=== PATIENT | female | born 1975 | race Caucasian/White ===

== ENCOUNTER → 2017-12-23 13:44 | Outpatient (CLI) | payer BC, SELFPAY ==
--- NOTE | 2017-12-23 13:52 | HPBI_ITS ---
MAMMOGRAPHY - BILATERAL SCREENING REASON FOR EXAM: Female, 42 years old. Routine annual screening examination. PERTINENT HISTORY: Non-contributory. TECHNIQUE: Digital bilateral breast amrita (3D mammographic acquisition) in the CC and MLO projections. 2-D mediolateral oblique (MLO) and craniocaudad (CC) views of both breasts were obtained. CAD: Full Field Digital Mammography with Computer Added Detection was performed. COMPARISON: Comparison is made with prior study dated November 28, 2016. FINDINGS: Breast Composition: There are scattered areas of fibroglandular density. There are no dominant masses or suspicious calcifications. No other significant abnormalities are identified. There has been no significant change since the prior study. HPBI/SCREENING MAMM (CAD), BILAT IMPRESSION: Stable bilateral screening mammogram. Yearly follow-up mammogram recommended. (A) ASSESSMENT CATEGORY: BIRADS Category 1: Negative. A letter regarding these results will be sent to the patient by the facility within 30 days. Approximately 10% of breast cancers are not detected by mammography. A normal mammogram should not delay biopsy of a clinically suspicious abnormality. [id number] Electronically Signed: Arie Silverman MD at 8:50 EST Tel [phone], Service support ,
== END ==
PROVIDERS: Family Provider Family Medicine; PCP Family Medicine; Visit Provider Obstetrics & Gynecology
DX: Z12.31 Encounter for screening mammogram for malignant neoplasm of breast (principal)
CPT/HCPCS: 77063; 77067

== ENCOUNTER → 2018-03-26 17:08 | Outpatient (CLI) | payer BC, SELFPAY | PROVIDERS: Visit Provider Obstetrics & Gynecology | DX: N89.8 Other specified noninflammatory disorders of vagina (principal) | CPT/HCPCS: 87070; 87077; 87106; 87205 ==

== ENCOUNTER → 2018-10-29 14:46 | Outpatient (CLI) | payer BC, SELFPAY ==
[2018-10-29 11:16] VITALS: BMI 34.1
== END ==
PROVIDERS: Family Provider Family Medicine; PCP Family Medicine; Referring Provider Physician Assistant; Visit Provider Physician Assistant
DX: J02.9 Acute pharyngitis, unspecified (principal)
CPT/HCPCS: 87081

== ENCOUNTER 2018-10-31 12:42 | Emergency (ER) | payer BC, SELFPAY ==
[2018-10-29 11:16] VITALS: BMI 34.1
[2018-10-31] VITALS (7 sets, daily range): BP systolic 108–155; BP diastolic 79–102; PULSE 100–123; RESP 15–21; TEMP 37.7–38.4; O2SAT 94–100; BMI 34.3
--- NOTE | 2018-10-31 12:49 | EKG12_ITS ---
Test Reason : SOB Blood Pressure : / mmHG Vent. Rate : 097 BPM Atrial Rate : 097 BPM P-R Int : 146 ms QRS Dur : 068 ms QT Int : 342 ms P-R-T Axes : 030 -16 071 degrees QTc Int : 434 ms Normal sinus rhythm Nonspecific T wave abnormality Poor R wave progression Abnormal ECG Confirmed by ANT AGUILAR, CASTRO ([id number]), writer editor COREY VERMA ([id number]) on 11/02/2018 12:44:21 PM Referred By: Edd Pagan Confirmed By:CASTRO CAIN MD
--- NOTE | 2018-10-31 12:49 | RAD_ITS ---
STUDY: X-RAY CHEST REASON FOR EXAM: Female, 42 years old. Cough. Chest pain. Fever with shortness of breath for 4 days. TECHNIQUE: Frontal and lateral views of the chest. COMPARISON: October 01, 2017 FINDINGS: There is low volume inspiration with bibasilar atelectasis. There are no focal consolidations. There is no demonstrated pleural abnormality. Normal size heart. Normal mediastinum and cici. Normal visualized pulmonary arteries. Normal visualized aortic arch and descending thoracic aorta. Normal visualized thoracic spine. Normal visualized ribs, clavicles, and shoulders. There is no demonstrated abnormality of the visualized soft tissue structures of the upper abdomen. RAD/Chest PA and Lateral IMPRESSION: Low volume inspiration with bibasilar atelectasis. No acute pathology. Electronically Signed: Porfirio Marino MD at 14:38 EST , Service support ,
--- NOTE | 2018-10-31 12:55 | ED.DCSUM_ITS ---
- ER Visit Summary Date of Service: 10/31/18 Chief Complaint: Cough, shortness of breath History of Present Illness: The patient is a 42 F presents to the emergency department with cough and shortness of breath. The patient had symptoms for the past 5 days. She was seen in urgent care. At that time, she had a negative influenza test. She also had a negative rapid strep. She states that her symptoms worsened. She has had continued cough with productive sputum. She had fevers and chills. She had pain across her chest with coughing. She is otherwise healthy. She has no history of immunosuppression. She does not smoke. is sick at home with similar symptoms. Physical Examination: Vital signs reviewed General: Well-nourished, well-developed Head: Normocephalic, atraumatic Eyes: Pupils equal and reactive, extraocular muscles intact Neck, supple, no lymphadenopathy Heart: Regular rate and rhythm Respiratory: No distress, diminished with wheezing throughout Abdomen: Soft, nontender, nondistended, no peritoneal signs Back: Nontender Extremities: Nontender, no edema, no cords Skin: Normal color no rash Neuro: Alert and oriented, no focal or lateralizing deficits Test Results: [] Emergency Department Course and Treatment: The patient presents with wheezing in all lung mixon, fever, productive cough. I am concerned that she may have pneumonia. IV was established. She was given fluids, Toradol, and steroids. She was also given nebulized breathing treatments and had improvement of her aeration. She was more comfortable. X-ray was read as no focal pneumonia, however I do suspect she has a left retrocardiac infiltrate. Screening labs are unremarkable. On reevaluation the patient is more comfortable. She wants to attempt outpatient therapy. I feel this is reasonable. She is not hypoxic. Her tachycardia has resolved when her fever was treated. I am to start on azithromycin. We will keep her on prednisone and antitussives. She was counseled concerning symptoms and reasons to return. Treatment Plan: [] Disposition: The Impression: 1. Community acquired pneumonia 2. Dyspnea This note was generated with Cloud[employer] software. It may contain incorrect words, spelling, and punctuation that were not noted in review of the chart prior to signing ED Disposition - Plan for ED Patient: Chief Complaint: Shortness of Breath Instructions: ED Pneumonia Adult Prescriptions: Albuterol Inhaler [Ventolin Hfa] 2 puff INHALATION Q4H PRN PRN #1 inhaler PRN Reason: Wheezing Azithromycin 200MG/5ML [Zithromax 200MG/5ML] 250 mg PO DAILY #30 ml Hydrocodone/APAP 7.5-325/15Ml [Lortab [Replacement] 7.5-325/15] 15 ml PO TID PRN PRN 3 Days #150 ml PRN Reason: Pain Prednisone 10 mg PO UD #33 tab Referrals: Aleksandra Douglas [Primary Care Provider] -
[2018-10-31] MEDS: Ipratropium/Albuterol Sulfate 3 ML AMPUL.NEB INHALATION (13:05)
[2018-10-31] MEDS: Albuterol 2.5 MG/3 ML VIAL.NEB. INHALATION ×3 (13:05→14:16)
[2018-10-31] MEDS: Ketorolac 30 MG/ML Syringe IV (14:12)
[2018-10-31] MEDS: MethylPREDNISolone 125 MG/2 ML Vial IV (14:13)
[2018-10-31 14:17] LABS: Absolute Lymphocyte Count 1.22 X10^3/ul (0.83-4.51); Absolute Neutrophil Count 5.1 X10^3/uL (2.0-7.7); Basophil# 0.02 X10^3/uL; Basophil% 0.3 % (0-1); Eosinophil# 0.01 X10^3/uL; Eosinophils% 0.1 % (0-5); Hematocrit 40.7 % (37-47); Lymphocyte # 1.22 X10^3/ul (4.0); Mean Corp Hgb Conc 34.4 g/gl (32-36); Mean Corpuscular Hgb 30.1 pg (27.0-32.0); Mean Corpuscular Volume 87.5 fL (81-99); Mean Platelet Vol. 10.4 fl (6.2-12.0); Monocyte# 0.43 X10^3/uL; Monocyte% 6.4 % (0-10); Neutrophil # 5.07 X10^3/uL (2.7-7.7); Neutrophil % 75.1 % (47-70); Platelet Count 206 K/mm3 (150-450); RBC Distribution Width CV 13.4 % (11.6-14.6); RBC Distribution Width SD 42.4 fl (35.1-43.9); Red Blood Count 4.65 M/mm3 (4.2-5.4); White Blood Count 6.8 K/mm3 (4.4-11.0)
[2018-10-31 14:18] LABS: POSITIVE COUNT NO; POSITIVE DIFFERENTIAL NO; POSITIVE MORPHOLOGY NO
[2018-10-31 14:35] LABS: Anion Gap 10 (5-15); BUN 7 mg/dL (7-18); BUN/Creat Ratio 8.3 RATIO (10-20); Calcium,Total 8.2 mg/dL (8.5-10.1); Chloride 110 mmol/L (98-107); Creatinine, Serum 0.85 mg/dL (0.55-1.02); EST Glomerular Filtration Rate 79 mL/min (>60); Est Glom Filt Rate - Afr Amer 95 mL/min (>60); Estimated Creatinine Clearance 75.97 ml/min; Glucose 101 mg/dL (74-106); Potassium 3.2 mmol/L (3.5-5.1); Sodium Level 142 mmol/L (136-145)
[2018-10-31] MEDS: HYDROcodone Bitartrate/Apap 5/325 Tablet PO (15:06)
--- NOTE | 2018-10-31 15:54 | ED.RN ---
states pt may have work excuse effective thru Friday. may return to work nov 03, 2018
== END 2018-10-31 17:07 | disposition home or self-care (01) ==
LOC: ED 13:49
PROVIDERS: Emergency Provider Emergency Medicine; Family Provider Family Medicine; PCP Family Medicine
DX: J18.9 Pneumonia, unspecified organism (principal)
CPT/HCPCS: 71046; 80048; 84484; 85025; 93005; 94640; 96361; 96365; 96375; 99285; J7040; J7050; A4216

== ENCOUNTER → 2018-11-16 16:12 | Outpatient (CLI) | payer BC, SELFPAY ==
[2018-10-31 12:43] VITALS: BMI 34.3
[2018-11-16 17:39] LABS: Anion Gap 12 (5-15); BUN 10 mg/dL (7-18); BUN/Creat Ratio 12.3 RATIO (10-20); Calcium,Total 8.2 mg/dL (8.5-10.1); Chloride 108 mmol/L (98-107); Creatinine, Serum 0.81 mg/dL (0.55-1.02); EST Glomerular Filtration Rate 83 mL/min (>60); Est Glom Filt Rate - Afr Amer 100 mL/min (>60); Glucose 103 mg/dL (74-106); Potassium 3.4 mmol/L (3.5-5.1); Sodium Level 142 mmol/L (136-145)
== END ==
PROVIDERS: Family Provider Family Medicine; PCP Family Medicine; Referring Provider Family Medicine; Visit Provider Family Medicine
DX: E87.6 Hypokalemia (principal); E83.51 Hypocalcemia
CPT/HCPCS: 36415; 80048

== ENCOUNTER → 2018-11-27 15:59 | Outpatient (CLI) | payer BC, SELFPAY ==
[2018-10-31 12:43] VITALS: BMI 34.3
[2018-11-27 16:53] LABS: Anion Gap 10 (5-15); BUN 14 mg/dL (7-18); BUN/Creat Ratio 14.5 RATIO (10-20); Calcium,Total 8.4 mg/dL (8.5-10.1); Chloride 112 mmol/L (98-107); Creatinine, Serum 0.97 mg/dL (0.55-1.02); EST Glomerular Filtration Rate 68 mL/min (>60); Est Glom Filt Rate - Afr Amer 82 mL/min (>60); Glucose 116 mg/dL (74-106); Potassium 3.7 mmol/L (3.5-5.1); Sodium Level 144 mmol/L (136-145)
== END ==
PROVIDERS: Family Provider Family Medicine; PCP Family Medicine; Referring Provider Family Medicine; Visit Provider Family Medicine
DX: E83.51 Hypocalcemia (principal); E87.6 Hypokalemia
CPT/HCPCS: 36415; 80048

== ENCOUNTER → 2019-02-08 07:55 | Outpatient (CLI) | payer BC, SELFPAY ==
[2019-01-13 10:31] VITALS: BMI 34.3
--- NOTE | 2019-02-08 07:57 | BI_ITS ---
MAMMOGRAPHY - BILATERAL SCREENING REASON FOR EXAM: Female, 43 years old. Routine annual screening examination. PERTINENT HISTORY: Non-contributory. TECHNIQUE: Digital bilateral breast rose (3D mammographic acquisition) in the CC and MLO projections. 2-D mediolateral oblique (MLO) and craniocaudad (CC) views of both breasts were obtained. CAD: Full Field Digital Mammography with Computer Added Detection was performed. COMPARISON: Comparison is made with prior study dated December 23, 2017 and November 28, 2016. FINDINGS: Breast Composition: There are scattered areas of fibroglandular density. There are no dominant masses or suspicious calcifications. Stable small bilateral axillary lymph nodes. No other significant abnormalities are identified. There has been no significant change since the prior study. BI/SCREEN MAMM (CAD) W/ROSE BILAT IMPRESSION: Stable bilateral screening mammogram. Yearly follow-up mammogram recommended. (A) ASSESSMENT CATEGORY: BIRADS Category 2: Benign. A letter regarding these results will be sent to the patient by the facility within 30 days. Approximately 10% of breast cancers are not detected by mammography. A normal mammogram should not delay biopsy of a clinically suspicious abnormality. [id number] Electronically Signed: Arie Silverman, at 10:58 EDT , Service support ,
== END ==
PROVIDERS: Family Provider Family Medicine; PCP Family Medicine; Referring Provider Obstetrics & Gynecology; Visit Provider Obstetrics & Gynecology
DX: Z12.31 Encounter for screening mammogram for malignant neoplasm of breast (principal)
CPT/HCPCS: 77063; 77067

== ENCOUNTER → 2019-04-12 08:39 | Outpatient (CLI) | payer BC, SELFPAY ==
[2019-01-13 10:31] VITALS: BMI 34.3
[2019-04-12 10:01] LABS: Absolute Lymphocyte Count 1.04 X10^3/ul (0.83-4.51); Absolute Neutrophil Count 3.2 X10^3/uL (2.0-7.7); Hematocrit 36.6 % (37-47); Hemoglobin 12.5 g/dl (12.0-15.0); Lymphocyte # 1.04 X10^3/ul (4.0); Lymphocyte % 23.9 % (19-41); Mean Corp Hgb Conc 34.2 g/gl (32-36); Mean Corpuscular Hgb 29.6 pg (27.0-32.0); Mean Corpuscular Volume 86.7 fL (81-99); Mean Platelet Vol. 10.4 fl (6.2-12.0); Monocyte# 0.15 X10^3/uL; Monocyte% 3.4 % (0-10); Neutrophil # 3.16 X10^3/uL (2.7-7.7); Neutrophil % 72.5 % (47-70); Platelet Count 237 K/mm3 (150-450); RBC Distribution Width CV 13.5 % (11.6-14.6); RBC Distribution Width SD 42.7 fl (35.1-43.9); Red Blood Count 4.22 M/mm3 (4.2-5.4); White Blood Count 4.4 K/mm3 (4.4-11.0)
[2019-04-12 10:02] LABS: POSITIVE COUNT NO; POSITIVE DIFFERENTIAL NO; POSITIVE MORPHOLOGY NO
[2019-04-12 10:31] LABS: Thyroid Stim Hormone (TSH) 1.67 uIU/mL (0.358-3.74)
== END ==
PROVIDERS: Family Provider Family Medicine; PCP Family Medicine; Referring Provider Nurse Practitioner Women's Health; Visit Provider Nurse Practitioner Women's Health
DX: R53.83 Other fatigue (principal)
CPT/HCPCS: 36415; 84443; 85025

== ENCOUNTER → 2019-04-20 08:38 | Outpatient (CLI) | payer BC, SELFPAY ==
[2019-01-13 10:31] VITALS: BMI 34.3
[2019-04-20 10:36] LABS: T4 Free Direct 1.01 ng/dL (0.76-1.46)
[2019-04-22 15:12] LABS: Vitamin D 1,25-Dihydroxy 88.5 pg/mL (19.9-79.3)
== END ==
PROVIDERS: Family Provider Family Medicine; PCP Family Medicine; Referring Provider Obstetrics & Gynecology; Visit Provider Obstetrics & Gynecology
DX: R53.83 Other fatigue (principal)
CPT/HCPCS: 36415; 82652; 84439

== ENCOUNTER → 2019-05-04 08:33 | Outpatient (CLI) | payer BC, SELFPAY ==
[2019-01-13 10:31] VITALS: BMI 34.3
[2019-05-04 10:11] LABS: Anion Gap 11 (5-15); BUN 16 mg/dL (7-18); Calcium,Total 8.6 mg/dL (8.5-10.1); Chloride 105 mmol/L (98-107); Creatinine, Serum 0.84 mg/dL (0.55-1.02); EST Glomerular Filtration Rate 79 mL/min (>60); Est Glom Filt Rate - Afr Amer 96 mL/min (>60); Glucose 90 mg/dL (74-106); Potassium 4.1 mmol/L (3.5-5.1); Sodium Level 140 mmol/L (136-145)
[2019-05-04 10:13] LABS: Vitamin D,25 Hydroxy 34.6 ng/mL (29.95-100.01)
== END ==
PROVIDERS: Family Provider Family Medicine; PCP Family Medicine; Referring Provider Family Medicine; Visit Provider Family Medicine
DX: E87.6 Hypokalemia (principal); E67.3 Hypervitaminosis D
CPT/HCPCS: 36415; 80048; 82306

== ENCOUNTER → 2019-07-08 20:38 | Outpatient (CLI) | payer BC, SELFPAY ==
[2019-01-13 10:31] VITALS: BMI 34.3
== END ==
PROVIDERS: Family Provider Family Medicine; PCP Family Medicine; Referring Provider Family Medicine; Visit Provider Family Medicine
DX: G47.19 Other hypersomnia (principal); R53.83 Other fatigue
CPT/HCPCS: 95810

== ENCOUNTER → 2019-08-17 22:17 | Outpatient (CLI) | payer BC, SELFPAY ==
[2019-06-28 17:09] VITALS: BMI 34.3
== END ==
PROVIDERS: Family Provider Family Medicine; PCP Family Medicine; Referring Provider Family Medicine; Visit Provider Family Medicine
DX: G47.33 Obstructive sleep apnea (adult) (pediatric) (principal)
CPT/HCPCS: 95811

== ENCOUNTER → 2019-09-13 07:00 | Outpatient (CLI) | payer BC, SELFPAY ==
[2019-06-28 17:09] VITALS: BMI 34.3
== END ==
PROVIDERS: Family Provider Family Medicine; PCP Family Medicine; Referring Provider Family Medicine; Visit Provider Family Medicine
DX: Z46.89 Encounter for fitting and adjustment of other specified devices (principal)

== ENCOUNTER 2019-09-28 05:36 | Day surgery (SDC) | payer BC, SELFPAY ==
[2019-06-28 17:09] VITALS: BMI 34.3
[2019-09-10 08:58] VITALS: BMI 34.3
[2019-09-27 16:15] LABS: Hematocrit 36.8 % (37-47); Hemoglobin 12.5 g/dL (12.0-15.0); Mean Corpuscular Hgb 29.6 pg (27.0-32.0); Mean Platelet Vol. 10.6 fl (6.2-12.0); Platelet Count 307 K/mm3 (150-450); RBC Distribution Width CV 13.2 % (11.6-14.6); RBC Distribution Width SD 41.4 fl (35.1-43.9); Red Blood Count 4.23 M/mm3 (4.2-5.4); White Blood Count 6.1 K/mm3 (4.4-11.0)
[2019-09-28] VITALS (10 sets, daily range): BP systolic 106–129; BP diastolic 70–84; PULSE 72–91; RESP 16–20; TEMP 36.4–37.1; O2SAT 93–100; BMI 35.8
[2019-09-28 06:07] LABS: Internal QC Validated? YES +Cl - CLEAR BKGD; Pregnancy, Urine Negative Negative
[2019-09-28] MEDS: Lactated Ringers 1,000 ML 125 ML IV ×2 (06:21→08:40)
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
--- NOTE | 2019-09-28 07:30 | FALS_PTH ---
PATIENT: NICOLLE MA [place] [facility] [id number] AGE/SX: 43/F ROOM: RE09/28/[address]: Dr. Alta Hernandez MD : 1975 BED: DIS: 09/28/2019 SPEC #: [id number] RECD: 09/28/19 09:00 STATUS: SAÚL SABRINA #: [id number] MIGUELINA: 09/28/19 07:[address]: Alta Hernandez DEPT: SURGICAL PATHOLOGY RECD BY: Rosalina Hoffman ENTERED: 09/28/19 11:08 SP TYPE: FALL TUBES OTHR DR: Dr. Aleksandra Douglas MD Tissues: Fallopian tube Procedures: Surgery Specimen Level II Surgery Specimen Level IV HEADER OPERATION: Laparoscopic, salpingectomy PRE-OP DIAGNOSIS: Family history of ovarian cancer, sterilization TISSUE SUBMITTED: Bilateral fallopian tubes MICROSCOPIC DIAGNOSIS Right and left fallopian tubes, bilateral salpingectomies: Two complete segments of fallopian tubes with benign paratubal cyst. AM:francesco 09/29/19 MICROSCOPIC DESCRIPTION Slides are reviewed. GROSS DESCRIPTION Received is one container labeled with the patient's name and designated bilateral fallopian tubes. The specimen consists of bilateral fallopian tubes including fimbrial ends measuring 6 cm in length and 0.6 cm in diameter and 5 cm in length and 0.6 cm in diameter. Sections do not reveal any mass lesion. The fallopian tubes are not identified as right or left. Sections reveal unremarkable cut surfaces. Bed And Breakfast Operator sections are submitted in two cassettes with each cassette containing one fallopian tube. / SJ:francesco 09/28/19 TC:5 CPT: 98961, 21970
[2019-09-28] MEDS: Bupivacaine 0.25% 30 ML Vial (08:00)
--- NOTE | 2019-09-28 08:21 | OP.PCM_ITS ---
Problem List (1) Family history of ovarian cancer Status: Acute Comment: Mother (2) Sterilization consult Status: Acute Comment: plan laparoscopic bilateral salpingectomy or vasectomy Report of Operation Date of Procedure: 09/28/19 Pre-Operative Diagnosis: history ovarian cancer and sterilization Post-Operative Diagnosis: same Surgery/Procedure Performed:: laparoscopic bilateral salpingectomy Description of Surgical Findings:: nl tubes ovaries pneumatic jack operator: Bernadette Lynch Type of Anesthesia:: General Special Medications: none Specimen's removed: tubes Drains: none Estimated Blood Loss (mL): minimal Fluids Replaced: crystalloid Description of Procedure: Patient was taken in the operating room and was placed under general anesthesia was prepped and draped in normal sterile fashion in the dorsal lithotomy position. Bladder was drained of clear urine and SCDs were on preoperatively. Uterus was sounded and a uterine manipulator was placed after dilating. Attention was then paid to the abdominal portion of the procedure and the umbilicus was elevated with towel clamps and injected with Marcaine and after a 5 mm incision was made and the Veress needle was entered into the abdomen confirmed to be intra-abdominal with a low opening pressure of less than 5 mmHg. Abdomen was insufflated with CO2 gas and a 5 mm optical trocar was placed under direct visualization. A left lower quadrant 5 mm port and a 5 mm port suprapubically were placed under direct visualization. Uterus was well visualized and bilateral fallopian tubes identified and bilateral tubes were elevated and transecting across the mesosalpinx and the attachment to the uterine corpus bilaterally the tubes were removed without complication. Excellent hemostasis was noted. Fallopian tubes were removed through the lower port sites without complication. Liver and upper abdomen were visualized notably within normal limits and no other gross abnormalities were seen in the abdomen. All instruments removed from the abdomen after gas was desufflated. Port sites were closed with 3-0 Monocryl Steri's and op sites were applied. All instruments removed from the vagina and patient was awoken and taken recovery in stable condition. Grafts/Implants Used: none - Complications none - Admit VTE Documentation VTE Present on Admission: No Multi Select Codes - Urinary/Genital Urinary/Genital CPT Codes: 54436 Laproscopic BS/O
--- NOTE | 2019-09-28 08:24 | PCM.DC.TUB ---
Discharge Diet: No Restrictions - Increase fluid intake for the next 48 hours. Discharge Activity: Return to Normal Activity, May Drive - when you are no longer taking narcotic pain medications., May Shower, May Take a Tub Bath - in 7 days Additional Activity Instructions:: Ambulate often the next week after surgery. Nothing in the vagina for 5 days. Call your doctor if your incision/area has: Continuous Slow Oozing, Sudden Increased Bleeding, Increased Pain/ Swelling, Increased Redness, Foul Smelling Discharge Call your doctor if you observe: Fever of 101 or Higher Allergies/Adverse Reactions: Allergies divalproex sodium [From Depakote] Allergy (Verified 09/23/19 13:38) Unknown oxcarbazepine [From Trileptal] Allergy (Verified 09/23/19 13:38) Unknown Medications to take at Discharge desogestrel 0.15 mg-ethinyl estradiol 0.03 mg tablet 1 tab PO QDAY #28 tab 11/17/18 Naproxen [Naprosyn] 250 - 500 mg PO Q8H PRN PRN #30 tab 09/28/19 Oxycodone HCl/Acetaminophen [Percocet 5-325] 1 - 2 tablet PO Q6H PRN PRN 7 Days #15 tablet 09/28/19 The following prescriptions were given: Naproxen [Naprosyn] 250 - 500 mg PO Q8H PRN PRN #30 tab PRN Reason: MILD PAIN Transmission Status: Pending to [facility] Oxycodone HCl/Acetaminophen [Percocet 5-325] 1 - 2 tablet PO Q6H PRN PRN 7 Days #15 tablet PRN Reason: Pain Transmission Status: Sent to [facility] Orders to be completed after discharge: Type & Screen Time Frame: 09/23/19, Facility: [facility], Location: Laboratory CBC-Complete Blood Cnt No Diff Time Frame: 09/23/19, Facility: [facility], Location: Laboratory Primary Care Physician: Aleksandra Douglas [Primary Care Provider] - Test Results: Test results from this visit will be discussed in further detail at your follow-up appointment, if applicable. Please Follow Up With: Alta Hernandez MD - [phone]
[2019-09-28] MEDS: Ipratropium/Albuterol Sulfate 3 ML AMPUL.NEB INHALATION (09:07)
== END 2019-09-28 11:14 | disposition home or self-care (01) ==
LOC: SDC 05:36 → AC 05:37
PROVIDERS: Family Provider Family Medicine; PCP Family Medicine; Referring Provider Obstetrics & Gynecology; Visit Provider Obstetrics & Gynecology
PROC: (CPT 58661; principal; 2019-09-28 07:15)
DX: Z30.2 Encounter for sterilization (principal); Z80.41 Family history of malignant neoplasm of ovary; N83.8 Other noninflammatory disorders of ovary, fallopian tube and broad ligament; F34.1 Dysthymic disorder
CPT/HCPCS: 00840; 58661; 36415; 81025; 85027; 86850; 86900; 86901; 88302; 88305; 94640; J7120; J2405

== ENCOUNTER → 2020-04-14 12:27 | Outpatient (CLI) | payer BC, SELFPAY ==
[2019-10-07 15:31] VITALS: BMI 35.8
--- NOTE | 2020-04-14 12:43 | BI_ITS ---
MAMMOGRAPHY - BILATERAL SCREENING REASON FOR EXAM: Female, 44 years old. Routine annual screening examination. PERTINENT HISTORY: Non-contributory. TECHNIQUE: Digital bilateral breast rose (3D mammographic acquisition) in the CC and MLO projections. 2-D mediolateral oblique (MLO) and craniocaudad (CC) views of both breasts were obtained. CAD: Full Field Digital Mammography with Computer Added Detection was performed. COMPARISON: Comparison is made with prior study dated February 08, 2019 and December 23, 2017. FINDINGS: Breast Composition: There are scattered areas of fibroglandular density. There are no dominant masses or suspicious calcifications. No other significant abnormalities are identified. There has been no significant change since the prior study. BI/SCREEN MAMM (CAD) W/ROSE BILAT IMPRESSION: Stable bilateral screening mammogram. Yearly follow-up mammogram recommended. (A) ASSESSMENT CATEGORY: BIRADS Category 1: Negative. A letter regarding these results will be sent to the patient by the facility within 30 days. Approximately 10% of breast cancers are not detected by mammography. A normal mammogram should not delay biopsy of a clinically suspicious abnormality. [id number] Electronically Signed: Arie Silverman, at 14:06 EDT , Service support ,
== END ==
PROVIDERS: PCP Family Medicine; Referring Provider Nurse Practitioner Women's Health; Visit Provider Nurse Practitioner Women's Health
DX: Z12.31 Encounter for screening mammogram for malignant neoplasm of breast (principal)
CPT/HCPCS: 77063; 77067

== ENCOUNTER → 2020-07-24 | Outpatient (CLI) | payer BC, SELFPAY ==
[2020-07-24 11:01] VITALS: BMI 35.8
[2020-07-28 17:06] LABS: HPV APTIMA, High Risk Negative (Negative)
== END | disposition home or self-care (01) ==
LOC: LABSPEC 17:01
PROVIDERS: PCP Family Medicine; Referring Provider Nurse Practitioner Women's Health; Visit Provider Nurse Practitioner Women's Health
DX: Z12.4 Encounter for screening for malignant neoplasm of cervix (principal)
CPT/HCPCS: 87624; 88175; G0145

== ENCOUNTER → 2021-01-17 15:42 | Outpatient (CLI) | payer BC, SELFPAY ==
[2021-01-12 09:58] VITALS: BMI 35.8
--- NOTE | 2021-01-17 15:45 | US_ITS ---
STUDY: ULTRASOUND OF THE FEMALE PELVIS - COMPLETE REASON FOR EXAM: Female, 45 years old. pelvic pain -- family history of ovarian cancer LMP: 12/31/2020 TECHNIQUE: Transabdominal and Transvaginal TECHNICAL QUALITY: Adequate. COMPARISON: 11/19/2011 FINDINGS: The uterus is anteverted and is in a midline position. The uterus measures 10.8 x 5.6 x 4.2 cm. There is a Nabothian cyst of the cervix. The endometrium measures 10 mm in thickness, and is hyperechoic. There is no demonstrated endometrial mass. 7 mm round hypoechoic mass within the in the myometrium of the fundus the uterus consistent with a small intramural fibroid. I.U.D. - The patient does not have an I.U.D. The right ovary is visualized. The right ovary measures 2.9 x 2.1 x 1.7 cm. There is no right ovarian cyst or ovarian mass. There is no visualized right adnexal mass or complex lesion. There is normal arterial and normal venous vascularity. The left ovary is visualized. The left ovary measures 3.1 x 2.3 x 2.4 cm. There is no left ovarian cyst or ovarian mass. There is no visualized left adnexal mass or complex lesion. There is normal arterial and normal venous vascularity. There is no fluid in the cul-de-sac. The pre void volume of the bladder was 578 ml. The post void volume of the bladder was ml. Polycystic ovary disease: No. US/Transvaginal Non- IMPRESSION: 7 mm intramural fibroid in the fundus the uterus. Electronically Signed: Keith Gil MD at 14:20 EDT Tel , Service support ,
--- NOTE | 2021-01-17 15:45 | US_ITS ---
STUDY: ULTRASOUND OF THE FEMALE PELVIS - COMPLETE REASON FOR EXAM: Female, 45 years old. pelvic pain -- family history of ovarian cancer LMP: 12/31/2020 TECHNIQUE: Transabdominal and Transvaginal TECHNICAL QUALITY: Adequate. COMPARISON: 11/19/2011 FINDINGS: The uterus is anteverted and is in a midline position. The uterus measures 10.8 x 5.6 x 4.2 cm. There is a Nabothian cyst of the cervix. The endometrium measures 10 mm in thickness, and is hyperechoic. There is no demonstrated endometrial mass. 7 mm round hypoechoic mass within the in the myometrium of the fundus the uterus consistent with a small intramural fibroid. I.U.D. - The patient does not have an I.U.D. The right ovary is visualized. The right ovary measures 2.9 x 2.1 x 1.7 cm. There is no right ovarian cyst or ovarian mass. There is no visualized right adnexal mass or complex lesion. There is normal arterial and normal venous vascularity. The left ovary is visualized. The left ovary measures 3.1 x 2.3 x 2.4 cm. There is no left ovarian cyst or ovarian mass. There is no visualized left adnexal mass or complex lesion. There is normal arterial and normal venous vascularity. There is no fluid in the cul-de-sac. The pre void volume of the bladder was 578 ml. The post void volume of the bladder was ml. Polycystic ovary disease: No. US/Pelvic (Non ) IMPRESSION: 7 mm intramural fibroid in the fundus the uterus. Electronically Signed: Keith Gil MD at 14:20 EDT Tel , Service support ,
== END ==
PROVIDERS: PCP Family Medicine; Referring Provider Obstetrics & Gynecology; Visit Provider Obstetrics & Gynecology
DX: R10.2 Pelvic and perineal pain (principal); Z80.41 Family history of malignant neoplasm of ovary
CPT/HCPCS: 76830; 76856; 93976

== ENCOUNTER → 2021-01-24 11:14 | Outpatient (CLI) | payer BC, SELFPAY ==
[2021-01-24 09:08] VITALS: BMI 37.0
[2021-01-24 12:18] LABS: NATERA MAILED SPECIMEN
== END ==
PROVIDERS: PCP Family Medicine; Referring Provider Obstetrics & Gynecology; Visit Provider Obstetrics & Gynecology
DX: Z13.9 Encounter for screening, unspecified (principal); Z80.0 Family history of malignant neoplasm of digestive organs; Z80.41 Family history of malignant neoplasm of ovary
CPT/HCPCS: 36415

== ENCOUNTER → 2021-03-05 18:17 | Outpatient (CLI) | payer BC, SELFPAY ==
[2021-02-20 15:13] VITALS: BMI 36.3
[2021-03-05 20:12] LABS: M R Staph aureus DNA By PCR Negative (Negative); Probe Check PASS; Specimen Processing Control PASS; Staph aureus DNA By PCR NEGATIVE (Negative)
== END ==
PROVIDERS: PCP Family Medicine; Referring Provider Podiatrist; Visit Provider Podiatrist
DX: S91.359A Open bite, unspecified foot, initial encounter (principal); W54.0XXA Bitten by dog, initial encounter; Y93.9 Activity, unspecified; Y92.9 Unspecified place or not applicable; Y99.9 Unspecified external cause status
CPT/HCPCS: 87070; 87075; 87077; 87186; 87205; 87640

== ENCOUNTER 2021-03-20 09:06 | Day surgery (SDC) | payer BC, SELFPAY ==
[2021-02-20 15:13] VITALS: BMI 36.3
--- NOTE | 2021-03-15 10:07 | EKG12_ITS ---
Test Reason : PREOP Blood Pressure : / mmHG Vent. Rate : 068 BPM Atrial Rate : 068 BPM P-R Int : 166 ms QRS Dur : 080 ms QT Int : 392 ms P-R-T Axes : 028 005 011 degrees QTc Int : 416 ms Normal sinus rhythm Low voltage QRS Borderline ECG Confirmed by ANT AGUILAR, CASTRO ([id number]), material expeditor MEDHAT BAEZ ([id number]) on 03/16/2021 10:39:33 AM Referred By: Alta Hernandez Confirmed By:CASTRO CAIN MD
[2021-03-15 11:13] LABS: Absolute Lymphocyte Count 1.73 X10^3/uL (0.83-4.51); Absolute Neutrophil Count 3.9 X10^3/uL (2.0-7.7); Basophil# 0.06 X10^3/uL; Eosinophil# 0.07 X10^3/uL; Eosinophils% 1.1 % (0-5); Hematocrit 37.2 % (37-47); Hemoglobin 12.4 g/dL (12.0-15.0); Lymphocyte # 1.73 X10^3/ul (0.83-4.51); Lymphocyte % 27.8 % (19-41); Mean Corp Hgb Conc 33.3 g/dL (32-36); Mean Corpuscular Hgb 28.8 pg (27.0-32.0); Mean Corpuscular Volume 86.3 fL (81-99); Mean Platelet Vol. 10.5 fl (6.2-12.0); Monocyte% 6.4 % (0-10); NRBC Flagged by Analyzer 0 % (0-5); Neutrophil # 3.94 X10^3/uL (2.7-7.7); Neutrophil % 63.2 % (47-70); Platelet Count 291 K/mm3 (150-450); RBC Distribution Width CV 13.3 % (11.6-14.6); RBC Distribution Width SD 41.4 fl (35.1-43.9); Red Blood Count 4.31 M/mm3 (4.2-5.4); White Blood Count 6.2 K/mm3 (4.4-11.0)
[2021-03-15 11:28] LABS: Magnesium 2.2 mg/dL (1.6-2.6)
[2021-03-20] VITALS (23 sets, daily range): BP systolic 79–141; BP diastolic 46–87; PULSE 44–449; RESP 16–22; TEMP 36.1–37.5; O2SAT 92–99; BMI 37.5
--- NOTE | 2021-03-20 01:30 | HP.PCM_ITS ---
History and Physical Date of Admission: 03/20/21 Intake Vital Signs 02/20/21 Height 5 ft 4 in 02/20/21 Weight: 212 lb 02/20/21 BMI 36.3 02/20/21 BP 120/84 H Intake Visit Reasons: hyst consult per Chief Complaint: hyst consult Digital Measurement Advisor Required: No Is patient in pain?: No Allergies divalproex sodium [From Depakote] Allergy (Verified 02/20/21 15:14) Unknown oxcarbazepine [From Trileptal] Allergy (Verified 02/20/21 15:14) Unknown Medications desogestrel 0.15 mg-ethinyl estradiol 0.03 mg tablet 1 tablet PO QDAY #28 tablet 01/24/21 [Rx Confirmed 02/20/21] fluoxetine 20 mg capsule 20 mg PO DAILY #30 cap 02/05/21 [Rx Confirmed 02/20/21] Post menopausal: No Patient : No : No PFS Medical History Abnormal Pap smear of cervix (Acute) Psychiatric disorder (Acute) Hirsutism (Resolved) PMS (premenstrual syndrome) (Resolved) Surgical History delivery delivered (Acute) H/O LEEP (Acute) History of hernia repair (Acute) Previous back surgery (Acute) Status post bilateral salpingectomy (Acute ~09/28/19) Family History Father Diabetes Heart disease Mother Cancer ovarian cancer Grandfather Colon cancer Social History (Updated 02/20/21 @ 16:[address] 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 she is also wanting to discuss her history of irregular menses. She has used an IUD and OCP in the past to manage these in the past and has had some side effects so wanting to proceed with surgical management. She has struggled with climacteric over the years with mood changes and hot flashes so will plan ERT after oophorectomy. Female Reproductive History Cycle Length: 21-35 Bleeding Duration: 5 Menopausal Symptoms: No hot flashes, No night sweats, No mood changes Pregancy History 2 Elective abortions Hx Para 2 Spontaneous abortions Hx # Term Pregnancies Ectopic pregnancies Hx # Pregnancies Multiple births # of living children Past Pregnancies Del. Date Name GA/Weeks Outcome Route Bth Weight Gen Labor Lgth Anesthesia Del Locatn Provider FOB Unknown 1997 Les Unknown 2000 [place] TEJADA Const Constitutional: Denies fatigue, night sweats, weight gain or weight loss ENT ENT: Reports system reviewed and no additional complaints, except as docu Cardio Card: Denies chest pain Resp Resp: Denies cough or dyspnea GI GI: Reports as per HPI; denies constipation, nausea or vomiting : Reports as per HPI; denies hot flashes, nipple discharge, vaginal discharge, vaginal dryness, vaginal odor or vaginal itching Musc Musc: Denies joint pain, back pain or muscle weakness Skin Skin/Breast: Denies hair loss, change in hair, dry skin, breast lump, breast pain, breast skin changes or nipple discharge Neuro Neuro: Reports system reviewed and no additional complaints, except as docu Psych Psych: Reports system reviewed and no additional complaints, except as docu Endo Endo: Denies cold intolerance, excessive sweating, heat intolerance or increased thirst [place]/Lymph Hematologic/Lymphatic: Denies easy bleeding, Denies easy bruising, Denies enlarged lymph nodes Exam Const General: cooperative, healthy appearing, comfortable, no acute distress, well developed Orientation: alert [facility] Head: normal to inspection, normocephalic Ears: hearing grossly normal bilaterally, external ears normal Nose: external nose normal, nares normal Face and sinus: normal facial exam Neck Neck: normal visual inspection, no lymphadenopathy Thyroid: thyroid normal Chest Chest palpation & inspection: normal inspection of the chest Resp Effort & Inspection: normal respiratory effort Auscultation: clear to auscultation bilaterally Cardio Rate: regular rate Rhythm: regular rhythm Heart Sounds: S1 normal, S2 normal GI Inspection: normal to inspection, non-distended Palpation: soft, no hepatosplenomegaly Musc Other: gross motor intact no deficits, full bilateral strength Skin General: no rashes or lesions noted Neuro General: alert, awake, moves all extremities, no focal motor deficits Motor: muscle tone normal throughout Extrem General: normal to inspection, no pedal edema Psych Appearance: grossly normal Mental Status: mental status grossly normal Affect: normal affect Speech and Movement: speech and movement normal Assessment & Plan Problems 1. Family history of ovarian cancer Z80.41 Mother, empower test positive for BRIP1 gene, plan risk reducing bso 2. Irregular menses N92.6 IUD, OCP in past, side effects with OCP plan LAVHBSO Plan After discussing the patient's diagnosis and treatment plan options, patient wishes to proceed with surgical management. I have discussed with the patient the risks, benefits, and alternatives of the procedure which include but are not limited to risks of anesthesia, bleeding, infection, possible damage to bowel, bladder, or surrounding vasculature which could lead to additional surgery to evaluate any complications. Patient agrees to procedure and wishes to proceed. ACOG/uptodate references given for additional information regarding procedure. UPDATE- I have seen the patient and performed any clinically relevant updates to the history and physical exam. Alta Hernandez MD
[2021-03-20 09:34] LABS: Internal QC Validated? YES +Cl - CLEAR BKGD; Pregnancy, Urine Negative Negative
[2021-03-20] MEDS: Celecoxib 200 MG Capsule 400 MG PO (09:48)
[2021-03-20] MEDS: Phenazopyridine 95 MG Tablet 190 MG PO (09:49)
[2021-03-20] MEDS: Acetaminophen 500 MG Tablet 1000 MG PO ×2 (09:49→18:48)
[2021-03-20] MEDS: Gabapentin 600 MG Tablet PO (09:49)
[2021-03-20 09:51] LABS: Bedside Glucose 79 mg/dL (70-110)
[2021-03-20] MEDS: Scopolamine 1mg/72hr Patch 1 PATCH TD (09:51)
[2021-03-20] MEDS: dexAMETHasone 10 MG/ML Vial 8 MG IV (09:51)
[2021-03-20] MEDS: Lactated Ringers 1,000 ML 40 ML IV ×2 (09:52→13:13)
[2021-03-20] MEDS: Enoxaparin 40 MG/0.4 ML Syringe SC (09:52)
[2021-03-20] MEDS: Cefazolin 2 GM in 0.9% Normal Saline 100 ML IV (11:05)
--- NOTE | 2021-03-20 11:06 | OP.PCM_ITS ---
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: (3) S/P vaginal hysterectomy: (4) Family history of ovarian cancer: (5) Irregular menses: Report of Operation Pre-Operative Diagnosis: AUB, ovarian cancer gene positive Post-Operative Diagnosis: same Surgery/Procedure Performed:: ROCCO Description of Surgical Findings:: nl ovaries, nl uterus pelvic congestion present elementary instructional coach: Jackie Allan Type of Anesthesia: General Specimen's removed: uterus, ovaries Drains: beard Estimated Blood Loss (mL): 100 Fluids Replaced: crystalloid Description of Procedure: Patient received preoperative antibiotics and SCDs were on preoperatively. Patient was taken back to the operating room and placed in the dorsal lithotomy position. General anesthesia was induced and patient was prepped and draped in normal sterile fashion. Uterine manipulator was placed inside the uterus and Beard catheter placed in the bladder. The umbilicus was grasped with towel clamps and an intraumbilical incision was made after injecting with quarter percent Marcaine and a Veress needle entered into the abdomen confirmed to be intra-abdominal with a low opening pressure. Abdomen was insufflated with CO2 gas and the Veress needle removed and the 5 mm trocar was placed under direct visualization without complication. Right and left lower quadrants were transilluminated and injected with quarter percent Marcaine and 5 mm ports placed under direct visualization. Pelvis was well visualized see operative findings for additional information. Bilateral ovaries were identified and transected with the LigaSure device across the infundibulopelvic ligament to the level of the utero-ovarian ligament and the broad ligament was dissected and clamped and cut across with the LigaSure device . The broad ligament was opened up by transecting the round ligament bilaterally and skeletonizing the uterine vessels bilaterally and creating a bladder flap using the LigaSure device. The uterine arteries were transected bilaterally with good visualization of the bladder and the ureters were seen to be inferior lateral to the operative area. Attention was then paid to the vaginal portion of the procedure and the cervix was grasped with Paris clamps and circumferentially injected with dilute vasopressin. A circumferential incision was made and the vaginal mucosa was mobilized off posteriorly and the cul-de-sac entered into sharply and a longneck speculum placed. The anterior cul-de-sac was then identified and entered into sharply. The uterosacral ligaments were clamped cut and suture ligated with 0 Monocryl bilaterally followed by the cardinal ligaments which were clamped cut and suture ligated bilaterally with 0 Monocryl. The uterus serially descended and was removed without difficulty. Pelvic sidewall pedicles were checked and noted to have excellent hemostasis. The vaginal mucosa was reapproximated incorporating the posterior peritoneum. This was reapproximated using 0 Vicryl [id number] sutures. Excellent hemostasis was noted. The pelvis and cul-de-sac were well visualized and no significant active bleeding noted but some raw areas were seen on the peritoneum and therefore Robert was applied. Pressure was taken down and the areas visualized and noted of excellent hemostasis. All ports were removed under direct visualization without complication and the abdomen was desufflated of air. The instruments were removed from the abdomen and the vaginal sweep was negative. Port sites on the abdomen were closed with 4-0 Monocryl interrupted sutures and Steri's and windows were applied. She was awoken and taken recovery in stable condition. Grafts/Implants Used: none Complications none Admit VTE Documentation VTE Present on Admission: No VTE Mechan Device Prophylaxis: SCD's VTE Pharm Prophylaxis ordered?: Yes Procedures Urinary/Genital 52xxx-59xxx: 56578 LAVH+BS/O <250gr Uterus
[2021-03-20] MEDS: Ondansetron 4 MG/2 ML Vial IV (11:08)
--- NOTE | 2021-03-20 11:09 | PCM.DC ---
Discharge Instructions Diet Discharge Diet: No restrictions Activity Discharge Activity: Return to Normal Activity, May Not Drive (while taking narcotic pain medications.) and May Shower May resume sexual activity in: 6-8 weeks Dressing / Incision Call your doctor if your incision/area has: Continuous Slow Oozing, Sudden Increased Bleeding, Increased Pain/ Swelling, Increased Redness and Foul Smelling Discharge Call your doctor if you observe: Fever of 101 or Higher, Inability to urinate, Inability to have a bowel movement and Using more than one pad per hour Follow Up Care Please Follow Up With: Alta Hernandez MD Test Results: Test results from this visit will be discussed in further detail at your follow-up appointment, if applicable. Discharge Plan Admission Primary Reason for Your Visit: hysterectomy Attending Provider: Alta Hernandez Primary Care Provider: Aleksandra Douglas Discharge Orders/Prescriptions Prescriptions: New oxycodone-acetaminophen [Endocet] 5-325 mg tablet 1 tab PO Q4H PRN (Reason: pain) 7 Days Qty: 20 RF: 0 naproxen 250 MG tablet 250 - 500 mg PO Q8H PRN PRN (Reason: MILD PAIN) Qty: 30 RF: 1 Continued multivitamin Tablet 1 tab PO DAILY RF: 0 fluoxetine [Prozac] 20 mg capsule 20 mg PO DAILY Qty: 30 RF: 12 Other Ambulatory Orders: 12 Lead EKG (Routine) Timeframe: [id number] Location: None Selected Ordered By: Dr. Reece Olivier Referrals / Follow Up: Alta Hernandez MD [STAFF PHYSICIAN] - Aleksandra Douglas MD [Primary Care Provider] -
--- NOTE | 2021-03-20 11:10 | CYSPIN_PTH ---
PATIENT: NICOLLE MA [place] [facility] [place][id number] AGE/SX: 45/F ROOM: RE03/20/[address]: Dr. Alta Hernandez MD : 1975 BED: DIS: 03/21/2021 SPEC #: [id number] RECD: 03/20/21 12:54 STATUS: SAÚL REDonnie #: [id number] MIGUELINA: 03/20/21 11:[address]: Alta Hernandez DEPT: CYTOLOGY RECD BY: Trina Cruz ENTERED: 03/21/21 09:36 SP TYPE: CYSPIN FL OTHR DR: Dr. Aleksandra Douglas MD Tissues: Pelvis, NOS Procedures: Pap Stain (control) Special Stain Group II Cytospin Fluid HEADER OPERATION: ERAS, laparoscopic, vaginal hysterectomy, bilateral oophorectomy PRE-OP DIAGNOSIS: Abnormal uterine bleeding, ovarian cancer gene positive TISSUE SUBMITTED: Pelvic cell washings for cytology DIAGNOSIS CYTOLOGY Pelvic washings for cytology (cytospin): Negative for malignant cells. See comment. STEPHEN:francesco 03/22/2021 COMMENT Please also correlate with corresponding surgical specimen [id number]. CYTOLOGY STUDY Slides are reviewed. CYTOLOGY GROSS Received is 10 ml of cloudy colorless fluid labeled with the patient's name and and designated per the requisition as pelvic cell washings. Submitted for cytology preparation. / francesco 03/21/21 TC:5 CPT: 05563
--- NOTE | 2021-03-20 11:10 | HYST_PTH ---
PATIENT: NICOLLE MA [place] [facility] [place][id number] AGE/SX: 45/F ROOM: RE03/20/[address]: Dr. Alta Hernandez MD : 1975 BED: DIS: 03/21/2021 SPEC #: [id number] RECD: 03/20/21 12:54 STATUS: SAÚL BENNETT #: [id number] MIGUELINA: 03/20/21 11:[address]: Alta Hernandez DEPT: SURGICAL PATHOLOGY RECD BY: Trina Cruz ENTERED: 03/21/21 09:36 SP TYPE: HYSTERECT OTHR DR: Dr. Aleksandra Douglas MD Tissues: Uterus, NOS Procedures: Surgery Specimen Level V HEADER OPERATION: ERAS, laparoscopic, vaginal hysterectomy, bilateral oophorectomy PRE-OP DIAGNOSIS: Abnormal uterine bleeding, ovarian cancer gene positive TISSUE SUBMITTED: Uterus, bilateral ovaries MICROSCOPIC DIAGNOSIS Uterus, hysterectomy: Cervix ? nabothian cysts and mild chronic inflammation. Endometrium ? proliferative endometrium. Myometrium ? adenomyosis. Right ovary ? follicular and corpus luteal cysts. Left ovary - follicular and corpus luteal cysts. AM:francesco 03/22/2021 MICROSCOPIC DESCRIPTION Slides are reviewed. GROSS DESCRIPTION Received in fixative is one container labeled with the patient's name and designated uterus and bilateral ovaries. The specimen consists of a hysterectomy specimen consisting of uterus with cervix and attached bilateral ovaries. The uterus with cervix weighs 122 gm and measures 9.5 x 7 x 4.5 cm. The serosal surface is rizzo, glistening. The ectocervical mucosa is unremarkable. The external os is circular in contour. The endocervical canal measures 3 cm in length and the endocervical mucosa is rizzo, glistening and unremarkable. Sections of the cervix reveal multiple cysts filled with mucoid material. The triangular endometrial cavity measures 4.5 cm in length and 2.5 cm in width. The endometrium is rizzo, glistening without any mass lesion and measures 0.1 cm in thickness. Sections of the uterine wall do not reveal any mass lesions and measures up to 2.5 cm in thickness. The right ovary measures 3.5 x 2.5 x 1.5 cm. Sections reveal multiple cysts filled with clear to serosanguineous fluid. The largest cyst measures 1 cm in greatest dimension. The left ovary measures 3 x 2.5 x 2 cm. Sections reveal multiple cysts filled with clear to serosanguineous fluid. The largest cyst measures 1.2 cm in greatest dimension. Meat Stringer sections are submitted in ten cassettes as follows: 1 - anterior cervix, 2 - posterior cervix, 3 & 4 - anterior uterine wall, 5 & 6 - posterior uterine wall, 7 & 8 - right ovary, 9 & 10 - left ovary. / STEPHEN:francesco 03/21/21 TC:5 CPT: 81250
[2021-03-20] MEDS: Lubricating Jelly 60 GM Tube 30 GM TOPICAL (11:48)
[2021-03-20] MEDS: Vasopressin 20 UNITS/ML Vial (12:14)
[2021-03-20] MEDS: Bupivacaine 0.25% 30 ML Vial (12:40)
--- NOTE | 2021-03-20 13:18 | SUR.PHASEI ---
THIS NURSE ASKED PEARL OCONNELL IF PATIENT WAS WOKE UP PRIOR TO COMING TO PACU AND HE SAID NO, SHE HAD DILAUDID SO IT WILL TAKE A WHILE FOR HER TO WAKE UP. HE WAS ALSO AWARE OF PATIENT'S BP OF 81/48.
--- NOTE | 2021-03-20 13:26 | SUR.PHASEI ---
THIS NURSE PUT THE CURRENT BAG OF LR ON A PRESSURE BAG PER DR. BALL'S PHONE ORDERS.
[2021-03-20] MEDS: Lactated Ringers 1,000 ML 70 ML IV ×2 (13:44→15:28)
[2021-03-20] MEDS: Ketorolac 30 MG/ML Syringe IV (18:48)
[2021-03-20] MEDS: oxyCODONE 5 MG Tablet PO (21:01)
[2021-03-20] MEDS: Docusate Sodium 100 MG Capsule PO (21:01)
[2021-03-21] MEDS: Ketorolac 30 MG/ML Syringe IV ×3 (00:05→11:32)
[2021-03-21] MEDS: Acetaminophen 500 MG Tablet 1000 MG PO ×3 (00:05→11:32)
[2021-03-21] MEDS: Lactated Ringers 1,000 ML 70 ML IV (01:52)
[2021-03-21 04:25] VITALS: BP 134/78; PULSE 90; RESP 16; TEMP 37.1; O2SAT 96
[2021-03-21 05:45] VITALS: RESP 20; O2SAT 98
[2021-03-21 05:55] LABS: Hematocrit 31.8 % (37-47); Hemoglobin 10.9 g/dL (12.0-15.0); Mean Corp Hgb Conc 34.3 g/dL (32-36); Mean Corpuscular Hgb 29.9 pg (27.0-32.0); Mean Corpuscular Volume 87.1 fL (81-99); Mean Platelet Vol. 10.6 fl (6.2-12.0); Platelet Count 258 K/mm3 (150-450); RBC Distribution Width CV 13.2 % (11.6-14.6); RBC Distribution Width SD 41.5 fl (35.1-43.9); Red Blood Count 3.65 M/mm3 (4.2-5.4); White Blood Count 10.6 K/mm3 (4.4-11.0)
[2021-03-21 08:02] VITALS: BP 126/83; PULSE 65; RESP 14; TEMP 36.8; O2SAT 95
--- NOTE | 2021-03-21 08:02 | PCM.PN.OB ---
Subjective Subjective patient recovering well, denies CP, SOB, N, or V. tolerating adequate po, and pain is controlled. Beard still in place. Has been up to chair/ambulate Objective Data Objective Data Vital Signs: Vital Signs Temp Pulse Resp BP Pulse Ox 98.8 F 90 20 H 134/78 H 98 03/21/21 04:25 03/21/21 04:25 03/21/21 05:45 03/21/21 04:25 03/21/21 05:45 Oxygen Flow Rate (L/min) 2 Oxygen Delivery Method Nasal Cannula Weight: 218 lb 11.177 oz Body Mass Index (BMI) 37.5 Intake & Output: Intake and Output for Last 24 Hours 03/19/21 03/20/21 03/21/21 23:59 23:59 23:59 Intake Total 3216 / 3216 1728 / 1728 Output Total 820 / 820 1350 / 1350 Balance 2396 / 2396 378 / 378 Lab / Micro Data Result Diagrams: 03/21/21 05:28 Labs: Laboratory Results - last 24 hr 03/20/21 03/20/21 03/21/21 09:23 09:25 05:28 WBC 10.6 RBC 3.65 L Hgb 10.9 L Hct 31.8 L MCV 87.1 MCH 29.9 MCHC 34.3 RDW Std Deviation 41.5 RDW Coeff of Tian 13.2 Plt Count 258 MPV 10.6 Urine Test Negative POC Glucose 79 Physical Exam Const alert, oriented x3 and no apparent distress Resp normal respiratory effort GI soft to palpation and non-distended Inspection: incision other (dressing dry and intact) Narrative: Minimal drainage on peripad Bladder / Kidney Exam: catheter in place Assessment & Plan (1) S/P vaginal hysterectomy: PLAN: patient is s/p LAVH DOMINIK POD 1 1. DC beard, increase ambulation, encourage oral intake and oral control of pain. 2. discharge home when stable
[2021-03-21] MEDS: Docusate Sodium 100 MG Capsule PO (08:11)
[2021-03-21] MEDS: FLUoxetine 20 MG Capsule PO (08:22)
[2021-03-21] MEDS: Enoxaparin 40 MG/0.4 ML Syringe SC (08:22)
--- NOTE | 2021-03-21 10:06 | PHA.DC.MC ---
Pharmacy Service has performed discharge medication reconciliation and counseling for this patient. 1. NAPROXEN 250-500MG PO Q8H PRN MILD PAIN 2. OXYCODONE/ACETAMINOPHEN 5/325MG 1T PO Q4H PRN PAIN The patient's discharge medication list was reviewed for discrepancies and discrepancies were resolved. Home Medications fluoxetine 20 mg capsule 20 mg PO DAILY #30 cap 02/05/21 multivitamin 1 tab PO DAILY 03/13/21 naproxen 250 - 500 mg PO Q8H PRN PRN #30 tab 03/20/21 oxycodone-acetaminophen [Endocet] 1 tab PO Q4H PRN 7 Days #20 tab 03/20/21 The patient was counseled on the following discharge medications and changes in medications for homegoing were reviewed. The Reason for Use, instructions for use, and potential side effects were reviewed for all new medications. The patient's questions regarding all of their medications were answered. The patient was able to verbally demonstrate an understanding of their discharge medications. Patient counseled by retail pharmacy technician
[2021-03-21] MEDS: 0.9% Saline Lock 10 ML Syringe IV (11:32)
[2021-03-21] MEDS: Multivitamins,Therapeutic Tablet 1 TABLET PO (11:34)
[2021-03-21] MEDS: oxyCODONE 5 MG Tablet PO (11:44)
== END 2021-03-21 12:58 | disposition home or self-care (01) ==
LOC: SDC 09:06 → AC 09:07 → MS3 03-21 08:14
PROVIDERS: Anesthesiology; PCP Family Medicine; Referring Provider Obstetrics & Gynecology; Visit Provider Obstetrics & Gynecology
PROC: 0UT9FZZ Resection of Uterus, Via Natural or Artificial Opening With Percutaneous Endoscopic Assistance (ICD-10-PCS; principal; 2021-03-20 10:45)
DX: N94.89 Other specified conditions associated with female genital organs and menstrual cycle (principal); N92.6 Irregular menstruation, unspecified; N95.1 Menopausal and female climacteric states; N83.12 Corpus luteum cyst of left ovary; F34.1 Dysthymic disorder; Z15.02 Genetic susceptibility to malignant neoplasm of ovary; Z90.79 Acquired absence of other genital organ(s); Z80.41 Family history of malignant neoplasm of ovary
CPT/HCPCS: 58552; 36415; 81025; 82962; 83735; 85025; 85027; 86850; 86900; 86901; 88108; 88307; 88313; 93005; 99251; J7120; A4216; G0463; J2405

== ENCOUNTER → 2021-04-16 12:41 | Outpatient (CLI) | payer BC, SELFPAY ==
[2021-04-04 13:13] VITALS: BMI 37.5
--- NOTE | 2021-04-16 12:43 | BI_ITS ---
MAMMOGRAPHY - BILATERAL SCREENING REASON FOR EXAM: Female, 45 years old. Routine annual screening examination. PERTINENT HISTORY: Non-contributory. TECHNIQUE: Digital bilateral breast rose (3D mammographic acquisition) in the CC and MLO projections. 2-D mediolateral oblique (MLO) and craniocaudad (CC) views of both breasts were obtained. CAD: Full Field Digital Mammography with Computer Added Detection was performed. COMPARISON: Comparison is made with prior study dated 04/14/2020 and 02/08/2019. FINDINGS: Breast Composition: There are scattered areas of fibroglandular density. There are no dominant masses or suspicious calcifications. Stable benign-appearing bilateral axillary lymph nodes. No other significant abnormalities are identified. There has been no significant change since the prior study. BI/SCRN MAMM (CAD)W/ROSE BILAT IMPRESSION: Stable bilateral screening mammogram. Yearly follow-up mammogram recommended. (A) ASSESSMENT CATEGORY: BIRADS Category 2: Benign. A letter regarding these results will be sent to the patient by the facility within 30 days. Approximately 10% of breast cancers are not detected by mammography. A normal mammogram should not delay biopsy of a clinically suspicious abnormality. [id number] Electronically Signed: Arie Silverman MD at 14:20 EDT , Service support ,
== END ==
PROVIDERS: PCP Family Medicine; Referring Provider Nurse Practitioner Women's Health; Visit Provider Nurse Practitioner Women's Health
DX: Z12.31 Encounter for screening mammogram for malignant neoplasm of breast (principal)
CPT/HCPCS: 77063; 77067

== ENCOUNTER 2021-06-25 22:17 | Emergency (ER) | payer BC, SELFPAY ==
[2021-06-25 22:18] VITALS: BP 138/98; PULSE 81; RESP 16; TEMP 36.2; O2SAT 98; BMI 33.5
--- NOTE | 2021-06-26 00:19 | RAD_ITS ---
STUDY: X-RAY - LEFT HAND REASON FOR EXAM: Female, 45 years old. BITE TECHNIQUE: 3 view(s) of the hand. COMPARISON: None. FINDINGS: Normal radiocarpal articulation. Normal distal radioulnar joint. Normal visualized carpal bones. Normal carpal articulations Normal carpometacarpal articulation of the thumb. Normal second through fifth carpometacarpal joints. Normal metacarpi. Normal metacarpophalangeal joint of the thumb. Normal interphalangeal joint of the thumb. Normal proximal and distal phalanges of the thumb. Normal metacarpophalangeal joints of the second through fifth fingers. Normal proximal and distal interphalangeal joints of the second through fifth fingers. Normal phalanges of the second through fifth fingers. The soft tissue structures are unremarkable. RAD/Hand Min 3 Views IMPRESSION: Unremarkable x-ray examination of the hand. Electronically Signed: Altagracia Bangura MD at 1:30 EDT , Service support ,
--- NOTE | 2021-06-26 00:23 | EDS_ITS ---
HPI History of Present Illness Chief Complaint: Bite Informant: patient Occured/Mechanism Mechanism/Context: Yes other see comment below Comment: Dog bite left hand Onset/Context/Timing Onset: Hours Context: Sudden Onset Timing: Continuous Quality of Pain: Aching Current Severity: Mild Maximum Severity: Moderate Worsened by: Movement of fingers and palpation Associated Symptoms Associated Symptoms: Negative for Parasthesia, Weakness and Loss of Funtion Narrative Narrative: Patient is a 45-year-old [id number] woman who was bit by a dog. The dogs were fighting. Dog's shots are up-to-date. Patient's immunizations up-to-date. She is on no immunosuppressive meds. She has no other complaints. She denies paresthesia, anesthesia or motor weakness. She denies allergies to antibiotics. Tetanus Immunization: <5 years Prior similar symptoms: No Recent Illness/Hospitalization: No PFSH PFSH Medical History Abnormal Pap smear of cervix Bite by animal Depression Heartburn Hirsutism Hx of cardiovascular stress test Hx of echocardiogram Non-smoker PMS (premenstrual syndrome) Psychiatric disorder Wears contact lenses Home Medications NK 06/25/21 [History Last Taken Unknown] amoxicillin-pot clavulanate 875 mg PO Q12H #8 tablet 06/26/21 [Rx Last Taken Unknown] Allergy/AdvReac Type Severity Reaction Status Date / Time oxcarbazepine Allergy Mild Rash Verified 06/25/21 22:20 [From Trileptal] divalproex sodium AdvReac Intermediate Elevated Verified 06/25/21 22:20 [From Depakote] Liver Enzymes, and hair loss Family History Father Diabetes Heart disease Mother Cancer ovarian cancer Grandfather Colon cancer Surgical History delivery delivered H/O bilateral salpingo-oophorectomy H/O LEEP History of hernia repair Previous back surgery S/P laparoscopic assisted vaginal hysterectomy (LAVH) Status post bilateral salpingectomy (~09/28/19) Social History Smoking Status: Never smoker alcohol intake: never substance use type: does not use caffeine: Yes frequency: 1-2 times per week seatbelt use: always do you feel safe at home: Yes additional 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 [employer] ROS ROS ED Gastrointestinal Gastrointestinal: Denies nausea or vomiting Integumentary Reports other Details: Dog bite with puncture wound dorsum left hand over the shaft of the fourth metacarpal Neurologic Neurologic: Denies paresthesias or weakness Hematologic/Lymphatic Hematologic/Lymphatic: Denies easy bleeding or easy bruising EXAM Physical Exam Const Vital Signs: 06/25/21 22:18 Temperature 97.1 F L Temperature Source Temporal Pulse Rate 81 Respiratory Rate 16 Blood Pressure 138/98 H Blood Pressure Mean 111 Pulse Ox 98 Oxygen Delivery Method Room Air Positive well nourished, well developed and obese General Appearance ED: well developed and NAD Nutritional Appearance: obese HEENT normocephalic and atraumatic Eyes PERRL and EOMs intact bilaterally Resp normal respiratory effort Cardio regular rate and regular rhythm Extremity full ROM; Negative for normal to inspection Extremity Narrative: There is a bite thiago over the shaft of the fourth metacarpal. The opening is approximately 3 to 4 mm. Median, radial, ulnar nerve function intact. Radial pulses palpable. There is pain no patient over the fourth metacarpal. General Extremety ED: Negative for edema General Extremity: Negative for edema Neuro oriented x3, CN's II-XII intact bilaterally and no sensory deficits noted Sensorium / Orientation: alert Motor Exam: strength 5/5 throughout Psych mental status grossly normal Skin Trauma: other Dog bite as previously described MDM MDM MDM Narrative Medical decision making narrative: X-ray was obtained to evaluate for retained foreign body, fractured tooth of canine and rule out fracture. Patient received a dose of Augmentin. Radiography Diagnostic Testing: Three-view x-ray of the hand reveals soft tissue swelling over bite thiago. There is no foreign body or fracture noted. There is no subcu air. Discharge Plan Triage Chief Complaint: Bite ED Provider: Ashvin Naik Dx/Rx/DC Orders Clinical Impression: Dog bite of left hand Instructions: ED Dog Bite Prescriptions: New amoxicillin-pot clavulanate [amoxicillin-pot clavulanate] 875 MG tablet 875 mg PO Q12H Qty: 8 RF: 0 No Action NK RF: 0 Primary Care Provider: Aleksandra Douglas Referrals: Aleksandra Douglas MD [Primary Care Provider] - 2 Days for wound check Disposition Disposition: Home, Self Care
[2021-06-26] MEDS: Amox/Clavulanate 875 MG Tablet PO (01:14)
== END 2021-06-26 01:15 | disposition home or self-care (01) ==
LOC: ED 06-26 01:08
PROVIDERS: Emergency Provider Emergency Medicine; PCP Family Medicine
DX: S61.452A Open bite of left hand, initial encounter (principal); S61.432A Puncture wound without foreign body of left hand, initial encounter; W54.0XXA Bitten by dog, initial encounter; Y93.9 Activity, unspecified; Y92.9 Unspecified place or not applicable; Y99.9 Unspecified external cause status; E66.9 Obesity, unspecified
CPT/HCPCS: 73130; 99283; A4216

== ENCOUNTER → 2021-07-23 07:22 | Outpatient (CLI) | payer BC, SELFPAY ==
[2021-05-11 15:04] VITALS: BMI 34.8
--- NOTE | 2021-07-23 09:12 | NEURO_ITS ---
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 Wrist splints at night and steroid injections to the wrist have provided partial relief. No neck or radicular pain. Evaluate for median neuropathy at the wrist. Findings: Nerve conduction studies were performed in the right and left upper extremities. The right median motor study recording the abductor pollicis brevis showed a normal amplitude, normal distal latency and normal conduction velocity. The right ulnar motor study recording the abductor digiti minimi showed a normal amplitude, normal distal latency and normal conduction velocity. No conduction block or focal slowing was present across the elbow. Right median-ulnar lumbrical / interosseous motor latencies showed a prolonged median latency compared to the ulnar. The right median sensory response recording digit two showed a normal amplitude, borderline latency and mildly slowed conduction velocity. The right ulnar sensory response recording digit five showed a normal amplitude, latency and conduction velocity. The right radial sensory response recording over the extensor snuff box showed a normal amplitude, latency and conduction velocity. The left median motor study recording the abductor pollicis brevis showed a normal amplitude, normal distal latency and mildly slowed conduction velocity. The left ulnar motor study recording the abductor digiti minimi showed a normal amplitude, normal distal latency and normal conduction velocity. No conduction block or focal slowing was present across the elbow. Left median-ulnar lumbrical / interosseous motor latencies showed a prolonged median latency compared to the ulnar. The left median sensory response recording digit two showed a normal amplitude, mildly prolonged latency and mildly slowed conduction velocity. The left ulnar sensory response recording digit five showed a normal amplitude, latency and conduction velocity. The left radial sensory response recording over the extensor snuff box showed a normal amplitude, latency and conduction velocity. Needle EMG of the right upper extremity and cervical paraspinal muscles was performed. No denervation was seen in any muscle. Motor units in the right abductor pollicis brevis muscle were slightly long duration, but otherwise unremarkable. All other motor unit morphology, activation and recruitment patterns were normal. Needle EMG of the left abductor pollicis brevis was performed. No denervation was seen. Motor unit morphology, activation and recruitment patterns were normal. Impression: This is a borderline study. 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 In addition, there is electrophysiologic evidence suggestive, but not diagnostic of, a very mild median neuropathy across the right wrist. There is no evidence of superimposed cervical radiculopathy, brachial plexopathy or other entrapment neuropathy in the right upper extremity. Loco Alcaraz D.O. Multi Select Codes Neurology Neurology Interp Codes: 24605-57 Musc tst done w/nerv tst medrano (interp) (-59), 74105-97 Musc test done w/n test comp (interp) and 14665-29 Nrv cndj test 13/> studies (interp)
== END ==
PROVIDERS: PCP Family Medicine; Referring Provider Physician Assistant; Visit Provider Physician Assistant
DX: R20.2 Paresthesia of skin (principal); M79.601 Pain in right arm; M79.602 Pain in left arm
CPT/HCPCS: 95885; 95886; 95913

== ENCOUNTER → 2021-10-22 10:17 | Outpatient (CLI) | payer BC, SELFPAY ==
--- NOTE | 2021-10-22 10:38 | RAD_ITS ---
STUDY: X-RAY - LEFT HAND REASON FOR EXAM: Female, 45 years old. PAIN AND SWELLING TECHNIQUE: 3 view(s) of the hand. COMPARISON: Comparison is made with prior study 06/26/2021. FINDINGS: Normal radiocarpal articulation. Normal distal radioulnar joint. Normal visualized carpal bones. Normal carpal articulations Normal carpometacarpal articulation of the thumb. Normal second through fifth carpometacarpal joints. Normal metacarpi. Normal metacarpophalangeal joint of the thumb. Normal interphalangeal joint of the thumb. Normal proximal and distal phalanges of the thumb. Normal metacarpophalangeal joints of the second through fifth fingers. Normal proximal and distal interphalangeal joints of the second through fifth fingers. Normal phalanges of the second through fifth fingers. The soft tissue structures are unremarkable. RAD/Hand Min 3 Views IMPRESSION: Normal x-ray examination of the hand. Electronically Signed: Arie Silverman MD at 15:26 EST , Service support ,
[2021-10-22 11:08] LABS: Erythrocyte Sedimentation Rate 10 mm/hr (0-30)
[2021-10-22 11:10] LABS: Hematocrit 34.8 % (37-47); Hemoglobin 12.1 g/dL (12.0-15.0); Mean Corp Hgb Conc 34.8 g/dL (32-36); Mean Corpuscular Volume 83.5 fL (81-99); Mean Platelet Vol. 10.4 fl (6.2-12.0); Platelet Count 257 K/mm3 (150-450); RBC Distribution Width CV 13.4 % (11.6-14.6); RBC Distribution Width SD 40.9 fl (35.1-43.9); Red Blood Count 4.17 M/mm3 (4.2-5.4); White Blood Count 5.9 K/mm3 (4.4-11.0)
[2021-10-22 11:24] LABS: CRP 3.55 mg/L (0.0-3.0); Rheumatoid Factor < 10.0 IU/mL (<15)
[2021-10-23 13:33] LABS: ANTINUCLEAR ANTIBODIES DIRECT Negative (Negative)
[2021-10-24 07:47] LABS: CCP IgG Antibodies 11 units (0-19)
== END ==
PROVIDERS: PCP Family Medicine; Referring Provider Family Medicine; Visit Provider Family Medicine
DX: M79.643 Pain in unspecified hand (principal); M25.50 Pain in unspecified joint
CPT/HCPCS: 36415; 73130; 85027; 85652; 86038; 86140; 86200; 86225; 86235; 86431

== ENCOUNTER 2021-11-28 12:03 | Outpatient (CLI) | payer BC, SELFPAY ==
[2021-11-28 12:28] LABS: Erythrocyte Sedimentation Rate 7 mm/hr (0-30)
[2021-11-28 12:49] LABS: CRP < 2.90 mg/L (0.0-3.0)
[2021-11-29 14:10] LABS: Anti-Centromere B Ab <0.2 AI (0.0-0.9); Anti-Chromatin <0.2 AI (0.0-0.9); Anti-Jo <0.2 AI (0.0-0.9); Anti-Scleroderma-70 AB <0.2 AI (0.0-0.9); RNP Ab <0.2 AI (0.0-0.9); SJOGREN'S Anti-SS-A test < 0.2 AI (0.0-0.9); SJOGREN'S Anti-SS-B test < 0.2 AI (0.0-0.9); Smith Ab <0.2 AI (0.0-0.9)
[2021-11-29 17:07] LABS: Albumin 3.8 g/dL (2.9-4.4); Alpha-1-Globulins 0.3 g/dL (0.0-0.4); Alpha-2-Globulins 0.8 g/dL (0.4-1.0); Cytoplasmic Ab (C-ANCA) <1:20 titer (Neg:<1:20); Gamma Globulin 0.9 g/dL (0.4-1.8); Immunoglobulin A 292 mg/dL (87-352); Immunoglobulin G 731 mg/dL (586-1602); Immunoglobulin M 90 mg/dL (26-217)
[2021-11-29 21:44] LABS: Anti-dsDNA Ab <1 IU/mL (0-9)
[2021-11-29 21:46] LABS: Perinuclear Ab (P-ANCA) <1:20 titer (Neg:<1:20)
== END 2021-11-28 23:59 | disposition short-term general hospital (02) ==
LOC: LAB 12:04
PROVIDERS: PCP Family Medicine; Referring Provider Internal Medicine Gastroenterology; Visit Provider Internal Medicine Gastroenterology
DX: R29.898 Other symptoms and signs involving the musculoskeletal system (principal); M54.12 Radiculopathy, cervical region
CPT/HCPCS: 36415; 82784; 84165; 85652; 86140; 86225; 86235; 86256; 86334

== ENCOUNTER 2021-11-30 07:34 | Outpatient (CLI) | payer BC, SELFPAY ==
--- NOTE | 2021-11-30 07:36 | US_ITS ---
STUDY: ABDOMINAL ULTRASOUND - RIGHT UPPER QUADRANT REASON FOR VISIT: Female, 46 years old . Abdominal pain and bloating. TECHNIQUE: Ultrasound evaluation of the right upper quadrant was performed with real-time and static mack-scale imaging. TECHNICAL QUALITY: Adequate. COMPARISON: None. FINDINGS: Liver: The liver measures 15.4 cm. There is normal echogenicity of the liver. The bile ducts are within normal limits. There is hepatic color flow. The direction of portal flow is hepatopetal. There is no demonstrated mass lesion. Gallbladder: Normal distended gallbladder. The gallbladder wall measures 2 mm. There is a negative sonographic Blood''s sign. There is no pericholecystic fluid. There are no gallstones. Common Bile Duct (C.B.D.): The common bile duct measures 4 mm. Pancreas: Normal size of the head, body and tail of the pancreas. There is normal echogenicity of the pancreas. There is no demonstrated pancreatic mass or cyst. Right Kidney: Normal size of the right kidney. The right kidney measures 12.1 cm x 5 cm x 4 cm. Normal renal cortex. The right cortex measures 1.4 cm. There is no demonstrated renal mass or cyst. There is no right hydronephrosis. US/Liver IMPRESSION: Normal right upper quadrant ultrasound examination. Electronically Signed: Arie Silverman MD at 9:59 EST ,
--- NOTE | 2021-11-30 08:00 | RAD_ITS ---
STUDY: X-RAY - ABDOMEN/PELVIS REASON FOR EXAM: Female, 46 years old. SITZ Marker -- Complete three days after ingesting SITZ marker TECHNIQUE: Single AP view of the abdomen / pelvis. COMPARISON: None. FINDINGS: There is a moderate amount of colonic fecal material. 6 markers are seen within the descending colon and rectosigmoid colon. Several markers are seen in the cecum. The visualized liver, spleen and kidneys are grossly normal in size and morphology. Normal soft tissue structures. Normal visualized osseous structures. RAD/Abdomen Single View IMPRESSION: Sitzmarks markers are seen in the descending colon and rectosigmoid colon. Electronically Signed: Arie Silverman MD at 15:36 EST ,
== END 2021-11-30 23:59 | disposition short-term general hospital (02) ==
PROVIDERS: PCP Family Medicine; Referring Provider Internal Medicine Gastroenterology; Visit Provider Internal Medicine Gastroenterology
DX: K59.00 Constipation, unspecified (principal); R29.898 Other symptoms and signs involving the musculoskeletal system; M54.12 Radiculopathy, cervical region; R10.9 Unspecified abdominal pain
CPT/HCPCS: 74018; 76705

== ENCOUNTER 2021-12-03 14:27 | Outpatient (CLI) | payer BC, SELFPAY ==
--- NOTE | 2021-12-03 14:33 | RAD_ITS ---
STUDY: X-RAY - ABDOMEN/PELVIS REASON FOR EXAM: Female, 46 years old. SITZ marker -- Perform 5 days following ingestion TECHNIQUE: Single AP view of the abdomen / pelvis. COMPARISON: 11/22/2021 FINDINGS: Interval passage of all of the Sitzmarks markers consistent with known normal colonic transit. There is an unremarkable bowel gas pattern. The visualized liver, spleen and kidneys are grossly normal in size and morphology. Normal soft tissue structures. Normal visualized osseous structures. RAD/Abdomen Single View IMPRESSION: Normal colonic transit. Electronically Signed: Keith Gil MD at 16:41 EST ,
== END 2021-12-03 23:59 | disposition short-term general hospital (02) ==
PROVIDERS: PCP Family Medicine; Referring Provider Internal Medicine Gastroenterology; Visit Provider Internal Medicine Gastroenterology
DX: K59.00 Constipation, unspecified (principal); R29.898 Other symptoms and signs involving the musculoskeletal system; M54.12 Radiculopathy, cervical region
CPT/HCPCS: 74018

== ENCOUNTER 2021-12-13 10:56 | Outpatient (CLI) | payer BC, SELFPAY ==
--- NOTE | 2021-12-13 10:58 | NM_ITS ---
CLINICAL: 46-year-old female with reported history of abdominal pain and bloating. SEMI-SOLID PHASE 99m Tc SULFUR COLLOID GASTRIC EMPTYING STUDY COMPARISON: None available FINDINGS: The patient was administered 1.1 mCi of 99m Tc sulfur colloid mixed with oatmeal and consumed per os. Image acquisitions in the anterior-posterior projections for a total of 60 minutes. There is prompt visualization of the stomach. There is no gastroesophageal reflux identified. The T ? linear fit was calculated to be 24.31 minutes, (Normal: 12-56 minutes). NM/Gastric Emptying Study IMPRESSION: 1. NORMAL 99m Tc sulfur colloid semi-solid phase (oatmeal) gastric emptying imaging examination. A. There is normal and preserved semi-solid phase gastric emptying compared to normal controls. (Leonor et al, J Nucl Med Tech 38: 186, 2010). Electronically Signed: Keith Carey DO at 23:42 EST ,
== END 2021-12-13 23:59 | disposition home or self-care (01) ==
LOC: NM 10:57
PROVIDERS: PCP Family Medicine; Referring Provider Internal Medicine Gastroenterology; Visit Provider Internal Medicine Gastroenterology
DX: R10.9 Unspecified abdominal pain (principal); K59.00 Constipation, unspecified
CPT/HCPCS: 78264; A9541

== ENCOUNTER 2021-12-19 12:57 | Outpatient (CLI) | payer BC, SELFPAY ==
--- NOTE | 2021-12-19 12:58 | MRI_ITS ---
EXAM: MR CERVICAL SPINE WITHOUT INTRAVENOUS CONTRAST CLINICAL INDICATION: pain bilat arm numbness, swelling TECHNIQUE: Multiplanar and multisequence MR images of the cervical spine without intravenous contrast were performed. This report was created using [employer] report generation technology. COMPARISON: 11.19.21 xr FINDINGS: VERTEBRAE: There is altered curvature of the normal cervical lordosis. This can suggest neck strain. SPINAL CORD: Unremarkable in signal and morphology. SOFT TISSUES: Unremarkable. No prevertebral soft tissue swelling. LYMPH NODES: Unremarkable. There is no cervical adenopathy. DISCS/SPINAL CANAL/NEURAL FORAMINA: C2-C3: Unremarkable. Normal disc height and morphology. Normal spinal canal and neuroforamina. C3-C4: Unremarkable. Normal disc height and morphology. Normal spinal canal and neuroforamina. C4-C5: There are degenerative findings of the cervical spine which are mild at C4-5 to C6-7. C4-5: There is endplate spondylosis of the vertebral body. Normal disc height and morphology. Normal central canal and intervertebral neuroforamina. C5-C6: C5-6: There is endplate spondylosis of the vertebral body. Normal disc height and morphology. Normal central canal and intervertebral neuroforamina. C6-C7: C6-7: There is endplate spondylosis of the vertebral body. Normal disc height and morphology. Normal central canal and intervertebral neuroforamina. C7-T1: Unremarkable. Normal disc height and morphology. Normal spinal canal and neuroforamina. MRI/Spine Cervical (Routine) IMPRESSION: 1. There is altered curvature of the normal cervical lordosis. This can suggest neck strain. 2. There are degenerative findings of the cervical spine which are mild at C4-5 to C6-7. Electronically Signed: Chandan Baxter MD at 15:05 EST ,
--- NOTE | 2021-12-19 14:04 | RAD_ITS ---
STUDY: XR Hand Min 3 Views REASON FOR EXAM: Female, 46 years old. PAIN TECHNIQUE: XR Hand Min 3 Views COMPARISON: None. FINDINGS: Normal radiocarpal articulation. Normal distal radioulnar joint. Normal visualized carpal bones. Normal carpal articulations Normal carpometacarpal articulation of the thumb. Normal second through fifth carpometacarpal joints. Normal metacarpi. Normal metacarpophalangeal joint of the thumb. Normal interphalangeal joint of the thumb. Normal proximal and distal phalanges of the thumb. Normal metacarpophalangeal joints of the second through fifth fingers. Normal proximal and distal interphalangeal joints of the second through fifth fingers. Normal phalanges of the second through fifth fingers. The soft tissue structures are unremarkable. RAD/Hand Min 3 Views IMPRESSION: There are no acute findings. Electronically Signed: Chandan Baxter MD at 15:12 EST ,
--- NOTE | 2021-12-19 14:06 | RAD_ITS ---
EXAM: XR SACRUM AND COCCYX, 2 OR MORE VIEWS CLINICAL INDICATION: PAIN TECHNIQUE: Frontal and lateral views of the sacrum and coccyx. This report was created using [employer] report generation technology. COMPARISON: None. FINDINGS: SACRUM/COCCYX: Unremarkable. No displaced fracture. No destructive or sclerotic lesions. Note that overlapping bowel shadows may however obscure fine detail in the frontal view. Sacroiliac joints are unremarkable. DISC SPACES: Degenerative findings in the lumbar spine. SOFT TISSUES: Unremarkable. No soft tissue swelling or gas. RAD/S-I Jts 3 or More Views IMPRESSION: No acute findings in the sacrum or coccyx. Electronically Signed: Chandan Baxter MD at 15:12 EST ,
--- NOTE | 2021-12-19 14:06 | RAD_ITS ---
STUDY: XR Hips Bilateral with Pelvis when performed; 2 Views 12/19/2021 2:17 PM REASON FOR EXAM: Female, 46 years old. PAIN TECHNIQUE: XR Hips Bilateral with Pelvis when performed; 2 Views COMPARISON: None. FINDINGS: There is a non-specific bowel gas pattern. Normal visualized soft tissue structures. Normal bilateral iliac wings, sacroiliac joints and visualized sacrum. Normal visualized bilateral superior and inferior pubic rami. Normal pubic symphysis. Normal ischial tuberosities. Normal visualized right femoral head. Normal right acetabulum. Normal right hip joint. Normal visualized left femoral head. Normal left acetabulum. Normal left hip joint. RAD/Hips B/L min 2 views w/ Pelvis IMPRESSION: No acute findings. Electronically Signed: Chandan Baxter MD at 15:11 RUST ,
--- NOTE | 2021-12-19 14:15 | RAD_ITS ---
STUDY: XR Hand Min 3 Views REASON FOR EXAM: Female, 46 years old. PAIN TECHNIQUE: XR Hand Min 3 Views COMPARISON: None. FINDINGS: Normal radiocarpal articulation. Normal distal radioulnar joint. Normal visualized carpal bones. Normal carpal articulations Normal carpometacarpal articulation of the thumb. Normal second through fifth carpometacarpal joints. Normal metacarpi. Normal metacarpophalangeal joint of the thumb. Normal interphalangeal joint of the thumb. Normal proximal and distal phalanges of the thumb. Normal metacarpophalangeal joints of the second through fifth fingers. Normal proximal and distal interphalangeal joints of the second through fifth fingers. Normal phalanges of the second through fifth fingers. The soft tissue structures are unremarkable. RAD/Hand Min 3 Views IMPRESSION: There are no acute findings. Electronically Signed: Chandan Baxter MD at 15:10 EST ,
[2021-12-19 14:42] LABS: Uric Acid 4.9 mg/dL (2.6-6.0)
[2021-12-19 14:54] LABS: Vitamin D,25 Hydroxy 35.6 ng/mL
[2021-12-31 13:18] LABS: HLA B27 Negative (.)
== END 2021-12-19 23:59 | disposition home or self-care (01) ==
PROVIDERS: PCP Family Medicine; Visit Provider Physician Assistant
DX: M12.9 Arthropathy, unspecified (principal)
CPT/HCPCS: 36415; 72141; 72202; 73130; 73521; 81374; 82306; 84550

== ENCOUNTER 2021-12-20 16:00 | Outpatient (RCR) | payer BC, SELFPAY ==
--- NOTE | 2021-11-23 09:47 | HP.PTEVAL ---
Patient's Visit Information NICOLLE MA is a 46 year old F referred to Physical Therapy by [facility]low with a diagnosis of Cervical Spine. Date of Evaluation: 11/22/21 Physical Therapist: Liset Cisneros DPT - Visit Plan Frequency: 2x /Week Duration: 4 Weeks Plan: Focus on postural strength/stabilization- decrease radicular s/s - Subjective Patient reports that she noticed since the fall both of her arms go numb- they planned to do carpal tunnel- sight before the surgery she started having pain in the left clavicle. The pain in the shoulder has since gone away. She has not had it in about 3 weeks. Now main symptoms are swelling in the hands in the AM, itchy palm on the left side and numbness in her fingers- sometimes all- sometimes changes. MD has done x-rays but has been denied from the insurance. She has had and EMG. X-ray shows straight cervical spine. Dr. Neumann wants her to see a rheumatoid arthritis MD. She was better when they put her on steroids. Her preliminary blood work is normal. Injections bilateral wrist: August worked great no pain for 3 months. Sleep: wearing wrist splints so its not waking her up at night. Worst: 7/10 Agg: cold temps. Ease: warm, dragon balm. Best: 0/10 just has numb/itch. No other pain except in her wrists at his point. No ROSEN, blurred vision, dizziness or light headed. Does have decreased research and insights executive strength and finger dexterity Left>Right. Left hand dominate. 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 PMHx/Meds: no changes since she saw ortho. 2001 laminectomy - Objective Posture: FH, RS- can correct with verbal cues but does not maintain. Gait: no deviation noted good arm swing and trunk rotation. Palpation: not tender to touch in cervical spine or bilateral UE- scapular region or thoracic parapsinals. Reflex: WFL in triceps and biceps bilateral. ROM: WFL in all planes. Strength: Scap: fair, Right: Shoulder: 4+/5, Elbow: 4+/5, Wrist: 4+/5, Senior Qa Engineer: 70 lbs Left: Shoulder: 4-/5, Elbow: 4/5, Wrist: 4-/5, Senior Qa Engineer: 50 lbs. Sensation: WNL - Special Tests C/S Radiculapathy - Left Upper limb tension test: Positive C/S Radiculapathy - Right Upper limb tension test: Positive C/S Radiculapathy - Left Spurlings: Positive C/S Radiculapathy - Right Spurlings: Positive C/S Radiculapathy - Left Cervical distraction: Positive C/S Radiculapathy - Right Cervical distraction: Positive - Balance/Special Test Scores Oswestry Neck Score: 5 - Goals Goal 1:: Patient will be I with HEP and progression Goal Time Frame: 4-6 Weeks Goal 2:: Patient will maintain proper posture t/o tx session to demo increased core s/s. Goal Time Frame: 4-6 Weeks Goal 3:: Patient will report no N/T in her UE for 1 week Goal Time Frame: 4-6 Weeks - Rehabilitation Potential Physical Therapy Diagnosis: Patient presents with hypomobility- she has decrease strength and muscular endurance leading to neural symptoms and pain with ADL's. Rehabilitation Potential: Fair - Anticipated Interventions Patient/Client Instruction: Educate patient on: Benefits of Fitness Program Therapeutic Exercise to Include: Strength training, Endurance training, Coordination, Body mechanics, Postural training, Flexibilty training, Passive ROM, Active ROM, Scapular Strength/Stabilization For the Purpose of:: To improve muscle performance and motor function TENS: Yes Cryotherapy (ice pack, ice massage): Yes Thermo therapy (hot pack): Yes Ultrasound (thermal/non thermal): Yes Thank you for the opportunity to evaluate your patient. For Medicare and Medicare HMO plans, please review the plan of care and approve it. It will need to be FAXED BACK to us at [phone] for Medicare purposes. For Medicare only, by signing this I certify the plan of care. Please let me know if there are questions or concerns regarding this plan of care. Physician Signature: Date:
--- NOTE | 2021-12-20 16:14 | HP.PTDCSUM ---
It has been my pleasure to treat NICOLLE MA referred by [facility], with the diagnosis of Cervical Spine for a total of 7 visit(s). Discharge Date: Please see the following information for a summary of their discharge status. Subjective: Patient reports that she is the same- MRI which showed end plate spondylosis- so she needs carpal tunnel surgery. Main symptom is that her left palm is very itchy. % Improvement: 0 Objective/Function: Posture: FH, RS- can correct with verbal cues but does not maintain. Gait: no deviation noted good arm swing and trunk rotation. Palpation: not tender to touch in cervical spine or bilateral UE- scapular region or thoracic parapsinals. Reflex: WFL in triceps and biceps bilateral. ROM: WFL in all planes. 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 Goal Progress: Goal Met Goal 3:: Patient will report no N/T in her UE for 1 week Goal Progress: Not Progressing Plan: Discharge to home exercise program and return to MD for further evaluation If there are questions or concerns regarding this patient's physical therapy, please feel free to call me at [phone]. Thank you for the referral of this patient. Sincerely, Liset Cisneros, DPT Balance/Gait/Functional tests - Balance/Special Test Scores Oswestry Neck Score: 4
== END 2021-12-20 19:00 | disposition home or self-care (01) ==
LOC: PT 16:00
PROVIDERS: PCP Family Medicine; Referring Provider Physician Assistant; Visit Provider Physician Assistant
DX: M54.2 Cervicalgia (principal)
CPT/HCPCS: 97110; 97162; 97164

== ENCOUNTER → 2022-02-27 | Outpatient (CLI) | payer BC, SELFPAY ==
[2022-02-27 08:57] LABS: Anion Gap 9 (5-15); BUN 13 mg/dL (7-18); BUN/Creat Ratio 13.4 RATIO (10-20); Chloride 105 mmol/L (98-107); Creatinine, Serum 0.97 mg/dL (0.55-1.02); EST Glomerular Filtration Rate 66 mL/min (>60); Est Glom Filt Rate - Afr Amer 80 mL/min (>60); Glucose 93 mg/dL (74-106); Potassium 3.8 mmol/L (3.5-5.1); Sodium Level 140 mmol/L (136-145); Thyroid Stim Hormone (TSH) 2.26 uIU/mL (0.358-3.74)
== END | disposition home or self-care (01) ==
LOC: LAB 07:14
PROVIDERS: PCP Family Medicine
DX: Z79.899 Other long term (current) drug therapy (principal)
CPT/HCPCS: 36415; 80048; 80178; 84443

== ENCOUNTER → 2022-04-18 | Outpatient (CLI) | payer BC, SELFPAY ==
--- NOTE | 2022-04-18 14:26 | BI_ITS ---
MAMMOGRAPHY - BILATERAL SCREENING REASON FOR EXAM: Female, 46 years old. Routine annual screening examination. PERTINENT HISTORY: Non-contributory. TECHNIQUE: Digital bilateral breast rose (3D mammographic acquisition) in the CC and MLO projections. 2-D mediolateral oblique (MLO) and craniocaudad (CC) views of both breasts were obtained. CAD: Full Field Digital Mammography with Computer Added Detection was performed. COMPARISON: Comparison is made with prior study dated 04/16/2021 and 04/14/2000. FINDINGS: Breast Composition: There are scattered areas of fibroglandular density. There are no dominant masses or suspicious calcifications. Stable small benign-appearing bilateral axillary No other significant abnormalities are identified. There has been no significant change since the prior study. BI/SCRN MAMM (CAD)W/ROSE BILAT IMPRESSION: Stable bilateral screening mammogram. Yearly follow-up mammogram recommended. (A) ASSESSMENT CATEGORY: BIRADS Category 1: Negative. A letter regarding these results will be sent to the patient by the facility within 30 days. Approximately 10% of breast cancers are not detected by mammography. A normal mammogram should not delay biopsy of a clinically suspicious abnormality. [id number] Electronically Signed: Arie Silverman MD at 8:49 EDT ,
== END | disposition home or self-care (01) ==
LOC: OPBI 14:24
PROVIDERS: PCP Family Medicine; Visit Provider Nurse Practitioner Women's Health
DX: Z12.31 Encounter for screening mammogram for malignant neoplasm of breast (principal)
CPT/HCPCS: 77063; 77067

== ENCOUNTER → 2022-04-29 | Outpatient (CLI) | payer BC, SELFPAY ==
[2022-04-29 08:26] LABS: Hematocrit 38.6 % (37-47); Mean Corp Hgb Conc 33.7 g/dL (32-36); Mean Corpuscular Hgb 29.6 pg (27.0-32.0); Mean Corpuscular Volume 87.9 fL (81-99); Mean Platelet Vol. 10.2 fl (6.2-12.0); Platelet Count 285 K/mm3 (150-450); RBC Distribution Width CV 13.1 % (11.6-14.6); RBC Distribution Width SD 41.6 fl (35.1-43.9); Red Blood Count 4.39 M/mm3 (4.2-5.4); White Blood Count 7.3 K/mm3 (4.4-11.0)
[2022-04-29 09:20] LABS: Anion Gap 9 (5-15); BUN 13 mg/dL (7-18); BUN/Creat Ratio 15.5 RATIO (10-20); Calcium,Total 9.9 mg/dL (8.5-10.1); Chloride 106 mmol/L (98-107); Creatinine, Serum 0.84 mg/dL (0.55-1.02); EST Glomerular Filtration Rate 78 mL/min (>60); Est Glom Filt Rate - Afr Amer 95 mL/min (>60); Glucose 95 mg/dL (74-106); Sodium Level 141 mmol/L (136-145); Thyroid Stim Hormone (TSH) 2.76 uIU/mL (0.358-3.74)
== END | disposition home or self-care (01) ==
PROVIDERS: PCP Family Medicine
DX: Z79.899 Other long term (current) drug therapy (principal)
CPT/HCPCS: 36415; 80048; 80178; 84443; 85027

== ENCOUNTER → 2022-08-05 | Outpatient (CLI) | payer BC, SELFPAY ==
[2022-08-05 08:50] LABS: ALB/GLOB Ratio 1.1 RATIO (0.9-2.4); AST(SGOT) 14 U/L (15-37); Alanine Aminotransfer ALT/SGPT 20 U/L (13-56); Albumin, Serum 3.6 g/dL (3.2-5.0); Alkaline Phosphatase 62 U/L (45-117); Anion Gap 6 (5-15); BUN 14 mg/dL (7-18); BUN/Creat Ratio 15.3 RATIO (10-20); Calcium,Total 8.8 mg/dL (8.5-10.1); Chloride 108 mmol/L (98-107); Creatinine, Serum 0.92 mg/dL (0.55-1.02); EST Glomerular Filtration Rate 71 mL/min (>60); Est Glom Filt Rate - Afr Amer 85 mL/min (>60); Globulin 3.3 g/dL (2.2-4.2); Glucose 93 mg/dL (74-106); Potassium 3.7 mmol/L (3.5-5.1); Protein, Total 6.9 g/dL (6.4-8.2); Sodium Level 140 mmol/L (136-145); Thyroid Stim Hormone (TSH) 2.95 uIU/mL (0.358-3.74)
== END | disposition home or self-care (01) ==
LOC: LAB 07:36
PROVIDERS: PCP Family Medicine; Referring Provider Physician Assistant; Visit Provider Physician Assistant
DX: Z79.899 Other long term (current) drug therapy (principal)
CPT/HCPCS: 36415; 80053; 80178; 84443

== ENCOUNTER → 2022-09-24 | Outpatient (CLI) | payer BC, SELFPAY | END | disposition home or self-care (01) | PROVIDERS: PCP Family Medicine; Referring Provider Physician Assistant; Visit Provider Physician Assistant | DX: Z79.899 Other long term (current) drug therapy (principal) | CPT/HCPCS: 36415; 80178 ==

== ENCOUNTER → 2022-12-14 | Outpatient (CLI) | payer OTHER, SELFPAY ==
--- NOTE | 2022-12-14 08:30 | MRI_ITS ---
STUDY: MRI CERVICAL SPINE WITHOUT CONTRAST REASON FOR EXAM: Female, 47 years old. Neck pain with right arm numbness and right hand swelling. TECHNIQUE: Standardized fat and water weighted pulse sequences were obtained in the sagittal and axial planes. COMPARISON: MRI cervical spine without contrast 12/19/2021. FINDINGS: Normal foramen magnum and brainstem-cervical cord junction. Normal craniovertebral junction. Normal anterior atlantoaxial articulation. Normal odontoid process. Straightening of the C-spine curvature, previously minimal kyphosis. Normal vertebral bodies and posterior osseous elements. C2-3: Normal endplates. Normal disc height, signal and morphology. Normal central canal and intervertebral neural foramina. C3-4: Normal endplates. Normal disc height, signal and morphology. Normal central canal and intervertebral neural foramina. C4-5: Normal endplates. Normal disc height, signal and morphology. Normal central canal and intervertebral neural foramina. C5-6: Normal endplates. Normal disc height, signal and morphology. Normal central canal and intervertebral neural foramina. C6-7: Normal endplates. Normal disc height, signal and morphology. Normal central canal and intervertebral neural foramina. C7-T1: Normal endplates. Normal disc height, signal and morphology. Normal central canal and intervertebral neural foramina. T1-T2, T2-3, T3-T4, T4-T5: Normal endplates. Normal disc height, signal and morphology. Normal central canal and intervertebral neural foramina. Normal cervical cord. Normal included upper thoracic spinal cord, brainstem and cerebellum. Normal visualized soft tissue structures. MRI/Spine Cervical (Routine) IMPRESSION: 1. No MRI evidence of cervical extruded disc fragment, disc protrusion, nerve root displacement or spinal stenosis. 2. Normal cervical spinal cord. 3. No significant interval change when compared to 12/19/2021. Electronically Signed: Jose Armando Cowart MD at 10:06 [facility] ,
== END | disposition home or self-care (01) ==
PROVIDERS: PCP Family Medicine; Visit Provider Orthopaedic Surgery
DX: M50.20 Other cervical disc displacement, unspecified cervical region (principal)
CPT/HCPCS: 72141

== ENCOUNTER 2023-02-10 05:24 | Day surgery (SDC) | payer OTHER, SELFPAY ==
[2023-02-10 05:52] VITALS: BP 113/75; PULSE 71; RESP 18; TEMP 36.7; O2SAT 98; BMI 38.2
[2023-02-10] MEDS: Lactated Ringers 1,000 ML 15 ML IV (06:02)
--- NOTE | 2023-02-10 06:38 | HP.PCM_ITS ---
HPI - General General Date of Admission: 02/10/23 Date of Service: 02/10/23 Chief Complaint: Screening colonoscopy HPI Narrative NICOLLE MA, is a 47 F who presents today for screening colonoscopy. She does not have any abdominal pain. Does not have any cramping. Does not have any chest pain or shortness of breath. She not have any weakness. Overall she is in very good health. [facility] Medical History (Updated 02/04/23 @ 15:23 by Senia Wahl) Abdominal pain Abnormal Pap smear of cervix Alcohol use Bipolar disorder Cardiology follow-up encounter CPAP (continuous positive airway pressure) dependence Depression Dog bite of left hand Family history of colon cancer Gastric reflux GERD (gastroesophageal reflux disease) Hirsutism Hx of cardiovascular stress test Hx of echocardiogram Irregular menses Low iron Non-smoker PMS (premenstrual syndrome) Wears contact lenses Home Medications ascorbic acid (vitamin C) 1,000 mg tablet 2 g PO DAILY 09/19/21 [History Last Taken Unknown] biotin 10,000 mcg capsule 10,000 mcg PO DAILY 09/19/21 [History Last Taken Unknown] esomeprazole magnesium 20 mg capsule,delayed release (Nexium) 20 mg PO DAILY 09/19/21 [History Last Taken 02/09/23] mecobalamin (vitamin B12) 1,000 mcg chewable tablet 1,000 mcg PO DAILY 09/19/21 [History Last Taken Unknown] multivitamin 1 tab PO DAILY 09/19/21 [History Last Taken Unknown] zinc 50 mg tablet 50 mg PO DAILY 09/19/21 [History Last Taken Unknown] calcium carbonate 600 mg calcium (1,500 mg) tablet (Calcium) 600 mg PO DAILY 06/04/22 [History Last Taken Unknown] digestive enzymes 1 cap PO DAILY 06/04/22 [History Last Taken Unknown] ferrous sulfate 325 mg (65 mg iron) tablet 325 mg PO DAILY 06/04/22 [History Last Taken Unknown] lithium carbonate 300 mg capsule 300 mg PO BID 06/04/22 [History Last Taken 02/09/23] magnesium 250 mg tablet 250 mg PO DAILY 06/04/22 [History Last Taken Unknown] Allergy/AdvReac Type Severity Reaction Status Date / Time oxcarbazepine Allergy Mild Rash Verified 02/10/23 05:51 [From Trileptal] divalproex sodium AdvReac Intermediate Elevated Verified 02/10/23 05:51 [From Depakote] Liver Enzymes, and hair loss Family History Father Diabetes Heart disease Mother Cancer ovarian cancer Grandfather Colon cancer Other Family history of colon cancer History of psychiatric care Hormone disorder Hypertension Ovarian cancer Surgical History delivery delivered H/O bilateral salpingo-oophorectomy H/O LEEP History of hernia repair History of laminectomy Previous back surgery S/P laparoscopic assisted vaginal hysterectomy (LAVH) Status post bilateral salpingectomy (~09/28/19) Social History Smoking Status: Never smoker alcohol intake: current substance use type: does not use caffeine: Yes frequency: 1-2 times per week seatbelt use: always do you feel safe at home: Yes additional social history: [employer] Does Not Take Aspirin Does Take Ibuprofen as needed ROS Review of Systems ROS Unobtainable: other Constitutional Constitutional: Denies fatigue, fever(s), poor appetite, weight gain or weight loss ENT HEENT: Denies mouth lesions Cardiovascular Cardiovascular: Denies abdominal bloating, abdominal edema or abdominal pain Respiratory/Chest Respiratory/Chest: Denies change in mental status, change in phlegm color, chest congestion or chest tightness Gastrointestinal Gastrointestinal: Denies belching, bloating, change in bowel habits, change in stool character, chewing difficulty, coffee ground emesis, constipation, cramping, diarrhea, dyspepsia, dysphagia, early satiety, excessive flatus, fecal incontinence, heartburn, hematemesis, hematochezia, hemorrhoids, loose stools, melena, nausea, odynophagia, rectal bleeding, tenesmus, vomiting or weight changes Genitourinary Genitourinary: Denies abdominal discomfort, burning urination or itching Musculoskeletal Musculoskeletal: Reports as per HPI; Denies muscle weakness or myalgias Integumentary Integumentary: Denies jaundice Neurologic Neurologic: Denies lack of coordination or weakness Psychiatric Psychiatric: Denies confusion, depression, memory loss, mood swings, paranoia or suicidal ideation Endocrine Endocrinology: Denies systems reviewed and no addt'l complaints, except as documented Hematologic/Lymphatic Hematologic/Lymphatic: Denies anemia, easy bleeding, easy bruising or lymphadenopathy Allergic/Immunologic Allergic/Immunologic: Denies systems reviewed and no addt'l complaints, except as documented Vital Signs Vital Signs Vital Signs: 02/10/23 05:52 02/10/23 05:52 Temperature 98.0 F Temperature Source Temporal Pulse Rate 71 Respiratory Rate 18 Respiratory Pattern Normal Blood Pressure 113/75 Blood Pressure Mean 87 Blood Pressure Source Monitor Blood Pressure Position Semi-Fowlers Blood Pressure Location Right Arm Pulse Ox 98 Oxygen Delivery Method Room Air Weight Weight: 222 lb 10.67 oz Body Mass Index (BMI) 38.2 Physical Exam Const alert, oriented x3 and no apparent distress General Appearance: cooperative Orientation / Consciousness: oriented to person HEENT hearing grossly normal bilaterally Head and Scalp: normal to inspection Face and Sinus: face symmetric Nose: external nose normal Mouth: oral and palatal mucosa normal Eyes conjunctivae normal General Eye: normal appearance of both eyes Neck full ROM General: normal visual inspection Lymph Lymphatic: no lymphadenopathy noted Chest inspection of chest normal and palpation of chest normal Chest: symmetrical chest wall rise Resp normal respiratory effort Effort and Inspection: able to speak in complete sentences Cardio regular rate GI soft to palpation and non-distended Inspection: incision other (dressing dry and intact) Percussion: normal to percussion Rectal Exam: deferred Narrative: Minimal drainage on peripad Bladder / Kidney Exam: catheter in place Neuro Speech: speech normal Gait (Neuro): normal gait Assessment & Plan Assessment/Plan (1) Encounter for screening for malignant neoplasm of colon: PLAN: She will undergo screening colonoscopy. She was explained alternatives, risk, benefits include not withstanding bleeding, infection, sepsis, perforation, need for emergent surgery . She have an ASA of 1.
[2023-02-10 07:05] VITALS: BP 111/72; BP 113/75; PULSE 67; RESP 16; TEMP 36.5; O2SAT 98
--- NOTE | 2023-02-10 07:05 | OP.CCLET_ITS ---
02/10/2023 Aleksandra Douglas Re : Colonoscopy procedure for Tejal Dao Dear Stella This procedure was performed on Friday, February 10, 2023. My impressions and recommendations are as follows: Impressions : - Diverticulosis in the sigmoid colon. - The examination was otherwise normal on direct and retroflexion views. - No specimens collected. Recommendations : - Discharge patient to home. - Resume previous diet. - Continue present medications. - Repeat colonoscopy in 10 years for screening purposes. My findings are described in the full procedure note, which is enclosed. If I can be of further assistance, please feel free to contact me at . Sincerely, Jesus Leone, 02/10/2023 7:04:19 AM This report has been signed electronically.
--- NOTE | 2023-02-10 07:05 | OP.COLON_ITS ---
Patient Name: Tejal Dao Procedure Date: 02/10/2023 6:15 AM Date of : 1975 Age: 47 Procedure: Colonoscopy Indications: Screening for colorectal malignant neoplasm Providers: Jesus Leone DO Referring MD: Aleksandra Douglas Medicines: Monitored Anesthesia Care Patient Profile: This is a 47 year old female. Refer to note in patient chart for documentation of history and physical. Last Colonoscopy: none. The patient's first colonoscopy is today. Complications: No immediate complications. Procedure: Pre-Anesthesia Assessment: - Prior to the procedure, a History and Physical was performed, and patient medications and allergies were reviewed. The patient is competent. The risks and benefits of the procedure and the sedation options and risks were discussed with the patient. All questions were answered and informed consent was obtained. Patient identification and proposed procedure were verified by the physician. Mental Status Examination: normal. CV Examination: normal. Prophylactic Antibiotics: The patient does not require prophylactic antibiotics. Prior Anticoagulants: The patient has taken no previous anticoagulant or antiplatelet agents. After reviewing the risks and benefits, the patient was deemed in satisfactory condition to undergo the procedure. The anesthesia plan was to use monitored anesthesia care (MAC). Immediately prior to administration of medications, the patient was re-assessed for adequacy to receive sedatives. The heart rate, respiratory rate, oxygen saturations, blood pressure, adequacy of pulmonary ventilation, and response to care were monitored throughout the procedure. The physical status of the patient was re-assessed after the procedure. After I obtained informed consent, the scope was passed under direct vision. Throughout the procedure, the patient's blood pressure, pulse, and oxygen saturations were monitored continuously. The colonoscope was introduced through the anus and advanced to the cecum, identified by appendiceal orifice and ileocecal valve. The colonoscopy was performed without difficulty. The patient tolerated the procedure well. The quality of the bowel preparation was good. Scope In: 6:44:08 AM Scope Withdrawal Time 0 hours 10 minutes 44 seconds Scope Out: 6:59:19 AM Total Procedure Duration Time 0 hours 15 minutes 11 seconds Findings: The perianal and digital rectal examinations were normal. Three small-mouthed diverticula were found in the sigmoid colon. The exam was otherwise without abnormality on direct and retroflexion views. Impression: - Diverticulosis in the sigmoid colon. - The examination was otherwise normal on direct and retroflexion views. - No specimens collected. Recommendation: - Discharge patient to home. - Resume previous diet. - Continue present medications. - Repeat colonoscopy in 10 years for screening purposes. Procedure Code(s): --- Professional --- G0121, Colorectal cancer screening; colonoscopy on individual not meeting criteria for high risk CPT copyright 2017 [employer]. All rights reserved. The codes documented in this report are preliminary and upon courtroom deputy review may be revised to meet current compliance requirements. Jesus Leone DO 02/10/2023 7:04:19 AM This report has been signed electronically. Number of Addenda: 0 Note Initiated On: 02/10/2023 6:15 AM
[2023-02-10 07:10] VITALS: BP 107/87; BP 113/75; PULSE 63; RESP 16; O2SAT 97
[2023-02-10 07:15] VITALS: BP 113/75; BP 116/80; PULSE 60; RESP 16; O2SAT 97
[2023-02-10 07:20] VITALS: BP 106/75; BP 113/75; PULSE 59; RESP 16; TEMP 36.1; O2SAT 99
[2023-02-10 07:35] VITALS: BP 113/75
== END 2023-02-10 07:38 | disposition home or self-care (01) ==
LOC: EN 05:25 → AC 05:26
PROVIDERS: PCP Family Medicine; Referring Provider Family Medicine; Visit Provider Internal Medicine Gastroenterology
PROC: 0DJD8ZZ Inspection of Lower Intestinal Tract, Via Natural or Artificial Opening Endoscopic (ICD-10-PCS; CPT 45378; principal; 2023-02-10 06:25)
DX: Z12.11 Encounter for screening for malignant neoplasm of colon (principal); F31.9 Bipolar disorder, unspecified; K57.30 Diverticulosis of large intestine without perforation or abscess without bleeding; K21.9 Gastro-esophageal reflux disease without esophagitis; Z79.899 Other long term (current) drug therapy
CPT/HCPCS: 45378; J7120; J2405

== ENCOUNTER → 2023-02-11 | Outpatient (CLI) | payer OTHER, SELFPAY ==
[2023-02-11 09:16] LABS: Uric Acid 6.8 mg/dL (2.6-6.0)
[2023-02-13 19:07] LABS: Beef <0.10 kU/L (Class 0); Clam <0.10 kU/L (Class 0); Codfish <0.10 kU/L (Class 0); Corn <0.10 kU/L (Class 0); Egg, White <0.10 kU/L (Class 0); Egg, Whole <0.10 kU/L (Class 0); Milk (Cow) <0.10 kU/L (Class 0); Peanut <0.10 kU/L (Class 0); Pork <0.10 kU/L (Class 0); SCALLOP <0.10 kU/L (Class 0); SESAME SEED <0.10 kU/L (Class 0); Shrimp <0.10 kU/L (Class 0); Soybean <0.10 kU/L (Class 0); Walnut, (Food) <0.10 kU/L (Class 0); Wheat <0.10 kU/L (Class 0)
[2023-02-13 21:17] LABS: Chocolate <0.10 kU/L (Class 0)
== END | disposition home or self-care (01) ==
LOC: LAB 07:35
PROVIDERS: PCP Family Medicine; Referring Provider Internal Medicine Gastroenterology; Visit Provider Internal Medicine Gastroenterology
DX: R10.9 Unspecified abdominal pain (principal)
CPT/HCPCS: 36415; 84550; 86003; 86005

== ENCOUNTER → 2023-02-18 | Outpatient (CLI) | payer OTHER, SELFPAY ==
[2023-02-18 08:28] LABS: Hematocrit 37.9 % (37-47); Hemoglobin 12.5 g/dL (12.0-15.0); Mean Corpuscular Hgb 28.7 pg (27.0-32.0); Mean Corpuscular Volume 87.1 fL (81-99); Mean Platelet Vol. 10.5 fl (6.2-12.0); Platelet Count 260 K/mm3 (150-450); RBC Distribution Width CV 13.7 % (11.6-14.6); RBC Distribution Width SD 43.1 fl (35.1-43.9); Red Blood Count 4.35 M/mm3 (4.2-5.4); White Blood Count 6.2 K/mm3 (4.4-11.0)
[2023-02-18 08:31] LABS: Color, Urine Yellow (Yellow); Glucose, Dipstick Normal (Normal); Ketone-Dipstick Negative (Negative); Leukocyte Esterase-Dipstick Negative /ul (Negative); Nitrite-Dipstick Negative (Negative); Occult Blood-Urine Negative /ul (Negative); Protein-Dipstick Negative (Negative); Urine Bilirubin Dipstick Negative (Negative); Urine Clarity Clear (Clear); Urine Urobilinogen Normal (Normal)
[2023-02-18 08:58] LABS: Insulin 17.8 mU/L (2.6-37.6); T3 Total - Triiodothyronine 1.24 ng/mL (0.6-1.81)
[2023-02-18 09:00] LABS: Hemoglobin A1c 4.7 % (3.8-5.6)
[2023-02-18 09:03] LABS: Anion Gap 5 (5-15); BUN 11 mg/dL (7-18); BUN/Creat Ratio 12.7 RATIO (10-20); Calcium,Total 8.9 mg/dL (8.5-10.1); Chloride 109 mmol/L (98-107); Cholesterol 178 mg/dL (200); Creatinine, Serum 0.86 mg/dL (0.55-1.02); EST Glomerular Filtration Rate 75 mL/min (>60); Est Glom Filt Rate - Afr Amer 91 mL/min (>60); Glucose 99 mg/dL (74-106); High Density Lipoprotein 41 mg/dL; Potassium 4.1 mmol/L (3.5-5.1); Sodium Level 139 mmol/L (136-145); T4 Total, Thyroxin 7.9 ug/dL (4.8-13.9); Thyroid Stim Hormone (TSH) 2.28 uIU/mL (0.358-3.74); Triglycerides 120 mg/dL; Very Low Density Lipoprotein 24 mg/dL (5-40)
== END | disposition home or self-care (01) ==
PROVIDERS: PCP Family Medicine; Visit Provider Physician Assistant
DX: Z79.899 Other long term (current) drug therapy (principal); Z51.81 Encounter for therapeutic drug level monitoring
CPT/HCPCS: 36415; 80048; 80061; 80178; 81002; 83036; 83525; 84436; 84443; 84480; 85027

== ENCOUNTER → 2023-02-19 | Outpatient (CLI) | payer OTHER, SELFPAY ==
--- NOTE | 2023-02-19 14:00 | NEURO ---
NCS and/or EMG Patient Report Ordering Doctor: Frankie Zuniga DATE OF SERVICE: 02/19/23 Patient presents for electrodiagnostic testing of the upper limbs. She reports numbness, tingling and weakness in both hands, worse on the left side. Electrodiagnostic findings: Left median motor nerve demonstrates normal distal latency and amplitude, with reduced conduction velocity. Right median motor nerve demonstrates prolonged distal latency with normal amplitude and conduction velocity. Ulnar motor response is normal bilaterally, including conduction across the elbow. Normal median and ulnar F waves. Prolonged median sensory latency at the wrist is noted bilaterally. Normal ulnar and radial sensory responses. On needle EMG, all muscles tested in the upper limbs showed no evidence of denervation with normal motor unit action potentials. Electrodiagnostic impression: This is an abnormal study of the upper limbs. 1. Electrodiagnostic findings suggestive of bilateral median mononeuropathy. This is consistent with a mild bilateral carpal tunnel syndrome. Comparison has been made to previous study performed in July 2021. Today's study demonstrates further prolongation of median sensory latencies and median motor latencies bilaterally. 2. No electrodiagnostic evidence is noted for cervical radiculopathy.
== END | disposition home or self-care (01) ==
LOC: PSN 12:24
PROVIDERS: PCP Family Medicine; Visit Provider Student in an Organized Health Care Education/Training Program
DX: G56.03 Carpal tunnel syndrome, bilateral upper limbs (principal)
CPT/HCPCS: 95886; 95913

== ENCOUNTER 2023-06-12 08:44 | Day surgery (SDC) | payer OTHER, SELFPAY ==
[2023-06-12] VITALS (12 sets, daily range): BP systolic 92–117; BP diastolic 61–78; PULSE 67–74; RESP 14–18; TEMP 36.2–36.4; O2SAT 88–98; BMI 37.4
[2023-06-12] MEDS: Lactated Ringers 1,000 ML 15 ML IV (09:11)
[2023-06-12] MEDS: Cefazolin 2 GM in 0.9% Normal Saline 100 ML IV (09:57)
[2023-06-12] MEDS: Ropivacaine 0.5% 30 ML Vial (10:31)
--- NOTE | 2023-06-12 10:54 | OP.PCM_ITS ---
Report of Operation Date of Procedure: 06/12/23 Description of Surgical Findings:: Preoperative diagnosis: Bilateral Carpal Tunnel Syndrome Postoperative diagnosis: Bilateral Carpal Tunnel Syndrome Procedure: Bilateral Endoscopic Carpal Tunnel Release Surgeon: Frankie Zuniga DO Liquor Gallery Operator: Carolyn Boudreaux PA-C Anesthesia: General with LMA Anesthesiologist: Scotty Delgado MD Complications: None apparent Drains: None Estimated blood loss: 2 cc Urinary output: None measured IV fluids: 500 cc crystalloid Specimens: None Surgical implants: None Surgical indications: This is a 47-year-old female seen in the outpatient setting diagnosed with bilateral carpal tunnel syndrome. The patient failed nonoperative management in the form of bracing, anti-inflammatory medications, activity modification and corticosteroid injections. Operative intervention in form of endoscopic possible open carpal tunnel release was offered to bilateral hands. The risks, benefits, alternatives to procedure were reviewed with patient at length in the outpatient setting and he agreed to proceed. Risks included but were not limited to bleeding, infection, loss of life or limb, risk of anesthesia, incomplete release, neurovascular injury, persistent pain, worsening paresthesias, need for additional surgery, stiffness, loss of hand function. Patient expressed understanding wish to proceed with surgery. Informed consent obtained in the office. Description of procedure: Patient was seen in preoperative holding area. Patient was identified by name, medical record number, date of . The operative extremities were marked with a surgical marker. We confirmed informed consent with the patient and all questions were answered to the patient's satisfaction. At time of her procedure, patient was brought to the operative suite and positioned supine a standard operating table. All bony prominences were well- padded. General anesthesia was induced and endotracheal tube placed. Bilateral upper extremities were then prepped for surgery by first applying a well-padded pneumatic tourniquet to the upper arms. We spun the bed approximately 45 degrees. 2 g Ancef was administered prior to incision by anesthesia staff. We performed a timeout at this point confirming sides, site, and operations to be performed. No concerns voiced and elected to proceed. I began surgery on the left side, as this was the more symptomatic side. I first marked a transverse incision on the ulnar aspect of the palmaris longus tendon in the proximal wrist crease approximately 1-1/2 cm in length. Skin was sharply incised with 15 blade scalpel. Superficial veins were cauterized with bipolar cautery. The fatty layer was dissected through bluntly until the antebrachial fascia was encountered. The antebrachial fascia were split in line with the fibers as well as the incision with the Littler scissors. I then p laced a skin hook around the antebrachial fascia distally. I open the proximal 1 cm longitudinally of the antebrachial fascia. I then sequentially dilated within the carpal tunnel utilizing Arthrex supplied dilators. I then utilized there synovial elevator to debride the undersurface of the transverse carpal ligament free from synovium. I then removed the elevator and inserted the centerline endoscopic carpal tunnel release system. The transverse carpal ligament was well visualized and free from underlying synovium. I identified its distal aspect by balloting the skin and perivascular fat was visualized. I then carefully deployed the scalpel from the sheath and, in retrograde fashion, sequentially released the transverse carpal ligament longitudinally. No aberrancies of the median nerve were apparent. Complete release was confirmed with Littler scissors acting as a probe. The tourniquet was then deflated. Hemostasis was excellent. A field block was administered with 10 cc 0.5% plain ropivacaine. Skin was closed with a horizontal mattress suture of 4-0 nylon suture. Sterile compression dressing was then applied. I then turned my attention to the right side. I marked a transverse incision on the ulnar aspect of the palmaris longus tendon in the proximal wrist crease approximately 1-1/2 cm in length. Skin was sharply incised with 15 blade scalpel. Superficial veins were cauterized with bipolar cautery. The fatty layer was dissected through bluntly until the antebrachial fascia was encountered. The antebrachial fascia were split in line with the fibers as well as the incision with the Littler scissors. I then placed a skin hook around the antebrachial fascia distally. I open the proximal 1 cm longitudinally of the antebrachial fascia. I then sequentially dilated within the carpal tunnel utilizing Arthrex supplied dilators. I then utilized there synovial elevator to debride the undersurface of the transverse carpal ligament free from synovium. I then removed the elevator and inserted the centerline endoscopic carpal tunnel release system. The transverse carpal ligament was well visualized and free from underlying synovium. I identified its distal aspect by balloting the skin and perivascular fat was visualized. I then carefully deployed the scalpel from the sheath and, in retrograde fashion, sequentially released the transverse carpal ligament longitudinally. No aberrancies of the median nerve were apparent. Complete release was confirmed with Littler scissors acting as a probe. The tourniquet was then deflated. Hemostasis was excellent. A field block was administered with 10 cc 0.5% plain ropivacaine. Skin was closed with a horizontal mattress suture of 4-0 nylon suture. Sterile compression dressing was then applied. Patient tolerated procedure well without apparent complication.she was safely extubated in the operative suite. She was transferred to PACU in stable condition. Post Operative Plan: Weightbearing: Weightbearing as tolerated bilateral upper extremities Antibiotics: Ancef 2 g x 1 dose preoperatively DVT Prophylaxis: None indicated Forrester: None Dressing: Okay to remove on postoperative day #2, shower. Apply Band-Aid X-Rays: None Pain Medication: Narcotic pain prescription provided, Tylenol / ibuprofen encouraged. Follow-up: 2 weeks post-operatively with me in the office
--- NOTE | 2023-06-12 11:42 | DCINST_ITS ---
Discharge Instructions Follow Up Care Test Results: Test results from this visit will be discussed in further detail at your follow- up appointment, if applicable. Discharge Plan Admission Primary Reason for Your Visit: Bilateral carpal tunnel release Attending Provider: Frankie Zuniga Primary Care Provider: Aleksandra Douglas Instructions Additional Instructions / Restrictions: Follow preprinted instructions from surgeons office. Discharge Orders/Prescriptions Prescriptions: New hydrocodone-acetaminophen 5-325 mg tablet 1 tab PO Q6H PRN (Reason: pain) 3 Days Qty: 12 0RF No Action multivitamin Tablet 1 tab PO DAILY esomeprazole magnesium [Nexium] 20 mg capsule,delayed release(DR/EC) 20 mg PO DAILY mecobalamin (vitamin B12) 1,000 mcg tablet,chewable 1,000 mcg PO DAILY zinc 50 mg tablet 50 mg PO DAILY ascorbic acid (vitamin C) 1,000 mg tablet 2 g PO DAILY biotin 10,000 mcg capsule 10,000 mcg PO DAILY digestive enzymes Capsule 1 cap PO DAILY Rx Instructions: administer with food; swallow whole; do not crush/chew/dissolve/break/cut calcium carbonate [Calcium 600] 600 mg calcium (1,500 mg) tablet 600 mg PO DAILY lithium carbonate 300 mg capsule 300 mg PO BID ferrous sulfate 325 mg (65 mg iron) tablet 325 mg PO DAILY magnesium 250 mg tablet 250 mg PO DAILY Referrals / Follow Up: Frankie Zuniga DO [Med Staff - Active Staff] - Aleksandra Douglas MD [Primary Care Provider] - Disposition Disposition (needs filled in before D/C Order can be placed): Home, Self Care
== END 2023-06-12 13:02 | disposition home or self-care (01) ==
LOC: SDC 08:46 → AC 08:47
PROVIDERS: PCP Family Medicine; Referring Provider Student in an Organized Health Care Education/Training Program; Visit Provider Student in an Organized Health Care Education/Training Program
PROC: (CPT 29848; principal; 2023-06-12 10:15)
DX: G56.03 Carpal tunnel syndrome, bilateral upper limbs (principal); Z79.899 Other long term (current) drug therapy
CPT/HCPCS: 29848; 01810; J7120; J2405

== ENCOUNTER → 2023-07-24 | Outpatient (CLI) | payer OTHER, SELFPAY ==
--- NOTE | 2023-07-24 15:24 | BI_ITS ---
MAMMOGRAPHY - BILATERAL SCREENING REASON FOR EXAM: Female, 47 years old. Routine annual screening examination. PERTINENT HISTORY: Non-contributory. TECHNIQUE: Digital bilateral breast rose (3D mammographic acquisition) in the CC and MLO projections. 2-D mediolateral oblique (MLO) and craniocaudad (CC) views of both breasts were obtained. CAD: Full Field Digital Mammography with Computer Added Detection was performed. COMPARISON: Comparison is made with prior study dated April 18, 2022 and April 16, 2021. FINDINGS: Breast Composition: There are scattered areas of fibroglandular density. There are no dominant masses or suspicious calcifications. Stable small benign-appearing bilateral axillary lymph nodes. No other significant abnormalities are identified. There has been no significant change since the prior study. BI/SCRN MAMM (CAD)W/ROSE BILAT IMPRESSION: Stable bilateral screening mammogram. Yearly follow-up mammogram recommended. (A) ASSESSMENT CATEGORY: BIRADS Category 2: Benign. A letter regarding these results will be sent to the patient by the facility within 30 days. Approximately 10% of breast cancers are not detected by mammography. A normal mammogram should not delay biopsy of a clinically suspicious abnormality. [id number] Electronically Signed: Arie Silverman MD at 9:07 EDT ,
== END | disposition home or self-care (01) ==
LOC: OPBI 15:23
PROVIDERS: PCP Family Medicine; Referring Provider Nurse Practitioner Women's Health; Visit Provider Nurse Practitioner Women's Health
DX: Z12.31 Encounter for screening mammogram for malignant neoplasm of breast (principal)
CPT/HCPCS: 77063; 77067

== ENCOUNTER → 2023-12-17 | Outpatient (CLI) | payer OTHER, SELFPAY ==
--- OUTSIDE RECORDS SUMMARY | 2023-12-17 07:13 | XMS RPT_ITS | CCD ---
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 Work Phone: Medications Completed/Discontinued Medications Medication Drug Class(es) Dates Sig (Normalized) Sig (Original) Biotin (4 sources) Biotin TABS Quantity: 0 Refills: 0 Ordered: 22-Oct-2021 DO Active Collagen (4 sources) Collagen CAPS Quantity: 0 Refills: 0 Ordered: 22-Oct-2021 DO Active ferrous sulfate 325 mg oral tablet (4 sources) Ferrous Sulfate 325 (65 Fe) MG Oral Tablet Quantity: 0 Refills: 0 Ordered: 22-Oct-2021 DO Active FLUoxetine 20 mg oral tablet (4 sources) Serotonin Reuptake Inhibitor take 1 tablet by mouth once daily FLUoxetine HCl - 20 MG Oral Tablet TAKE 1 TABLET DAILY. Quantity: 90 Refills: 1 Ordered: 26-Mar-2021 DO Active Magnesium (4 sources) Magnesium CAPS Quantity: 0 Refills: 0 Ordered: 22-Oct-2021 DO Active meloxicam 15 mg oral tablet (4 sources) Nonsteroidal Anti-inflammatory Drug Start: 10-22-2021 take 1 tablet by mouth once daily at mealtime Meloxicam 15 MG Oral Tablet TAKE 1 TABLET DAILY. Quantity: 30 Refills: 0 Ordered: 22-Oct-2021 Aleksandra Douglas MD Start : 22-Oct-2021 Active take with food Multivitamins TABS (4 sources) Multivitamins TA BS Quantity: 0 Refills: 0 Ordered: 26-Mar-2021 DO Active Probiotic CAPS (4 sources) Probiotic CAPS Quantity: 0 Refills: 0 Ordered: 22-Oct-2021 DO Active V-R Vitamin B-12 TABS (4 sources) V-R Vitamin B-12 TABS Quantity: 0 Refills: 0 Ordered: 22-Oct-2021 DO Active Vitamin D CAPS (4 sources) Vitamin D CAPS Quantity: 0 Refills: 0 Ordered: 22-Oct-2021 DO Active Zinc (4 sources) Zinc CAPS Quanti ty: 0 Refills: 0 Ordered: 22-Oct-2021 DO Active Problems Active Problems Problem Classification Problem Date Documented Da te Episodic/Chronic Cardiac dysrhythmias (4 sources) Palpitations; Translations: [Palpitations] Episodic Past or Other Problems Problem Classification Problem Date Documented Da te Episodic/Chronic Other aftercare (4 sources) Post-discharge follow-up; Translations: [Other follow-up examination] Resolved: 05-03-2019 Episodic Other lower respiratory disease (4 sources) H/O: pneumonia; Translations: [Personal history of pneumonia (recurrent)] Resolved: 04-29-2019 Episodic Results Test Name Value Interpretation Reference Range Facil ity Vital Signs Date Time Vital Sign Value Performing Clinician Facility 12-19-2021 08:53-0500 Body height 162.56 cm Aleksandra Momin Stella Work Phone: [facility] Work Phone: 12-19-2021 08:53-0500 Body mass index (BMI) [Ratio] 33.99 kg/m2 Aleksandra Momin Stella Work Phone: [facility] Work Phone: 12-19-2021 08:53-0500 Body surface area Derived from formula 1.95 m2 Aleksandra Momin Stella Work Phone: [facility] Work Phone: 12-19-2021 08:53-0500 Body weight 89.81 kg Aleksandra L Stella Work Phone: [facility] [employer] Work Phone: 12-19-2021 08:53-0500 Diastolic blood pressure 78 mm[Hg] Aleksandra L Stella Work Phone: [facility] [employer] Work Phone: 12-19-2021 08:53-0500 Systolic blood pressure 116 mm[Hg] Aleksandra L Stella Work Phone: [facility] [employer] Work Phone: 10-22-2021 06:39-0500 Body mass index (BMI) [Ratio] 34.27 kg/m2 Aleksandra L Stella Work Phone: [facility] Work Phone: 10-22-2021 06:39-0500 Body surface area Derived from formula 1.97 m2 Aleksandra L Stella Work Phone: [facility] Work Phone: 10-22-2021 06:39-0500 Body temperature 96.9 [degF] Aleksandra L Stella Work Phone: [facility] Work Phone: 10-22-2021 06:39-0500 Body weight 91.26 kg Aleksandra L Stella Work Phone: [facility] Work Phone: 10-22-2021 06:39-0500 Diastolic blood pressure 76 mm[Hg] Aleksandra L Stella Work Phone: [facility] Work Phone: 10-22-2021 06:39-0500 Heart rate 73 /min Aleksandra L Stella Work Phone: [facility] Work Phone: 10-22-2021 06:39-0500 Respiratory rate 16 /min Aleksandra L Stella Work Phone: [facility] Work Phone: 10-22-2021 06:39-0500 SaO2% (BldA) [Mass fraction] 97 % Aleksandrailiana Douglas Work Phone: [facility] Work Phone: 10-22-2021 06:39-0500 Systolic blood pressure 115 mm[Hg] Aleksandrailiana Douglas Work Phone: [facility] Work Phone: Encounters Encounter Date Encounter Type Care Provider Facility Start: 01-25-2022 AUDIT Aleksandrailiana Douglas Work Phone: [facility] Work Phone: Start: 12-19-2021 Office consultation new/estab patient 60 min Aleksandrailiana Douglas Work Phone: [facility] Work Phone: Start: 10-22-2021 Office outpatient vi sit 15 minutes Aleksandrailiana Douglas Work Phone: [facility] Work Phone: Cardiovascular stres s test abnormal Aleksandra [employer] Stella Work Phone: [facility] Work Phone: Procedures Date Procedure Procedure Detail Performing Clinician Bilateral tubal ligation Tyr iliana Douglas Work Phone: Plan of Treatment Date Care Activity Detail Author Start: 12-19-2021 NPV, Provider: Julia Dennis, Status: Pen, Time: 8:30 AM NPV, Provider: Julia Dennis, Status: Pen, Time: 8:30 AM [facility] Work Phone: Immunizations Immunization Date Immunization Notes Care Provider Terell camarillo 09-14-2021 Moderna COVID-19 Vaccine 100 MCG/0.5ML Intramuscular Suspension Aleksandra Douglas Work Phone: [facility] Work Phone: 08-22-2021 influenza, injectabl e, quadrivalent, preservative free; Translations: [Fluarix Quadrivalent 0.5 ML Intramuscular Suspension Prefilled Syringe] Aleksandra Douglas Work Phone: [facility] Work Phone: Payers Date Payer Category Payer Policy ID Unknown ANTHEM Social History Date Type Detail Facility Does not use illicit drugs Does not use i llicit drugs [facility] Work Phone: History of Present illness Narrative Note Date & Type Note Facility History of Present illness Narrative HPI Elements:[id number] ION OF PAIN/SXS- joint pain, saw ortho, needs referrelam- bilateral hands - stiff, [facility]- 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- scheduled CT surgery - but postponed due to new sxs developingnow having bilateral feet sxs and right hip sxspt wants referral to RheumatologistMGM had arthritis - most likely RASEVERITY- moderateDURATION-since aprilTIMING/FREQUENCY OF SXS-progressivly worsening , left hand the worst areaCONTEXT-(circumstances, cause, precursor, outside factors)- recent travel - no, nonsmokerMODIFYING FACTORS-What makes sxs better-What makes sxs worse-WHat have you tried that did not make symptoms better or worse?-Ex OTC meds none [facility] Work Phone: History of Present illness Narrative Note Date & Type Note Facility History of Present illness Narrative HPI Elements:[id number] ION OF PAIN/SXS- joint pain, saw ortho, needs referrelam- bilateral hands - stiff, [facility]- 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- scheduled CT surgery - but postponed due to new sxs developingnow having bilateral feet sxs and right hip sxspt wants referral to RheumatologistMGM had arthritis - most likely RASEVERITY- moderateDURATION-since aprilTIMING/FREQUENCY OF SXS-progressivly worsening , left hand the worst areaCONTEXT-(circumstances, cause, precursor, outside factors)- recent travel - no, nonsmokerMODIFYING FACTORS-What makes sxs better-What makes sxs worse-WHat have you tried that did not make symptoms better or worse?-Ex OTC meds [facility] Work Phone: Summary Purpose Family History Unknown Family Member Name Dates Details Family history of diabetes thomas rosado: Father(V18.0, Z83.3) Status:Active Family history of hypertensi on: Mother, Father(V17.49, Z82.49) Status:Active Family history of cardiac di sorder: Mother, Father(V17.49, Z82.49) Status:Active : Mother, Father Status:Active Family history of malignant neoplasm of ovary: Mother(V16.41, Z80.41) Status:Active Unknown Family Member Name Dates Details Family history of diabetes m ellitus: Father(V18.0, Z83.3) Status:Active Family history of hypertensi on: Mother, Father(V17.49, Z82.49) Status:Active Family history of cardiac di sorder: Mother, Father(V17.49, Z82.49) Status:Active : Mother, Father Status:Active Family history of malignant neoplasm of ovary: Mother(V16.41, Z80.41) Status:Active Unknown Family Member Name Dates Details Family history of diabetes m ellitus: Father(V18.0, Z83.3) Status:Active Family history of hypertensi on: Mother, Father(V17.49, Z82.49) Status:Active Family history of cardiac di sorder: Mother, Father(V17.49, Z82.49) Status:Active : Mother, Father Status:Active Family history of malignant neoplasm of ovary: Mother(V16.41, Z80.41) Status:Active Unknown Family Member Name Dates Details Family history of diabetes m ellitus: Father(V18.0, Z83.3) Status:Active Family history of hypertensi on: Mother, Father(V17.49, Z82.49) Status:Active Family history of cardiac di sorder: Mother, Father(V17.49, Z82.49) Status:Active : Mother, Father Status:Active Family history of malignant neoplasm of ovary: Mother(V16.41, Z80.41) Status:Active Advance Directives No Advanced Directives Records FoundNo Advanced Directives Records Found Chief Complaint * joint pain * is fasting * joint pain * is fasting Additional Source Comments INFORMATION SOURCE (unrecogn ized section and content) DATE CREATED AUTHOR AUTHOR'S RICHARD ALVARADO 12/20/2021 [employer] FOR RECORDS PERTAINING TO PATIENTS WHO ARE OR HAVE BEEN ENROLLED IN A CHEMICAL DEPENDENCY/SUBSTANCEABUSE PROGRAM, SOME INFORMATION MAY BE OMITTED. This clinical summary was aggregated from multiple sources. Caution should be exercised in using it in the provision of clinical care. This summary normalizes information from multiple sources, and as a consequence, information in this document may materially change the coding, format and clinical context of patient data. In addition, data may be omitted in some cases. CLINICAL DECISIONS SHOULD BE BASED ON THE PRIMARY CLINICAL RECORDS. [facility]. provides no warranty or guarantee of the accuracy or completeness of information in this document.
[2023-12-17 08:42] LABS: Hematocrit 38.6 % (37-47); Mean Corp Hgb Conc 33.7 g/dL (32-36); Mean Corpuscular Hgb 28.1 pg (27.0-32.0); Mean Corpuscular Volume 83.5 fL (81-99); Mean Platelet Vol. 10.8 fl (6.2-12.0); Platelet Count 306 K/mm3 (150-450); RBC Distribution Width CV 13.7 % (11.6-14.6); RBC Distribution Width SD 42.1 fl (35.1-43.9); Red Blood Count 4.62 M/mm3 (4.2-5.4); White Blood Count 5.6 K/mm3 (4.4-11.0)
[2023-12-17 09:41] LABS: Insulin 14.3 mU/L (2.6-37.6); Vitamin B12 757 pg/mL (211-911); Vitamin D,25 Hydroxy 28.7 ng/mL
[2023-12-17 10:14] LABS: ALB/GLOB Ratio 1.3 RATIO (0.9-2.4); AST(SGOT) 20 U/L (15-37); Alanine Aminotransfer ALT/SGPT 22 U/L (13-56); Albumin, Serum 4.2 g/dL (3.2-5.0); Alkaline Phosphatase 67 U/L (45-117); Anion Gap 9 (5-15); BUN 15 mg/dL (7-18); BUN/Creat Ratio 15.1 RATIO (10-20); Chloride 109 mmol/L (98-107); Cholesterol 216 mg/dL (200); Creatinine, Serum 0.99 mg/dL (0.55-1.02); EST Glomerular Filtration Rate 64 mL/min (>60); Est Glom Filt Rate - Afr Amer 77 mL/min (>60); Globulin 3.2 g/dL (2.2-4.2); Glucose 91 mg/dL (74-106); High Density Lipoprotein 39 mg/dL; Protein, Total 7.4 g/dL (6.4-8.2); Sodium Level 141 mmol/L (136-145); Triglycerides 163 mg/dL; Very Low Density Lipoprotein 33 mg/dL (5-40)
== END | disposition home or self-care (01) ==
LOC: LAB 07:10
PROVIDERS: PCP Family Medicine; Referring Provider Physician Assistant; Visit Provider Physician Assistant
DX: R53.83 Other fatigue (principal); E66.9 Obesity, unspecified; Z79.899 Other long term (current) drug therapy
CPT/HCPCS: 36415; 80053; 80061; 80178; 82306; 82607; 82746; 83036; 83525; 85027

== ENCOUNTER → 2024-02-20 | Outpatient (CLI) | payer OTHER, SELFPAY ==
[2024-02-20 07:50] LABS: Hemoglobin 12.4 g/dL (12.0-15.0); Mean Corp Hgb Conc 33.5 g/dL (32-36); Mean Corpuscular Hgb 27.9 pg (27.0-32.0); Mean Corpuscular Volume 83.1 fL (81-99); Mean Platelet Vol. 11.1 fl (6.2-12.0); Platelet Count 280 K/mm3 (150-450); RBC Distribution Width CV 13.8 % (11.6-14.6); RBC Distribution Width SD 41.6 fl (35.1-43.9); Red Blood Count 4.45 M/mm3 (4.2-5.4); White Blood Count 5.4 K/mm3 (4.4-11.0)
[2024-02-20 08:36] LABS: Vitamin B12 902 pg/mL (211-911); Vitamin D,25 Hydroxy 42.4 ng/mL
[2024-02-20 08:57] LABS: ALB/GLOB Ratio 1.3 RATIO (0.9-2.4); AST(SGOT) 15 U/L (15-37); Alanine Aminotransfer ALT/SGPT 18 U/L (13-56); Alkaline Phosphatase 55 U/L (45-117); Anion Gap 7 (5-15); BUN 17 mg/dL (7-18); BUN/Creat Ratio 18.4 RATIO (10-20); Calcium,Total 8.6 mg/dL (8.5-10.1); Chloride 109 mmol/L (98-107); Creatinine, Serum 0.92 mg/dL (0.55-1.02); EST Glomerular Filtration Rate 69 mL/min (>60); Est Glom Filt Rate - Afr Amer 84 mL/min (>60); Ferritin 184 ng/mL (8-252); Globulin 3.1 g/dL (2.2-4.2); Glucose 98 mg/dL (74-106); Iron 55 ug/dL (50-170); Iron Binding Capacity,Total 258 ug/dL (250-450); Potassium 4.2 mmol/L (3.5-5.1); Protein, Total 7.1 g/dL (6.4-8.2); Sodium Level 141 mmol/L (136-145); Thyroid Stim Hormone (TSH) 2.24 uIU/mL (0.358-3.74)
[2024-02-20 09:16] LABS: Hemoglobin A1c 4.6 % (3.8-5.6)
== END | disposition home or self-care (01) ==
LOC: LAB 07:15
PROVIDERS: PCP Family Medicine; Referring Provider Physician Assistant; Visit Provider Physician Assistant
DX: Z51.81 Encounter for therapeutic drug level monitoring (principal); Z79.899 Other long term (current) drug therapy
CPT/HCPCS: 36415; 80053; 80178; 82306; 82607; 82728; 82746; 83036; 83540; 83550; 84443; 85027

== ENCOUNTER → 2024-02-25 | Outpatient (CLI) | payer OTHER, SELFPAY ==
--- NOTE | 2024-02-25 07:15 | EKG12_ITS ---
Test Reason : DRUG MONITORING Blood Pressure : / mmHG Vent. Rate : 067 BPM Atrial Rate : 067 BPM P-R Int : 174 ms QRS Dur : 084 ms QT Int : 402 ms P-R-T Axes : 006 -12 002 degrees QTc Int : 424 ms Normal sinus rhythm Nonspecific T wave abnormality Abnormal ECG Confirmed by PATRICIA AGUILAR, MARY ([id number]), food expeditor MEDHAT BAEZ ([id number]) on 03/01/2024 1:41:59 PM Referred By: Felicitas Camacho Confirmed By:PABLO GOMEZ MD
== END | disposition home or self-care (01) ==
PROVIDERS: PCP Family Medicine; Referring Provider Physician Assistant; Visit Provider Physician Assistant
DX: Z51.81 Encounter for therapeutic drug level monitoring (principal); Z79.899 Other long term (current) drug therapy
CPT/HCPCS: 93005

== ENCOUNTER → 2024-06-22 | Outpatient (CLI) | payer OTHER, SELFPAY | END | disposition home or self-care (01) | LOC: LAB 07:19 | PROVIDERS: PCP Family Medicine; Referring Provider Family Medicine; Visit Provider Family Medicine | DX: R22.1 Localized swelling, mass and lump, neck (principal); E04.9 Nontoxic goiter, unspecified | CPT/HCPCS: 36415; 84443 ==

== ENCOUNTER → 2024-06-28 | Outpatient (CLI) | payer OTHER, SELFPAY ==
--- NOTE | 2024-06-28 12:16 | US_ITS ---
EXAM: US SOFT TISSUES HEAD AND NECK, THYROID CLINICAL INDICATION: ENLARGED THYROID -- fullness on the right side TECHNIQUE: Meneses scale and color doppler imaging was performed of the thyroid gland. COMPARISON: No relevant prior studies available. FINDINGS: LEFT THYROID LOBE: Left thyroid lobe measures 4.3 x 1.8 x 1.1 cm. Normal echogenicity. No evidence of a mass. RIGHT THYROID LOBE: Right thyroid lobe measures 5.6 x 2.2 x 2.0 cm. There is a dominant 3.3 x 2.8 cm well-defined rounded solid isoechoic mass within the right thyroid lobe appearing wider than tall and without microcalcification. TI-RADS points: 3. TI-RADS category: TR3. This nodule is mildly suspicious. Recommend FNA evaluation. ISTHMUS: Isthmus measures 3.5 mm in AP dimension. No thyroid nodules are present. US/Thyroid IMPRESSION: Right thyroid nodule as described. FNA evaluation recommended. Electronically Signed: Domingo Bello MD at 9:36 EDT ,
== END | disposition home or self-care (01) ==
LOC: US 12:15
PROVIDERS: PCP Family Medicine; Referring Provider Family Medicine; Visit Provider Family Medicine
DX: R22.1 Localized swelling, mass and lump, neck (principal); E04.9 Nontoxic goiter, unspecified
CPT/HCPCS: 76536

== ENCOUNTER → 2024-08-04 | Outpatient (CLI) | payer OTHER, SELFPAY ==
--- NOTE | 2024-08-04 07:20 | BI_ITS ---
MAMMOGRAPHY - BILATERAL SCREENING REASON FOR EXAM: Female, 48 years old. Routine annual screening examination. PERTINENT HISTORY: Non-contributory. TECHNIQUE: Digital bilateral breast rose (3D mammographic acquisition) in the CC and MLO projections. 2-D mediolateral oblique (MLO) and craniocaudad (CC) views of both breasts were obtained. CAD: Full Field Digital Mammography with Computer Added Detection was performed. COMPARISON: Comparison is made with prior study dated July 24, 2023 and April 18, 2022. FINDINGS: Breast Composition: There are scattered areas of fibroglandular density. There are no dominant masses or suspicious calcifications. Stable benign appearing bilateral axillary lymph nodes. No other significant abnormalities are identified. There has been no significant change since the prior study. BI/SCRN MAMM (CAD)W/ROSE BILAT IMPRESSION: Stable bilateral screening mammogram. Yearly follow-up mammogram recommended. (A) ASSESSMENT CATEGORY: BIRADS Category 2: Benign. A letter regarding these results will be sent to the patient by the facility within 30 days. Approximately 10% of breast cancers are not detected by mammography. A normal mammogram should not delay biopsy of a clinically suspicious abnormality. [id number] Electronically Signed: Arie Silverman MD at 8:28 EDT ,
== END | disposition home or self-care (01) ==
PROVIDERS: PCP Family Medicine; Referring Provider Nurse Practitioner Women's Health; Visit Provider Nurse Practitioner Women's Health
DX: Z12.31 Encounter for screening mammogram for malignant neoplasm of breast (principal)
CPT/HCPCS: 77063; 77067

== ENCOUNTER → 2024-11-01 | Outpatient (CLI) | payer OTHER, SELFPAY ==
[2024-11-01 11:45] LABS: Hematocrit 35.3 % (37-47); Mean Corpuscular Hgb 28.4 pg (27.0-32.0); Mean Corpuscular Volume 83.5 fL (81-99); Mean Platelet Vol. 10.4 fl (6.2-12.0); Platelet Count 258 K/mm3 (150-450); RBC Distribution Width CV 13.4 % (11.6-14.6); RBC Distribution Width SD 40.7 fl (35.1-43.9); Red Blood Count 4.23 M/mm3 (4.2-5.4); White Blood Count 5.7 K/mm3 (4.4-11.0)
[2024-11-01 11:52] LABS: International Normalized Ratio 1.1; Partial Thromboplast Time 26.5 Seconds (24.1-36.2); Prothrombin Time (Protime)PT. 14.1 SECONDS (11.7-14.9)
[2024-11-01 12:27] LABS: ALB/GLOB Ratio 1.4 RATIO (0.9-2.4); AST(SGOT) 12 U/L (15-37); Alanine Aminotransfer ALT/SGPT 15 U/L (13-56); Alkaline Phosphatase 57 U/L (45-117); Anion Gap 4 (5-15); BUN 14 mg/dL (7-18); BUN/Creat Ratio 16.5 RATIO (10-20); Calcium,Total 9.1 mg/dL (8.5-10.1); Chloride 108 mmol/L (98-107); Creatinine, Serum 0.85 mg/dL (0.55-1.02); EST Glomerular Filtration Rate 76 mL/min (>60); Est Glom Filt Rate - Afr Amer 93 mL/min (>60); Globulin 2.9 g/dL (2.2-4.2); Glucose 95 mg/dL (74-106); Protein, Total 6.9 g/dL (6.4-8.2); Sodium Level 138 mmol/L (136-145)
== END | disposition home or self-care (01) ==
LOC: LAB 11:10
PROVIDERS: PCP Family Medicine
DX: Z01.818 Encounter for other preprocedural examination (principal); E04.1 Nontoxic single thyroid nodule
CPT/HCPCS: 36415; 80053; 85027; 85610; 85730

== ENCOUNTER → 2024-12-21 | Outpatient (CLI) | payer OTHER, SELFPAY ==
[2024-12-21 08:40] LABS: T4 Free Direct 0.94 ng/dL (0.76-1.46)
== END | disposition home or self-care (01) ==
PROVIDERS: PCP Family Medicine; Referring Provider Physician Assistant; Visit Provider Physician Assistant
DX: E89.0 Postprocedural hypothyroidism (principal); Z79.899 Other long term (current) drug therapy
CPT/HCPCS: 36415; 80178; 84439; 84443

== ENCOUNTER → 2025-03-23 | Outpatient (CLI) | payer OTHER, SELFPAY | END | disposition home or self-care (01) | LOC: LAB 07:11 | PROVIDERS: PCP Family Medicine; Referring Provider Physician Assistant; Visit Provider Physician Assistant | DX: Z51.81 Encounter for therapeutic drug level monitoring (principal); Z79.899 Other long term (current) drug therapy | CPT/HCPCS: 36415; 80178 ==

== ENCOUNTER → 2025-07-05 | Outpatient (CLI) | payer OTHER, SELFPAY ==
--- OUTSIDE RECORDS SUMMARY | 2025-07-05 08:01 | XMS RPT_ITS | CCD ---
Author Organization [facility] Care Team Providers Care Tank Insulator Rubber Name Role Phone Aleksandra Douglas Unavailable Unavailable Unavailable Dr. Aleksandra Douglas Primary Care Provider [phone] Aleksandra Douglas Referring Provider [phone] Dr. Jesus Leone Attending Provider [phone] Dr. Alta Hernandez Attending Provider [phone] PEG Frankel Attending Provider [phone] Dr. Aleksandra Douglas Primary Care Provider [phone] Dr. Aleksandra Douglas Referring Provider Catrina ESPINAL, TEDDY-Ford Gonzalez Attending Provider [phone] PEG Robledo Attending Provider [phone] Dr. Aleksandra Douglas Primary Care Provider Dr. Aleksandra Douglas Referring Provider Catrina ESPINAL, TEDDY-Ford Gonzalez Attending Provider [phone] PEG Robledo Attending Provider [phone] Dr. Aleksandra Douglas Primary Care Provider [phone] Taylor Gill Attending Provider Unavailable Dr. Aleksandra Douglas Referring Provider [phone] Dr. Shahbaz Ortiz Attending Provider [phone] Dr. Aleksandra Douglas Primary Care Provider [phone] Taylor Gill Attending Provider Unavailable Dr. Aleksandra Douglas Referring Provider Dr. Shahbaz Ortiz Attending Provider [phone] Dr. Jesus Leone Attending Provider [phone] Dr. Jesus Leone Other Provider [phone] Aleksandra Douglas Primary Care Provider Dr. Frankie Zuniga Other Provider [phone] Dr. Mitesh Dudley Attending Provider Rosmery, Dr. Lake Primary Care Provider Dr. Mitesh Dudley Attending Provider [phone] Rosmery, Dr. Lake Primary Care Provider Dr. Aleksandra Douglas Referring Provider PEG Alfaro Attending Provider [phone] Rosmery, Dr. Lake Primary Care Provider Dr. Aleksandra Douglas Referring Provider Dr. Alta Hernandez Attending Provider Aleksandra Douglas MD Primary Care Provider Jesus Leone DO Unavailable ROSMERY, ALEKSANDRA L Attending Unavailable ROSMERY, ALEKSANDRA L Primary Care Unavailable RONNELL VARELA Attending Unavailable ROSMERY, ALEKSANDRA L Referring Unavailable ROSMERY, ALEKSANDRA L Primary Care Unavailable RONNELL VARELA Admitting Unavailable RONNELL VARELA Attending Unavailable ROSMERY, ALEKSANDRA L Primary Care Unavailable RONNELL VARELA Attending Unavailable ROSMERY, ALEKSANDRA L Primary Care Unavailable Dr. Aleksandra Douglas MD Primary Care Provider [phone] Felicitas King Attending Provider [phone] Felicitas King Referring Provider Dr. Ronnell Fisher MD Other Provider [phone] Felicitas King Attending Unavailable Felicitas King Referring Unavailable Rosmery, Aleksandra Primary Care Unavailable Ronnell Fisher Consulting Unavailable Felicitas King Attending Unavailable Felicitas King Referring Unavailable Rosmery, Aleksandra Primary Care Unavailable Juice Attending Unavailable Rosmery, Aleksandra Primary Care Unavailable Rosmery, Aleksandra Primary Care Unavailable Lisa Fritz NP Attending Unavailable Lisa Fritz NP Referring Unavailable Rosmery, Aleksandra Referring Unavailable Rosmery, Aleksandra Primary Care Unavailable Catrina CEMENT KILN OPERATOR, Lisa Attending Unavailable Rosmery, Aleksandra Primary Care Unavailable Rosmery, Aleksandra Attending Unavailable Rosmery, Aleksandra Referring Unavailable Rosmery, Aleksandra Primary Care Unavailable Rosmery, Aleksandra Attending Unavailable Rosmery, Aleksandra Referring Unavailable Allergies Allergy Classification Reported Allergen(s) Allergy Type Date of Onset Reaction(s) Facility (20 sources) OXcarbazepine; Translations: [Trileptal] Drug Allergy 2 Unknown [facility] (4 sources) Valproate; Translations: [Depakote] Drug Allergy [facility] Work Phone: (18 sources) Valproate Drug Allergy 2 Unknown [facility] (3 sources) OXcarbazepine; Translations: [OXCARBAZEPINE] Drug Allergy 3 [facility] 3 Repository (2 sources) DIVALPROEX; Translations: [DIVALPROEX] Propensity to adverse reactions to drug (disorder) 3 [facility] 3 Repository (1 source) Valproate Drug Allergy 4 [facility] Repository Medications Current Medications Medication Drug Class(es) Dates Sig (Normalized) Sig (Original) albuterol 0.83 mg/ml inhalation solution (15 sources) beta2-Adrenergic Agonist Start: 11-19-2024 2.5 mg, nebulization, Once as needed, wheezing, Starting on Fri11/19/24 at 1319, For 1 dose, Recovery (only) Start: 10-31-2018 End: 01-13-2019 take 1 puff(s) by inhalation every four hours as needed Albuterol Sulfate Discontinued 2 PUFF INHALATION EVERY 4 HOURS NEEDED October 31, 2018 4:03pm January 13, 2019 10:30am Start: 10-31-2018 End: 01-13-2019 Albuterol Sulfate 1 INHALER inhaler Discontinued 2 NMA INHALATION EVERY 4 HOURS NEEDED as needed for Wheezing October 31, 2018 1:00am January 13, 2019 10:30am Start: 10-31-2018 End: 01-13-2019 take 1 puff(s) by inhalation every four hours as needed Albuterol Sulfate Discontinued 2 PUFF INHALATION EVERY 4 HOURS NEEDED October 31, 2018 1:00am January 13, 2019 10:30am Aloe Vera (3 sources) Start: 06-04-2022 Aloe Vera Acti ve MG PO June 03, 2022 11:00pm Start: 06-04-2022 Aloe Vera Acti ve MG PO June 04, 2022 12:00am Ascorbic Acid (20 sources) Vitamin C Start: 09-19-2021 take 2 g by mouth once daily Ascorbic Acid (Vitamin C) Active 2 GM PO DAILY September 19, 2021 4:44pm Start: 09-19-2021 take 2 g by mouth once daily A scorbic Acid (Vitamin C) 1,000 mg tablet Active 2 g PO DAILY September 19, 2021 1:00am Start: 09-19-2021 take 2 g by mouth once daily A scorbic Acid (Vitamin C) Active 2 GM PO DAILY September 19, 2021 12:00am Start: 09-19-2021 take 2 g by mouth once daily A scorbic Acid (Vitamin C) Active 2 GM PO DAILY September 19, 2021 1:00am Start: 10-02-2017 End: 10-29-2018 take 1 tablet by mouth once daily Ascorbic Acid (Vitamin C) 1,000 MG tablet Discontinued 1000 mg PO DAILY October 02, 2017 1:00am October 29, 2018 11:45am Bacillus coagulans / Inulin (2 sources) End: 08-09-2024 BACILLUS COAGULANS-INULIN OR AL Take by mouth. 08/09/2024 Discontinued (Med List Cleanup) BACILLUS COAGULA NS-INULIN ORAL Take by mouth. Active benzonatate 200 mg oral capsule (4 sources) Non-narcotic Antitussive Start: 09-29-2023 take 1 capsule by mouth three times daily as needed for cough Benzonatate 200 mg capsule Active 200 mg PO THREE TIMES A DAY as needed for cough September 29, 2023 1:00am biotin 10 mg oral capsule (20 sources) Start: 09-19-2021 take 1 capsule by mouth once daily Biotin 10,000 mcg capsule Active 43600 ug PO DAILY September 19, 2021 1:00am Start: 10-02-2017 End: 10-29-2018 Biotin 1 MG capsule Disconti nued 1 {tbl} PO DAILY October 02, 2017 1:00am October 29, 2018 11:45am biotin 10 mg tab let Take 1 tablet (10 mg) by mouth. Active Biotin TABS Adin tity: 0 Refills: 0 Ordered: 22-Oct-2021 DO Active calcium carbonate 1500 mg oral tablet (11 sources) Start: 06-04-2022 take 1 tablet by mouth once daily Calcium Carbonate (Calcium 600) 600 mg calcium (1,500 mg) tablet Active 600 mg PO DAILY June 04, 2022 12:00am dexamethasone 6 mg oral tablet (4 sources) Corticosteroid Start: 09-29-2023 take 1 tablet by mouth once daily Dexamethasone 6 mg tablet Active 6 mg PO DAILY September 29, 2023 1:00am diclofenac potassium 50 mg oral tablet (3 sources) Nonsteroidal Anti-inflammatory Drug Start: 07-22-2022 take 50 mg by mouth three times daily Diclofenac Potassium Active 50 MG PO THREE TIMES A DAY July 21, 2022 11:00pm Digestive Enzymes (20 sources) Start: 06-04-2022 take 1 capsule by mouth once daily at mealtime Digestive Enzymes Active 1 CAP PO DAILY June 03, 2022 11:00pm administer with food; swallow whole; do not crush/chew/dissolv e/break/cut Start: 06-04-2022 take 1 capsule by mo uth once daily at mealtime Digestive Enzymes Active 1 CAP PO DAILY June 04, 2022 12:00am administer with food; swallow whole; do not crush/chew/dissolve/break/cut Start: 09-19-2021 take 1 capsule by mo uth once daily at mealtime Digestive Enzymes Active 1 CAP PO DAILY September 19, 2021 4:45pm administer with food; swallow whole; do not crush/chew/dissolve/break/cut Start: 09-19-2021 End: 06-04-2022 take 1 capsule by mouth once daily at mealtime Digestive Enzymes Discontinued 1 CAP PO DAILY September 19, 2021 12:00am June 04, 2022 1:57pm administer with food; swallow whole; do not crush/chew/dissolve/break/cut Start: 09-19-2021 End: 06-04-2022 take 1 capsule by mouth once daily at mealtime Digestive Enzymes Discontinued 1 CAP PO DAILY September 19, 2021 1:00am June 04, 2022 2:57pm administer with food; swallow whole; do not crush/chew/dissolve/break/cut Start: 09-19-2021 take 1 capsule by mo ut once daily at mealtime Digestive Enzymes Active 1 CAP PO DAILY September 19, 2021 1:00am administer with food; swallow whole; do not crush/chew/dissolve/break/cut Digestive Enzymes capsule (2 sources) Start: 06-04-2022 take 1 capsule by mouth once daily at mealtime Digestive Enzymes capsule Active 1 NMA PO DAILY June 04, 2022 12:00am administer with food; swallow whole; do not crush/chew/dissolve/break/cut Start: 09-19-2021 End: 06-04-2022 take 1 capsule by mouth once daily at mealtime Digestive Enzymes capsule Discontinued 1 NMA PO DAILY September 19, 2021 1:00am June 04, 2022 2:57pm administer with food; swallow whole; do not crush/chew/dissolve/break/cut esomeprazole 20 mg delayed release oral capsule (16 sources) Proton Pump Inhibitor Start: 09-19-2021 take 1 capsule by mouth once daily Esomeprazole Magnesium (Nexium) 20 mg capsule,delayed release(DR/EC) Active 20 mg PO DAILY September 19, 2021 1:00am 1 ml fentaNYL 0.05 mg/ml injection (1 source) Opioid Agonist Start: 11-19-2024 25 mcg, intravenous, Every 5 min PRN, pain moderate (4-6), first line, Starting on Fri11/19/24 at 1319, Recovery (only), Max total of 200 micrograms regardless of dose., If ordered PRN for pain, nurse is permitted to administer this medication for higher pain scores based on patient preference? Yes FLUoxetine 20 mg oral capsule (20 sources) Serotonin Reuptake Inhibitor Start: 09-19-2021 take 20 mg by mouth once daily Fluoxetine Active 20 MG PO DAILY September 19, 2021 12:00am Start: 01-31-2020 End: 05-11-2021 take 1 capsule by mouth once daily Fluoxetine (Prozac) 20 mg capsule Discontinued 20 mg PO DAILY February 05, 2021 10:47am May 11, 2021 3:13pm Start: 04-15-2019 End: 06-29-2019 take 1 capsule by mouth once daily Fluoxetine (Prozac) 20 mg capsule Discontinued 20 mg PO DAILY April 15, 2019 12:00am June 29, 2019 4:16am End: 08-09-2024 take 1 tablet by mouth once daily FLUoxetine (PROzac) 20 mg tablet Take 1 tablet (20 mg) by mouth once daily. 08/09/2024 Discontinued (Med List Cleanup) 0.5 ml HYDROmorphone hydrochloride 1 mg/ml prefilled syringe (1 source) Opioid Agonist Start: 11-19-2024 0.5 mg, intrav enous, Every 15 min PRN, pain severe (7-10), first line, Starting on Fri11/19/24 at 1319, Recovery (only), Max total of 4 mg regardless of dose. labetalol hydrochloride 5 mg/ml injectable solution (1 source) beta-Adrenergic Isamar Start: 11-19-2024 5 mg, intravenous, Administer over 1 Minutes, Once as needed, systolic blood pressure greater than 180 mmHg, dystolic blood pressure greater than 100 mmHg and heart rate greater than 60 BPM, Starting on Fri11/19/24 at 1319, For 1 dose, Recovery (only) lithium carbonate 300 mg extended release oral tablet (15 sources) Start: 01-29-2023 lithium ER (Li thobid) 300 mg 12 hr tablet 2 tablets (600 mg) 2 times a day. 01/29/2023 Active Start: 01-29-2023 lithium ER (Li thobid) 300 mg 12 hr tablet 01/29/2023 Active Start: 06-04-2022 take 1 capsule by [facility] twice daily [place] Carbonate 300 mg capsule Active 300 mg PO TWICE A DAY June 04, 2022 12:00am magnesium oxide-Mg AA chelate (Magnesium, oxide/AA chelate,) 300 mg capsule (4 sources) magnesium oxide- Mg AA chelate (Magnesium, oxide/AA chelate,) 300 mg capsule Take by mouth. Active mecobalamin 1 mg chewable tablet (14 sources) Start: 09-19-20 take 1 tablet by mouth once daily Mecobalamin (Vitamin B12) 1,000 mcg tablet,chewable Active 1000 ug PO DAILY September 19, 2021 1:00am meloxicam 15 mg oral tablet (6 sources) Nonsteroidal Anti-inflammatory Drug Start: 10-22-20 End: 08-09-20 24 take 1 tablet by mouth once daily meloxicam (Mobic) 15 mg tablet Take 1 tablet (15 mg) by mouth once daily. 10/22/2021 08/09/2024 Discontinued (Med List Cleanup) Meperidine (1 source) Opioid Agonist Start: 11-19-19 25 12.5 mg, intravenous, Every 10 min PRN, shivering, Starting on Fri11/19/24 at 1319, Recovery (only) 5 ml midazolam 1 mg/ml injection (1 source) Benzodiazepine Start: 11-19-19 1 mg, intravenous, Once as needed, anxiety, Starting on Fri11/19/24 at 1319, For 1 dose, Recovery (only) Multivitamin preparation (20 sources) Start: 09-19-20 take 1 tablet by mouth once daily Multivitamin Active 1 TABLET PO DAILY September 19, 2021 4:42pm Start: 09-19-2021 take 1 tablet by najma th once daily Multivitamin Active 1 TABLET PO DAILY September 19, 2021 12:00am Start: 09-19-2021 take 1 tablet by najma th once daily Multivitamin Active 1 TABLET PO DAILY September 19, 2021 1:00am Start: 03-13-2021 End: 05-11-2021 take 1 tablet by mouth once daily Multivitamin Discontinued 1 TABLET PO DAILY March 13, 2021 10:33am May 11, 2021 3:13pm Start: 03-13-2021 End: 05-11-2021 take 1 tablet by mouth once daily Multivitamin Discontinued 1 TABLET PO DAILY March 12, 2021 11:00pm May 11, 2021 2:13pm Start: 03-13-2021 End: 05-11-2021 take 1 tablet by mouth once daily Multivitamin Discontinued 1 TABLET PO DAILY March 13, 2021 12:00am May 11, 2021 3:13pm multivitamin tablet (4 sources) multivitamin tab let Take by mouth. Active Multivitamin tablet (1 source) Start: 09-19-2021 Multivitamin tablet Active 1 {tbl} PO DAILY September 19, 2021 1:00am NON FORMULARY (3 sources) NON FORMULARY Semaglutide injection once weekly Active oxyCODONE hydrochloride 5 mg oral tablet (1 source) Opioid Agonist Start: 11-19-2024 take 1 tablet by mouth every four hours as needed 5 mg, oral, Every 4 hours PRN, pain mild (1-3), first line, Starting on Fri11/19/24 at 1319, Recovery (only), When able to take oral medications., If ordered PRN for pain, nurse is permitted to administer this medication for higher pain scores based on patient preference? Yes oxygen (O2) therapy (1 source) Start: 11-19-2024 inhalation, Continuous PRN - O2/gases, other, Starting on Fri11/19/24 at 1319, Recovery (only), Device: Nasal Cannula, Rate in liters per minute: Other, Custom Value: 1-6 LPM, Keep O2 Sat Above: 92% Semaglutide (4 sources) Start: 07-09-2023 Semaglutide (Ozempic) 0.25 mg or 0.5 mg (2 mg/3 mL) pen injector Active 0.25 mg SC EVERY WEEK July 09, 2023 12:00am for 4 weeks Start: 07-09-2023 Semaglutide (O zempic) 0.25 mg or 0.5 mg (2 mg/3 mL) pen injector Active 0.25 MG SC EVERY WEEK July 09, 2023 12:00am for 4 weeks Start: 07-09-2023 Semaglutide (O zempic) 0.25 mg or 0.5 mg (2 mg/3 mL) pen injector Active 0.25 MG SC EVERY WEEK July 08, 2023 11:00pm for 4 weeks traMADol hydrochloride 50 mg oral tablet (2 sources) Opioid Agonist Start: 11-19-2024 take 1 tablet by mouth every six hours for pain traMADol (Ultram) 50 mg tablet Indications: Thyroid nodule Take 1 tablet (50 mg) by mouth every 6 hours if needed for severe pain (7 - 10) (for pain not controlled with tylenol or ibuprofen). 5 tablet 11/19/2024 Active vitamin b12 0.5 mg oral tablet (4 sources) Vitamin B12 cyanocobalamin (Vitamin B-12) 500 mcg tablet Take by mouth. Active Zinc (18 sources) Start: 09-19-2021 take 50 mg by mouth once daily Zinc Active 50 MG PO DAILY September 19, 2021 4:43pm Start: 09-19-2021 take 1 tablet by mouth once da kate Zinc 50 mg tablet Active 50 mg PO DAILY September 19, 2021 1:00am Start: 09-19-2021 take 50 mg by mouth once daily Zinc Active 50 MG PO DAILY September 19, 2021 12:00am Start: 09-19-2021 take 50 mg by mouth once daily Zinc Active 50 MG PO DAILY September 19, 2021 1:00am Zinc CAPS Quanti ty: 0 Refills: 0 Ordered: 22-Oct-2021 DO Active zinc sulfate 220 mg oral cap kylie (4 sources) zinc sulfate (Zi ncate) 220 (50 Zn) MG capsule Take by mouth. Active Completed/Discontinued Medications Medication Drug Class(es) Dates Sig (Normalized) Sig (Original) acetaminophen 325 mg / HYDROcodone bitartrate 5 mg oral tablet (19 sources) Opioid Agonist Start: 06-12-2023 End: 07-15-2024 Hydrocodone-Acetami nophen 5-325 mg tablet Discontinued 1 {tbl} PO EVERY 6 HOURS as needed for pain 12 June 12, 2023 July 15, 2024 3:48pm Start: 06-12-2023 take 1 tablet by najma th every six hours Hydrocodone-Acetaminophen Active 1 TABLE T PO EVERY 6 HOURS 12 3 June 12, 2023 Start: 10-31-2018 End: 11-03-2018 take 1 mL by mouth three times daily as needed for pain Hydrocodone-Acetaminophen 15 ML solution Discontinued 15 mL PO 3 TIMES DAILY NEEDED as needed for Pain 150 3 October 31, 2018 4:01pm November 02, 2018 1:00am November 03, 2018 1:10am Start: 10-31-2018 End: 11-03-2018 take 1 mL by mouth three times daily as needed Hydrocodone-Acetaminophen Discontinued 1 5 ML PO 3 TIMES DAILY NEEDED 150 3 October 31, 2018 4:01pm November 03, 2018 1:10am acetaminophen 325 mg / oxyCODONE hydrochloride 5 mg oral tablet (20 sources) Opioid Agonist Start: 03-20-2021 End: 04-04-2021 Oxycodone-Acetaminophen (Endocet) 5-325 mg tablet Discontinued 1 {tbl} PO Q4H as needed for pain 20 March 20, 2021 April 04, 2021 1:14pm Start: 09-28-2019 End: 10-07-2019 Oxycodone-Acetaminophen 1 TA BLET tablet Discontinued 1 - 2 {tbl} PO EVERY 6 HOURS NEEDED as needed for Pain 15 September 28, 2019 October 04, 2019 1:00am October 07, 2019 4:22pm Start: 09-28-2019 End: 10-07-2019 take 1 tablet by mouth every six hours as needed Oxycodone-Acetaminophen Discontinued 1 - 2 TABLET PO EVERY 6 HOURS NEEDED 15 September 28, 2019 October 07, 2019 4:22pm Adrenal Capsule (14 sources) Start: 10-02-2017 End: 07-21-2018 take 1 capsule by mouth three times daily Adrenal Capsule Discontinued 1 TABLET PO THREE TIMES A DAY October 02, 2017 3:56pm July 21, 2018 3:24pm Start: 10-02-2017 End: 07-21-2018 take 1 capsule by mouth three times daily Adrenal Capsule Discontinued 1 {tbl} PO THREE TIMES A DAY October 02, 2017 1:00am July 21, 2018 3:24pm Start: 10-02-2017 End: 07-21-2018 take 1 capsule by mouth three times daily Adrenal Capsule Discontinued 1 TABLET PO THREE TIMES A DAY October 02, 2017 12:00am July 21, 2018 2:24pm Start: 10-02-2017 End: 07-21-2018 take 1 capsule by mouth three times daily Adrenal Capsule Discontinued 1 TABLET PO THREE TIMES A DAY October 02, 2017 1:00am July 21, 2018 3:24pm amoxicillin 875 mg / clavulanate 125 mg oral tablet (20 sources) Penicillin-class Antibacterial Start: 06-28-2021 End: 09-19-2021 Amoxicillin-Pot Clavulanate (Augmentin) 875-125 mg tablet Discontinued 1 {tbl} PO TWICE A DAY June 28, 2021 12:00am September 19, 2021 4:41pm Start: 06-26-2021 End: 07-05-2021 take 1 tablet by mouth every twelve hours Amoxicillin-Pot Clavulanate 875 MG tablet Discontinued 875 mg PO Q12H June 26, 2021 12:00am July 05, 2021 11:18am ascorbic acid 125 mg / collagen, hydrolyzed 740 mg oral capsule (14 sources) Vitamin C Start: 09-19-2021 End: 06-04-2022 Ascorbic Acid-Collagen (Collagen Plus Vitamin C) 125-740 mg capsule Discontinued 1 NMA PO DAILY September 19, 2021 1:00am June 04, 2022 2:52pm aspirin 81 mg delayed release oral tablet (20 sources) Platelet Aggregation Inhibitor, Nonsteroidal Anti-inflammatory Drug Start: 06-04-2022 End: 10-17-2022 take 1 tablet by mouth once daily Aspirin (Adult Aspirin Regimen) 81 mg tablet,delayed release (DR/EC) Discontinued 81 mg PO DAILY June 04, 2022 12:00am October 17, 2022 9:57am Start: 10-02-2017 End: 11-17-2017 take 1 tablet by mouth once daily Aspirin 81 MG tablet,chewable Discontinued 81 mg PO DAILY@0800 October 02, 2017 1:00am November 17, 2017 4:09pm azithromycin 40 mg/ml oral suspension (14 sources) Macrolide Antimicrobial Start: 10-31-2018 End: 01-13-2019 take 250 mg by mouth once daily Azithromycin 200 MG/5 ML suspension for reconstitution Discontinued 250 mg PO DAILY October 31, 2018 1:00am January 13, 2019 10:30am for 4 days 24 hr buPROPion hydrochloride 300 mg extended release oral tablet (20 sources) Aminoketone Start: 10-02-2017 End: 08-26-2018 take 1 tablet by mouth once daily Bupropion Hcl 300 MG tablet extended release 24 hr Discontinued 300 mg PO DAILY December 01, 2017 12:28pm August 26, 2018 6:25am Calcium Citrate-Vit D3 Tablet (14 sources) Start: 10-02-2017 End: 10-29-2018 take 1 tablet by mouth once daily Calcium Citrate-Vit D3 Tablet Discontinued 1 TABLET PO DAILY October 02, 2017 3:56pm October 29, 2018 11:45am Start: 10-02-2017 End: 10-29-2018 Calcium Citrate-Vit D3 Table t Discontinued 1 {tbl} PO DAILY October 02, 2017 1:00am October 29, 2018 11:45am Start: 10-02-2017 End: 10-29-2018 take 1 tablet by mouth once daily Calcium Citrate-Vit D3 Tablet Discontinued 1 TABLET PO DAILY October 02, 2017 12:00am October 29, 2018 10:45am Start: 10-02-2017 End: 10-29-2018 take 1 tablet by mouth once daily Calcium Citrate-Vit D3 Tablet Discontinued 1 TABLET PO DAILY October 02, 2017 1:00am October 29, 2018 11:45am cholecalciferol 0.05 mg oral capsule (16 sources) Vitamin D Start: 09-19-2021 End: 08-09-2024 take 1 capsule by mouth once daily Cholecalciferol (Vitamin D3) 50 mcg (2,000 unit) capsule Discontinued 50 ug PO DAILY September 19, 2021 1:00am October 17, 2022 9:57am clopidogrel 75 mg oral tablet (14 sources) [id number] Platelet Inhibitor Start: 10-02-2017 End: 11-17-2017 take 1 tablet by mouth once daily Clopidogrel 75 MG tablet Discontinued 75 mg PO DAILY October 02, 2017 1:00am November 17, 2017 4:10pm Coconut Oil (14 sources) Start: 10-02-2017 End: 07-21-2018 take 1 tablet by mouth once daily Coconut Oil Discontinued 1 TABLET PO DAILY October 02, 2017 3:56pm July 21, 2018 3:24pm Start: 10-02-2017 End: 07-21-2018 Coconut Oil Discontinued 1 { tbl} PO DAILY October 02, 2017 1:00am July 21, 2018 3:24pm Start: 10-02-2017 End: 07-21-2018 take 1 tablet by mouth once daily Coconut Oil Discontinued 1 TABLET PO DAILY October 02, 2017 12:00am July 21, 2018 2:24pm Start: 10-02-2017 End: 07-21-2018 take 1 tablet by mouth once daily Coconut Oil Discontinued 1 TABLET PO DAILY October 02, 2017 1:00am July 21, 2018 3:24pm Collagen (4 sources) Collagen CAPS Qu antity: 0 Refills: 0 Ordered: 22-Oct-2021 DO Active Desogestrel-Ethinyl Estradiol (20 sources) Progestin, Estrogen Start: 11-17-2018 End: 10-07-2019 Desogestrel-Ethinyl Estradiol (Apri) 0.15-0.03 mg tablet Discontinued 1 TABLET PO daily November 17, 2018 3:32am October 07, 2019 4:22pm Start: 11-17-2018 End: 10-07-2019 take 0.15 tablet by mouth once daily Desogestrel-Ethinyl Estradiol (Apri) 0.15-0.03 mg tablet Discontinued 1 {tbl} PO daily November 17, 2018 1:00am October 07, 2019 4:22pm Start: 11-17-2018 End: 10-07-2019 Desogestrel-Ethinyl Estradio l (Apri) 0.15-0.03 mg tablet Discontinued 1 TABLET PO daily November 17, 2018 12:00am October 07, 2019 3:22pm Start: 11-17-2018 End: 10-07-2019 Desogestrel-Ethinyl Estradio l (Apri) 0.15-0.03 mg tablet Discontinued 1 TABLET PO daily November 17, 2018 1:00am October 07, 2019 4:22pm Start: 11-17-2017 End: 05-13-2018 Desogestrel-Ethinyl Estradio l (Apri) 0.15-0.03 mg tablet Discontinued 1 TABLET PO daily November 17, 2017 5:07pm May 13, 2018 3:53pm take only active pills, discard inactive Start: 11-17-2017 End: 05-13-2018 Desogestrel-Ethinyl Estradio l (Apri) 0.15-0.03 mg tablet Discontinued 1 {tbl} PO daily November 17, 2017 1:00am May 13, 2018 3:53pm take only active pills, discard inactive Start: 11-17-2017 End: 05-13-2018 Desogestrel-Ethinyl Estradio l (Apri) 0.15-0.03 mg tablet Discontinued 1 TABLET PO daily November 17, 2017 12:00am May 13, 2018 2:53pm take only active pills, discard inactive Start: 11-17-2017 End: 05-13-2018 Desogestrel-Ethinyl Estradio l (Apri) 0.15-0.03 mg tablet Discontinued 1 TABLET PO daily November 17, 2017 1:00am May 13, 2018 3:53pm take only active pills, discard inactive diazePAM 5 mg oral tablet (20 sources) Benzodiazepine Start: 12-12-2022 End: 12-13-2022 take 1 tablet by mouth at bedtime as needed for anxiety Diazepam (Valium) 5 mg tablet Discontinued 5 mg PO AT BEDTIME as needed for anxiety 2 1 December 12, 2022 1:00am December 12, 2022 1:00am December 13, 2022 1:05am Start: 12-04-2021 End: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 inferior ( slices 6, 7, and 8 bisected) 13-15 inferior lobe perpendicularly sectioned 16-17 isthmus, from lobe to margin 18 isthmus resection margin, en face EXO Normal [facility] Comment on above: Order Comment: Pre-o p diagnosis: Thyroid nodule [E04.1] VERAB/VERIFY ABORHon 025 ABO group Nom (Bld) A Normal [facility] Comment on above: Performed By: #### V ERAB #### HANNA Momin ([id number]) [facility] ([facility]) [address] [place] [address] Order Comment: As ne eded preprocedure ONCE for scheduled for aortic, liver, cardiac, or thoracic surgery OR hgb<7.5mg/dl and no active type and screen. RN to release order. Performed By: #### 3 4532-2 #### HANNA Momin ([id number]) [facility] ([facility]) [address] [place] [address] D Ag Ql (Bld) Positive [facility] Comment on above: Performed By: #### V ERAB #### HANNA Momin ([id number]) [facility] ([facility]) [id number] [place] [address] Order Comment: As ne eded preprocedure ONCE for scheduled for aortic, liver, cardiac, or thoracic surgery OR hgb<7.5mg/dl and no active type and screen. RN to release order. Performed By: #### 3 4532-2 #### HANNA Momin ([id number]) [facility] ([facility]) [address] [place] [address] CBC-Complete Blood Cnt No Di ffon 11-01-2024 Erythrocyte distribution width (RBC) [Ratio] 13.4 % Normal 11.6-14.6 [facility] Comment on above: Performed By: #### L 300.4310, L300.3900, L500.4050, L100.0500 #### [facility] [address] [place], [address] Hematocrit (Bld) [Volume fraction] 35.3 % Low 37-47 [facility] Comment on above: Performed By: #### L 300.4310, L300.3900, L500.4050, L100.0500 #### [facility] [address] [place], [address] Hemoglobin (Bld) [Mass/Vol] 12.0 g/dL Normal 12.0-15.0 [facility] Comment on above: Performed By: #### L 300.4310, L300.3900, L500.4050, L100.0500 #### [facility] [address] [place], [address] MCH (RBC) [Entitic mass] 28.4 pg Normal 27.0-32.0 [facility] Comment on above: Performed By: #### L 300.4310, L300.3900, L500.4050, L100.0500 #### [facility] [address] [place], [address] MCHC (RBC) [Mass/Vol] 34.0 g/dL Normal 32-36 [facility] Comment on above: Performed By: #### L 300.4310, L300.3900, L500.4050, L100.0500 #### [facility] [address] [place], [address] MCV (RBC) [Entitic vol] 83.5 fL Normal 81-99 [facility] Comment on above: Performed By: #### L 300.4310, L300.3900, L500.4050, L100.0500 #### [facility] [address] [place], [address] Platelet mean volume (Bld) [Entitic vol] 10.4 fL Normal 6.2-12.0 [facility] Comment on above: Performed By: #### L 300.4310, L300.3900, L500.4050, L100.0500 #### [facility] [address] [place], [address] Platelets (Bld) [#/Vol] 258 10*3/uL Normal 150-450 [facility] Comment on above: Performed By: #### L 300.4310, L300.3900, L500.4050, L100.0500 #### [facility] [address] [place], [address] RBC (Bld) [#/Vol] 4.23 10*6/uL Normal 4.2-5.4 [facility] Comment on above: Performed By: #### L 300.4310, L300.3900, L500.4050, L100.0500 #### [facility] [address] [place], [address] RDW SD 40.7 fl Normal 35.1-43.9 [facility] Comment on above: Performed By: #### L 300.4310, L300.3900, L500.4050, L100.0500 #### [facility] [address] [place], [address] WBC (Bld) [#/Vol] 5.7 10*3/uL Normal 4.4-11.0 [facility] Comment on above: Performed By: #### L 300.4310, L300.3900, L500.4050, L100.0500 #### [facility] [address] [place], [address] Comprehensive Metabolic Prof [facility] 11-01-2024 Albumin [Mass/Vol] 4.0 g/dL Normal 3.2-5.0 [facility] Comment on above: Performed By: #### L 300.4310, L300.3900, L500.4050, L100.0500 #### [facility] [address] [place], [address] Albumin/Globulin [Mass ratio] 1.4 {ratio} Normal 0.9-2.4 [facility] Comment on above: Performed By: #### L 300.4310, L300.3900, L500.4050, L100.0500 #### [facility] [address] [place], [address] ALK P 57 U/L Normal 45-117 [facility] Comment on above: Performed By: #### L 300.4310, L300.3900, L500.4050, L100.0500 #### [facility] [address] [place], [address] ALT [Catalytic activity/Vol] 15 U/L Normal 13-56 [facility] Comment on above: Performed By: #### L 300.4310, L300.3900, L500.4050, L100.0500 #### [facility] [address] [place], [address] AST [Catalytic activity/Vol] 12 U/L Low 15-37 [facility] Comment on above: Performed By: #### L 300.4310, L300.3900, L500.4050, L100.0500 #### [facility] [address] [place], [address] Bilirubin [Mass/Vol] 0.50 mg/dL Normal 0.20-1.00 [facility] Comment on above: Result Comment: For patients on eltrombopag therapy, use of Dimension [place] TBIL is not recommended. Performed By: #### L 300.4310, L300.3900, L500.4050, L100.0500 #### [facility] [address] [place], [address] BUN/CRE 16.5 RATIO Normal 10-20 [facility] Comment on above: Performed By: #### L 300.4310, L300.3900, L500.4050, L100.0500 #### [facility] [address] [place], [address] CA,Total 9.1 mg/dL Normal 8.5-10.1 [facility] Comment on above: Performed By: #### L 300.4310, L300.3900, L500.4050, L100.0500 #### [facility] [address] [place], [address] Chloride [Moles/Vol] 108 mmol/L High 98-107 [facility] Comment on above: Performed By: #### L 300.4310, L300.3900, L500.4050, L100.0500 #### [facility] [address] [place], [address] CO2 [Moles/Vol] 26.0 mmol/L Normal 21.0-32.0 [facility] Comment on above: Performed By: #### L 300.4310, L300.3900, L500.4050, L100.0500 #### [facility] [address] [place], [address] Creatinine [Mass/Vol] 0.85 mg/dL Normal 0.55-1.02 [facility] Comment on above: Result Comment: The validity of the calculated GFR GFRAA in patients over 70 years has not been determined. Clinical correlation is essential. Performed By: #### L 300.4310, L300.3900, L500.4050, L100.0500 #### [facility] [address] [place], [address] EST GFR - AA 93 mL/min Normal >60 [facility] Comment on above: Result Comment: Afri can Citizen Of [place] GFR Calc Performed By: #### L 300.4310, L300.3900, L500.4050, L100.0500 #### [facility] [address] [place], [address] GAP 4 Low 5-15 [facility] Comment on above: Performed By: #### L 300.4310, L300.3900, L500.4050, L100.0500 #### [facility] [address] [place], [address] GFR/1.73 sq M.predicted among non-blacks MDRD (S/P/Bld) [Vol rate/Area] 76 mL/min/{1.73_m2} Normal >60 [facility] Comment on above: Result Comment: Non- GFR Calc Performed By: #### L 300.4310, L300.3900, L500.4050, L100.0500 #### [facility] [address] [place], [address] Globulin (S) [Mass/Vol] 2.9 g/dL Normal 2.2-4.2 [facility] Comment on above: Performed By: #### L 300.4310, L300.3900, L500.4050, L100.0500 #### [facility] [address] [place], [address] Glucose [Mass/Vol] 95 mg/dL Normal 74-106 [facility] Comment on above: Performed By: #### L 300.4310, L300.3900, L500.4050, L100.0500 #### [facility] [address] [place], [address] Potassium [Moles/Vol] 4.0 mmol/L Normal 3.5-5.1 [facility] Comment on above: Performed By: #### L 300.4310, L300.3900, L500.4050, L100.0500 #### [facility] [address] [place], [address] Sodium [Moles/Vol] 138 mmol/L Normal 136-145 [facility] Comment on above: Performed By: #### L 300.4310, L300.3900, L500.4050, L100.0500 #### [facility] [address] [place], [address] T PROT 6.9 g/dL Normal 6.4-8.2 [facility] Comment on above: Performed By: #### L 300.4310, L300.3900, L500.4050, L100.0500 #### [facility] [address] [place], [address] Urea nitrogen [Mass/Vol] 14 mg/dL Normal 7-18 [facility] Comment on above: Performed By: #### L 300.4310, L300.3900, L500.4050, L100.0500 #### [facility] [address] [place], [address] Partial Thromboplast Timeon 11-01-2024 aPTT Coag (Bld) [Time] 26.5 s Normal 24.1-36.2 [facility] Comment on above: Performed By: #### L 300.4310, L300.3900, L500.4050, L100.0500 #### [facility] [address] [place], [address] Prothrombin Time w/INRon INR Coag (PPP) [Relative time] 1.1 {INR} Normal [facility] Comment on above: Performed By: #### L 300.4310, L300.3900, L500.4050, L100.0500 #### [facility] [address] [place], [address] PT Coag (PPP) [Time] 14.1 s Normal 11.7-14.9 [facility] Comment on above: Performed By: #### L 300.4310, L300.3900, L500.4050, L100.0500 #### [facility] [address] [place], [address] Biopsyon 08-09-2024 Ronnell Varela MD 08/09/2024 10:49 AM Biopsy Date/Time: 08/09/2024 10:34 AM Performed by: Ronnell Varela MD Authorized by: Ronnell Varela MD Consent: Consent obtained: Verbal Consent given by: Patient Risks, benefits, and alternatives were discussed: yes Risks discussed: Bleeding and pain Alternatives discussed: No treatment and observation [place] protocol: Procedure explained and questions answered to patient or proxy's satisfaction: yes Relevant documents present and verified: yes Test results available: yes Imaging studies available: yes Required blood products, implants, devices, and special equipment available: yes Site/side marked: no Immediately prior to procedure, a time out was called: yes Patient identity confirmed: Verbally with patient Pre-procedure details: Skin preparation: Povidone-iodine Sedation: Sedation type: None Anesthesia: Anesthesia method: Local infiltration Local anesthetic: Lidocaine 1% w/o epi Procedure specific details: Ultrasound-guided thyroid biopsy In the office I did an ultrasound-guided biopsy of the patient's 3.3 cm right sided TI-RADS 3 lesion. This was done under sterile conditions with 1% lidocaine for pain control. Needle placement into the nodule was done utilizing real-time ultrasound guidance with a 6-15 MHz linear ultrasound probe. 2 samples were taken. Images were captured. 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 THYROID FINE NEEDLE ASPIRATION RIGHT MID LOBE NODULE: - FOLLICULAR LESION OF UNDETERMINED SIGNIFICANCE (FLUS). - MOLECULAR TESTING AVAILABLE, PER CLINICIAN REQUEST (SEE NOTE). Note: The aspirate consists of thyroid follicular epithelial cells (mostly benign appearing) with focal cytologic and architectural atypia and colloid. A repeat aspirate after an appropriate interval of observation might be helpful, if clinically indicated. Alternatively, thyroid molecular testing of this sample could be performed for follow-up triage purposes. If such testing is needed, please notify the [facility] Cytology laboratory ([phone]). Laboratory comment SEE COMMENT Slide(s) initially screened by DAO Valdez at [address] [address] By the signature on this report, the individual or group listed as making the Final Interpretation/Diagnosis certifies that they have reviewed this case. Path report.comments SEE COMMENT Sterrett System Implied Risk of Malignancy and Recommended Clinical Management Diagnostic category Risk of Malignancy Usual management Nondiagnostic/Unsatisfactor y 5-10% Repeat FNA with ultrasound guidance Benign 0-3% Clinical and US follow-up Atypia of undetermined significance 10-35% Repeat FNA, molecular testing, or or Follicular lesion of US lobectomy Follicular neoplasm/suspicious for 25-40% Molecular testing, surgical lobectomy follicular neoplasm Suspicious for malignancy 50-75% Lobectomy or near total thyroidectomy Malignant 97-99% Lobectomy or near total thyroidectomy Path report.relevant Hx 48-year-old white female 3.3 x 2.8 cm TI-RADS 3 right lobe nodule (well-defined solid isoechoic nodule without microcalcifications) Path report.gross observation SEE COMMENT A. THYROID FINE NEEDLE ASPIRATION RIGHT MID LOBE. Received 4 direct smears (2 air-dried unstained and 2 spray-fixed) and 30 ml pink clear needle rinse in Cytolyt with particles. The specimen has been sent for cytological analysis to the cytology department at [facility]. Laboratory comment SEE COMMENT A1 Slides Only (No Block) A1-1 Pap Stain Smear NGYN A1-2 Pap Stain Smear NGYN A1-5 Pap Stain NGYN ThinPrep A1-6 Diff Quik Stain Smear NGYN A1-7 Diff Quik Stain Smear NGYN Normal [facility] THYGENEXT/THYRAMIRon 024 THYGENEXT/THYRAMIR SCAN RESULT See Scanned Result AP SUMMARY REPORT SEE COMMENT A complete ThyGeNEXT result issued by [employer], [address] [place] [address], TEL: [phone], FAX: [phone], is on file in the Department of Anatomic Pathology at [facility] and can be viewed in patient's chart. RESULTS SUMMARY Nodule: Right Mid Thyroid Slide Cytopathology: AUS/FLUS(B-III) ThyGeNext: HRAS Q61R ThyraMIRv2: Moderate (75 to 85% Risk of Malignancy) *Risk assessment is based on disease prevalence of associated cytology diagnosis, mutational changes, microRNA expression, clinical experience, and clinical validation (1,2) 1. howie Francis MA al. Diagn Cytopathol. 2020; 48 (12): 9104-0036. 2. Orestes HASSAN et al. Diagn Cytopathol. 2019; 47 (4): 268-274. TEST RESULT INTERPRETATION Right Mid Thyroid Slide High risk of malignancy *See full report in Chart Review [facility] SCRN MAMM (CAD)W/ROSE BILATo n 08-04-2024 SCRN MAMM (CAD)W/ROSE BILAT [facility] Imaging Services [address] [place], [place] [address] SCRN MAMM (CAD)W/ROSE BILAT MR#: [id number] Acct: [id number] Name: TEJAL MA Rep #: [id number] : 1975 F 48 From: Arie box MD PCP: Dr. Aleksandra Douglas MD [facility] Study: SCRN MAMM (CAD)W/ROSE BILAT Date of Exam: 12/27 Exam# [id number] Ordering Dr: Lisa Fritz CEMENT KILN OPERATOR CEMENT KILN OPERATOR -C [id number] MAMMOGRAPHY - BILATERAL SCREENING REASON FOR EXAM: Female, 48 years old. Routine annual screening examination. PERTINENT HISTORY: Non-contributory. TECHNIQUE: Digital bilateral breast rose (3D mammographic acquisition) in the CC and MLO projections. 2-D mediolateral oblique (MLO) and craniocaudad (CC) views of both breasts were obtained. CAD: Full Field Digital Mammography with Computer Added Detection was performed. COMPARISON: Comparison is made with prior study dated July 24, 2023 and April 18, 2022. FINDINGS: Breast Composition: There are scattered areas of fibroglandular density. There are no dominant masses or suspicious calcifications. Stable benign appearing bilateral axillary lymph nodes. No other significant abnormalities are identified. There has been no significant change since the prior study. BI/SCRN MAMM (CAD)W/ROSE BILAT IMPRESSION: Stable bilateral screening mammogram. Yearly follow-up mammogram recommended. (A) ASSESSMENT CATEGORY: BIRADS Category 2: Benign. A letter regarding these results will be sent to the patient by the facility within 30 days. Approximately 10% of breast cancers are not detected by mammography. A normal mammogram should not delay biopsy of a clinically suspicious abnormality. [id number] Electronically Signed: Arie Silverman MD at 8:28 EDT Reading Location ID and State: [facility] / [place] , Service support , CC: AUGIE Fritz; Dr. Aleksandra Douglas MD Handle Turner: Signed Normal [facility] Clarifier Operator Helper Office Visit Reporton 07-15-2024 Clarifier Operator Helper Office Visit Report [facility] [address], [address] [place] [address] OFFICE VISIT Date of Service: 07/15/24 MR#: [id number] Acct: [id number] Name: TEJAL AM Rep #: [id number] : 1975 Provider: AUGIE ortez Age/Sex: 48/F [place] [facility] [place]: Signed Intake Vital Signs 07/09/23 15:38 12/30/23 15:40 07/15/24 15:38 07/15/24 15:49 Height 5 ft 4 in 5 ft 4 in 5 ft 4 in 5 ft 4 in Weight: 184 lb 6 oz BMI 31.6 BP 118/72 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) Chief Complaint: Annual Hosiery Mater Required: No Is patient in pain?: No Allergies oxcarbazepine (From Trileptal) Allergy (Mild, Verified 07/15/24 15:50) Rash divalproex sodium (From Depakote) Adverse Reaction (Intermediate, Verified 07/15/24 15:50) Elevated Liver Enzymes, and hair loss Medications ???Medication ???Instructions ???Recorded ???Confirmed ???Type ascorbic acid (vitamin C) 1,000 mg 2 g PO DAILY 09/19/21 07/15/24 History tablet biotin 10,000 mcg capsule 10,000 mcg PO DAILY 09/19/21 07/15/24 History esomeprazole magnesium 20 mg 20 mg PO DAILY 09/19/21 07/15/24 History capsule,delayed release (Nexium) mecobalamin (vitamin B12) 1,000 1,000 mcg PO DAILY 09/19/21 07/15/24 History mcg chewable tablet multivitamin 1 tab PO DAILY 09/19/21 07/15/24 History zinc 50 mg tablet 50 mg PO DAILY 09/19/21 07/15/24 History calcium carbonate (Calcium 600) 600 mg PO DAILY 06/04/22 07/15/24 History digestive enzymes 1 cap PO DAILY 06/04/22 07/15/24 History lithium carbonate 300 mg capsule 300 mg PO BID 06/04/22 07/15/24 History semaglutide 0.25 mg or 0.5 mg (2 0.25 mg subcut QWEEK 07/09/23 07/15/24 History mg/3 mL) subcutaneous pen injector (Ozempic) benzonatate 200 mg capsule 200 mg PO TID PRN cough #20 caps 09/29/23 07/15/24 Rx dexamethasone 6 mg tablet 6 mg PO DAILY #5 tabs 09/29/23 07/15/24 Rx Is last menstrual period known: No Post menopausal: No Patient : No : No Control Method: Hysterectomy PFSH Medical History Gastric reflux Cardiology follow-up encounter Bipolar disorder Alcohol use Low iron CPAP (continuous positive airway pressure) dependence Family history of colon cancer GERD (gastroesophageal reflux disease) Abdominal pain Dog bite of left hand Wears contact lenses Depression Non-smoker Hx of echocardiogram Hx of cardiovascular stress test Irregular menses PMS (premenstrual syndrome) Hirsutism Abnormal Pap smear of cervix Surgical History History of laminectomy S/P laparoscopic assisted vaginal hysterectomy (LAVH) Status post bilateral salpingectomy ( 09/28/19) H/O LEEP History of hernia repair Previous back surgery delivery delivered Family History Father Diabetes Heart disease Mother Cancer ovarian cancer Grandfather Colon cancer Other Family history of colon cancer History of psychiatric care Hormone disorder Hypertension Ovarian cancer Social History Smoking Status: Never smoker alcohol intake: current substance use type: does not use caffeine: Yes frequency: 1-2 times per week seatbelt use: always do you feel safe at home: Yes additional social history: [employer]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 Date Name GA/Weeks Outcome Route Bth Weight Gen Labor Lgth Anesthesia Del Locatn Provider FOB Unknown 1997 Les Unknown 2000 [facility] Encounter for routine gynecological examination Details: TEJAL MA is a 48 year old who presents for annual exam. Denies concerns Last PAP: NA History of abnormal PAP: no Last mammogram: 07/2023 History of abnormal mammogram: no Colon cancer screenin Other preventative health care screenings: Rosmery Female Reproductive History Questions: metorrhagia: No, sexually active: Yes, dyspareunia: No and PCB: No ROS Const Constitutional: Denies fatigue, weight gain or weight loss Cardio Card: Denies chest pain Resp Resp: Denies cough or dyspnea on exertion GI GI: Denies abdominal pain, bloating, change in stool character, constipation or vomiting : Reports as per HPI; Denies difficulty voiding, pelvic pain, urinary frequency, urinary incontinence, urinary urgency, vaginal discharge or vaginal pruritus Exam Const General: cooperati (more content not included)... Normal [facility] Thyroidon 06-28-2024 Thyroid [facility] Imaging Services [address] [place] [address] Thyroid MR#: [id number] Acct: [id number] Name: TEJAL MA Rep #: [id number] : 1975 F 48 From: Domingo Bello MD PCP: Dr. Aleksandra Douglas MD Status: REG CLI Study: Thyroid Date of Exam: 06/28/24 Exam# [id number] Ordering Dr: Aleksandra Douglas MD [id number] EXAM: US SOFT TISSUES HEAD AND NECK, THYROID CLINICAL INDICATION: ENLARGED THYROID -- fullness on the right side TECHNIQUE: Meneses scale and color doppler imaging was performed of the thyroid gland. COMPARISON: No relevant prior studies available. FINDINGS: LEFT THYROID LOBE: Left thyroid lobe measures 4.3 x 1.8 x 1.1 cm. Normal echogenicity. No evidence of a mass. RIGHT THYROID LOBE: Right thyroid lobe measures 5.6 x 2.2 x 2.0 cm. There is a dominant 3.3 x 2.8 cm well-defined rounded solid isoechoic mass within the right thyroid lobe appearing wider than tall and without microcalcification. TI-RADS points: 3. TI-RADS category: TR3. This nodule is mildly suspicious. Recommend FNA evaluation. ISTHMUS: Isthmus measures 3.5 mm in AP dimension. No thyroid nodules are present. US/Thyroid IMPRESSION: Right thyroid nodule as described. FNA evaluation recommended. Electronically Signed: Domingo Bello MD at 9:36 EDT , CC: Dr. Aleksandra Douglas MD Handle Turner: Signed Normal [facility] Thyroid Stim Hormone (TSH)on 06-22-2024 TSH 2.380 uIU/mL Normal 0.358-3.74 0 [facility] Comment on above: Order Comment: REFLE X TO FREE T4 IF ABNORMAL PER 'S ORDER Performed By: #### L 501.9520 #### [facility] [address] [place], [place], [id number] Basophil percentageOrdered B y: Felicitas Camacho on 02-20-2024 Bilirubin [Mass/Vol] 0.50 mg/dL 0.20-1.00 [facility] Comment on above: For patients on eltr ombopag therapy, use of Dimension [place] TBIL is not recommended. Chloride [Moles/Vol] 109 mmol/L 98-107 [facility] Glucose [Mass/Vol] 98 mg/dL 74-106 [facility] Hemoglobin (Bld) [Mass/Vol] 12.4 g/dL 12.0-15.0 [facility] Potassium [Moles/Vol] 4.2 mmol/L 3.5-5.1 [facility] Protein [Mass/Vol] 7.1 g/dL 6.4-8.2 [facility] Sodium [Moles/Vol] 141 mmol/L 136-145 [facility] WBC (Bld) [#/Vol] 5.4 10*3/uL 4.4-11.0 [facility] Determination of erythrocyte mean corpuscular volume (MCV)Ordered By: Felicitas Camacho on 02-20-2024 MCV (RBC) [Entitic vol] 83.1 fL 81-99 [facility] Erythrocyte distribution wid th ratioOrdered By: Felicitas Camacho on 02-20-2024 Erythrocyte distribution width (RBC) [Ratio] 13.8 % 11.6-14.6 [facility] Erythrocyte distribution wid th standard deviationOrdered By: Felicitas Camacho on 02-20-2024 Erythrocyte distribution width (RBC) [Entitic vol] 41.6 fL 35.1-43.9 [facility] Hematocrit Auto (Bld) [Volum e fraction]Ordered By: Felicitas Camacho on 02-20-2024 Hematocrit (Bld) [Volume fraction] 37.0 % 37-47 [facility] Iron measurement (mass/mass) Ordered By: Felicitas Camacho on 02-20-2024 Iron (Unsp spec) [Mass/Mass] 55 ug/dL 50-170 [facility] Laboratory - Chemistry and C hemistry - challengeOrdered By: Felicitas Camacho on 02-20-2024 Albumin/Globulin [Mass ratio] 1.3 {ratio} 0.9-2.4 [facility] ALP [Catalytic activity/Vol] 55 U/L 45-117 [facility] ALT [Catalytic activity/Vol] 18 U/L 13-56 [facility] CO2 [Moles/Vol] 25.0 mmol/L 21.0-32.0 [facility] Cobalamin (Vitamin B12) [Mass/Vol] 902 pg/mL 211-911 [facility] Ferritin [Mass/Vol] 184 ng/mL 8-252 [facility] Globulin (S) [Mass/Vol] 3.1 g/dL 2.2-4.2 [facility] Urea nitrogen/Creatinine [Mass ratio] 18.4 mg/mg 10-20 [facility] Laboratory - Hematology and Cell countsOrdered By: Felicitas Camacho on 02-20-2024 MCH (RBC) [Entitic mass] 27.9 pg 27.0-32.0 [facility] MCHC (RBC) [Mass/Vol] 33.5 g/dL 32-36 [facility] Platelet mean volume (Bld) [Entitic vol] 11.1 fL 6.2-12.0 [facility] Platelets (Bld) [#/Vol] 280 10*3/uL 150-450 [facility] No Panel InformationOrdered By: Felicitas Camacho on 02-20-2024 Estimated GFR (MDRD) Amer 84 mL/min >60 [facility] Comment on above: GFR Calc Estimated GFR (MDRD) Non-Af Amer 69 mL/min >60 [facility] Comment on above: Non- GFR Calc Folate 21.90 ng/mL 3.1-55.4 [facility] [place] Level 0.60 mmol/L 0.60-1.20 [facility] Total Iron Binding Capacity 258 ug/dL 250-450 [facility] Vitamin D 25-Hydroxy 42.4 ng/mL [facility] Comment on above: Vitamin D 25(OH) Sta tus Range Deficiency <20 ng/mL (50nmol/L) Insufficiency 20 - 30 ng/mL (50 - 75 nmol/L) Sufficiency 30 - 100 ng/mL (75 - 250 nmol/L) Toxicity >100 ng/mL (>250 nmol/L) RBC Auto (Bld) [#/Vol]Ordere d By: Felicitas Camacho on 02-20-2024 RBC (Bld) [#/Vol] 4.45 10*6/uL 4.2-5.4 [facility] Serum or plasma calcium [place] urement (mass/volume)Ordered By: Felicitas Camacho on 02-20-2024 Calcium [Mass/Vol] 8.6 mg/dL 8.5-10.1 [facility] Serum or plasma creatinine m easurement (mass/volume)Ordered By: Felicitas Camacho on 02-20-2024 Creatinine [Mass/Vol] 0.92 mg/dL 0.55-1.02 [facility] Comment on above: The validity of the calculated GFR & GFRAA in patients over 70 years has not been determined. Clinical correlation is essential. Serum or plasma thyroid stim ulating hormone (TSH) measurement (units/volume)Ordered By: Felicitas Camacho on 02-20-2024 TSH Qn 2.24 uIU/mL 0.358-3.74 [facility] Serum or plasma urea nitroge n measurement (mass/volume)Ordered By: Felicitas Camacho on 02-20-2024 Urea nitrogen [Mass/Vol] 17 mg/dL 7-18 [facility] Thin prep Papanicolaou smear with manual screeningOrdered By: Felicitas Camacho on 02-20-2024 Thin prep Papanicolaou smear with manual screening 4.0 g/dL 3.2-5.0 [facility] Thin prep Papanicolaou smear with manual screening 15 U/L 15-37 [facility] Thin prep Papanicolaou smear with manual screening 7 5-15 [facility] Whole blood hemoglobin A1c/t otal hemoglobin ratio (mass fraction)Ordered By: Felicitas Camacho on 02-20-2024 HbA1c (Bld) [Mass fraction] 4.6 % 3.8-5.6 [facility] Comment on above: Normal < 5.7 % Predi abetic 5.7 - 6.4 % Diabetic >or= 6.5 % Please note range changes. Basophil percentageOrdered B y: Felicitas Camacho on 12-17-2023 Bilirubin [Mass/Vol] 0.70 mg/dL 0.20-1.00 [facility] Comment on above: For patients on eltr ombopag therapy, use of Dimension [place] TBIL is not recommended. Chloride [Moles/Vol] 109 mmol/L 98-107 [facility] Cholesterol [Mass/Vol] 216 mg/dL <200 [facility] Comment on above: <200 mg/dL Desirable 200-240 mg/dL Borderline >240 mg/dL High Risk Glucose [Mass/Vol] 91 mg/dL 74-106 [facility] Hemoglobin (Bld) [Mass/Vol] 13.0 g/dL 12.0-15.0 [facility] Potassium [Moles/Vol] 4.0 mmol/L 3.5-5.1 [facility] Protein [Mass/Vol] 7.4 g/dL 6.4-8.2 [facility] Sodium [Moles/Vol] 141 mmol/L 136-145 [facility] Triglyceride [Mass/Vol] 163 mg/dL <199 [facility] Comment on above: The drugs N-Acetylcy steine and Metamizole may falsely depress this assay.Serum Triglycerides Reference Interval Normal <150 mg/dL Borderline high 150 - 199 mg/dL High 200 - 499 mg/dL Very High > or = 500 mg/dL WBC (Bld) [#/Vol] 5.6 10*3/uL 4.4-11.0 [facility] Determination of erythrocyte mean corpuscular volume (MCV)Ordered By: Felicitas Camacho on 12-17-2023 MCV (RBC) [Entitic vol] 83.5 fL 81-99 [facility] Erythrocyte distribution wid th ratioOrdered By: Felicitas Camacho on 12-17-2023 Erythrocyte distribution width (RBC) [Ratio] 13.7 % 11.6-14.6 [facility] Erythrocyte distribution wid th standard deviationOrdered By: Felicitas Camacho on 12-17-2023 Erythrocyte distribution width (RBC) [Entitic vol] 42.1 fL 35.1-43.9 [facility] Hematocrit Auto (Bld) [Volum e fraction]Ordered By: Felicitas Camacho on 12-17-2023 Hematocrit (Bld) [Volume fraction] 38.6 % 37-47 [facility] Laboratory - Chemistry and C hemistry - challengeOrdered By: Felicitas Camacho on 12-17-2023 Albumin/Globulin [Mass ratio] 1.3 {ratio} 0.9-2.4 [facility] ALP [Catalytic activity/Vol] 67 U/L 45-117 [facility] ALT [Catalytic activity/Vol] 22 U/L 13-56 [facility] Cholesterol in HDL [Mass/Vol] 39 mg/dL >40 [facility] Comment on above: The drugs N-Acetylcy steine and Metamizole may falsely depress this assay. Reference Range HDL <40 mg/dL Low HDL Cholesterol HDL >or= 60 mg/dL High HDL Cholesterol Cholesterol in LDL [Mass/Vol] 144 mg/dL 0-130 [facility] CO2 [Moles/Vol] 23.0 mmol/L 21.0-32.0 [facility] Cobalamin (Vitamin B12) [Mass/Vol] 757 pg/mL 211-911 [facility] Globulin (S) [Mass/Vol] 3.2 g/dL 2.2-4.2 [facility] Urea nitrogen/Creatinine [Mass ratio] 15.1 mg/mg 10-20 [facility] Laboratory - Hematology and Cell countsOrdered By: Felicitas Camacho on 12-17-2023 MCH (RBC) [Entitic mass] 28.1 pg 27.0-32.0 [facility] MCHC (RBC) [Mass/Vol] 33.7 g/dL 32-36 [facility] Platelet mean volume (Bld) [Entitic vol] 10.8 fL 6.2-12.0 [facility] Platelets (Bld) [#/Vol] 306 10*3/uL 150-450 [facility] No Panel InformationOrdered By: Felicitas Camacho on 12-17-2023 Estimated GFR (MDRD) Amer 77 mL/min >60 [facility] Comment on above: GFR Calc Estimated GFR (MDRD) Non-Af Amer 64 mL/min >60 [facility] Comment on above: Non- GFR Calc Folate 14.60 ng/mL 3.1-55.4 [facility] Insulin Level 14.3 mU/L 2.6-37.6 [facility] [place] Level 0.70 mmol/L 0.60-1.20 [facility] Vitamin D 25-Hydroxy 28.7 ng/mL [facility] Comment on above: Vitamin D 25(OH) Sta tus Range Deficiency <20 ng/mL (50nmol/L) Insufficiency 20 - 30 ng/mL (50 - 75 nmol/L) Sufficiency 30 - 100 ng/mL (75 - 250 nmol/L) Toxicity >100 ng/mL (>250 nmol/L) VLDL Cholesterol 33 mg/dL 5-40 [facility] RBC Auto (Bld) [#/Vol]Ordere d By: Felicitas Camacho on 12-17-2023 RBC (Bld) [#/Vol] 4.62 10*6/uL 4.2-5.4 [facility] Serum or plasma calcium [place] urement (mass/volume)Ordered By: Felicitas Camacho on 12-17-2023 Calcium [Mass/Vol] 9.0 mg/dL 8.5-10.1 [facility] Serum or plasma creatinine m easurement (mass/volume)Ordered By: Felicitas Camacho on 12-17-2023 Creatinine [Mass/Vol] 0.99 mg/dL 0.55-1.02 [facility] Comment on above: The validity of the calculated GFR & GFRAA in patients over 70 years has not been determined. Clinical correlation is essential. Serum or plasma urea nitroge n measurement (mass/volume)Ordered By: Felicitas Camacho on 12-17-2023 Urea nitrogen [Mass/Vol] 15 mg/dL 7-18 [facility] Thin prep Papanicolaou smear with manual screeningOrdered By: Felicitas Camacho on 12-17-2023 Thin prep Papanicolaou smear with manual screening 4.2 g/dL 3.2-5.0 [facility] Thin prep Papanicolaou smear with manual screening 20 U/L 15-37 [facility] Thin prep Papanicolaou smear with manual screening 9 5-15 [facility] Whole blood hemoglobin A1c/t otal hemoglobin ratio (mass fraction)Ordered By: Felicitas Camacho on 12-17-2023 HbA1c (Bld) [Mass fraction] 5.0 % 3.8-5.6 [facility] Comment on above: Normal < 5.7 % Predi abetic 5.7 - 6.4 % Diabetic >or= 6.5 % Please note range changes. Laboratory - Microbiology an d Antimicrobial susceptibilityon 09-29-2023 SARS-CoV-2 (COVID-19) RNA ARNAV+probe Ql (Unsp spec) Detected [facility] No Panel Informationon 09-29 POC Nasal Swab Influenza A,B Not detected [facility] POC Nasal Swab RSV Not detected [facility] Basophil percentageOrdered B y: Felicitas Camacho on 02-18-2023 Chloride [Moles/Vol] 109 mmol/L 98-107 [facility] Cholesterol [Mass/Vol] 178 mg/dL <200 [facility] Comment on above: <200 mg/dL Desirable 200-240 mg/dL Borderline >240 mg/dL High Risk Glucose [Mass/Vol] 99 mg/dL 74-106 [facility] Potassium [Moles/Vol] 4.1 mmol/L 3.5-5.1 [facility] Sodium [Moles/Vol] 139 mmol/L 136-145 [facility] Triglyceride [Mass/Vol] 120 mg/dL <199 [facility] Comment on above: The drugs N-Acetylcy steine and Metamizole may falsely depress this assay.Serum Triglycerides Reference Interval Normal <150 mg/dL Borderline high 150 - 199 mg/dL High 200 - 499 mg/dL Very High > or = 500 mg/dL WBC (Bld) [#/Vol] 6.2 10*3/uL 4.4-11.0 [facility] Bilirubin Test strip Ql (U)O rdered By: Felicitas Camacho on 02-18-2023 Bilirubin Ql (U) Negative Negative [facility] Blood erythrocytes count (nu mber/volume)Ordered By: Felicitas Camacho on 02-18-2023 RBC (Bld) [#/Vol] 4.35 10*6/uL 4.2-5.4 [facility] Blood hemoglobin measurement (mass/volume)Ordered By: Felicitas Camacho on 02-18-2023 Hemoglobin (Bld) [Mass/Vol] 12.5 g/dL 12.0-15.0 [facility] Blood platelet mean volumeOr dered By: Felicitas Camacho on 02-18-2023 Platelet mean volume (Bld) [Entitic vol] 10.5 fL 6.2-12.0 [facility] Determination of erythrocyte mean corpuscular volume (MCV)Ordered By: Felicitas Camacho on 02-18-2023 MCV (RBC) [Entitic vol] 87.1 fL 81-99 [facility] Hematocrit Auto (Bld) [Volum e fraction]Ordered By: Felicitas Camacho on 02-18-2023 Hematocrit (Bld) [Volume fraction] 37.9 % 37-47 [facility] Ketones Test strip Ql (U)Ord ered By: Felicitas Camacho on 02-18-2023 Ketones Ql (U) Negative Negative [facility] Laboratory - Chemistry and C hemistry - challengeOrdered By: Felicitas Camacho on 02-18-2023 CO2 [Moles/Vol] 25.0 mmol/L 21.0-32.0 [facility] T4 [Mass/Vol] 7.9 ug/dL 4.8-13.9 [facility] Urea nitrogen/Creatinine [Mass ratio] 12.7 mg/mg 10-20 [facility] Laboratory - Hematology and Cell countsOrdered By: Felicitas Camacho on 02-18-2023 Erythrocyte distribution width (RBC) [Entitic vol] 43.1 fL 35.1-43.9 [facility] Erythrocyte distribution width (RBC) [Ratio] 13.7 % 11.6-14.6 [facility] MCH (RBC) [Entitic mass] 28.7 pg 27.0-32.0 [facility] MCHC Auto (RBC) [Mass/Vol]Or dered By: Felicitas Camacho on 02-18-2023 MCHC (RBC) [Mass/Vol] 33.0 g/dL 32-36 [facility] Nitrite Test strip Ql (U)Ord ered By: Felicitas Camacho on 02-18-2023 Nitrite Ql (U) Negative Negative [facility] No Panel InformationOrdered By: Felicitas Camacho on 02-18-2023 Estimated GFR (MDRD) Amer 91 mL/min >60 [facility] Comment on above: GFR Calc Estimated GFR (MDRD) Non-Af Amer 75 mL/min >60 [facility] Comment on above: Non- GFR Calc Insulin Level 17.8 mU/L 2.6-37.6 [facility] [place] Level 0.80 mmol/L 0.60-1.20 [facility] Thyroid Stimulating Hormone (TSH) 2.28 uIU/mL 0.358-3.74 [facility] Total Triiodothyronine 1.24 ng/mL 0.6-1.81 [facility] Platelets bldOrdered By: Jostin Camacho on 02-18-2023 Platelets (Bld) [#/Vol] 260 10*3/uL 150-450 [facility] Protein Test strip Ql (U)Ord ered By: Felicitas Camacho on 02-18-2023 Protein Ql (U) Negative Negative [facility] Serum or plasma calcium [place] urement (mass/volume)Ordered By: Felicitas Camacho on 02-18-2023 Calcium [Mass/Vol] 8.9 mg/dL 8.5-10.1 [facility] Serum or plasma cholesterol in HDL measurement (mass/volume)Ordered By: Felicitas Camacho on 02-18-2023 Cholesterol in HDL [Mass/Vol] 41 mg/dL >40 [facility] Comment on above: The drugs N-Acetylcy steine and Metamizole may falsely depress this assay. Reference Range HDL <40 mg/dL Low HDL Cholesterol HDL >or= 60 mg/dL High HDL Cholesterol Serum or plasma cholesterol in VLDL measurement (mass/volume)Ordered By: Felicitas Camacho on 02-18-2023 Cholesterol in VLDL [Mass/Vol] 24 mg/dL 5-40 [facility] Serum or plasma creatinine m easurement (mass/volume)Ordered By: Felicitas Camacho on 02-18-2023 Creatinine [Mass/Vol] 0.86 mg/dL 0.55-1.02 [facility] Comment on above: The validity of the calculated GFR & GFRAA in patients over 70 years has not been determined. Clinical correlation is essential. Serum or plasma low density lipoprotein (LDL) cholesterol measurement (mass/volume)Ordered By: Felicitas Camacho on 02-18-2023 Cholesterol in LDL [Mass/Vol] 113 mg/dL 0-130 [facility] Serum or plasma urea nitroge n measurement (mass/volume)Ordered By: Felicitas Camacho on 02-18-2023 Urea nitrogen [Mass/Vol] 11 mg/dL 7-18 [facility] Thin prep Papanicolaou smear with manual screeningOrdered By: Felicitas Camacho on 02-18-2023 Thin prep Papanicolaou smear with manual screening 5 5-15 [facility] Urine blood detectionOrdered By: Felicitas Camacho on 02-18-2023 RBC Ql (U) Negative Negative [facility] Urine clarityOrdered By: Jostin Camacho on 02-18-2023 Clarity (U) Clear Clear [facility] Urine color determinationOrd ered By: Felicitas Camacho on 02-18-2023 Color (U) Yellow Yellow [facility] Urine glucose detectionOrder ed By: Felicitas Camacho on 02-18-2023 Glucose Ql (U) Normal mg/dl Normal [facility] Urine leukocyte esterase det ection by dipstickOrdered By: Felicitas Camacho on 02-18-2023 Leukocyte esterase Test strip Ql (U) Negative Negative [facility] Urine pHOrdered By: Felicitas Camacho on 02-18-2023 pH (U) 7.0 [pH] 5.0 - 8.0 [facility] Urine specific gravity measu rementOrdered By: Felicitas Camacho on 02-18-2023 Specific gravity (U) [Rel density] 1.010 1.002-1.03 0 [facility] Urobilinogen Auto test strip Ql (U)Ordered By: Felicitas Camacho on 02-18-2023 Urobilinogen Ql (U) Normal mg/dl Normal [facility] Whole blood hemoglobin A1c/t otal hemoglobin ratio (mass fraction)Ordered By: Felicitas Camacho on 02-18-2023 HbA1c (Bld) [Mass fraction] 4.7 % 3.8-5.6 [facility] Comment on above: Normal < 5.7 % Predi abetic 5.7 - 6.4 % Diabetic >or= 6.5 % Please note range changes. Chocolate RASTOrdered By: Ra don Friend on 02-11-2023 Chocolate IgE Qn (S) <0.10 kU/L Class 0 [facility] Comment on above: Performed at: - [address] [id number] Director: Alber Cruz MD, Phone: [phone] Laboratory - Miscellaneous t estsOrdered By: Jesus Leone on 02-11-2023 Service comment (Unsp spec) [Interp] Comment . [facility] Comment on above: Levels of Specific I gE Class Description of Class ----- < 0.10 0 Negative 0.10 - 0.31 0/I Equivocal/Low 0.32 - 0.55 I Low 0.56 - 1.40 II Moderate 1.41 - 3.90 III High 3.91 - 19.00 IV Very High 19.01 - 100.00 V Very High >100.00 [facility] No Panel InformationOrdered By: Jesus Leone on 02-11-2023 Scallop Allergen <0.10 kU/L Class 0 [facility] Seafood [employer] Allergens (RAST) Negative . [facility] Comment on above: Allergens in this mi x are: Blue mussel Fish [place] Shrimp Tuna Sesame Seed Allergen IgE Antibody <0.10 kU/L Class 0 [facility] Shrimp Allergen <0.10 kU/L Class 0 [facility] Serum beef IgE antibody assa y (units/volume)Ordered By: Jesus Leone on 02-11-2023 Beef IgE Qn (S) <0.10 kU/L Class 0 [facility] Serum black walnut IgE antib neal assay (units/volume)Ordered By: Jesus Leone on 02-11-2023 [place] IgE Qn (S) <0.10 kU/L Class 0 [facility] Serum clam IgE antibody assa y (units/volume)Ordered By: Jesus Leone on 02-11-2023 Clam IgE Qn (S) <0.10 kU/L Class 0 [facility] Serum codfish IgE antibody a ssay (units/volume)Ordered By: Jesus Leone on 02-11-2023 Codfish IgE Qn (S) <0.10 kU/L Class 0 [facility] Serum corn IgE antibody assa y (units/volume)Ordered By: Jesus Leone on 02-11-2023 [place] IgE Qn (S) <0.10 kU/L Class 0 [facility] Serum cow milk IgE antibody assay (units/volume)Ordered By: Jesus Leone on 02-11-2023 Cow milk IgE Qn (S) <0.10 kU/L Class 0 [facility] Serum egg white IgE antibody assay (units/volume)Ordered By: Jesus Leone on 02-11-2023 Egg white IgE Qn (S) <0.10 kU/L Class 0 [facility] Serum or plasma uric acid me asurement (mass/volume)Ordered By: Jesus Leone on 02-11-2023 Urate [Mass/Vol] 6.8 mg/dL 2.6-6.0 [facility] Comment on above: The drugs N-Acetylcy steine and Metamizole may falsely depress this assay. Serum peanut IgE antibody as say (units/volume)Ordered By: Jesus Leone on 02-11-2023 Peanut IgE Qn (S) <0.10 kU/L Class 0 [facility] Serum pork IgE antibody assa y (units/volume)Ordered By: Jesus Leone on 02-11-2023 Pork IgE Qn (S) <0.10 kU/L Class 0 [facility] Serum soybean IgE antibody a ssay (units/volume)Ordered By: Jesus Leone on 02-11-2023 Soybean IgE Qn (S) <0.10 kU/L Class 0 [facility] Serum wheat IgE antibody ass ay (units/volume)Ordered By: Jesus Leone on 02-11-2023 Wheat IgE Qn (S) <0.10 kU/L Class 0 [facility] Serum whole egg IgE antibody assay (units/volume)Ordered By: Jesus Leone on 02-11-2023 Whole Egg IgE Qn (S) <0.10 kU/L Class 0 [facility] No Panel InformationOrdered By: Felicitas Camacho on 09-24-2022 [place] Level 0.70 mmol/L 0.60-1.20 [facility] Basophil percentageon 2021 Bilirubin [Mass/Vol] 0.50 mg/dL 0.20-1.00 [facility] Work Phone: Comment on above: For patients on eltr ombopag therapy, use of Dimension [place] TBIL is not recommended. Chloride [Moles/Vol] 108 mmol/L 98-107 [facility] Work Phone: Glucose [Mass/Vol] 93 mg/dL 74-106 [facility] Work Phone: Potassium [Moles/Vol] 3.7 mmol/L 3.5-5.1 [facility] Work Phone: Protein [Mass/Vol] 6.9 g/dL 6.4-8.2 [facility] Work Phone: Sodium [Moles/Vol] 140 mmol/L 136-145 [facility] Work Phone: Laboratory - Chemistry and C hemistry - challengeon 08-05-2022 ALP [Catalytic activity/Vol] 62 U/L 45-117 [facility] Work Phone: ALT [Catalytic activity/Vol] 20 U/L 13-56 [facility] Work Phone: CO2 [Moles/Vol] 26.0 mmol/L 21.0-32.0 [facility] Work Phone: Globulin (S) [Mass/Vol] 3.3 g/dL 2.2-4.2 [facility] Work Phone: Urea nitrogen/Creatinine [Mass ratio] 15.3 mg/mg 10-20 [facility] Work Phone: No Panel Informationon 08-05 Estimated GFR (MDRD) Amer 85 mL/min >60 [facility] Work Phone: Comment on above: GFR Calc Estimated GFR (MDRD) Non-Af Amer 71 mL/min >60 [facility] Work Phone: Comment on above: Non- GFR Calc [place] Level 0.60 mmol/L 0.60-1.20 [facility] Work Phone: Thyroid Stimulating Hormone (TSH) 2.95 uIU/mL 0.358-3.74 [facility] Work Phone: Serum or plasma albumin [place] urement (mass/volume)on 08-05-2022 Albumin [Mass/Vol] 3.6 g/dL 3.2-5.0 [facility] Work Phone: Serum or plasma albumin/glob ulin mass ratioon 08-05-2022 Albumin/Globulin [Mass ratio] 1.1 {ratio} 0.9-2.4 [facility] Work Phone: Serum or plasma calcium [place] urement (mass/volume)on 08-05-2022 Calcium [Mass/Vol] 8.8 mg/dL 8.5-10.1 [facility] Work Phone: Serum or plasma creatinine m easurement (mass/volume)on 08-05-2022 Creatinine [Mass/Vol] 0.92 mg/dL 0.55-1.02 [facility] Work Phone: Comment on above: The validity of the calculated GFR & GFRAA in patients over 70 years has not been determined. Clinical correlation is essential. Serum or plasma urea nitroge n measurement (mass/volume)on 08-05-2022 Urea nitrogen [Mass/Vol] 14 mg/dL 7-18 [facility] Work Phone: Thin prep Papanicolaou smear with manual screeningon 08-05-2022 Thin prep Papanicolaou smear with manual screening 14 U/L 15-37 [facility] Work Phone: Thin prep Papanicolaou smear with manual screening 6 5-15 [facility] Work Phone: Absolute lymphocyte counton 07-12-2022 Lymphocytes Auto (Unsp spec) [#/Vol] 1.23 10*3/uL 0.83-4.51 [facility] Work Phone: Absolute reticulocyte counto n 07-12-2022 Reticulocytes (Bld) [#/Vol] 0.00 10*3/uL 0-5 [facility] Work Phone: Basophil percentageon 2021 Basophil percentage 4.1 mg/dL 2.5-4.9 [facility]: Bilirubin [Mass/Vol] 0.50 mg/dL 0.20-[facility].00 [facility]: Comment on above: For patients on eltr ombopag therapy, use of Dimension [place] TBIL is not recommended. Chloride [Moles/Vol] 107 mmol/L 98-107 [facility] Work Phone: Cholesterol [Mass/Vol] 199 mg/dL <200 [facility] Work Phone: Comment on above: <200 mg/dL Desirable 200-240 mg/dL Borderline >240 mg/dL High Risk Glucose [Mass/Vol] 96 mg/dL 74-106 [facility] Work Phone: Neutrophils (Bld) [#/Vol] 3.9 10*3/uL 2.0-7.7 [facility] Work Phone: Potassium [Moles/Vol] 4.2 mmol/L 3.5-5.1 [facility] Work Phone: Protein [Mass/Vol] 7.5 g/dL 6.4-8.2 [facility] Work Phone: Sodium [Moles/Vol] 141 mmol/L 136-145 [facility] Work Phone: Triglyceride [Mass/Vol] 135 mg/dL <199 [facility] Work Phone: Comment on above: The drugs N-Acetylcy steine and Metamizole may falsely depress this assay.Serum Triglycerides Reference Interval Normal <150 mg/dL Borderline high 150 - 199 mg/dL High 200 - 499 mg/dL Very High > or = 500 mg/dL WBC (Bld) [#/Vol] 5.6 10*3/uL 4.4-11.0 [facility] Work Phone: Blood erythrocytes count (nu mber/volume)on 07-12-2022 RBC (Bld) [#/Vol] 4.53 10*6/uL 4.2-5.4 [facility] Work Phone: Blood hemoglobin measurement (mass/volume)on 07-12-2022 Hemoglobin (Bld) [Mass/Vol] 13.2 g/dL 12.0-15.0 [facility] Work Phone: Blood platelet mean volumeon 07-12-2022 Platelet mean volume (Bld) [Entitic vol] 10.4 fL 6.2-12.0 [facility] Work Phone: Determination of erythrocyte mean corpuscular volume (MCV)on 07-12-2022 MCV (RBC) [Entitic vol] 87.2 fL 81-99 [facility] Work Phone: Direct bilirubinon 2 Bilirubin.direct [Mass/Vol] 0.07 mg/dL 0.00-0.30 [facility] Work Phone: Hematocrit Auto (Bld) [Volum e fraction]on 07-12-2022 Hematocrit (Bld) [Volume fraction] 39.5 % 37-47 [facility] Work Phone: Laboratory - Chemistry and C hemistry - challengeon 07-12-2022 ALP [Catalytic activity/Vol] 67 U/L 45-117 [facility] Work Phone: ALT [Catalytic activity/Vol] 21 U/L 13-56 [facility] Work Phone: Cholesterol.total/Chol esterol in HDL [Mass ratio] 4.30 {ratio} [facility] Work Phone: CO2 [Moles/Vol] 29.0 mmol/L 21.0-32.0 [facility] Work Phone: Globulin (S) [Mass/Vol] 3.6 g/dL 2.2-4.2 [facility] Work Phone: Urea nitrogen/Creatinine [Mass ratio] 15.2 mg/mg 10-20 [facility] Work Phone: Laboratory - Hematology and Cell countson 07-12-2022 Erythrocyte distribution width (RBC) [Entitic vol] 43.2 fL 35.1-43.9 [facility] Work Phone: Erythrocyte distribution width (RBC) [Ratio] 13.7 % 11.6-14.6 [facility] Work Phone: MCH (RBC) [Entitic mass] 29.1 pg 27.0-32.0 [facility] Work Phone: Nucleated RBC/100 WBC (Bld) [Ratio] 0 % 0-5 [facility] Work Phone: MCHC Auto (RBC) [Mass/Vol]on 07-12-2022 MCHC (RBC) [Mass/Vol] 33.4 g/dL 32-36 [facility] Work Phone: No Panel Informationon 07-12 Estimated GFR (MDRD) Amer 78 mL/min >60 [facility] Work Phone: Comment on above: GFR Calc Estimated GFR (MDRD) Non-Af Amer 65 mL/min >60 [facility] Work Phone: Comment on above: Non- GFR Calc Platelets bldon 07-12-2022 Platelets (Bld) [#/Vol] 277 10*3/uL 150-450 [facility] Work Phone: Segmented neutrophils/100 WB C Auto (Bld)on 07-12-2022 Segmented neutrophils/100 WBC (Bld) 69.9 % 47-70 [facility] Work Phone: Serum or plasma albumin [place] urement (mass/volume)on 07-12-2022 Albumin [Mass/Vol] 3.9 g/dL 3.2-5.0 [facility] Work Phone: Serum or plasma albumin/glob ulin mass ratioon 07-12-2022 Albumin/Globulin [Mass ratio] 1.1 {ratio} 0.9-2.4 [facility] Work Phone: Serum or plasma calcium [place] urement (mass/volume)on 07-12-2022 Calcium [Mass/Vol] 9.4 mg/dL 8.5-10.1 [facility] Work Phone: Serum or plasma cholesterol in HDL measurement (mass/volume)on 07-12-2022 Cholesterol in HDL [Mass/Vol] 46 mg/dL >40 [facility] Work Phone: Comment on above: The drugs N-Acetylcy steine and Metamizole may falsely depress this assay. Reference Range HDL <40 mg/dL Low HDL Cholesterol HDL >or= 60 mg/dL High HDL Cholesterol Serum or plasma cholesterol in VLDL measurement (mass/volume)on 07-12-2022 Cholesterol in VLDL [Mass/Vol] 27 mg/dL 5-40 [facility] Work Phone: Serum or plasma creatinine m easurement (mass/volume)on 07-12-2022 Creatinine [Mass/Vol] 0.99 mg/dL 0.55-1.02 [facility] Work Phone: Comment on above: The validity of the calculated GFR & GFRAA in patients over 70 years has not been determined. Clinical correlation is essential. Serum or plasma low density lipoprotein (LDL) cholesterol measurement (mass/volume)on 07-12-2022 Cholesterol in LDL [Mass/Vol] 126 mg/dL 0-130 [facility] Work Phone: Serum or plasma urea nitroge n measurement (mass/volume)on 07-12-2022 Urea nitrogen [Mass/Vol] 15 mg/dL 7-18 [facility] Work Phone: Serum or plasma uric acid me asurement (mass/volume)on 07-12-2022 Urate [Mass/Vol] 7.3 mg/dL 2.6-6.0 [facility] Work Phone: Comment on above: The drugs N-Acetylcy steine and Metamizole may falsely depress this assay. Thin prep Papanicolaou smear with manual screeningon 07-12-2022 Thin prep Papanicolaou smear with manual screening 13 U/L 15-37 [facility] Work Phone: Thin prep Papanicolaou smear with manual screening 5 5-15 [facility] Work Phone: Thin prep Papanicolaou smear with manual screening 171 U/L 84-246 [facility] Work Phone: Basophil percentageon 2021 Chloride [Moles/Vol] 106 mmol/L 98-[address] [facility] Work Phone: Glucose [Mass/Vol] 95 mg/dL 74-106 [facility] Work Phone: Potassium [Moles/Vol] 4.0 mmol/L 3.5-5.[address] [address] [facility] Work Phone: Sodium [Moles/Vol] 141 mmol/L 136-145 [facility] Work Phone: WBC (Bld) [#/Vol] 7.3 10*3/uL 4.4-11.0 [facility] Work Phone: Blood erythrocytes count (nu mber/volume)on 04-29-2022 RBC (Bld) [#/Vol] 4.39 10*6/uL 4.2-5.4 [place] [facility] Work Phone: Blood hemoglobin measurement (mass/volume)on 04-29-2022 Hemoglobin (Bld) [Mass/Vol] 13.0 g/dL 12.0-15.0 [facility] Work Phone: Blood platelet mean volumeon 04-29-2022 Platelet mean volume (Bld) [Entitic vol] 10.2 fL 6.2-12.0 [facility] Work Phone: Determination of erythrocyte mean corpuscular volume (MCV)on 04-29-2022 MCV (RBC) [Entitic vol] 87.9 fL 81-99 [facility] Work Phone: Hematocrit Auto (Bld) [Volum e fraction]on 04-29-2022 Hematocrit (Bld) [Volume fraction] 38.6 % 37-47 [facility] Work Phone: Laboratory - Chemistry and C hemistry - challengeon 04-29-2022 CO2 [Moles/Vol] 26.0 mmol/L 21.0-32.0 [facility] Work Phone: Urea nitrogen/Creatinine [Mass ratio] 15.5 mg/mg 10-20 [facility] Work Phone: Laboratory - Hematology and Cell countson 04-29-2022 Erythrocyte distribution width (RBC) [Entitic vol] 41.6 fL 35.1-43.9 [facility] Work Phone: Erythrocyte distribution width (RBC) [Ratio] 13.1 % 11.6-14.6 [facility] Work Phone: MCH (RBC) [Entitic mass] 29.6 pg 27.0-32.0 [facility] Work Phone: MCHC Auto (RBC) [Mass/Vol]on 04-29-2022 MCHC (RBC) [Mass/Vol] 33.7 g/dL 32-36 [facility] Work Phone: No Panel Informationon 04-29 Estimated GFR (MDRD) Amer 95 mL/min >60 [facility] Work Phone: Comment on above: GFR Calc Estimated GFR (MDRD) Non-Af Amer 78 mL/min >60 [facility] Work Phone: Comment on above: Non- GFR Calc [place] Level 0.40 mmol/L 0.60-1.20 [facility] Work Phone: Thyroid Stimulating Hormone (TSH) 2.76 uIU/mL 0.358-3.74 [facility] Work Phone: Platelets bldon 04-29-2022 Platelets (Bld) [#/Vol] 285 10*3/uL 150-450 [facility] Work Phone: Serum or plasma calcium [place] urement (mass/volume)on 04-29-2022 Calcium [Mass/Vol] 9.9 mg/dL 8.5-10.1 [facility] Work Phone: Serum or plasma creatinine m easurement (mass/volume)on 04-29-2022 Creatinine [Mass/Vol] 0.84 mg/dL 0.55-1.02 [facility] Work Phone: Comment on above: The validity of the calculated GFR & GFRAA in patients over 70 years has not been determined. Clinical correlation is essential. Serum or plasma urea nitroge n measurement (mass/volume)on 04-29-2022 Urea nitrogen [Mass/Vol] 13 mg/dL 7-18 [facility] Work Phone: Thin prep Papanicolaou smear with manual screeningon 04-29-2022 Thin prep Papanicolaou smear with manual screening 9 5-15 [facility] Work Phone: Laboratory - Microbiology an d Antimicrobial susceptibilityon 04-19-2022 SARS-CoV-2 (COVID-19) RNA ARNAV+probe Ql (Unsp spec) Detected [facility] Work Phone: No Panel Informationon 04-19 POC Nasal Swab Influenza A,B Not detected [facility] Work Phone: POC Nasal Swab RSV Not detected [facility] Work Phone: Basophil percentageon 2021 Chloride [Moles/Vol] 105 mmol/L 98-107 [facility] Work Phone: Glucose [Mass/Vol] 93 mg/dL 74-106 [facility] Work Phone: Potassium [Moles/Vol] 3.8 mmol/L 3.5-5.1 [facility] Work Phone: Sodium [Moles/Vol] 140 mmol/L 136-145 [facility] Work Phone: Laboratory - Chemistry and C hemistry - challengeon 02-27-2022 CO2 [Moles/Vol] 26.0 mmol/L 21.0-32.0 [facility] Work Phone: Urea nitrogen/Creatinine [Mass ratio] 13.4 mg/mg 10-20 [facility] Work Phone: No Panel Informationon 02-27 Estimated GFR (MDRD) Amer 80 mL/min >60 [facility] Work Phone: Comment on above: GFR Calc Estimated GFR (MDRD) Non-Af Amer 66 mL/min >60 [facility] Work Phone: Comment on above: Non- GFR Calc [place] Level 0.40 mmol/L 0.60-1.20 [facility] Work Phone: Thyroid Stimulating Hormone (TSH) 2.26 uIU/mL 0.358-3.74 [facility] Work Phone: Serum or plasma calcium [place] urement (mass/volume)on 02-27-2022 Calcium [Mass/Vol] 9.0 mg/dL 8.5-10.1 [facility] Work Phone: Serum or plasma creatinine m easurement (mass/volume)on 02-27-2022 Creatinine [Mass/Vol] 0.97 mg/dL 0.55-1.02 [facility] Work Phone: Comment on above: The validity of the calculated GFR & GFRAA in patients over 70 years has not been determined. Clinical correlation is essential. Serum or plasma urea nitroge n measurement (mass/volume)on 02-27-2022 Urea nitrogen [Mass/Vol] 13 mg/dL 7-18 [facility] Work Phone: Thin prep Papanicolaou smear with manual screeningon 02-27-2022 Thin prep Papanicolaou smear with manual screening 9 5-15 [facility] Work Phone: Initial Visit (Rheumatology) on 12-19-2021 Initial Visit (Rheumatology) Diagnoses/Problems Assessed Arthropathy (716.90) (M12.9) Orders Arthropathy HLA B27 Antigen Screen; Status:Active; Requested for:19Dec2021; Perform:Lab Services - Lab To Draw (Blood Test); Due:19Mar2022;Ordered; For:Arthropathy; Ordered By:Julia Dennis; Sacroiliac Joints, 3 or More Views; Status:Hold For - Scheduling; Requested for:19Dec2021; Perform:[facility]; Due:19Mar2022;Ordered; For:Arthropathy; Ordered By:Julia Dennis; Radiologist to Determine Optimal Study : Y What are the patient's signs and symptoms? : r/o sacroilitis Uric Acid, Serum; Status:Active; Requested for:19Dec2021; Perform:Lab Services - Lab To Draw (Blood Test); Due:19Mar2022;Ordered; For:Arthropathy; Ordered By:Julia Dennis; Vitamin D 25-Hydroxy; Status:Active; Requested for:19Dec2021; Perform:Lab Services - Lab To Draw (Blood Test); Due:19Mar2022;Ordered; For:Arthropathy; Ordered By:Julia Dennis; Xray Hand Bialteral, Min 3 Views; Status:Hold For - Scheduling; Requested for:19Dec2021; Perform:[facility]; Due:19Mar2022;Ordered; For:Arthropathy; Ordered By:Julia Dennis; Radiologist to Determine Optimal Study : Y What are the patient's signs and symptoms? : r/o erosions or calcinosis Xray Hips, Bilat, Min 2 Views Each, AP Pelvis; Status:Hold For - Scheduling; Requested for:19Dec2021; Perform:[facility]; Due:19Mar2022;Ordered; For:Arthropathy; Ordered By:Julia Dennis; Patient taking Metformin or Derivatives? : No Radiologist to Determine Optimal Study : Y What are the patient's signs and symptoms? : Hip pain Patient Discussion/Summary It was nice to meet you today, I would continue naproxen given the good response you have along with acid reducing medication. We will do additional testing and will reach back out to you once we see abnormal finding Provider Impressions 46 y/o female with Hx of various joint complaint present for evaluation. She recently had complete Hysterectomy March 2021. She started to have joint pain in her PIP joint bilaterally associated with swelling in her hands mostly in the morning. Today no overt significant joint finding. Serological markers were all negative. -Given great response to naproxen would continue this for now, patient is already on chronic Protonix. -Obtain screening x-rays of the hands the hips and the sacroiliac spine. -Obtain additional serologies -Follow-up based on further testing Chief Complaint Dr Douglas referral-Joint pain, arthralgia History of Present [age]pt64 y/o female with Hx of various joint complaint present for evaluation. She recently had complete Hysterectomy March 2021. She started to have joint pain in her PIP joint bilaterally associated with swelling in her hands mostly in the morning with stiffness for than 30 mins She did have Nerve conduction study which did show mild Carpe tunnel syndrome She has a Hx of lower back pain s/p laminectomy of L5 and S1 She has tried Aleve 440 mg BIID which did help 90% Tylenol and meloxicam did not help. Patient has MRI of the cervical spine scheduled Review of Systems ROS: Denies Morning stiffness, joint pain and swelling, She report dry eyes and mouth due to SSRI, oral, nasal or genital ulcers, Denies sun sensitivity, Raynaud?s phenomenon. Denies Uveitis or recent vision changes. Denies new rashes or Hx of Psoriasis, Denies alopecia, Denies Chest pain/SOB, cough, Hx of asthma, Denies Fever/chills/sweats, Denies Fatigue, Denies weight loss Denies abdominal pain, New onset Dyspepsia, dysphasia, nausea/vomiting/diarrhea, dark/tarry stools, blood in stools or urine. Denies Chronic back pain. Denies Hx of blood clot or miscarriages. Hx of easy bruising or bleeding. Denies Headaches, numbness and tingling, weakness. All other systems have been reviewed and are negative for complaint. Active Problems Problems Arthralgia of multiple joints (719.49) (M25.50) BMI 34.0-34.9,adult (V85.34) (Z68.34) Class 1 obesity with body mass index (BMI) of 34.0 to 34.9 in adult (278.00,V85.34) (E66.9,Z68.34) Excessive daytime sleepiness (780.54) (G47.19) Fatigue (780.79) (R53.83) Grinding of teeth (306.8) (F45.8) seeing dentist- mouthguard Hand pain (729.5) (M79.643) High vitamin D level (278.4) (E67.3) 04/21 Dr Hernandez Hypocalcemia (275.41) (E83.51) Hypokalemia (276.8) (E87.6) Immunization due (V05.9) (Z23) CANDE (obstructive sleep apnea) (327.23) (G47.33) DX - 07/22 severe- 08/21 CPAP titration- Dr Man Palpitations (785.1) (R00.2) Dr Amaya Past Medical History Problems History of cyst of breast (V13.3) (Z87.2) 2017- left History of pneumonia (V12.61) (Z87.01) Resolved Date: 29 Apr 2019 History of Hospital discharge follow-up (V67.59) (Z09) Resolved Date: 03 May 2019 History of Normal cardiac stress test 10/2017- Dr Amaya Surgical History Problems History of Back surgery History of Cardiac c (more content not included)... Normal [facility] No Panel Informationon 12-19 Vitamin D 25-Hydroxy 35.6 ng/mL [facility] Work Phone: Comment on above: Vitamin D 25(OH) Sta tus Range Deficiency <20 ng/mL (50nmol/L) Insufficiency 20 - 30 ng/mL (50 - 75 nmol/L) Sufficiency 30 - 100 ng/mL (75 - 250 nmol/L) Toxicity >100 ng/mL (>250 nmol/L) Serum or plasma uric acid me asurement (mass/volume)on 12-19-2021 Urate [Mass/Vol] 4.9 mg/dL 2.6-6.0 [facility] Work Phone: Comment on above: The drugs N-Acetylcy steine and Metamizole may falsely depress this assay. Thin prep Papanicolaou smear with manual screeningon 12-19-2021 Thin prep Papanicolaou smear with manual screening Negative [facility] Work Phone: Comment on above: HLA-B*27 ChwsiwbvL25 allele interpretation for all loci based on IMGT/HLAdatabase version 3.44This test was developed and its performance characteristicsdetermined by [facility]. It has not been cleared or approvedby the Food and Drug Administration.[facility] CLIA ID Number [id number] test was performed using PCR (Polymerase ChainReaction)/SSOP (Sequence Specific Oligonucleotide Probes)technique. SBT (Sequence Based Typing) and/or SSP(Sequence Specific Primers) may be used as supplementalmethods when necessary. Please contact [facility] CustomerService at if you have any questions. Director of [facility] Laboratory Dr Robin Kim, PhDPerformed at: 2Q - [facility] [id number] [place], [place] [id number] Director: Robin Kim PhD, Phone: [phone] Blood Pressure Cuff Sizeon 1 12-23-2020 Last menstrual period start date hyst [facility] Work Phone: Tobacco use status CPHS b) No [facility] Work Phone: Blood Pressure Cuff Size Adult [facility] Work Phone: Office Visit (Primary Care T xt/Forms)on 10-22-2021 Follow-up visit Diagnoses/Problems Assessed Arthralgia of multiple joints (719.49) (M25.50) BMI 34.0-34.9,adult (V85.34) (Z68.34) Class 1 obesity with body mass index (BMI) of 34.0 to 34.9 in adult (278.00,V85.34) (E66.9,Z68.34) Hand pain (729.5) (M79.643) Orders Arthralgia of multiple joints Start: Meloxicam 15 MG Oral Tablet (Mobic); TAKE 1 TABLET DAILY ANGELA-WITH REFLEX TO MCKENZIE; Status:Active; Requested for:[id number]; Rheumatology Referral Evaluation and Treatment Evaluate AND Treat Status: Hold For - Scheduling Requested for: [id number] C Reactive Protein, Serum; Status:Active; Requested for:[id number]; Citrulline Antibody; Status:Active; Requested for:[id number]; Complete Blood Count; Status:Active; Requested for:[id number]; Rheumatoid Factor, Serum or Plasma; Status:Active; Requested for:[id number]; Sedimentation Rate, Erythrocyte; Status:Active; Requested for:[id number]; Hand pain Xray Hand Min 3 View; Status:Hold For - Scheduling; Requested for:[id number]; Laterality : Left Radiologist to Determine Optimal Study : Y What are the patient's signs and symptoms? : pain and swelling- possible rheumatoid arthritis Patient Discussion/Summary ordered lab refer to Principal Examiner start Mobic xray ordered may add tylenol for breakthrough pain Call if no better or if symptoms worsen Provider Impressions Provider Impressions Free Text Note Form: Patient's BMI is elevated. Plan- diet and exercise- BMI is elevated. Need to increase activity on a daily basis especially walking. Monitor total calories per day- decrease carbohydrates and fats. Goal - lose 1-2 pounds per week. Recommend 150 minutes of moderate-intensity exercise as tolerated per week and 2-3 days of resistance, flexibility, and neuromotor exercises per week. Normal BMI- 18.5-25 Overweight= BMI 26-29 Obese= BMI 30-39 Morbidly Obese = BMI >40 Chief Complaint joint pain is fasting History of Present Illness HPI Elements: LOCATION- QUALITY-DESCRIPTION OF PAIN/SXS- joint pain, saw ortho, needs referrel am- bilateral hands - stiff, achey saw ortho- 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- scheduled CT surgery - but postponed due to new sxs developing now having bilateral feet sxs and right hip sxs pt wants referral to Principal Examiner MGM had arthritis - most likely RA SEVERITY- moderate DURATION-since april TIMING/FREQUENCY OF SXS-progressivly worsening , left hand the worst area CONTEXT-(circumstances, cause, precursor, outside factors)- recent travel - no, nonsmoker MODIFYING FACTORS- What makes sxs better- What makes sxs worse- WHat have you tried that did not make symptoms better or worse?- Ex OTC meds none Active Problems Problems Excessive daytime sleepiness (780.54) (G47.19) Fatigue (780.79) (R53.83) Grinding of teeth (306.8) (F45.8) High vitamin D level (278.4) (E67.3) Hypocalcemia (275.41) (E83.51) Hypokalemia (276.8) (E87.6) Immunization due (V05.9) (Z23) CANDE (obstructive sleep apnea) (327.23) (G47.33) Palpitations (785.1) (R00.2) Past Medical History Problems History of cyst of breast (V13.3) (Z87.2) History of pneumonia (V12.61) (Z87.01) History of Hospital discharge follow-up (V67.59) (Z09) History of Normal cardiac stress test Surgical History Problems History of Back surgery History of Cardiac catheterization History of section History of Hysterectomy History of Hysterectomy History of Inguinal hernia repair History of Intrauterine device placement History of Intrauterine device removal History of Tubal ligation bilateral Family History Mother Family history of Family history of cardiac disorder (V17.49) (Z82.49) Family history of hypertension (V17.49) (Z82.49) Family history of malignant neoplasm of ovary (V16.41) (Z80.41) Father Family history of Family history of cardiac disorder (V17.49) (Z82.49) Family history of diabetes mellitus (V18.0) (Z83.3) Family history of hypertension (V17.49) (Z82.49) Social History Problems Consumes alcohol occasionally (V49.89) (Z78.9) Does not use illicit drugs (V49.89) (Z78.9) Does not use tobacco (V49.89) (Z78.9) Occupation Current Meds Medication NameInstruction Biotin TABS Collagen CAPS Ferrous Sulfate 325 (65 Fe) MG Oral Tablet FLUoxetine HCl - 20 MG Oral TabletTAKE 1 TABLET DAILY. Magnesium CAPS Multivitamins TABS Probiotic CAPS Vitamin D CAPS V-R Vitamin B-12 TABS Zinc CAPS Allergies Medication Trileptal Depakote Vitals Vital Signs Recorded: [id number] 06:39AM Temperature: 96.9 F, Temporal Heart Rate: 73 Respiration: 16 Systolic: 115, LUE, Sitting Diastolic: 76, LUE, Sitting Blood Pressure Cuff Size: Adult Weight: 201 lb 3.2 oz BMI Calculated: 34.27 kg/m2 BSA Calculated: 1.97 Tobacco Use: b) No O2 Saturation: 97, RA LMP: hyst Physical Exam CONSTITUTIONAL- Pt is A and O x3, NAD Head- normocephalic and atraumatic (more content not included)... [email or web address] .GFRon 06-27-2021 GFR >60 [facility] Comment on above: Result Comment: GFR Population mean for , Non- Americans Ages 20-29 = 116 mL/min/1.73 sq.m. Ages 30-39 = 107 mL/min/1.73 sq.m. Ages 40-49 = 99 mL/min/1.73 sq.m. Ages 50-59 = 93 mL/min/1.73 sq.m. Ages 60-69 = 85 mL/min/1.73 sq.m. Ages 70+ = 75 mL/min/1.73 sq.m. Chronic Kidney Disease: Less than 60 mL/min/1.73 square meters End Stage Renal Disease: Less than 15 mL/min/1.73 square meters Performed By: #### T RIG, URIC, CHOL, CMP, GFR, MG #### [address] [address] GFR Non- >60 Normal [facility] ([place]) Comment on above: Result Comment: GFR Population mean for , Non- Americans Ages 20-29 = 116 mL/min/1.73 sq.m. Ages 30-39 = 107 mL/min/1.73 sq.m. Ages 40-49 = 99 mL/min/1.73 sq.m. Ages 50-59 = 93 mL/min/1.73 sq.m. Ages 60-69 = 85 mL/min/1.73 sq.m. Ages 70+ = 75 mL/min/1.73 sq.m. Chronic Kidney Disease: Less than 60 mL/min/1.73 square meters End Stage Renal Disease: Less than 15 mL/min/1.73 square meters Performed By: #### T RIG, URIC, CHOL, CMP, GFR, MG #### [address] [address] CHOLon 06-27-2021 Cholesterol [Mass/Vol] 187 mg/dL Normal 50-199 [facility] ([place]) Comment on above: Result Comment: Chol esterol Reference Interval: Less than 200 Desirable 200-239 Borderline high risk 240 and above High risk Performed By: #### T RIG, URIC, CHOL, CMP, GFR, MG #### [address] [address] CMPon 06-27-2021 Albumin Level 4.4 G/dL Normal 3.2-4.8 [facility] ([place]) Comment on above: Performed By: #### T RIG, URIC, CHOL, CMP, GFR, MG #### [address] [address] Albumin/Globulin [Mass ratio] 1.8 {ratio} High 0.9-1.6 [facility] ([place]) Comment on above: Performed By: #### T RIG, URIC, CHOL, CMP, GFR, MG #### [place] [id number] ALP [Catalytic activity/Vol] 54 U/L Normal 38-126 [facility] ([place]) Comment on above: Performed By: #### T RIG, URIC, CHOL, CMP, GFR, MG #### [place] [id number] ALT [Catalytic activity/Vol] 20 U/L Normal 10-49 [facility] ([place]) Comment on above: Performed By: #### T RIG, URIC, CHOL, CMP, GFR, MG #### [place] [id number] AST [Catalytic activity/Vol] 22 U/L Normal 8-34 [facility] ([place]) Comment on above: Performed By: #### T RIG, URIC, CHOL, CMP, GFR, MG #### [place] [address] Bili Total 0.70 mg/dL Normal 0.20-1.20 [facility] ([place]) Comment on above: Result Comment: Use of this assay is not recommended for patients undergoing treatment with eltrombopag due to the potential for falsely elevated results. Performed By: #### T RIG, URIC, CHOL, CMP, GFR, MG #### [place] [address] BUN/Creatinine Ratio 28.6 ratio High 10.0-22.0 [facility] ([place]) Comment on above: Performed By: #### T RIG, URIC, CHOL, CMP, GFR, MG #### [place] [address] Calcium [Mass/Vol] 9.9 mg/dL Normal 8.7-10.4 [facility] ([place]) Comment on above: Result Comment: No te - New Reference Range in effect 20 Performed By: #### T RIG, URIC, CHOL, CMP, GFR, MG #### [place] [id number] Chloride [Moles/Vol] 108 mmol/L Normal 98-110 [facility] ([place]) Comment on above: Performed By: #### T RIG, URIC, CHOL, CMP, GFR, MG #### [address] [address] CO2 [Moles/Vol] 27 mmol/L Normal 22-32 [facility] ([place]) Comment on above: Performed By: #### T RIG, URIC, CHOL, CMP, GFR, MG #### [address] [address] Creatinine [Mass/Vol] 0.84 mg/dL Normal 0.50-1.20 [facility] ([place]) Comment on above: Performed By: #### T RIG, URIC, CHOL, CMP, GFR, MG #### [address] [address] Electrolyte Balance 6.0 mEq/L Normal 4.0-15.0 [facility] ([place]) Comment on above: Performed By: #### T RIG, URIC, CHOL, CMP, GFR, MG #### [place] [id number] Globulin 2.5 G/dL Normal 1.5-3.8 [facility] ([place]) Comment on above: Performed By: #### T RIG, URIC, CHOL, CMP, GFR, MG #### [address] [address] Glucose [Mass/Vol] 88 mg/dL Normal 70-110 [facility] ([place]) Comment on above: Performed By: #### T RIG, URIC, CHOL, CMP, GFR, MG #### [address] [address] Potassium [Moles/Vol] 3.8 mmol/L Normal 3.5-5.0 [facility] ([place]) Comment on above: Performed By: #### T RIG, URIC, CHOL, CMP, GFR, MG #### [address] [address] Sodium [Moles/Vol] 141 mmol/L Normal 136-145 [facility] ([place]) Comment on above: Performed By: #### T RIG, URIC, CHOL, CMP, GFR, MG #### [place] [address] Total Protein 6.9 G/dL Normal 5.7-8.2 [facility] ([place]) Comment on above: Result Comment: No te - New Reference Range in effect 20 Performed By: #### T RIG, URIC, CHOL, CMP, GFR, MG #### [place] [address] Urea nitrogen [Mass/Vol] 24.0 mg/dL High 8.0-22.0 [facility] ([place]) Comment on above: Performed By: #### T RIG, URIC, CHOL, CMP, GFR, MG #### [place] [address] MGon 06-27-2021 Magnesium [Mass/Vol] 2.0 mg/dL Normal 1.6-2.4 [facility] ([place]) Comment on above: Performed By: #### T RIG, URIC, CHOL, CMP, GFR, MG #### [place] [address] TRIGon 06-27-2021 Triglyceride [Mass/Vol] 102 mg/dL Normal 3-149 [facility] ([place]) Comment on above: Performed By: #### T RIG, URIC, CHOL, CMP, GFR, MG #### [place] [address] URICon 06-27-2021 Uric Acid Lvl 6.2 mg/dL Normal 3.1-7.8 [facility] ([place]) Comment on above: Result Comment: No te - New Reference Range in effect 20 Performed By: #### T RIG, URIC, CHOL, CMP, GFR, MG #### [place] [address] .Auto Diffon 04-11-2021 Basophil, Absolute 0.00 10 3/mcL Normal 0.00-0.27 [facility] ([place]) Comment on above: Performed By: #### C BC, LIPID, MG, ANEU, ADIFF, GFR, TSH, URIC, CMP #### [address] [address] Basophils/100 WBC (Bld) 0.7 % Normal 0.0-2.5 [facility] ([place]) Comment on above: Performed By: #### C BC, LIPID, MG, ANEU, ADIFF, GFR, TSH, URIC, CMP #### [address] [address] Eosinophil, Absolute 0.10 10 3/mcL Normal 0.00-0.65 [facility] ([place]) Comment on above: Performed By: #### C BC, LIPID, MG, ANEU, ADIFF, GFR, TSH, URIC, CMP #### [address] [address] Eosinophils/100 WBC (Bld) 1.5 % Normal 0.0-6.0 [facility] ([place]) Comment on above: Performed By: #### C BC, LIPID, MG, ANEU, ADIFF, GFR, TSH, URIC, CMP #### [address] [address] Lymphocyte, Absolute 1.50 10 3/mcL Normal 0.90-4.32 [facility] ([place]) Comment on above: Performed By: #### C BC, LIPID, MG, ANEU, ADIFF, GFR, TSH, URIC, CMP #### [address] [address] Lymphocytes/100 WBC (Bld) 30.2 % Normal 20.0-40.0 [facility] ([place]) Comment on above: Performed By: #### C BC, LIPID, MG, ANEU, ADIFF, GFR, TSH, URIC, CMP #### [address] [address] Monocyte, Absolute 0.30 10 3/mcL Normal 0.09-1.40 [facility] ([place]) Comment on above: Performed By: #### C BC, LIPID, MG, ANEU, ADIFF, GFR, TSH, URIC, CMP #### [address] [address] Monocytes/100 WBC (Bld) 5.1 % Normal 2.0-13.0 [facility] ([place]) Comment on above: Performed By: #### C BC, LIPID, MG, ANEU, ADIFF, GFR, TSH, URIC, CMP #### [address] [address] Neutrophils/100 WBC (Bld) 62.5 % Normal 50.0-75.0 [facility] ([place]) Comment on above: Performed By: #### C BC, LIPID, MG, ANEU, ADIFF, GFR, TSH, URIC, CMP #### [address] [address] .GFRon 04-11-2021 GFR Non- >60 Normal [facility] ([place]) Comment on above: Result Comment: GFR Population mean for , Non- Americans Ages 20-29 = 116 mL/min/1.73 sq.m. Ages 30-39 = 107 mL/min/1.73 sq.m. Ages 40-49 = 99 mL/min/1.73 sq.m. Ages 50-59 = 93 mL/min/1.73 sq.m. Ages 60-69 = 85 mL/min/1.73 sq.m. Ages 70+ = 75 mL/min/1.73 sq.m. Chronic Kidney Disease: Less than 60 mL/min/1.73 square meters End Stage Renal Disease: Less than 15 mL/min/1.73 square meters Performed By: #### T RIG, URIC, CHOL, CMP, GFR, MG #### [address] [address] GFR >60 Normal [facility] ([place]) Comment on above: Result Comment: GFR Population mean for , Non- Americans Ages 20-29 = 116 mL/min/1.73 sq.m. Ages 30-39 = 107 mL/min/1.73 sq.m. Ages 40-49 = 99 mL/min/1.73 sq.m. Ages 50-59 = 93 mL/min/1.73 sq.m. Ages 60-69 = 85 mL/min/1.73 sq.m. Ages 70+ = 75 mL/min/1.73 sq.m. Chronic Kidney Disease: Less than 60 mL/min/1.73 square meters End Stage Renal Disease: Less than 15 mL/min/1.73 square meters Performed By: #### T RIG, URIC, CHOL, CMP, GFR, MG #### [place] [address] .NEUABSon 04-11-2021 Neutrophil, Absolute 3.10 10 3/mcL Normal 2.25-8.10 [facility] ([place]) Comment on above: Performed By: #### C BC, LIPID, MG, ANEU, ADIFF, GFR, TSH, URIC, CMP #### [place] [address] CBCon 04-11-2021 Erythrocyte distribution width (RBC) [Ratio] 14.5 % Normal 11.5-15.5 [facility] ([place]) Comment on above: Performed By: #### C BC, LIPID, MG, ANEU, ADIFF, GFR, TSH, URIC, CMP #### [place] [address] Hematocrit (Bld) [Volume fraction] 34.5 % Normal 34.0-46.0 [facility] ([place]) Comment on above: Performed By: #### C BC, LIPID, MG, ANEU, ADIFF, GFR, TSH, URIC, CMP #### [place] [address] Hgb 11.8 G/dL Low 12.0-16.0 [facility] ([place]) Comment on above: Performed By: #### C BC, LIPID, MG, ANEU, ADIFF, GFR, TSH, URIC, CMP #### [place] [address] MCH (RBC) [Entitic mass] 29.6 pg Normal 27.0-33.0 [facility] ([place]) Comment on above: Performed By: #### C BC, LIPID, MG, ANEU, ADIFF, GFR, TSH, URIC, CMP #### [place] [address] MCHC 34.1 G/dL Normal 32.0-36.0 [facility] ([place]) Comment on above: Performed By: #### C BC, LIPID, MG, ANEU, ADIFF, GFR, TSH, URIC, CMP #### [place] [address] MCV (RBC) [Entitic vol] 86.8 fL Normal 80.0-99.0 [facility] ([place]) Comment on above: Performed By: #### C BC, LIPID, MG, ANEU, ADIFF, GFR, TSH, URIC, CMP #### [place] [id number] Platelet 254 10 3/mcL Normal 150-450 [facility] ([place]) Comment on above: Performed By: #### C BC, LIPID, MG, ANEU, ADIFF, GFR, TSH, URIC, CMP #### [place] [address] Platelet mean volume (Bld) [Entitic vol] 9.3 fL Normal 6.6-10.5 [facility] ([place]) Comment on above: Performed By: #### C BC, LIPID, MG, ANEU, ADIFF, GFR, TSH, URIC, CMP #### [place] [address] RBC 3.98 10 6/mcL Low 4.10-5.30 [facility] ([place]) Comment on above: Performed By: #### C BC, LIPID, MG, ANEU, ADIFF, GFR, TSH, URIC, CMP #### [place] [address] WBC 5.00 10 3/mcL Normal 4.50-10.80 [facility] ([place]) Comment on above: Performed By: #### C BC, LIPID, MG, ANEU, ADIFF, GFR, TSH, URIC, CMP #### [place] [address] CMPon 04-11-2021 Albumin Level 4.3 G/dL Normal 3.2-4.8 [facility] ([place]) Comment on above: Performed By: #### T RIG, URIC, CHOL, CMP, GFR, MG #### [place] [address] Albumin/Globulin [Mass ratio] 2.0 {ratio} High 0.9-1.6 [facility] ([place]) Comment on above: Performed By: #### T RIG, URIC, CHOL, CMP, GFR, MG #### [place] [id number] ALP [Catalytic activity/Vol] 57 U/L Normal 38-126 [facility] ([place]) Comment on above: Performed By: #### T RIG, URIC, CHOL, CMP, GFR, MG #### [place] [id number] ALT [Catalytic activity/Vol] 19 U/L Normal 10-49 [facility] ([place]) Comment on above: Performed By: #### T RIG, URIC, CHOL, CMP, GFR, MG #### [place] [id number] AST [Catalytic activity/Vol] 23 U/L Normal 8-34 [facility] ([place]) Comment on above: Performed By: #### T RIG, URIC, CHOL, CMP, GFR, MG #### [place] [id number] Bili Total 0.80 mg/dL Normal 0.20-1.20 [facility] ([place]) Comment on above: Result Comment: Use of this assay is not recommended for patients undergoing treatment with eltrombopag due to the potential for falsely elevated results. Performed By: #### T RIG, URIC, CHOL, CMP, GFR, MG #### [place] [address] BUN/Creatinine Ratio 24.7 ratio High 10.0-22.0 [facility] ([place]) Comment on above: Performed By: #### T RIG, URIC, CHOL, CMP, GFR, MG #### [place] [address] Calcium [Mass/Vol] 9.8 mg/dL Normal 8.7-10.4 [facility] ([place]) Comment on above: Result Comment: No te - New Reference Range in effect 20 Performed By: #### T RIG, URIC, CHOL, CMP, GFR, MG #### [place] [id number] Chloride [Moles/Vol] 108 mmol/L Normal 98-110 [facility] ([place]) Comment on above: Performed By: #### T RIG, URIC, CHOL, CMP, GFR, MG #### [address] [address] CO2 [Moles/Vol] 26 mmol/L Normal 22-32 [facility] ([place]) Comment on above: Performed By: #### T RIG, URIC, CHOL, CMP, GFR, MG #### [address] [address] Creatinine [Mass/Vol] 0.89 mg/dL Normal 0.50-1.20 [facility] ([place]) Comment on above: Performed By: #### T RIG, URIC, CHOL, CMP, GFR, MG #### [address] [address] Electrolyte Balance 8.0 mEq/L Normal 4.0-15.0 [facility] ([place]) Comment on above: Performed By: #### T RIG, URIC, CHOL, CMP, GFR, MG #### [address] [address] Globulin 2.1 G/dL Normal 1.5-3.8 [facility] ([place]) Comment on above: Performed By: #### T RIG, URIC, CHOL, CMP, GFR, MG #### [address] [address] Glucose [Mass/Vol] 85 mg/dL Normal 70-110 [facility] ([place]) Comment on above: Performed By: #### T RIG, URIC, CHOL, CMP, GFR, MG #### [address] [address] Potassium [Moles/Vol] 4.3 mmol/L Normal 3.5-5.0 [facility] ([place]) Comment on above: Performed By: #### T RIG, URIC, CHOL, CMP, GFR, MG #### [address] [address] Sodium [Moles/Vol] 142 mmol/L Normal 136-145 [facility] ([place]) Comment on above: Performed By: #### T RIG, URIC, CHOL, CMP, GFR, MG #### [address] [address] Total Protein 6.4 G/dL Normal 5.7-8.2 [facility] ([place]) Comment on above: Result Comment: No te - New Reference Range in effect 20 Performed By: #### T RIG, URIC, CHOL, CMP, GFR, MG #### [address] [address] Urea nitrogen [Mass/Vol] 22.0 mg/dL Normal 8.0-22.0 [facility] ([place]) Comment on above: Performed By: #### T RIG, URIC, CHOL, CMP, GFR, MG #### [address] [address] LIPIDon 04-11-2021 Cholesterol [Mass/Vol] 198 mg/dL Normal 50-199 [facility] ([place]) Comment on above: Result Comment: Chol esterol Reference Interval: Less than 200 Desirable 200-239 Borderline high risk 240 and above High risk Performed By: #### T RIG, URIC, CHOL, CMP, GFR, MG #### [place] [address] Cholesterol in HDL [Mass/Vol] 40 mg/dL Normal 40-59 [facility] ([place]) Comment on above: Performed By: #### T RIG, URIC, CHOL, CMP, GFR, MG #### [address] [address] Cholesterol in LDL [Mass/Vol] 127 mg/dL Normal 0-129 [facility] ([place]) Comment on above: Performed By: #### T RIG, URIC, CHOL, CMP, GFR, MG #### [address] [address] Triglyceride [Mass/Vol] 154 mg/dL High 3-149 [facility] ([place]) Comment on above: Performed By: #### T RIG, URIC, CHOL, CMP, GFR, MG #### [address] [address] MGon 04-11-2021 Magnesium [Mass/Vol] 2.2 mg/dL Normal 1.6-2.4 [facility] ([place]) Comment on above: Performed By: #### C BC, LIPID, MG, ANEU, ADIFF, GFR, TSH, URIC, CMP #### [address] [address] TSHon 04-11-2021 TSH 2.149 mIU/mL Normal 0.550-4.78 0 [facility] ([place]) Comment on above: Result Comment: No te - New Reference Range in effect 20 Performed By: #### T RIG, URIC, CHOL, CMP, GFR, MG #### [address] [address] UAon 04-11-2021 Color (U) Dark Yellow Normal [facility] ([place]) Comment on above: Performed By: #### T RIG, URIC, CHOL, CMP, GFR, MG #### [place] [address] Glucose (U) [Mass/Vol] Negative Normal Negative [facility] ([place]) Comment on above: Performed By: #### T RIG, URIC, CHOL, CMP, GFR, MG #### [place] [address] Ketones Ql (U) Negative Normal Neg-Trace [facility] ([place]) Comment on above: Performed By: #### T RIG, URIC, CHOL, CMP, GFR, MG #### [place] [address] UA Appear Clear Normal Clear [facility] ([place]) Comment on above: Performed By: #### T RIG, URIC, CHOL, CMP, GFR, MG #### [place] [address] UA Blood Negative Normal Neg-Trace [facility] ([place]) Comment on above: Performed By: #### T RIG, URIC, CHOL, CMP, GFR, MG #### [place] [address] UA Leuk Est Negative Normal Negative [facility] ([place]) Comment on above: Performed By: #### T RIG, URIC, CHOL, CMP, GFR, MG #### [address] [address] UA Nitrite Negative Normal Negative [facility] ([place]) Comment on above: Performed By: #### T RIG, URIC, CHOL, CMP, GFR, MG #### [address] [address] UA pH 5.5 Normal 5.0 - 8.0 [facility] ([place]) Comment on above: Performed By: #### T RIG, URIC, CHOL, CMP, GFR, MG #### [address] [address] UA Protein Negative Normal Negative [facility] ([place]) Comment on above: Performed By: #### T RIG, URIC, CHOL, CMP, GFR, MG #### [place] [id number] UA Spec Grav 1.025 Normal 1.006-1.02 9 [facility] ([place]) Comment on above: Performed By: #### T RIG, URIC, CHOL, CMP, GFR, MG #### [place] [address] UA Specimen Type Not Given Normal [facility] ([place]) Comment on above: Performed By: #### T RIG, URIC, CHOL, CMP, GFR, MG #### [address] [address] UA Urobilinogen 0.2 E.U./dL Normal 0.2-1.0 [facility] ([place]) Comment on above: Performed By: #### T RIG, URIC, CHOL, CMP, GFR, MG #### [place] [address] Urobilinogen (U) [Mass/Vol] Negative Normal Neg-Trace [facility] ([place]) Comment on above: Performed By: #### T RIG, URIC, CHOL, CMP, GFR, MG #### [address] [address] URICon 04-11-2021 Uric Acid Lvl 7.4 mg/dL Normal 3.1-7.8 [facility] ([place]) Comment on above: Result Comment: No te - New Reference Range in effect 20 Performed By: #### T RIG, URIC, CHOL, CMP, GFR, MG #### [place] [address] Vital Signs Date Time Vital Sign Value Performing Clinician Facility 12-02-2024 11:33-0500 Body mass index (BMI) [Ratio] 30.55 kg/m2 Ronnell Varela MD Work Phone: [facility] 12-02-2024 11:33-0500 Body weight 80.74 kg Ronnell Varela MD Work Phone: [facility] 12-02-2024 11:33-0500 Diastolic blood pressure 85 mm[Hg] Ronnell Varela MD Work Phone: [facility] 12-02-2024 11:33-0500 Heart rate 74 /min Ronnell Varela MD Work Phone: [facility] 12-02-2024 11:33-0500 Systolic blood pressure 122 mm[Hg] Ronnell Varela MD Work Phone: [facility] 11-19-2024 16:00-0500 Heart rate 80 /min Ronnell Varela MD Work Phone: [facility] 11-19-2024 16:00-0500 Respiratory rate 16 /min Ronnell Varela MD Work Phone: [facility] 11-19-2024 15:45-0500 Diastolic blood pressure 77 mm[Hg] Ronnell Varela MD Work Phone: [facility] 11-19-2024 15:45-0500 Systolic blood pressure 138 mm[Hg] Ronnell Varela MD Work Phone: [facility] 11-19-2024 15:30-0500 Body temperature 97.3 [degF] Ronnell Varela MD Work Phone: [facility] 11-19-2024 15:30-0500 SaO2% (BldA) [Mass fraction] 98 % Ronnell Varela MD Work Phone: [facility] 11-19-2024 09:18-0500 Body height 162.6 cm Ronnell Varela MD Work Phone: [facility] 11-19-2024 09:18-0500 Body mass index (BMI) [Ratio] 31.14 kg/m2 Ronnell Varela MD Work Phone: [facility] 11-19-2024 09:18-0500 Body weight 82.3 kg Ronnell Varela MD Work Phone: [facility] 08-09-2024 10:02-0400 Body height 162.6 cm Ronnell Varela MD Work Phone: [facility] 08-09-2024 10:02-0400 Body mass index (BMI) [Ratio] 30.79 kg/m2 Ronnell Varela MD Work Phone: [facility] 08-09-2024 10:02-0400 Body temperature 98.49 [degF] Ronnell Varela MD Work Phone: [facility] 08-09-2024 10:02-0400 Body weight 81.38 kg Ronnell Varela MD Work Phone: [facility] 08-09-2024 10:02-0400 Diastolic blood pressure 80 mm[Hg] Ronenll Varela MD Work Phone: [facility] 08-09-2024 10:02-0400 Heart rate 54 /min Ronnell Varela MD Work Phone: [facility] 08-09-2024 10:02-0400 Systolic blood pressure 112 mm[Hg] Ronnell Varela MD Work Phone: [facility] 06-18-2024 11:06-0400 Body mass index (BMI) [Ratio] 31.62 kg/m2 Aleksandra Douglas MD Work Phone: [facility] 06-18-2024 11:06-0400 Body temperature 97.2 [degF] Aleksandra Douglas MD Work Phone: [facility] 06-18-2024 11:06-0400 Body weight 83.55 kg Aleksandra Douglas MD Work Phone: [facility] 06-18-2024 11:06-0400 Diastolic blood pressure 84 mm[Hg] Aleksandra Douglas MD Work Phone: [facility] 06-18-2024 11:06-0400 Heart rate 72 /min Aleksandra Douglas MD Work Phone: [facility] 06-18-2024 11:06-0400 Respiratory rate 14 /min Aleksandra Douglas MD Work Phone: [facility] 06-18-2024 11:06-0400 SaO2% (BldA) [Mass fraction] 97 % Aleksandra Douglas MD Work Phone: [facility] 06-18-2024 11:06-0400 Systolic blood pressure 123 mm[Hg] Aleksandra Douglas MD Work Phone: [facility] 12-30-2023 15:40-0500 Body height 162.[address] Aleksandra Douglas Work Phone: [facility] 12-30-2023 15:38-0500 Body mass index (BMI) [Ratio] 36.7 kg/m2 Dr. Aleksandra Douglas Work Phone: [facility] 12-30-2023 15:38-0500 Body weight 97.[address] Aleksandra Douglas Work Phone: [facility] 12-30-2023 15:38-0500 Diastolic blood pressure 83 mm[Hg] Dr. Aleksandra Douglas Work Phone: [facility] 12-30-2023 15:38-0500 Systolic blood pressure 115 mm[Hg] Dr. Aleksandra Douglas Work Phone: [facility] 09-29-2023 09:25-0500 Body height 162.[address] Aleksandra Douglas Work Phone: [facility] 09-29-2023 09:25-0500 Body mass index (BMI) [Ratio] 38.6 kg/m2 Dr. Aleksandra Douglas Work Phone: [facility] 09-29-2023 09:25-0500 Body temperature 97.5 [degF] Dr. Aleksandra Douglas Work Phone: [facility] 09-29-2023 09:25-0500 Body weight 102.[address] Aleksandra Douglas Work Phone: [facility] 09-29-2023 09:25-0500 Diastolic blood pressure 81 mm[Hg] Dr. Aleksandra Douglas Work Phone: [facility] 09-29-2023 09:25-0500 Heart rate 79 /min Dr. Aleksandra Douglas Work Phone: [facility] 09-29-2023 09:25-0500 Respiratory rate 16 /min Dr. Aleksandra Douglas Work Phone: [facility] 09-29-2023 09:25-0500 SaO2% (BldA) [Mass fraction] 98 % Dr. Aleksandra Douglas Work Phone: [facility] 09-29-2023 09:25-0500 Systolic blood pressure 120 mm[Hg] Dr. Aleksandra Douglas Work Phone: [facility] 06-12-2023 12:15-0400 Body temperature 97.6 [degF] Dr. Aleksandra Douglas Work Phone: [facility] 06-12-2023 12:15-0400 Diastolic blood pressure 63 mm[Hg] Dr. Aleksandra Douglas Work Phone: [facility] 06-12-2023 12:15-0400 Heart rate 70 /min Dr. Aleksandra Douglas Work Phone: [facility] 06-12-2023 12:15-0400 Respiratory rate 18 /min Dr. Aleksandra Douglas Work Phone: [facility] 06-12-2023 12:15-0400 SaO2% (BldA) [Mass fraction] 95 % Dr. Aleksandra Douglas Work Phone: [facility] 06-12-2023 12:15-0400 Systolic blood pressure 104 mm[Hg] Dr. Aleksandra Douglas Work Phone: [facility] 06-12-2023 12:00-0400 Inhaled oxygen flow rate 3 L/min Dr. Aleksandra Douglas Work Phone: [facility] 06-12-2023 09:05-0400 Body height 162.[address] Aleksandra Douglas Work Phone: [facility] 06-12-2023 09:05-0400 Body mass index (BMI) [Ratio] 37.4 kg/m2 Dr. Aleksandra Douglas Work Phone: [facility] 06-12-2023 09:05-0400 Body weight [address] Aleksandra Douglas Work Phone: [facility] 02-10-2023 07:20-0400 Body temperature 97 [degF] Dr. Aleksandra Douglas Work Phone: [facility] 02-10-2023 07:20-0400 Diastolic blood pressure 75 mm[Hg] Dr. Aleksandra Douglas Work Phone: [facility] 02-10-2023 07:20-0400 Heart rate 59 /min Dr. Aleksandra Douglas Work Phone: [facility] 02-10-2023 07:20-0400 Respiratory rate 16 /min Dr. Aleksandra Douglas Work Phone: [facility] 02-10-2023 07:20-0400 SaO2% (BldA) [Mass fraction] 99 % Dr. Aleksandra Douglas Work Phone: [facility] 02-10-2023 07:20-0400 Systolic blood pressure 106 mm[Hg] Dr. Aleksandra Douglas Work Phone: [facility] 02-10-2023 05:52-0400 Body height 162.[address] Aleksandra Douglas Work Phone: [facility] 02-10-2023 05:52-0400 Body mass index (BMI) [Ratio] 38.2 kg/m2 Dr. Aleksandra Douglas Work Phone: [facility] 02-10-2023 05:52-0400 Body weight [address] Aleksandra Douglas Work Phone: [facility] 10-17-2022 09:02-0500 Body height 162.[address] Aleksandra Douglas Work Phone: [facility] 10-17-2022 09:02-0500 Body mass index (BMI) [Ratio] 36.8 kg/m2 Dr. Aleksandra Douglas Work Phone: [facility] 10-17-2022 09:02-0500 Body weight 97.[address] Aleksandra Douglas Work Phone: [facility] 06-04-2022 14:55-0400 Body height 162.[address] Aleksandra Douglas Work Phone: [facility] Work Phone: 06-04-2022 14:55-0400 Body mass index (BMI) [Ratio] 35.3 kg/m2 Dr. Aleksandra Douglas Work Phone: [facility] Work Phone: 06-04-2022 14:55-0400 Body weight 93.[address] Aleksandra Douglas Work Phone: [facility] Work Phone: 06-04-2022 14:55-0400 Diastolic blood pressure 72 mm[Hg] Dr. Aleksandra Douglas Work Phone: [facility] Work Phone: 06-04-2022 14:55-0400 Systolic blood pressure 104 mm[Hg] Dr. Aleksandra Douglas Work Phone: [facility] Work Phone: 12-25-2021 11:07-0500 Body height 162.[address] Aleksandra Douglas Work Phone: [facility] Work Phone: 12-25-2021 11:07-0500 Body mass index (BMI) [Ratio] 34.7 kg/m2 Dr. Aleksandra Douglas Work Phone: [facility] Work Phone: 12-25-2021 11:07-0500 Body weight 91.[address] Aleksandra Douglas Work Phone: [facility] Work Phone: 12-25-2021 11:07-0500 Diastolic blood pressure 100 mm[Hg] Dr. Aleksandra Douglas Work Phone: [facility] Work Phone: 12-25-2021 11:07-0500 Systolic blood pressure 140 mm[Hg] Dr. Aleksandra Douglas Work Phone: [facility] Work Phone: 12-25-2021 10:07-0500 Body height 162.[address] Aleksandra Douglas Work Phone: [facility] Work Phone: 12-25-2021 10:07-0500 Body mass index (BMI) [Ratio] 34.7 kg/m2 Dr. Aleksandra Douglas Work Phone: [facility] Work Phone: 12-25-2021 10:07-0500 Body weight 91.[address] Aleksandra Douglas Work Phone: [facility] Work Phone: 12-25-2021 10:07-0500 Diastolic blood pressure 100 mm[Hg] Dr. Aleksandra Douglas Work Phone: [facility] Work Phone: 02-22-2022 10:07-0500 Systolic blood pressure 140 mm[Hg] Dr. Aleksandra Douglas Work Phone: [facility] Work Phone: 12-19-2021 08:53-0500 Body height 162.56 cm Aleksandra L Rosmery Work Phone: [facility] Work Phone: 12-19-2021 08:53-0500 Body mass index (BMI) [Ratio] 33.99 kg/m2 Aleksandra L Rosmery Work Phone: [facility] Work Phone: 12-19-2021 08:53-0500 Body surface area Derived from formula 1.95 m2 Aleksandra L Rosmery Work Phone: [facility] Work Phone: 12-19-2021 08:53-0500 Body weight 89.81 kg Aleksandra L Rosmery Work Phone: [facility] Work Phone: 12-19-2021 08:53-0500 Diastolic blood pressure 78 mm[Hg] Aleksandra L Rosmery Work Phone: [facility] Work Phone: 12-19-2021 08:53-0500 Systolic blood pressure 116 mm[Hg] Aleksandra L Rosmery Work Phone: [facility] Work Phone: 10-22-2021 06:39-0500 Body mass index (BMI) [Ratio] 34.27 kg/m2 Aleksandra L Rosmery Work Phone: [facility] Work Phone: 10-22-2021 06:39-0500 Body surface area Derived from formula 1.97 m2 Aleksandra L Rosmery Work Phone: [facility] Work Phone: 10-22-2021 06:39-0500 Body temperature 96.9 [degF] Aleksandra L Rosmery Work Phone: [facility] Work Phone: 10-22-2021 06:39-0500 Body weight 91.26 kg Aleksandra L Rosmery Work Phone: [facility] Work Phone: 10-22-2021 06:39-0500 Diastolic blood pressure 76 mm[Hg] Aleksandra L Rosmery Work Phone: [facility] Work Phone: 10-22-2021 06:39-0500 Heart rate 73 /min Aleksandra L Rosmery Work Phone: [facility] Work Phone: 10-22-2021 06:39-0500 Respiratory rate 16 /min Aleksandra L Rosmery Work Phone: [facility] Work Phone: 10-22-2021 06:39-0500 SaO2% (BldA) [Mass fraction] 97 % Aleksandra L Rosmery Work Phone: [facility] Work Phone: 10-22-2021 06:39-0500 Systolic blood pressure 115 mm[Hg] Aleksandra L Rosmery Work Phone: [facility] Work Phone: Encounters Encounter Date Encounter Type Care Provider Facility Start: 03-23-2025 End: 03-23-[address] Aleksandra Douglas MD Work Phone: [facility] Work Phone: Start: 03-23-2025 End: 03-23-2025 Patient encounter procedure [facility]icitas [facility] Work Phone: Start: 03-23-2025 End: 03-23-2025 ambulatory Felicitas RUVALCABA Facility:[facility] Start: 12-21-2024 End: 12-21-2024 Patient encounter procedure Felicitas [facility]VALCABA [facility] Work Phone: Start: 12-21-2024 End: 12-21-2024 ambulatory [facility] Facility:[facility] Start: 12-02-2024 End: 12-02-2024 Postop follow up visit related to original px Ronnell Varela MD Work Phone: [facility] Comment on above: Status post partial thyroidectomy Start: 12-02-2024 End: 12-02-2024 ambulatory [facility] Start: 11-24-2024 Encounter for other preprocedural examination [facility] Start: 11-19-2024 End: 11-19-2024 Subsequent hospital visit by physician Ronnell Varela MD Work Phone: [facility] Comment on above: Thyroid nodule (Prim rayshawn Dx) Start: 11-16-2024 ambulatory RONNELL VARELA [facility] Start: 11-01-2024 End: 11-01-2024 ambulatory [facility] Facility:[facility] Start: 08-09-2024 End: 08-09-2024 Office outpatient new 45 minutes Ronnell Varela MD Work Phone: [facility] Comment on above: Thyroid nodule (Prim rayshawn Dx) Start: 08-09-2024 End: 08-09-2024 ambulatory [facility] Start: 08-04-2024 End: 08-04-2024 ambulatory Aleksandra Rosmery Facility:[facility] Start: 07-15-2024 Encounter for gynecological examination (general) (routine) without abnormal findings Lisa Fritz NP [facility] Start: 07-15-2024 End: 07-15-2024 ambulatory Aleksandra Rosmery Facility:[facility] Start: 06-28-2024 End: 06-28-2024 ambulatory Aleksandra Rosmery Facility:[facility] Start: 06-22-2024 End: 06-22-2024 ambulatory Aleksandra Rosmery Facility:[facility] Start: 06-18-2024 End: 06-18-2024 ambulatory [facility] Start: 06-18-2024 End: 06-18-2024 Office outpatient visit 25 minutes Aleksandra Douglas MD Work Phone: [facility] Comment on above: Neck mass (Primary D x); Enlarged thyroid Start: 02-25-2024 End: 02-25-[address] Aleksandra Douglas Work Phone: [facility] Work Phone: Start: 02-25-2024 End: 02-25-[address] Aleksandra Douglas Work Phone: [facility]-Pulmonary Services/Neurology Work Phone: Start: 02-20-2024 End: 02-20-[address] Aleksandra Douglas Work Phone: [facility] Work Phone: Start: 02-20-2024 End: 02-20-[address] Aleksandra Douglas Work Phone: [facility]Labor[facility] Work Phone: Start: 12-30-2023 End: 12-30-[address] Aleksandra Douglas Work Phone: [facility] Work Phone: Start: 12-17-2023 End: 12-17-[address] Aleksandra Douglas Work Phone: [facility] Work Phone: Start: 12-17-2023 End: 12-17-[address] [facility] Start: 09-29-2023 End: 09-29-[address] Aleksandra Douglas Work Phone: [facility] Work Phone: Start: 06-12-2023 End: 06-12-2023 Admission to same day surgery center Dr. Aleksandra Douglas Work Phone: [facility] Start: 06-12-2023 End: 06-12-[address] Aleksandra Douglas Work Phone: [facility] Work Phone: Start: 02-19-2023 Non-patient / Non-visit Dr. Deuce Douglas Work Phone: [facility] Start: 02-19-2023 End: 02-19-[address] Aleksandra Douglas Work Phone: [facility] Services/Neurology Start: 02-18-2023 End: 02-18-[address] Aleksandra Douglas Work Phone: [facility] Work Phone: Start: 02-18-2023 End: 02-18-[address] Aleksandra Douglas Work Phone: [facility] Start: 02-11-2023 End: 02-11-[address] Aleksandra Douglas Work Phone: [facility] Work Phone: Start: 02-11-2023 End: 02-11-[address] Aleksandra Douglas Work Phone: [facility] Start: 02-10-2023 Non-patient / Non-visit Dr. Deuce Douglas Work Phone: [facility] Start: 02-10-2023 End: 02-10-2023 Admission to same day surgery center Dr. Aleksandra Douglas Work Phone: [facility]-Endoscopy Start: 02-10-2023 End: 02-10-[address] Aleksandra Douglas Work Phone: [facility] Work Phone: Start: 12-14-2022 End: 12-14-[address] Aleksandra Douglas Work Phone: [facility] Work Phone: Start: 12-14-2022 End: 12-14-[address] Aleksandra Douglas Work Phone: [facility] Start: 12-12-2022 End: 12-12-[address] Aleksandra Douglas Work Phone: [facility] Start: 10-17-2022 Non-patient / Non-visit Dr. Deuce Douglas Work Phone: [facility] Start: 09-24-2022 End: 09-24-[address] Aleksandra Douglas Work Phone: [facility] Work Phone: Start: 09-24-2022 End: 09-24-[address] Aleksandra Douglas Work Phone: [facility] Start: 08-05-2022 End: 08-05-[address] Aleksandra Douglas Work Phone: [facility] Work Phone: Start: 08-05-2022 End: 08-05-[address] Aleksandra Douglas Work Phone: [facility] Start: 07-22-2022 End: 07-22-[address] Aleksandra Douglas Work Phone: [facility] Start: 07-12-[address] Aleksandra martinez Work Phone: [facility] Start: 06-04-2022 End: 06-04-[address] Aleksandra Douglas Work Phone: [facility] Start: 04-29-2022 End: 04-29-[address] Aleksandra Douglas Work Phone: [facility] Start: 04-19-2022 End: 04-19-[address] Aleksandra Douglas Work Phone: [facility] Start: 04-18-2022 End: 04-18-[address] Aleksandra Douglas Work Phone: [facility]-Outpatient Breast Imaging Start: 02-27-2022 End: 02-27-[address] Aleksandra Douglas Work Phone: [facility]Laboratory Start: 01-25-2022 AUDIT Aleksandra Douglas Work Phone: [facility] Work Phone: Start: 12-25-2021 End: 12-25-[address] Aleksandra Douglas Work Phone: [facility] Start: 12-25-2021 End: 12-25-[address] Aleksandra Douglas Work Phone: [facility] Start: 12-20-2021 End: 12-20-[address] Aleksandra Douglas Work Phone: [facility]-Physical Therapy Start: 12-19-2021 End: 12-19-[address] Aleksandra Douglas Work Phone: [facility]-MRI - [facility] Start: 12-19-2021 Office consultation new/estab patient 60 min Aleksandra Douglas Work Phone: [facility] Work Phone: Start: 12-13-2021 End: 12-13-[address] Aleksandra Douglas Work Phone: [facility]-Nuclear Medicine, [facility] Start: 12-03-2021 End: 12-03-[address] Aleksandra Douglas Work Phone: [facility]-Radiology, [facility] Start: 12-20-2021 Office outpatient vi sit 15 minutes Aleksandra Douglas Work Phone: [facility] Work Phone: Cardiovascular stres s test abnormal Aleksandra Douglas Work Phone: [facility] Work Phone: Comment on above: 10/2017- Dr Amaya; Procedures Date Procedure Procedure Detail Performing Clinician Start: 03-23-[address] Aleksandra Douglas MD Work Phone: Start: 12-21-[address] Aleksandra Douglas MD Work Phone: Start: 11-19-2024 End: 11-19-2024 PULSE OXIMETRY, CONTINUOUS Porfirio You DO Work Phone: Start: 11-19-2024 VERAB/VERIFY HERMAN Funez as Ford You DO Work Phone: Start: 11-19-2024 Blood typing serolog ic rh (d) Ronnell Varela MD Work Phone: Start: 11-19-2024 PULSE OXIMETRY, SPOT Sc wilbert Varela MD Work Phone: Start: 08-09-2024 BIOPSY Ronnell knapp MD Work Phone: Start: 08-04-2024 Mammography Ronnell jones MD Work Phone: Start: 06-22-2024 Thyrotropin [Units/volume] in Serum or Plasma Ronnell Varela MD Work Phone: Start: 07-29-2023 Mammography Aleksandra Douglas MD Work Phone: Start: 06-12-[address] Vipul Douglas Work Phone: Start: 02-10-2023 End: 02-10-[address] Aleksandra Douglas Work Phone: Start: 12-14-2022 MRI of cervical spine Dale Douglas Work Phone: Start: 04-18-2022 Screening mammography Dale Douglas Work Phone: Start: 12-19-2021 Plain X-ray of bilat eral sacroiliac joints Dr. Aleksandra Douglas Work Phone: Start: 12-19-2021 Plain x-ray of pelvi s and lower extremity Dr. Aleksandra Douglas Work Phone: Start: 12-19-2021 End: 12-19-2021 Plain x-ray of hand Dr. Aleksandra Douglas Work Phone: Start: 12-19-2021 MRI of cervical spine Dale Douglas Work Phone: Start: 12-13-2021 Radionuclide gastric emptying study Dr. Aleksandra Douglas Work Phone: Start: 12-03-2021 Diagnostic radiograp hy of abdomen Dr. Aleksandra Douglas Work Phone: Start: 07-24-2020 Microscopic observat ion [Identifier] in Cervix by Cyto stain Aleksandra Douglas MD Work Phone: Bilateral tubal ligation Tyr iliana Alvaradoe Work Phone: Comment on above: 09/21 Dr Hernandez ; Cardiac catheterization Aleksandra Momin Rosmery Work Phone: section Aleksandra Momin Rosmery Work Phone: H/O: hysterectomy S/P vaginal hysterectomy Dr. Aleksandra Douglas Work Phone: Hysterectomy Aleksandra Merrill Rosmery Work Phone: Insertion of intraut erine contraceptive device Aleksandra Momin Rosmery Work Phone: Procedure on back Aleksandra L Christiano juárez Work Phone: Removal of intrauter ine device Aleksadnra Momin Rosmery Work Phone: Repair of inguinal hernia Ty ra Momin Rosmery Work Phone: Plan of Treatment Date Care Activity Detail Author Start: 02-10-2033 Screening for malign ant neoplasm of [facility] Start: 03-06-2031 DTaP/Tdap/Td Vaccine s (3 - Td or Tdap) DTaP/Tdap/Td Vaccines (3 - Td or Tdap) [facility] Start: 2027 Zoster Vaccines (1 of 2) Zoste r Vaccines (1 of 2) [facility] Start: 08-04-2025 Screening for malign ant neoplasm of breast Mammogram [facility] Start: 06-22-2025 Thyroid stimulating hormone measurement TSH Level [facility] Start: 12-20-2024 End: 12-02-2025 Thyrotropin [Units/volume] in Serum or Plasma Thyroid Stimulating Hormone Lab Routine Status post partial thyroidectomy Expected: 12/20/2024 (Approximate), Expires: 12/02/2025 [facility] Work Phone: Comment on above: Expected: 12/20/2024 (Approximate), Expires: 12/02/2025 Start: 12-20-2024 End: 12-02-2025 Thyroxine (T4) free [Mass/volume] in Serum or Plasma Thyroxine, Free Lab Routine Status post partial thyroidectomy Expected: 12/20/2024 (Approximate), Expires: 12/02/2025 [facility] Work Phone: Comment on above: Expected: 12/20/2024 (Approximate), Expires: 12/02/2025 Start: 12-02-2024 End: 12-02-2024 Patient encounter procedure 12/02/2024 11:30 AM EST Office Visit [facility] [address] [place] [address] [place] [address] [address] [facility] [place] [address] [facility] Start: 11-19-2024 End: 11-19-2024 Total thyroid lobectomy uni w/wo isthmusectomy LOBECTOMY, THYROID Thyroid nodule 11/19/2024 10:52 AM EST [facility] Start: 08-09-2024 End: 08-09-2025 Non-gynecological cytology method study [facility] Work Phone: Comment on above: Expected: 08/09/2024 (Approximate), Expires: 08/09/2025 Start: 07-29-2024 Screening for malign ant neoplasm of breast Mammogram [facility] Start: 07-04-2024 COVID-19 Vaccine ( season) COVID-19 Vaccine () [facility] Start: 07-04-2024 COVID-19 Vaccine () COVID-19 Vaccine () [facility] Start: 07-04-2024 Influenza vaccination Influenza Vacc ine (#1) [facility] Start: 06-18-2024 End: 06-18-2025 Tsh With Reflex To Free T4 If Abnormal Tsh With Reflex To Free T4 If Abnormal Lab Routine Neck mass Enlarged thyroid Expected: 06/18/2024 (Approximate), Expires: 06/18/2025 [facility] Work Phone: Comment on above: Expected: 06/18/2024 (Approximate), Expires: 06/18/2025 Start: 06-18-2024 End: 07-16-2024 US Thyroid gland US thyroid Imaging Routine Neck mass Enlarged thyroid Expected: 06/18/2024, Expires: 07/16/2024 [facility] Work Phone: Comment on above: Expected: 06/18/2024 , Expires: 07/16/2024 Start: 07-24-2023 Screening for malign ant neoplasm of cervix [facility] Start: 07-04-2023 COVID-19 Vaccine () COVID-19 Vaccine () [facility] Start: 06-12-2023 Patient discharge [facility] Start: 06-12-2023 Catheterization of vein [facility] Start: 06-12-2023 Elevation of affecte d extremity [facility] Start: 06-12-2023 Following clinical p athway protocol [facility] Start: 06-12-2023 Procedure discontinued [facility] Start: 06-12-2023 Taking patient vital signs [facility] Start: 06-12-2023 Vital signs measurements [facility] Start: 06-12-2023 [facility] Start: 06-12-2023 Medication education [facility] Start: 02-10-2023 Colonoscopy flx dx w /collj spec when pfrmd DIAGNOSTIC COLONOSCOPY [facility] Start: 02-10-2023 Patient discharge [facility] Start: 12-19-2021 NPV, Provider: Julia Dennis, Status: Pen, Time: 8:30 AM NPV, Provider: Julia Dennis, Status: Pen, Time: 8:30 AM [facility] Work Phone: Start: 1998 Screening for malign ant neoplasm of cervix HPV/Cotest [facility] Start: 1996 Hepatitis B Vaccines (1 of 3 - 19+ 3-dose series) Hepatitis B Vaccines (1 of 3 - 19+ 3-dose series) [facility] Start: 1995 Diabetes mellitus screening Diabetes Screening [facility] Start: 1995 Hepatitis C screening Hepatitis C Sc reening [facility] Start: 1978 MMR Vaccines (1 of 1 - Standard series) MMR Vaccines (1 of 1 - Standard series) [facility] Start: 1977 HIV screening HIV Screening [facility] Start: 1977 Lipid panel Lipid Panel [facility] Start: 1977 Screening for malign ant neoplasm of colon [facility] Start: 1977 Thyroid stimulating hormone measurement TSH Level [facility] Start: 1977 Yearly Adult Physical Yearly Adult P hysical [facility] End: 11-19-2024 Blood type and Indirect antibody screen panel - Blood Type And Screen Lab Timed As needed (Lab) until discontinued starting 11/19/2024, 1 completed [facility] Work Phone: Comment on above: As needed (Lab) unti l discontinued starting 11/19/2024, 1 completed End: 11-19-2024 Choriogonadotropin ( test) [Presence] in Urine POCT , urine Point of Care Testing Routine Once (Lab) for 1 Occurrences starting 11/19/2024 until 11/19/2024 [facility] Work Phone: Comment on above: Once (Lab) for 1 Occ urrences starting 11/19/2024 until 11/19/2024 Patient referral [facility] Work Phone: Surgical pathology study [facility] Work Phone: Comment on above: Release Upon Orderin g for 1 Occurrences starting 11/19/2024, 1 completed Immunizations Immunization Date [facility]ization [facility] influenza, seasonal, injectable, preservative free Dr. Aleksandra Douglas MD Work Phone: [facility] 08-08-2023 influenza, injectabl e, quadrivalent, preservative free Dr. Aleksandra Douglas Work Phone: [facility] 08-08-2023 influenza virus vaccine, unspecified formulation Aleksandra Douglas MD Work Phone: [facility] Work Phone: 08-05-2022 influenza, injectabl e, quadrivalent, preservative free Dr. Aleksandra Douglas Work Phone: [facility] 08-05-2022 influenza, seasonal, injectable Dr. Aleksandra Douglas Work Phone: [facility] 09-14-2021 Moderna COVID-19 Vaccine 100 MCG/0.5ML Intramuscular Suspension Aleksandra Douglas Work Phone: [facility] 08-22-2021 influenza, injectabl e, quadrivalent, preservative free; Translations: [Fluarix Quadrivalent 0.5 ML Intramuscular Suspension Prefilled Syringe] Aleksandra Douglas Work Phone: [facility] Work Phone: Comment on above: Series: 08-08-2021 influenza, injectabl e, quadrivalent, preservative free Dr. Aleksandra Douglas Work Phone: [facility] 08-08-2021 influenza, seasonal, injectable Dr. Aleksandra Douglas Work Phone: [facility] 08-08-2021 influenza, seasonal, injectable, preservative free Aleksandra Merrill Rosmery Work Phone: [facility] Work Phone: 03-06-2021 diphtheria, tetanus toxoids and acellular pertussis vaccine; Translations: [DTaP] Aleksandra Douglas Work Phone: [facility] Work Phone: Comment on above: Series: 03-06-2021 tetanus toxoid, redu rukhsana diphtheria toxoid, and acellular pertussis vaccine, adsorbed; Translations: [Boostrix 5-2.5-18.5 LF-MCG/0.5 Intramuscular Suspension] Aleksandra Merrill Rosmery Work Phone: [facility] Comment on above: Series: 12-05-2020 Moderna COVID-19 Vaccine 100 MCG/0.5ML Intramuscular Suspension Aleksandra Merrill Rosmery Work Phone: [facility] 11-07-2020 Moderna COVID-19 Vaccine 100 MCG/0.5ML Intramuscular Suspension Aleksandra Merrill Rosmery Work Phone: [facility] 08-09-2020 influenza, injectabl e, quadrivalent, preservative free Dr. Aleksandra Douglas Work Phone: [facility] 08-09-2020 influenza, seasonal, injectable Dr. Aleksandra Douglas Work Phone: [facility] 09-07-2019 influenza, injectabl e, quadrivalent, preservative free; Translations: [Fluarix Quadrivalent 0.5 ML Intramuscular Suspension Prefilled Syringe] Aleksandra Douglas Work Phone: [facility] Work Phone: Comment on above: Series: 08-24-2019 influenza, injectabl e, quadrivalent, preservative free Dr. Aleksandra Douglas Work Phone: [facility] 08-24-2019 influenza, seasonal, injectable Dr. Aleksandra Douglas Work Phone: [facility] 09-09-2018 influenza, injectabl e, quadrivalent, preservative free Dr. Aleksandra Douglas Work Phone: [facility] 09-09-2018 influenza, seasonal, injectable Dr. Aleksandra Douglas Work Phone: [facility] 09-03-2018 influenza, injectabl e, quadrivalent, preservative free Aleksandra Douglas Work Phone: [facility] Work Phone: Comment on above: Series: 07-30-2017 influenza, injectabl e, quadrivalent, preservative free Dr. Aleksandra Douglas Work Phone: [facility] 07-30-2017 influenza, seasonal, injectable Dr. Aleksandra Douglas Work Phone: [facility] 08-01-2016 influenza, injectabl e, quadrivalent, preservative free Dr. Aleksandra Douglas Work Phone: [facility] 08-01-2016 influenza, seasonal, injectable Dr. Aleksandra Douglas Work Phone: [facility] 08-03-2015 influenza, injectabl e, quadrivalent, preservative free Dr. Aleksandra Douglas Work Phone: [facility] 08-03-2015 influenza, seasonal, injectable Dr. Aleksandra Douglas Work Phone: [facility] 07-27-2014 influenza, injectabl e, quadrivalent, preservative free Dr. Aleksandra Douglas Work Phone: [facility] 07-27-2014 influenza, seasonal, injectable Dr. Aleksandra Douglas Work Phone: [facility] Payers Date Payer Category Payer Self-pay [id number] 2022 Managed Care (Private) [employer] [id number] 2022 Private Health Insurance [facility] [id number] 2022-Present [address] [place] [address] [id number] 2022 Private Health Insurance [id number] 2022 Private Health Insurance [id number] 2014 Unknown [id number] 2012 Unknown [id number] 2012 Unknown [id number] 1977 Unknown [id number] 1977 Unknown [id number] 1977 Unknown [id number] 1977 Unknown [id number] Unknown ANTHEM Unknown [id number] Unknown [id number] Unknown [id number] Unknown [id number] Unknown [id number] Unknown [id number] Unknown [id number] Unknown [id number] Social History Date Type Detail Facility Start: 06-18-2024 End: 11-19-2024 Does not use illicit drugs Does not use illicit drugs [facility] Work Phone: Comment on above: 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 [facility]; Start: 12-25-2021 End: 12-30-2023 Tobacco smoking status WIIS Unknown if ever smoked [facility] Start: 03-13-2021 Non-smoker [facility] Start: 1975 Sex Assigned At Female [facility] Start: 12-30-2023 End: 06-18-2024 Tobacco smoking status NHIS Never smoked tobacco [facility] History of tobacco use Passive smoker [facility] Work Phone: Start: 06-18-2024 Tobacco use and exposure Smoke less tobacco non-user [facility] Work Phone: Start: 06-18-2024 End: 11-19-2024 Alcohol Use Disorder Identification Test - Consumption [AUDIT-C] [facility] Work Phone: How often to you hav e a drink containing alcohol? Monthly or less [facility] [place] Work Phone: How many standard dr inks containing alcohol do you have on a typical day? 1 or 2 [facility] Work Phone: Frequency of Binge Drinking Not on file [facility] Work Phone: Start: 1975 Sex assigned at Not on file [facility] Work Phone: Start: 06-08-2024 End: 12-02-2024 Exposure to SARS-CoV-2 (event) Not sure [facility] NEGATED: Highlighted row [facility] Medical Equipment Procedure Code Equipment Code Equipment Origin al Text Equipment Identifier Dates Laparoscopy with vaginal hysterectomy LINDSEY 3GRM HEMOSTAT ABS FDA Start: 03-20-2021 Laparoscopy with vaginal hysterectomy LINDSEY 3GRM HEMOSTAT ABS FDA Start: 03-20-2021 Laparoscopy with vaginal hysterectomy LINDSEY 3GRM HEMOSTAT ABS FDA Start: 03-20-2021 Laparoscopy with vaginal hysterectomy LINDSEY 3GRM HEMOSTAT ABS FDA Start: 03-20-2021 Laparoscopy with vaginal hysterectomy LINDSEY 3GRM HEMOSTAT ABS FDA Start: 03-20-2021 Laparoscopy with vaginal hysterectomy LINDSEY 3GRM HEMOSTAT ABS FDA Start: 03-20-2021 Laparoscopy with vaginal hysterectomy LINDSEY 3GRM HEMOSTAT ABS FDA Start: 03-20-2021 Laparoscopy with vaginal hysterectomy LINDSEY 3GRM HEMOSTAT ABS FDA Start: 03-20-2021 Laparoscopy with vaginal hysterectomy LINDSEY 3GRM HEMOSTAT ABS FDA Start: 03-20-2021 Laparoscopy with vaginal hysterectomy LINDSEY 3GRM HEMOSTAT ABS FDA Start: 03-20-2021 Laparoscopy with vaginal hysterectomy LINDSEY 3GRM HEMOSTAT ABS FDA Start: 03-20-2021 Laparoscopy with vaginal hysterectomy LINDSEY 3GRM HEMOSTAT ABS FDA Start: 03-20-2021 Laparoscopy with vaginal hysterectomy LINDSEY 3GRM HEMOSTAT ABS FDA Start: 03-20-2021 Laparoscopy with vaginal hysterectomy LINDSEY 3GRM HEMOSTAT ABS FDA Start: 03-20-2021 Goals Date Patient Goal Desired Activity /State Mental Status Date Assessment Result Facility 06-12-2023 Cognitive function Level Of Consciousness Sedated [facility] Work Phone: 06-12-2023 Cognitive function Voice/Name [facility] Work Phone: 02-10-2023 Cognitive function Voice/Name [facility] Work Phone: Clinical Notes 02-10-2023 to 12-02-2024 Ronnell Varela MD - 12/02/2024 11:30 AM ESTOp Note - Ronnell Varela MD - 11/19/2024 11:41 AM ESTOp Note - Ronnell Varela MD - 11/19/2024 11:41 AM Olive Lugo MD - 11/19/2024 10:54 AM EST Note Date & Type Note Facility 12-02-2024 History of Present illness Narrative Images from the original note were not included. Subjective Patient ID: Tejal Ma is a 49 y.o. female who presents for postoperative visit after right thyroid lobectomy. HPI I saw Mrs. Ma back in surgery clinic today. She is now just about 2 weeks status post right thyroid lobectomy for a right sided thyroid nodule Sterrett class III with atypical genetic testing for a HRAS gene mutation giving her a high risk for thyroid cancer 75 to 80%. 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 However, it did come back as minimally invasive/well encapsulated. There was no vascular or lymphatic invasion. 1 lymph node was removed with the specimen negative for cancer. All surgical margins are negative. She should be surgically cured. She denies any neck pain no difficulty breathing or swallowing no troubles with her voice. She is little bit of numbness along her incision which we discussed is normal and that should gradually improve. Review of Systems Objective Physical Exam Vitals reviewed. Constitutional: Appearance: Normal appearance. Comments: Her voice is normal Neck: Comments: Neck incision healing well no seroma. Right thyroid lobe surgically absent. Neurological: Mental Status: She is alert. 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 Case Summary Report THYROID GLAND 8th Edition - Protocol posted: 01/22/2023THYROID GLAND - All Specimens SPECIMEN Procedure Right lobectomy with isthmusectomy (hemithyroidectomy) TUMOR Tumor Focality Unifocal Tumor Characteristics Tumor Site Right lobe Tumor Size Greatest Dimension (Centimeters): 3.6 cm Additional Dimension (Centimeters) 2.4 cm 2.2 cm Histologic Tumor Types and Subtypes Minimally invasive follicular carcinoma Tumor Proliferative Activity Mitotic Rate Less than 3 mitoses per 2mm2 Tumor Necrosis Not identified Angioinvasion (vascular invasion) Not identified Lymphatic Invasion Not identified Perineural Invasion Not identified Extrathyroidal Extension Not identified Margin Status All margins negative for carcinoma REGIONAL LYMPH NODES Regional Lymph Node Status All regional lymph nodes negative for tumor Number of Lymph Nodes Examined 1 Vijay Level(s) Examined Level pTNM CLASSIFICATION (AJCC 8th Edition) Reporting of pT, pN, and (when applicable) pM categories is based on information available to the pathologist at the time the report is issued. As per the AJCC (Chapter 1, 8th Ed.) it is the managing physician s responsibility to establish the final pathologic stage based upon all pertinent information, including but potentially not limited to this pathology report. pT Category pT2 pN Category pN0a ADDITIONAL FINDINGS Assessment/Plan Mrs. Ma did extremely well with her right thyroid lobectomy. No postop issues or complications. Her final pathology did come back as a minimally invasive follicular thyroid cancer which is consistent with her atypical genetic biopsy. I reviewed all of this with her and gave her a copy of the report today. As her tumor was stage I, T2, N0, she should not require any additional therapy. Plan 1. I gave her a slip to check TSH and free T4 in another 2 weeks to assess her thyroid function. This would determine any need for thyroid medication. 2. We will place a referral for her to medical endocrinology [place] Dr[place]. Ronnell Varela MD 12/02/24 11:39 AM documented in this encounter [facility] Work Phone: 11-19-2024 Note Formatting of this n ote is different from the original. THYROID LOBECTOMY (R) Operative Note Date: 11/19/2024 OR Location: [facility] OR Name: Tejal Ma : 1975, Age: 49 y.o., , Sex: female Diagnosis Pre-op Diagnosis * Thyroid nodule [E04.1] Post-op Diagnosis * Thyroid nodule [E04.1] Procedures THYROID LOBECTOMY 24719 - AL TOTAL THYROID LOBECTOMY UNI W/WO ISTHMUSECTOMY Surgeons * Ronnell Varela - Primary Resident/Fellow/Other Technical Clerk: Surgeons and Role: * Madelin Lugo MD - Resident - Assisting Staff: Luggage Repairer: Rl Scrub Person: Lobar Relief Luggage Repairer: Leonor Ram Scrub: Fredi Anesthesia Staff: Anesthesiologist: Porfirio You DO GOVERNMENT INSTRUCTOR: Lc Lockwood APRN-GOVERNMENT INSTRUCTOR SRNA: Siena Manzanares RN Procedure Summary Anesthesia: General ASA: II Estimated Blood Loss: 10 mL Intra-op Medications: Administrations occurring from 1005 to 1240 on 11/19/24: Medication Name Total Dose sodium chloride 0.9 % irrigation solution 500 mL dexAMETHasone (Decadron) 4 mg/mL 10 mg fentaNYL (Sublimaze) injection 50 mcg/mL 100 mcg HYDROmorphone (Dilaudid) injection 1 mg/mL 0.6 mg LR bolus Cannot be calculated lidocaine (Xylocaine) injection 2 % 100 mg midazolam PF (Versed) injection 1 mg/mL 2 mg propofol (Diprivan) injection 10 mg/mL 200 mg rocuronium (ZeMuron) 50 mg/5 mL injection 70 mg Anesthesia Record Intraprocedure I/O Totals None Specimen: ID Type Source Tests Collected by Time 1 : RIGHT THYROID LOBE, DOUBLE-TAILED STITCH MARKING RIGHT SUPERIOR POLE, SINGLE-TAILED STITCH MARKING ISTHMUS Tissue THYROID LOBECTOMY RIGHT SURGICAL PATHOLOGY EXAM Ronnell Varela MD 11/19/2024 1244 Drains and/or Catheters: * None in log * Tourniquet Times: Implants: Findings: Well-contained nodule right thyroid lobe Indications: Tejal Ma is an 49 y.o. female who is having surgery for Thyroid nodule [E04.1]. Patient had a right thyroid nodule seen on ultrasound. Nodule 3.3 cm in size, TI-RADS 3. Biopsy of this came back Sterrett class III. 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 She has no disease in the opposite thyroid lobe. Therefore we discussed options and she was in favor of a right thyroid lobectomy possible total thyroidectomy if other intraoperative findings were noted suspicious for lymph node involvement or any other worrisome tumor characteristics. Risk benefits were discussed she agreed and signed consent. The patient was seen in the preoperative area. The risks, benefits, complications, treatment options, non-operative alternatives, expected recovery and outcomes were discussed with the patient. The possibilities of reaction to medication, pulmonary aspiration, injury to surrounding structures, bleeding, recurrent infection, the need for additional procedures, failure to diagnose a condition, and creating a complication requiring transfusion or operation were discussed with the patient. The patient concurred with the proposed plan, giving informed consent. The site of surgery was properly noted/marked if necessary per policy. The patient has been actively warmed in preoperative area. Preoperative antibiotics are not indicated. Venous thrombosis prophylaxis have been ordered including bilateral sequential compression devices Procedure Details: On the operative date patient's brought to the operating room after induction anesthetic she was prepped and draped in usual sterile fashion with a towel roll behind the shoulders and the neck gently extended. She had SCDs on for DVT prophylaxis. Made a 5 cm cervical collar incision. We divided down through platysma with Bovie electrocautery and then raised subplatysmal flaps superior to the notch and the thyroid cartilage inferior to the sternal notch and laterally over the sternocleidomastoid muscles. We the strap muscles in the midline with Bovie electrocautery. We then retracted right sternohyoid right sternothyroid muscles out laterally to level the carotid artery. These peeled easily off the anterior surface of the nodule. Nodule itself was relatively soft and rubbery well-contained within the thyroid gland with no extension to surrounding soft tissue or overlying strap musculature. We divided the middle thyroid vein with 2-0 silk ties. Next identified the cricothyroid space. We went medial to lateral around the superior pole vessels with 2-0 and 3-0 silk ties proximally LigaSure toward the thyroid specimen side. As we are working her way across the vessels we did identify and preserve the right superior laryngeal nerve. At the close this area to the nerve we reflected vasculature way with 2-0 silk ties and use clips on the specimen side to avoid any thermal injury from the LigaSure device. We then went down began taking branches the inferior thyroid vein. At about the 8 o'clock position was a normal-appearing right inferior parathyroid gland peeled away intact and well-vascularized pedicle. We then dissected out lateral to the trachea and identified the inferior thyroid artery. Coursing underneath in the standard location was the right recurrent laryngeal nerve. We stayed anteromedial to the nerve with all 3-0 silk ties. As we followed this up at about the 10 o'clock position was a fatty area of tissue that looked to represent the right superior parathyroid gland. This was also peeled away intact and all vascularized pedicle. We followed the last the nerve into the cricothyroid musculature and rolled the thyroid gland up onto the trachea. Of note we did leave a very small area of thyroid tissue medial to the nerve. This was well away from the nodule. This was done to protect the integrity of the nerve. We then rolled the thyroid gland up onto the trachea took the last of the posterior attachments. We followed the isthmus over the junction of the left thyroid lobe and then divided the isthmus at the junction of left thyroid lobe with the LigaSure device which gave good hemostasis. We removed our specimen which was right thyroid lobe. It was marked with a double tailed suture on the right superior pole single tailed suture on the isthmus and that was sent off to pathology. We then irrigated the neck out well and achieved hemostasis. Right recurrent laryngeal nerve right superior laryngeal nerve are both intact. Parathyroid glands looked well-vascularized. Overall hemostasis was good. We used some Lindsey powder for final hemostasis. We then closed straps and platysma with 3-0 Vicryl skin with 4 Monocryl half percent Marcaine was used local anesthetic and dressing dressings were applied. Complications: None; patient tolerated the procedure well. Disposition: PACU - hemodynamically stable. Condition: stable Additional Details: Attending Attestation: I was present for the entire procedure. Ronnell Varela [facility] Work Phone: 11-19-2024 Miscellaneous Notes THYROID LOBECTOMY (R) Operative Note Date: 11/19/2024 OR Location: [facility] OR Name: Tejal Ma : 1975, Age: 49 y.o., , Sex: female Diagnosis Pre-op Diagnosis * Thyroid nodule [E04.1] Post-op Diagnosis * Thyroid nodule [E04.1] Procedures THYROID LOBECTOMY 10274 - AL TOTAL THYROID LOBECTOMY UNI W/WO ISTHMUSECTOMY Surgeons * Ronnell Varela - Primary Resident/Fellow/Other Technical Clerk: Surgeons and Role: * Madelin Lugo MD - Resident - Assisting Staff: Luggage Repairer: Rl Vides Person: Lobar Relief Luggage Repairer: Leonor Ram Scrub: Fredi Anesthesia Staff: Anesthesiologist: Porfirio You DO GOVERNMENT INSTRUCTOR: Lc Lockwood APRN-GOVERNMENT INSTRUCTOR SRNA: Siena Manzanares RN Procedure Summary Anesthesia: General ASA: II Estimated Blood Loss: 10 mL Intra-op Medications: Administrations occurring from 1005 to 1240 on 11/19/24: Medication Name Total Dose sodium chloride 0.9 % irrigation solution 500 mL dexAMETHasone (Decadron) 4 mg/mL 10 mg fentaNYL (Sublimaze) injection 50 mcg/mL 100 mcg HYDROmorphone (Dilaudid) injection 1 mg/mL 0.6 mg LR bolus Cannot be calculated lidocaine (Xylocaine) injection 2 % 100 mg midazolam PF (Versed) injection 1 mg/mL 2 mg propofol (Diprivan) injection 10 mg/mL 200 mg rocuronium (ZeMuron) 50 mg/5 mL injection 70 mg Anesthesia Record Intraprocedure I/O Totals None Specimen: ID Type Source Tests Collected by Time 1 : RIGHT THYROID LOBE, DOUBLE-TAILED STITCH MARKING RIGHT SUPERIOR POLE, SINGLE-TAILED STITCH MARKING ISTHMUS Tissue THYROID LOBECTOMY RIGHT SURGICAL PATHOLOGY EXAM Ronnell Varela MD 11/19/2024 1244 Drains and/or Catheters: * None in log * Tourniquet Times: Implants: Findings: Well-contained nodule right thyroid lobe Indications: Tejal Ma is an 49 y.o. female who is having surgery for Thyroid nodule [E04.1]. Patient had a right thyroid nodule seen on ultrasound. Nodule 3.3 cm in size, TI-RADS 3. Biopsy of this came back Sterrett class III. 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 She has no disease in the opposite thyroid lobe. Therefore we discussed options and she was in favor of a right thyroid lobectomy possible total thyroidectomy if other intraoperative findings were noted suspicious for lymph node involvement or any other worrisome tumor characteristics. Risk benefits were discussed she agreed and signed consent. The patient was seen in the preoperative area. The risks, benefits, complications, treatment options, non-operative alternatives, expected recovery and outcomes were discussed with the patient. The possibilities of reaction to medication, pulmonary aspiration, injury to surrounding structures, bleeding, recurrent infection, the need for additional procedures, failure to diagnose a condition, and creating a complication requiring transfusion or operation were discussed with the patient. The patient concurred with the proposed plan, giving informed consent. The site of surgery was properly noted/marked if necessary per policy. The patient has been actively warmed in preoperative area. Preoperative antibiotics are not indicated. Venous thrombosis prophylaxis have been ordered including bilateral sequential compression devices Procedure Details: On the operative date patient's brought to the operating room after induction anesthetic she was prepped and draped in usual sterile fashion with a towel roll behind the shoulders and the neck gently extended. She had SCDs on for DVT prophylaxis. Made a 5 cm cervical collar incision. We divided down through platysma with Bovie electrocautery and then raised subplatysmal flaps superior to the notch and the thyroid cartilage inferior to the sternal notch and laterally over the sternocleidomastoid muscles. We the strap muscles in the midline with Bovie electrocautery. We then retracted right sternohyoid right sternothyroid muscles out laterally to level the carotid artery. These peeled easily off the anterior surface of the nodule. Nodule itself was relatively soft and rubbery well-contained within the thyroid gland with no extension to surrounding soft tissue or overlying strap musculature. We divided the middle thyroid vein with 2-0 silk ties. Next identified the cricothyroid space. We went medial to lateral around the superior pole vessels with 2-0 and 3-0 silk ties proximally LigaSure toward the thyroid specimen side. As we are working her way across the vessels we did identify and preserve the right superior laryngeal nerve. At the close this area to the nerve we reflected vasculature way with 2-0 silk ties and use clips on the specimen side to avoid any thermal injury from the LigaSure device. We then went down began taking branches the inferior thyroid vein. At about the 8 o'clock position was a normal-appearing right inferior parathyroid gland peeled away intact and well-vascularized pedicle. We then dissected out lateral to the trachea and identified the inferior thyroid artery. Coursing underneath in the standard location was the right recurrent laryngeal nerve. We stayed anteromedial to the nerve with all 3-0 silk ties. As we followed this up at about the 10 o'clock position was a fatty area of tissue that looked to represent the right superior parathyroid gland. This was also peeled away intact and all vascularized pedicle. We followed the last the nerve into the cricothyroid musculature and rolled the thyroid gland up onto the trachea. Of note we did leave a very small area of thyroid tissue medial to the nerve. This was well away from the nodule. This was done to protect the integrity of the nerve. We then rolled the thyroid gland up onto the trachea took the last of the posterior attachments. We followed the isthmus over the junction of the left thyroid lobe and then divided the isthmus at the junction of left thyroid lobe with the LigaSure device which gave good hemostasis. We removed our specimen which was right thyroid lobe. It was marked with a double tailed suture on the right superior pole single tailed suture on the isthmus and that was sent off to pathology. We then irrigated the neck out well and achieved hemostasis. Right recurrent laryngeal nerve right superior laryngeal nerve are both intact. Parathyroid glands looked well-vascularized. Overall hemostasis was good. We used some Lindsey powder for final hemostasis. We then closed straps and platysma with 3-0 Vicryl skin with 4 Monocryl half percent Marcaine was used local anesthetic and dressing dressings were applied. Complications: None; patient tolerated the procedure well. Disposition: PACU - hemodynamically stable. Condition: stable Additional Details: Attending Attestation: I was present for the entire procedure. Ronnell Varela documented in this encounter [facility] Work Phone: 11-19-2024 History and physical note History Of Present Illness Tejal Ma is a 49 y.o. female with PMH GERD and nodular follicular thyroid mass here for right thyroid lobectomy. Patient was last seen in clinic 08/09/24. Patient has some compressive symptoms including a full residual feeling after swallowing. Denies any dysphagia, dyspnea, or changes in her voice. US at OSH revealed a 3.3cm R sided thyroid nodule TIRADS3. FNA 08/09 revealed follicular lesion of undetermined significance Last documented TSH from OSH 2.38 Past Medical History Past Medical History: Diagnosis Date Encounter for follow-up examination after completed treatment for conditions other than malignant neoplasm 11/13/2018 Hospital discharge follow-up GERD (gastroesophageal reflux disease) Other conditions influencing health status Normal cardiac stress test Personal history of diseases of the skin and subcutaneous tissue History of cyst of breast Personal history of pneumonia (recurrent) 11/13/2018 History of pneumonia Surgical History Past Surgical History: Procedure Laterality Date OTHER SURGICAL HISTORY 03/26/2021 Hysterectomy OTHER SURGICAL HISTORY 03/23/2021 Hysterectomy OTHER SURGICAL HISTORY 10/06/2019 Tubal ligation bilateral OTHER SURGICAL HISTORY 05/03/2019 Intrauterine device removal OTHER SURGICAL HISTORY 11/13/2018 Inguinal hernia repair OTHER SURGICAL HISTORY 11/13/2018 section OTHER SURGICAL HISTORY 11/13/2018 Back surgery OTHER SURGICAL HISTORY 11/13/2018 Intrauterine device placement OTHER SURGICAL HISTORY 11/13/2018 Cardiac catheterization Social History She reports that she has never smoked. She has been exposed to tobacco smoke. She has never used smokeless tobacco. She reports that she does not use drugs. No history on file for alcohol use. Family History Sister with hypothyroidism Allergies Divalproex and Oxcarbazepine Review of Systems Constitutional: Negative for appetite change, chills, fatigue and fever. HENT: Negative for congestion, hearing loss, sore throat and trouble swallowing. Respiratory: Negative for cough, chest tightness, shortness of breath and wheezing. Cardiovascular: Negative for chest pain and palpitations. Gastrointestinal: Negative for abdominal distention, abdominal pain, blood in stool, constipation, diarrhea, nausea and vomiting. Genitourinary: Negative for dysuria, frequency, hematuria and urgency. Musculoskeletal: Negative for joint swelling and myalgias. Neurological: Negative for dizziness, syncope, weakness, light-headedness and headaches. Physical Exam Constitutional: General: She is not in acute distress. Appearance: Normal appearance. She is not ill-appearing, toxic-appearing or diaphoretic. HENT: Head: Normocephalic and atraumatic. Comments: No proptosis Eyes: General: No scleral icterus. Pupils: Pupils are equal, round, and reactive to light. Neck: Comments: Palpable 2.5 cm nodule right thyroid lobe which moves easily upon swallowing. No localized fixation. Trachea midline. Cardiovascular: Rate and Rhythm: Normal rate and regular rhythm. Pulmonary: Effort: Pulmonary effort is normal. No respiratory distress. Breath sounds: Normal breath sounds. No wheezing. Abdominal: General: There is no distension. Palpations: Abdomen is soft. Tenderness: There is no abdominal tenderness. There is no guarding. Musculoskeletal: General: Normal range of motion. Skin: General: Skin is warm and dry. Coloration: Skin is not jaundiced. Findings: No rash. Neurological: Mental Status: She is alert and oriented to person, place, and time. Mental status is at baseline. Psychiatric: Mood and Affect: Mood normal. Behavior: Behavior normal. Judgment: Judgment normal. Last Recorded Vitals Blood pressure 120/80, pulse 71, temperature 36.5 C (97.7 F), resp. rate 18, height 1.626 m (5' 4), weight 82.3 kg (181 lb 7 oz), SpO2 99%. Relevant Results US at OSH revealed a 3.3cm R sided thyroid nodule TIRADS3. FNA 08/09 revealed follicular lesion of undetermined significance Last documented TSH from OSH 2.38 Assessment/Plan Assessment & Plan Thyroid nodule Obesity Tejal Ma is a 49 y.o. female with PMH GERD and nodular follicular thyroid mass here for right thyroid lobectomy. Proceed with planned procedure Madelin Lugo MD General Surgery PGY3 Surgical Oncology [id number] Cosigned by Ronnell Varela MD at 11/19/2024 11:12 AM EST [facility] Work Phone: 11-19-2024 History and physical note History Of Present Illness Tejal Ma is a 49 y.o. female with PMH GERD and nodular follicular thyroid mass here for right thyroid lobectomy. Patient was last seen in clinic 08/09/24. Patient has some compressive symptoms including a full residual feeling after swallowing. Denies any dysphagia, dyspnea, or changes in her voice. US at OSH revealed a 3.3cm R sided thyroid nodule TIRADS3. FNA 08/09 revealed follicular lesion of undetermined significance Last documented TSH from OSH 2.38 Past Medical History Past Medical History: Diagnosis Date Encounter for follow-up examination after completed treatment for conditions other than malignant neoplasm 11/13/2018 Hospital discharge follow-up GERD (gastroesophageal reflux disease) Other conditions influencing health status Normal cardiac stress test Personal history of diseases of the skin and subcutaneous tissue History of cyst of breast Personal history of pneumonia (recurrent) 11/13/2018 History of pneumonia Surgical History Past Surgical History: Procedure Laterality Date OTHER SURGICAL HISTORY 03/26/2021 Hysterectomy OTHER SURGICAL HISTORY 03/23/2021 Hysterectomy OTHER SURGICAL HISTORY 10/06/2019 Tubal ligation bilateral OTHER SURGICAL HISTORY 05/03/2019 Intrauterine device removal OTHER SURGICAL HISTORY 11/13/2018 Inguinal hernia repair OTHER SURGICAL HISTORY 11/13/2018 section OTHER SURGICAL HISTORY 11/13/2018 Back surgery OTHER SURGICAL HISTORY 11/13/2018 Intrauterine device placement OTHER SURGICAL HISTORY 11/13/2018 Cardiac catheterization Social History She reports that she has never smoked. She has been exposed to tobacco smoke. She has never used smokeless tobacco. She reports that she does not use drugs. No history on file for alcohol use. Family History Sister with hypothyroidism Allergies Divalproex and Oxcarbazepine Review of Systems Constitutional: Negative for appetite change, chills, fatigue and fever. HENT: Negative for congestion, hearing loss, sore throat and trouble swallowing. Respiratory: Negative for cough, chest tightness, shortness of breath and wheezing. Cardiovascular: Negative for chest pain and palpitations. Gastrointestinal: Negative for abdominal distention, abdominal pain, blood in stool, constipation, diarrhea, nausea and vomiting. Genitourinary: Negative for dysuria, frequency, hematuria and urgency. Musculoskeletal: Negative for joint swelling and myalgias. Neurological: Negative for dizziness, syncope, weakness, light-headedness and headaches. Physical Exam Constitutional: General: She is not in acute distress. Appearance: Normal appearance. She is not ill-appearing, toxic-appearing or diaphoretic. HENT: Head: Normocephalic and atraumatic. Comments: No proptosis Eyes: General: No scleral icterus. Pupils: Pupils are equal, round, and reactive to light. Neck: Comments: Palpable 2.5 cm nodule right thyroid lobe which moves easily upon swallowing. No localized fixation. Trachea midline. Cardiovascular: Rate and Rhythm: Normal rate and regular rhythm. Pulmonary: Effort: Pulmonary effort is normal. No respiratory distress. Breath sounds: Normal breath sounds. No wheezing. Abdominal: General: There is no distension. Palpations: Abdomen is soft. Tenderness: There is no abdominal tenderness. There is no guarding. Musculoskeletal: General: Normal range of motion. Skin: General: Skin is warm and dry. Coloration: Skin is not jaundiced. Findings: No rash. Neurological: Mental Status: She is alert and oriented to person, place, and time. Mental status is at baseline. Psychiatric: Mood and Affect: Mood normal. Behavior: Behavior normal. Judgment: Judgment normal. Last Recorded Vitals Blood pressure 120/80, pulse 71, temperature 36.5 C (97.7 F), resp. rate 18, height 1.626 m (5' 4), weight 82.3 kg (181 lb 7 oz), SpO2 99%. Relevant Results US at OSH revealed a 3.3cm R sided thyroid nodule TIRADS3. FNA 08/09 revealed follicular lesion of undetermined significance Last documented TSH from OSH 2.38 Assessment/Plan Assessment & Plan Thyroid nodule Obesity Tejal Ma is a 49 y.o. female with PMH GERD and nodular follicular thyroid mass here for right thyroid lobectomy. Proceed with planned procedure Madelin Lugo MD General Surgery PGY3 Surgical Oncology [id number] Cosigned by Ronnell Varela MD at 11/19/2024 11:12 AM EST documented in this encounter [facility] Work Phone: 08-09-2024 History of Present illness Narrative Associated Order(s): Biopsy Post-Procedure Diagnose(s): Thyroid nodule Subjective Patient ID: Tejal Ma is a 48 y.o. female who presents for surgical consultation for nodular thyroid disease. HPI I saw Mrs. Ma in surgery clinic today. She was referred by her primary care physician for nodular thyroid disease. She had an ultrasound performed at an outside hospital showing a 3.3 cm right sided thyroid nodule, TI-RADS 3. This would meet criteria for biopsy. She is clinically and biochemically euthyroid with a TSH of 2.38. Some pressure on the inside of her throat. After swallowing she would have a residual globus sensation. No true dysphagia. No dyspnea. She does have a history of sleep apnea with some discomfort lying flat. I do not think the thyroid is directly related to this. No troubles with her voice. 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 She may have had some incidental radiation exposure in the operating room. She said she is always good about wearing shielding. Family history a sister with hypothyroidism. No thyroid cancer in the family. Review of Systems Constitutional: Negative. HENT: Negative. Eyes: Negative. Respiratory: Negative. Cardiovascular: Negative. Endocrine: Negative. Musculoskeletal: Negative. Skin: Negative. Neurological: Negative. Psychiatric/Behavioral: Negative. Objective Physical Exam Vitals reviewed. Constitutional: Appearance: Normal appearance. Eyes: Comments: No proptosis Neck: Vascular: No carotid bruit. Comments: Palpable 2.5 cm nodule right thyroid lobe which moves easily upon swallowing. No localized fixation. Trachea midline. Cardiovascular: Rate and Rhythm: Normal rate and regular rhythm. Heart sounds: Normal heart sounds. Pulmonary: Effort: Pulmonary effort is normal. No respiratory distress. Breath sounds: Normal breath sounds. No wheezing or rales. Musculoskeletal: General: Normal range of motion. Lymphadenopathy: Cervical: No cervical adenopathy. Skin: General: Skin is warm. Neurological: General: No focal deficit present. Mental Status: She is alert and oriented to person, place, and time. Psychiatric: Mood and Affect: Mood normal. Behavior: Behavior normal. Patient ID: Tejal Ma is a 48 y.o. female. Biopsy Date/Time: 08/09/2024 10:34 AM Performed by: Ronnell Varela MD Authorized by: Ronnell Varela MD Consent: Consent obtained: Verbal Consent given by: Patient Risks, benefits, and alternatives were discussed: yes Risks discussed: Bleeding and pain Alternatives discussed: No treatment and observation [place] protocol: Procedure explained and questions answered to patient or proxy's satisfaction: yes Relevant documents present and verified: yes Test results available: yes Imaging studies available: yes Required blood products, implants, devices, and special equipment available: yes Site/side marked: no Immediately prior to procedure, a time out was called: yes Patient identity confirmed: Verbally with patient Pre-procedure details: Skin preparation: Povidone-iodine Sedation: Sedation type: None Anesthesia: Anesthesia method: Local infiltration Local anesthetic: Lidocaine 1% w/o epi Procedure specific details: Ultrasound-guided thyroid biopsy In the office I did an ultrasound-guided biopsy of the patient's 3.3 cm right sided TI-RADS 3 lesion. This was done under sterile conditions with 1% lidocaine for pain control. Needle placement into the nodule was done utilizing real-time ultrasound guidance with a 6-15 MHz linear ultrasound probe. 2 samples were taken. Images were captured. Post-procedure details: Procedure completion: Tolerated well, no immediate complications Assessment/Plan Mrs. Ma was having a globus sensation in her neck. This prompted an ultrasound showing a 3.3 cm TI-RADS 3 lesion right thyroid lobe. No other compressive symptoms. She is clinically and biochemically euthyroid. No family history of thyroid cancer no personal exposure risk for thyroid cancer. Plan 1. I discussed with her today that her nodule met criteria for biopsy. She was amenable to moving forward with that. Therefore today in the office I did an ultrasound-guided biopsy of her right sided thyroid nodule. She tolerated this well with no complications. 2. I told her I will call her toward the end the week with biopsy reports. If she has not heard back from you within 1 week, she can feel free to contact our office. Any further decision for surgical excision versus ongoing radiographic evaluation will be based on biopsy reports. Ronnell Varela MD 08/09/24 9:59 AM documented in this encounter [facility] Work Phone: 06-18-2024 Evaluation + Plan note Associated Problem(s): Enlarged thyroid Orders: US thyroid; Future Tsh With Reflex To Free T4 If Abnormal; Future [facility] Work Phone: 06-18-2024 History of Present illness Narrative Subjective Tejal Ma is a 48 y.o. female who presents for HPI: Chief Complaint Patient presents with Mass Right side of throat Pt last seen 12/2021 What concern/ problem/pain/symptom brings you here today? Lump in throat No diff swallowing For 1 week- symptoms on and off Food not getting stuck how long has pt had sxs? 1 wk describe symptoms- sharp pain at times in right side of throat Difficulty swallowing- solids- No Fluids- No Normal appetite- No has pt tried anything for current symptoms, including medications (OTC or prescription)? No what makes symptoms worse? Movement has pt been seen recently for this problem ( within past 2-3 weeks)? No if yes- where? by who? what treatment was provided? Social History Tobacco Use Smoking Status Never Passive exposure: Past Smokeless Tobacco Never Social History Substance and Sexual Activity Alcohol Use None Review of Systems: Objective Vitals: 06/18/24 1106 BP: 123/84 BP Location: Left arm Patient Position: Sitting BP Cuff Size: Adult Pulse: 72 Resp: 14 Temp: 36.2 C (97.2 F) TempSrc: Temporal SpO2: 97% Weight: 83.6 kg (184 lb 3.2 oz) Pt is A and O x3, NAD, Vital signs are within normal limits General Appearance- normal , good hygiene, talks easily EYES- conjunctiva- normal lids- normal EARS/NOSE-TM's normal, head normocephalic and atraumatic, nasopharynx-no nasal discharge, no trismus, no hot potato voice OROPHARYNX- no exudate NECK- supple, FROM Thyroid- enlargement right lobe thyroid gland LYMPH- mild bilateral scattered cervical lymph nodes palpated - tender CV- RRR without murmur EXTREMITIES- no edema or varicosities PULM- CTA bilaterally Respiratory effort- normal respiratory effort , no retractions or nasal flaring BP Readings from Last 3 Encounters: 08/16/24 123/84 12/19/21 116/78 10/22/21 115/76 Wt Readings from Last 3 Encounters: 06/18/24 83.6 kg (184 lb 3.2 oz) 12/19/21 89.8 kg (198 lb) 10/22/21 91.3 kg (201 lb 3.2 oz) BMI Readings from Last 3 Encounters: 06/18/24 31.62 kg/m 12/19/21 33.99 kg/m The number and complexity of problems addressed is considered moderate. The amount and/or complexity of data reviewed and analyzed is considered moderate. The risk of complications and/or morbidity/mortality of patient is considered moderate. Overall, this patient encounter is considered a moderate risk visit. Assessment & Plan Neck mass Orders: US thyroid; Future Tsh With Reflex To Free T4 If Abnormal; Future Enlarged thyroid Orders: US thyroid; Future Tsh With Reflex To Free T4 If Abnormal; Future Pt requests both tests be done at [employer] as she works there- wants ordered printed documented in this encounter [facility] Work Phone: 06-18-2024 Miscellaneous Notes Associated Problem(s): Enlarged thyroid Orders: US thyroid; Future Tsh With Reflex To Free T4 If Abnormal; Future documented in this encounter [facility] Work Phone: 06-12-2023 Procedure note [facility] 02-10-2023 Procedure note [facility] 02-10-2023 Procedure note [facility] Chief complaint+Reason for visit Narrative Reason for Visit Constipation Bilateral hand swelling Left arm numbness Left arm pain [facility] Work Phone: Chief complaint+Reason for visit Narrative* Chief Complaint SCREENING COVID-19 [facility] Work Phone: Chief complaint+Reason for visit Narrative* Chief Complaint SCREENING COVID-19 [employer] Low back Reason for Visit Family history of co olayinka cancer Family history of ovarian cancer Encounter for routine gynecological examination Piriformis muscle pain Sacroiliac joint dysfunction [facility] Work Phone: Discharge summary Author Frankie Zuniga [facility] June 12, 2023 11:42am Note Date/Time June 12, 2023 11 :42am [facility] Medical Records Department [address] [place] [address] Instructions for Home/Discharge Instructions 06/12/23 1142 MR#: [id number] Acct: [id number] Name: TEJAL MA Rep #:[id number] : 1975 47 From: Frankie juárez DO PCP: Dr. Aleksandra Douglas MD [place] [place] Instructions Follow Up Care Test Results: Test results from this visit will be discussed in further detail at your follow- up appointment, if applicable. Discharge Plan Admission Primary Reason for Your Visit: Bilateral carpal tunnel release Attending Provider: Frankie Zuniga Primary Care Provider: Aleksandra Douglas Instructions Additional Instructions / Restrictions: Follow preprinted instructions from surgeons office. Discharge Orders/Prescriptions Prescriptions: New hydrocodone-acetaminophen 5-325 mg tablet 1 tab PO Q6H PRN (Reason: pain) 3 Days Qty: 12 0RF No Action multivitamin Tablet 1 tab PO DAILY esomeprazole magnesium [Nexium] 20 mg capsule,delayed release(DR/EC) 20 mg PO DAILY mecobalamin (vitamin B12) 1,000 mcg tablet,chewable 1,000 mcg PO DAILY zinc 50 mg tablet 50 mg PO DAILY ascorbic acid (vitamin C) 1,000 mg tablet 2 g PO DAILY biotin 10,000 mcg capsule 10,000 mcg PO DAILY digestive enzymes Capsule 1 cap PO DAILY Rx Instructions: administer with food; swallow whole; do not crush/chew/dissolve/break/cut calcium carbonate [Calcium 600] 600 mg calcium (1,500 mg) tablet 600 mg PO DAILY lithium carbonate 300 mg capsule 300 mg PO BID ferrous sulfate 325 mg (65 mg iron) tablet 325 mg PO DAILY magnesium 250 mg tablet 250 mg PO DAILY Referrals / Follow Up: Frankie uZniga DO [Med Staff - Active Staff] - Aleksandra Douglas MD [Primary Care Provider] - Disposition Disposition (needs filled in before D/C Order can be placed): Home, Self Care 06/12/23 1142<Electronically signed by Frankie Zuniga DO>Frankie Zuniga DO CC: Dr. Aleksandra Douglas MD ~ Signed [facility] Work Phone: Evaluation note* Diagnosis Onset Date Resolution Status Constipation acute Bilateral hand swelling acut e Left arm numbness acute Left arm pain acute [facility] Work Phone: Evaluation noteNo assessment information available [facility] Work Phone: Evaluation note* Diagnosis Onset Date Resolution Status Family history of colon cancer acute Family history of ovarian cancer acute Encounter for routine gynecological examination noneactive Piriformis muscle pain acute Sacroiliac joint dysfunction acute [facility] Work Phone: Evaluation note* Diagnosis Onset Date Resolution Status HNP (herniated nucleus pulposus), cervical acute Back pain noneactive [facility] Work Phone: Evaluation note* Diagnosis Onset Date Resolution Status HNP (herniated nucleus pulposus), cervical acute Back pain noneactive Encounter for screening for malignant neoplasm of colon acute [facility] Work Phone: Evaluation note* Diagnosis Onset Date Resolution Status Decreased libido acute [facility] Work Phone: Evaluation note* Diagnosis Neck mass- Primary Swelling, mass, or lump in head and neck Enlarged thyroid Goiter, unspecified Thyroid nodule- Primary Nontoxic uninodular goiter documented in this encounter [facility] Work Phone: Evaluation note* Diagnosis Neck mass- Primary Swelling, mass, or lump in head and neck Enlarged thyroid Goiter, unspecified documented in this encounter [facility] Work Phone: Evaluation note* Diagnosis Neck mass- Primary Swelling, mass, or lump in head and neck Enlarged thyroid Goiter, unspecified Thyroid nodule- Primary Nontoxic uninodular goiter Thyroid nodule Nontoxic uninodular goiter Obesity Obesity, unspecified documented in this encounter [facility] Work Phone: Evaluation note* Diagnosis Neck mass- Primary Swelling, mass, or lump in head and neck Enlarged thyroid Goiter, unspecified Status post partial thyroidectomy Other postprocedural status documented in this encounter [facility] Work Phone: History and physical note Author Jesus Friend [facility] February 10, 2023 6:39am Note Date/Time February 10, 2023 6:3 9am [facility] Medical Records Department [address] [place] [address] History & Physical Exam 02/10/23 0638 MR#: [id number] Acct: [id number] Name: TEJAL MA Rep #:[id number] : 1975 47 From: Jesus Leone DO PCP: Dr. Aleksandra Douglas MD Status:[facility] Location: [place] [address] HPI - General General Date of Admission: 02/10/23 Date of Service: 02/10/23 Chief Complaint: Screening colonoscopy HPI Narrative TEJAL MA, is a 47 F who presents today for screening colonoscopy. She does not have any abdominal pain. Does not have any cramping. Does not have any chest pain or shortness of breath. She not have any weakness. Overall she is in very good health. [facility] Medical History (Updated 02/04/23 @ 15:23 by Senia Wahl) Abdominal pain Abnormal Pap smear of cervix Alcohol use Bipolar disorder Cardiology follow-up encounter CPAP (continuous positive airway pressure) dependence Depression Dog bite of left hand Family history of colon cancer Gastric reflux GERD (gastroesophageal reflux disease) Hirsutism Hx of cardiovascular stress test Hx of echocardiogram Irregular menses Low iron Non-smoker PMS (premenstrual syndrome) Wears contact lenses Home Medications ascorbic acid (vitamin C) 1,000 mg tablet 2 g PO DAILY 09/19/21 [History Last Taken Unknown] biotin 10,000 mcg capsule 10,000 mcg PO DAILY 09/19/21 [History Last Taken Unknown] esomeprazole magnesium 20 mg capsule,delayed release (Nexium) 20 mg PO DAILY 09/19/21 [History Last Taken 02/09/23] mecobalamin (vitamin B12) 1,000 mcg chewable tablet 1,000 mcg PO DAILY 09/19/21 [History Last Taken Unknown] multivitamin 1 tab PO DAILY 09/19/21 [History Last Taken Unknown] zinc 50 mg tablet 50 mg PO DAILY 09/19/21 [History Last Taken Unknown] calcium carbonate 600 mg calcium (1,500 mg) tablet (Calcium) 600 mg PO DAILY 06/04/22 [History Last Taken Unknown] digestive enzymes 1 cap PO DAILY 06/04/22 [History Last Taken Unknown] ferrous sulfate 325 mg (65 mg iron) tablet 325 mg PO DAILY 06/04/22 [History Last Taken Unknown] lithium carbonate 300 mg capsule 300 mg PO BID 06/04/22 [History Last Taken 02/09/23] magnesium 250 mg tablet 250 mg PO DAILY 06/04/22 [History Last Taken Unknown] Allergy/AdvReac Type Severity Reaction Status Date / Time oxcarbazepine Allergy Mild Rash Verified 02/10/23 05:51 [From Trileptal] divalproex sodium AdvReac Intermediate Elevated Verified 02/10/23 05:51 [From Depakote] Liver Enzymes, and hair loss Family History Father Diabetes Heart disease Mother Cancer ovarian cancer Grandfather Colon cancer Other Family history of colon cancer History of psychiatric care Hormone disorder Hypertension Ovarian cancer Surgical History delivery delivered H/O bilateral salpingo-oophorectomy H/O LEEP History of hernia repair History of laminectomy Previous back surgery S/P laparoscopic assisted vaginal hysterectomy (LAVH) Status post bilateral salpingectomy (~09/28/19) Social History Smoking Status: Never smoker alcohol intake: current substance use type: does not use caffeine: Yes frequency: 1-2 times per week seatbelt use: always do you feel safe at home: Yes additional social history: [employer]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 [employer] Does Not Take Aspirin Does Take Ibuprofen as needed ROS Review of Systems ROS Unobtainable: other Constitutional Constitutional: Denies fatigue, fever(s), poor appetite, weight gain or weight loss ENT HEENT: Denies mouth lesions Cardiovascular Cardiovascular: Denies abdominal bloating, abdominal edema or abdominal pain Respiratory/Chest Respiratory/Chest: Denies change in mental status, change in phlegm color, chestcongestion or chest tightness Gastrointestinal Gastrointestinal: Denies belching, bloating, change in bowel habits, change in stool character, chewing difficulty, coffee ground emesis, constipation, cramping, diarrhea, dyspepsia, dysphagia, early satiety, excessive flatus, fecalincontinence, heartburn, hematemesis, hematochezia, hemorrhoids, loose stools, melena, nausea, odynophagia, rectal bleeding, tenesmus, vomiting or weight changes Genitourinary Genitourinary: Denies abdominal discomfort, burning urination or itching Musculoskeletal Musculoskeletal: Reports as per HPI; Denies muscle weakness or myalgias Integumentary Integumentary: Denies jaundice Neurologic Neurologic: Denies lack of coordination or weakness Psychiatric Psychiatric: Denies confusion, depression, memory loss, mood swings, paranoia orsuicidal ideation Endocrine Endocrinology: Denies systems reviewed and no addt'l complaints, except as documented Hematologic/Lymphatic Hematologic/Lymphatic: Denies anemia, easy bleeding, easy bruising or lymphadenopathy Allergic/Immunologic Allergic/Immunologic: Denies systems reviewed and no addt'l complaints, except as documented Vital Signs Vital Signs Vital Signs: 02/10/23 05:52 02/10/23 05:52 Temperature 98.0 F Temperature Source Temporal Pulse Rate 71 Respiratory Rate 18 Respiratory Pattern Normal Blood Pressure 113/75 Blood Pressure Mean 87 Blood Pressure Source Monitor Blood Pressure Position Semi-Fowlers Blood Pressure Location Right Arm Pulse Ox 98 Oxygen Delivery Method Room Air Weight Weight: 222 lb 10.67 oz Body Mass Index (BMI) 38.2 Physical Exam Const alert, oriented x3 and no apparent distress General Appearance: cooperative Orientation / Consciousness: oriented to person HEENT hearing grossly normal bilaterally Head and Scalp: normal to inspection Face and Sinus: face symmetric Nose: external nose normal Mouth: oral and palatal mucosa normal Eyes conjunctivae normal General Eye: normal appearance of both eyes Neck full ROM General: normal visual inspection Lymph Lymphatic: no lymphadenopathy noted Chest inspection of chest normal and palpation of chest normal Chest: symmetrical chest wall rise Resp normal respiratory effort Effort and Inspection: able to speak in complete sentences Cardio regular rate GI soft to palpation and non-distended Inspection: incision other (dressing dry and intact) Percussion: normal to percussion Rectal Exam: deferred Narrative: Minimal drainage on peripad Bladder / Kidney Exam: catheter in place Neuro Speech: speech normal Gait (Neuro): normal gait Assessment & Plan Assessment/Plan (1) Encounter for screening for malignant neoplasm of colon: PLAN: She will undergo screening colonoscopy. She was explained alternatives, risk, benefits include not withstanding bleeding, infection, sepsis, perforation, need for emergent surgery . She have an ASA of 1. 02/10/23 0639 <Electronically signed by Jesus Leone DO> Cosigner Signature (if applicable): CC: Dr. Aleksandra Douglas MD; Jesus Leone DO~ Signed [facility] Work Phone: History of Present illness Narrative* HPI Elements: * LOCATION- * QUALITY-DESCRIPTION OF PAIN/SXS- joint pain, saw ortho, needs referrel * am- bilateral hands - stiff, achey * saw ortho- 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- scheduled CT surgery - but postponed due to new sxs developing * now having bilateral feet sxs and right hip sxs * pt wants referral to Principal Examiner * MGM had arthritis - most likely RA * SEVERITY- moderate * DURATION-since april * TIMING/FREQUENCY OF SXS-progressivly worsening , left hand the worst area * CONTEXT-(circumstances, cause, precursor, outside factors)- recent travel - no, nonsmoker * MODIFYING FACTORS- * What makes sxs better- * What makes sxs worse- * WHat have you tried that did not make symptoms better or worse?- * Ex OTC meds [facility] Work Phone: History of Present illness Narrative* HPI Elements: * LOCATION- * QUALITY-DESCRIPTION OF PAIN/SXS- joint pain, saw ortho, needs referrel * am- bilateral hands - stiff, achey * saw ortho- 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- scheduled CT surgery - but postponed due to new sxs developing * now having bilateral feet sxs and right hip sxs * pt wants referral to Principal Examiner * MGM had arthritis - most likely RA * SEVERITY- moderate * DURATION-since april * TIMING/FREQUENCY OF SXS-progressivly worsening , left hand the worst area * CONTEXT-(circumstances, cause, precursor, outside factors)- recent travel - no, nonsmoker * MODIFYING FACTORS- * What makes sxs better- * What makes sxs worse- * WHat have you tried that did not make symptoms better or worse?- * Ex OTC meds [facility] Work Phone: Hospital Discharge instructions Additional Instructions Follow preprinted instructions from surgeons office.[facility] Work Phone: Reason for referral (narrative)No reason for referral information available[facility] Work Phone: [place] for visit Narrative* Consultation (Routine) - Authorized Specialty Diagnoses / Procedures Referred By Lakeisha simpson Referred To Contact General Surgery Diagnoses Thyroid nodule Aleksandra Douglas MD [address] [facility], [place] [address] [place] [id number] Referral ID Status Reason Start Date Expiration Date Visits Requested Visits Authorized [id number] Authorized Specialty Services Required 07/01/2024 07/01/2025 1 1 [facility] Work Phone: Reason for visit Narrative* Auth/Cert Specialty Diagnoses / Procedures Referred By Lakeisha simpson Referred To Contact Diagnoses Thyroid nodule Thyroid nodule [E04.1] Procedures AL TOTAL THYROID LOBECTOMY UNI W/WO ISTHMUSECTOMY LOBECTOMY, [place] [id number] [facility] [place] [address] Phone: tel: fax: [facility] ([facility]3] [place] [address] [place] [address] fax: Referral ID Status Reason Start Date Expiration Date Visits Re quested Visits Authorized [id number] 1 1 [facility] Work Phone: Summary Purpose Family History No Family History Records FoundUnknown Family Member Name Dates Details Family history [...] malignant neoplasm of ovary: Mother(V16.41, Z80.41) Status:Active Relationship Condition Age at Onset Recorded Date/T conrad Not Specified History of psychiatric care Unknown Malignant neoplasm of ovary Unknown Disorder of endocrine system Unknown Hypertension Unknown father Diabetes mellitus Unknown Cardiac disease Unknown mother Malignant neoplasm Unknown grandfather Malignant neoplasm of colon Unknown Relationship Condition Age at Onset Recorded Date/T conrad Not Specified History of psychiatric care Unknown Family history of ma lignant neoplasm of colon Unknown Malignant neoplasm of ovary Unknown Disorder of endocrine system Unknown Hypertension Unknown father Diabetes mellitus Unknown Cardiac disease Unknown mother Malignant neoplasm Unknown grandfather Malignant neoplasm of colon Unknown Advance Directives No Advanced Directives Records Found Advance Directive Response Recorded Date/ Time Living Will No October 12 12:46pm Power of Automatic Beading Lathe Operator No October 12, 2021 12:46pm Advance Directive Response Recorded Date/ Time Living Will No October 12 11:46am Power of Automatic Beading Lathe Operator No October 12, 2021 11:46am Advance Directive Response Recorded Date/ Time Living Will No February 04, 2023 3:04pm Power of Automatic Beading Lathe Operator No February 04 3:04pm Advance Directive Response Recorded Date/ Time Name of Medical Power of Automatic Beading Lathe Operator June 10, 2023 2:48pm Living Will Yes June 10, 2023 2:48pm Power of Automatic Beading Lathe Operator Yes June 10 2:48pm Advance Directive Response Recorded Date/ Time Living Will Yes June 10, 2023 1:48pm Power of Automatic Beading Lathe Operator Yes June 10 1:48pm Advance Directive Response Recorded Date/ Time Living Will Yes June 10, 2023 2:48pm Power of Automatic Beading Lathe Operator Yes June 10 2:48pm Date Activated Date Inactivated Comments 11/19/2024 9:14 AM Question Answer Comments Plan of Care: Code Status Discussion Completed Decision Maker: Patient Chief Complaint * joint pain * is fasting * joint pain * is fasting Chief Complaint and Reason for Visit Chief Complaint CONSTIPATION PAIN CERVICAL SPINE PAIN. RX HERE 1 MON FU menopause concerns Reason for Visit Constipation Bilateral hand swelling Left arm numbness Left arm pain Chief Complaint Annual ([employer]) [employer] Low back Reason for Visit Family history of co olayinka cancer Family history of ovarian cancer Encounter for routine gynecological examination Piriformis muscle pain Sacroiliac joint dysfunction Chief Complaint Amb Documentation Back pain STAT CERVICAL PAIN Reason for Visit HNP (herniated nucle us pulposus), cervical Back pain Chief Complaint Amb Documentation Back pain STAT CERVICAL PAIN Reason for Visit HNP (herniated nucle us pulposus), cervical Back pain Encounter for screening for malignant neoplasm of colon Chief Complaint Back pain STAT CERVICAL PAIN INT ORDER Reason for Visit HNP (herniated nucle us pulposus), cervical Back pain Encounter for screening for malignant neoplasm of colon Chief Complaint Back pain STAT CERVICAL PAIN INT ORDER CARPAL TUNNEL CARPAL TUNNEL Reason for Visit HNP (herniated nucle us pulposus), cervical Back pain Encounter for screening for malignant neoplasm of colon Chief Complaint CARPAL TUNNEL CARPAL TUNNEL BILATERAL ENDOSCOPIC CARPAL TUNNEL RELEASE, POSSIB Chief Complaint SORE THROAT, NASAL C ONGESTION Chief Complaint discuss low libido Encounter for therapeutic drug level monitoring Reason for Visit Decreased libido Reason for Referral Specialty Diagnoses / Procedures Referred By Lakeisha simpson Referred To Contact Radiology Diagnoses Neck mass Enlarged thyroid Procedures US thyroid Aleksandra Douglas MD [address] [facility], [place] [address] [place] [address] Referral ID Status Reason Start Date Expiration Date Visits Requested Visits Authorized [id number] Authorized Perform Procedure 06/18/2024 06/18/2025 1 1 Additional Source Comments INFORMATION SOURCE (unrecogn ized section and content) DATE CREATED AUTHOR 06/29/2021 [facility] ([place]) DATE CREATED AUTHOR AUTHOR'S ORGANIZ ATION 12/20/2021 [employer] DATE CREATED AUTHOR AUTHOR'S ORGANIZ ATION 11/16/2024 [facility] DATE CREATED AUTHOR AUTHOR'S ORGANIZ ATION 12/04/2024 [facility] DATE CREATED AUTHOR AUTHOR'S ORGANIZ ATION 03/29/2025 [facility] Goals (unrecognized section and content) Goals may be documented in a n alternate sectionGoals may be documented in an alternate sectionGoals may be documented in an alternate sectionGoals may be documented in an alternate sectionGoals may be documented in an alternate sectionGoals may be documented in an alternate sectionGoals may be documented in an alternate sectionGoals may be documented in an alternate sectionGoals may be documented in an alternate sectionGoals may be documented in an alternate section Care Teams (unrecognized sec tion and content) Team Status: Active Member Role Status Dates Dr. Aleksandra Douglas MD Family Provider Active Dr. Aleksandra Douglas MD Primary Care Provider Active Team Status: Active Member Role Status Dates Dr. Aleksandra Douglas MD Primary Care Provider Active Taylor Gill Attending Provider Active Team Status: Inactive Member Role Status Dates Dr. Aleksandra Douglas MD Primary Care Provider, Referring Pr ovider Active Dr. Shahbaz Ortiz DO Attending Provider Active Team Status: Inactive Member Role Status Dates Dr. Aleksandra Douglas MD Primary Care Provider Active Felicitas Camacho PA, PA Attending Provider, Referring Pro vider Active Team Status: Inactive Member Role Status Dates Dr. Aleksandra Douglas MD Primary Care Provider Active Dr. Shahbaz Ortiz DO Attending Provider Active Team Status: Active Member Role Status Dates Dr. Aleksandra Douglas MD Primary Care Provider, Referring Pr ovider Active Dr. Jesus Leone DO Attending Provider, Other Prov ider Active Team Status: Inactive Member Role Status Dates Dr. Aleksandra Douglas MD Primary Care Provider, Referring Pr ovider Active Dr. Jesus Leone DO Attending Provider Active Team Status: Inactive Member Role Status Dates Dr. Aleksandra Douglas MD Primary Care Provider Active Dr. Jesus Leone DO Attending Provider, Referring Provider Active Team Status: Active Member Role Status Dates Dr. Aleksandra Douglas MD Primary Care Provider Active Dr. Frankie Zuniga DO Other Provider Active Dr. Mitesh Dudley MD Attending Provider Active Team Status: Active Member Role Status Dates Dr. Aleksandra Douglas MD Primary Care Provider Active Dr. Frankie Zuniga DO Attending Provider Active Team Status: Inactive Member Role Status Dates Dr. Aleksandra Douglas MD Primary Care Provider Active Felicitas RUVALCABA, PA Attending Provider Active Team Status: Inactive Member Role Status Dates Dr. Aleksandra Douglas MD Primary Care Provider Active Dr. Frankie Zuniga DO Attending Provider Active Team Status: Inactive Member Role Status Dates Dr. Aleksandra Douglas MD Primary Care Provider Active Dr. Frankie Zuniga DO Attending Provider, Referrin g Provider Active Team Status: Inactive Member Role Status Dates Dr. Aleksandra Douglas MD Primary Care Provider, Referring Pr ovider Active Edd RUVALCABA, PA Attending Provider Active Team Status: Inactive Member Role Status Dates Dr. Aleksandra Douglas MD Primary Care Provider, Referring Pr ovider Active Dr. Alta Hernandez MD Attending Provider Active Team Status: Active Member Role Status Dates Dr. Aleksandra Douglas MD Primary Care Provider Active Felicitas RUVALCABA, PA Attending Provider, Referring Pro vider Active Tank Insulator Rubber Relationship Specialty Start Date End Date Aleksandra Douglas MD [address] [place] [address], [facility] [address] [place] [address] PCP - General 10/06/19 Jesus Leone DO [address] [place] [address], [facility] [address] [place] [address] Referring Physician Gastroenterology 02/10/23 Tank Insulator Rubber Relationship Specialty Start Date End Date Aleksandra Douglas MD [address] [facility], [place] [address] [place], [place] [id number] PCP - General 10/06/19 Jesus Leone DO [address] [facility], [place] [address] [place], [place] [address] Referring Physician Gastroenterology 02/10/23 Tank Insulator Rubber Relationship Specialty Start Date End Date Aleksandra Douglas MD [address] [facility], [place] [address] [place], [place] [address] PCP - General 10/06/19 Jesus Leone DO [address] [facility], [place] [address] [place], [place] [id number] Referring Physician Gastroenterology 02/10/23 Team Status: Active Member Role Status Dates Dr. Aleksandra Douglas MD Primary Care Provider Active Team Status: Inactive Member Role Status Dates Dr. Aleksandra Douglas MD Primary Care Provider Active Start: December 21, 2024 End: December 21, 2024 PEG Valero Attending Provider Active S tart: December 21, 2024 End: December 21, 2024 PEG Valero Referring Provider Active S tart: December 21, 2024 End: December 21, 2024 Dr. Ronnell Fisher MD Other Provider Active St art: December 21, 2024 End: December 21, 2024 Team Status: Inactive Member Role Status Dates Dr. Aleksandra Douglas MD Primary Care Provider Active Start: March 23, 2025 End: March 23, 2025 PEG Valero Attending Provider Active S tart: March 23, 2025 End: March 23, 2025 PEG Valero Referring Provider Active S tart: March 23, 2025 End: March 23, 2025 Reason for Visit (unrecogniz ed section and content) Reason Comments Mass Right side of throat Scheduled Active and Recently Administ ered Medications (unrecognized section and content) Medication Order 11/17/2024 11/18/2024 11/19/2024 lidocaine PF (Xylocaine) 10 mg/mL (1 %) injection 1 mg 1 mg (0.1 mL), subcutaneous, Once, On Fri11/19/24 at 1345, For 1 dose, Recovery (only), To be used for IV insertion ONLY 1345 (Due) Continuous Medication Order 11/17/2024 11/18/2024 11/19/2024 lactated Ringer's infusion 100 mL/hr, intravenous, Continuous, Starting on Fri11/19/24 at 1345, For 1 hour, Recovery (only) 1345 (Due) PRN Medication Order 11/17/2024 11/18/2024 11/19/2024 albuterol 2.5 mg /3 mL (0.083 %) nebulizer solution 2.5 mg 2.5 mg, nebulization, Once as needed, wheezing, Starting on Fri11/19/24 at 1319, For 1 dose, Recovery (only) BUPivacaine HCl (Marcaine) 0.5 % (5 mg/mL) injection (CANCELED) As needed, Starting on Fri11/19/24 at 1258, Intraprocedure 1258 (Given - Provid er: Ronnell Varela MD - Comment: Site: Neck--injected around surgical incision) droperidol (Inapsine) injection 0.625 mg (COMPLETED) 0.625 mg, intravenous, Every 6 hours PRN, nausea/vomiting, first line, Starting on Fri11/19/24 at 1540, For 1 dose, Phase II/On Unit, 12-Lead ECG prior to administration and 10-30 minutes after completion for QTc prolongation risk. 1550 (Given - Provid er: Rachel Kingsley RN) fentaNYL PF (Sublimaze) injection 25 mcg 25 mcg, intravenous, Every 5 min PRN, pain moderate (4-6), first line, Starting on Fri11/19/24 at 1319, Recovery (only), Max total of 200 micrograms regardless of dose., If ordered PRN for pain, nurse is permitted to administer this medication for higher pain scores based on patient preference? Yes 1400 (Given - Provid er: Rachel Kingsley RN)1422 (Given - Provider: Rachel Kingsley RN) HYDROmorphone (Dilaudid) injection 0.5 mg 0.5 mg, intravenous, Every 15 min PRN, pain severe (7-10), first line, Starting on Fri11/19/24 at 1319, Recovery (only), Max total of 4 mg regardless of dose. 1328 (Given - Provid er: Rachel Kingsley RN) labetaloL (Normodyne,Trandate) injection 5 mg 5 mg, intravenous, Administer over 1 Minutes, Once as needed, systolic blood pressure greater than 180 mmHg, dystolic blood pressure greater than 100 mmHg and heart rate greater than 60 BPM, Starting on Fri11/19/24 at 1319, For 1 dose, Recovery (only) meperidine PF (Demerol) injection 12.5 mg 12.5 mg, intravenous, Every 10 min PRN, shivering, Starting on Fri11/19/24 at 1319, Recovery (only) midazolam (Versed) injection 1 mg 1 mg, intravenous, Once as needed, anxiety, Starting on Fri11/19/24 at 1319, For 1 dose, Recovery (only) ondansetron (Zofran) injection 4 mg (COMPLETED) 4 mg, intravenous, Once as needed, nausea/vomiting, first line, Starting on Fri11/19/24 at 1319, For 1 dose, Recovery (only), When administering via IV Push, administer over 3-5 minutes. 1349 (Given - Provid er: Rachel Kingsley RN) oxyCODONE (Roxicodone) immediate release tablet 5 mg 5 mg, oral, Every 4 hours PRN, pain mild (1-3), first line, Starting on Fri11/19/24 at 1319, Recovery (only), When able to take oral medications., If ordered PRN for pain, nurse is permitted to administer this medication for higher pain scores based on patient preference? Yes 1508 (Given - Provid er: Rachel Kingsley RN) oxygen (O2) therapy inhalation, Continuous PRN - O2/gases, other, Starting on Fri11/19/24 at 1319, Recovery (only), Device: Nasal Cannula, Rate in liters per minute: Other, Custom Value: 1-6 LPM, Keep O2 Sat Above: 92% sodium chloride 0.9 % irrigation solution (CANCELED) As needed, Starting on Fri11/19/24 at 1154, Intraprocedure 1154 (Given - Provid er: Ronnell Varela MD - Comment: Dispensed to field, dose per MD Varela) sterile water irrigation solution (CANCELED) As needed, Starting on Fri11/19/24 at 1241, Intraprocedure 1241 (Given - Provid er: Ronnell Varela MD - Comment: Dispensed to sterile field, used to clean instruments) FOR RECORDS PERTAINING TO PATIENTS WHO ARE [...] BE BASED ON THE PRIMARY CLINICAL RECORDS. [employer] provides no warranty or guarantee of the accuracy or completeness of information in this document.
[2025-07-05 10:41] LABS: Free T3 3.3 pg/mL (2.18-3.98); Vitamin D,25 Hydroxy 46.1 ng/mL (30-100)
[2025-07-06 20:08] LABS: Thyroglobulin, Serum Qt. 9.8 ng/mL (1.5-38.5)
== END | disposition home or self-care (01) ==
LOC: LAB 07:36
PROVIDERS: PCP Family Medicine
DX: E03.9 Hypothyroidism, unspecified (principal); E55.9 Vitamin D deficiency, unspecified; Z85.850 Personal history of malignant neoplasm of thyroid
CPT/HCPCS: 36415; 82306; 84100; 84432; 84439; 84443; 84481; 86800

== ENCOUNTER 2025-07-27 08:00 | Outpatient (RCR) | payer OTHER, SELFPAY ==
--- NOTE | 2025-07-27 09:00 | BH.SGPN.GN ---
Behaviors/Verbalizations/Mental Status: [] Pt alert and oriented, neatly dressed and groomed. Eye contact fair. Motor activity appropriate. Speech within normal limits. Affect flat, mood anxious. Thoughts linear, logical, no signs of hallucinations or delusions. Reviewed pt?s symptom tracker, client shows some risk of suicidal ideation, but a low risk for plan, or intent 07/27/25. Client Response/Progress/Benefit: []Pt was an active participant in group discussions. Attentive. Per patients daily symptom tracker, pt indicates a 5/5 for depression, with a 5 being severe, and a 4/5 for anxiety. The client did not report mental health wins or stressors during group, as this was their first day. They shared that they have been feeling very sad lately, and were quiet during group. Pt seemed to benefit from support from peers. Will continue IOP tx to promote mood stability, reduce negative thinking patterns, and gain self-confidence.
--- NOTE | 2025-07-27 09:00 | BH.COMM ---
Communication Note Communication with Client Communication Note: Met with pt to complete paperwork, update any changes to pre-admission screening, and complete risk assessment. Moderate risk on [place] Suicide Screening. Consulted with Dr. Serrano regarding current symptoms with orders to admit to IOP with dx of F31.9
--- NOTE | 2025-07-27 10:10 | BH.SGPN.GN ---
Behaviors/Verbalizations/Mental Status: [] Client alert and oriented, casually dressed and groomed. Eye contact good. Motor activity appropriate. Speech within normal limits. Affect congruent, mood euthymic and anxious. Thoughts linear, logical, no signs of hallucinations or delusions. Client Response/Progress/Benefit: [] Client responded well to session with this being client's first day in program. Client took notes throughout and listening attentively to others. Client was attentive throughout group activity identifying famous individuals and how they overcame failure to be successful. Client helped group identify how fear of failure can impact mental health and relationships. Client personally discussed how wanting others to succeed has been more important to her than her own success. Client participated in experiential activity, working with group members to problem solve. Appeared to benefit from increased knowledge of fear of failure. Will continue IOP tx to improve self-confidence, reduce distorted thinking patterns, and reduce avoidance. Narrative Note: []
--- NOTE | 2025-07-27 11:10 | BH.SGPN.GN ---
Behaviors/Verbalizations/Mental Status: [] Client alert and oriented, casually dressed and groomed. Eye contact good. Motor activity appropriate. Speech within normal limits. Affect constricted, mood euthymic and anxious. Thoughts linear, logical, no signs of hallucinations or delusions. Client Response/Progress/Benefit: [] Client responded well to session, engaged in the experiential activity and attentive throughout group processing. Client reported fear of failure has kept from focusing on goals. Client completed fear of failure worksheet and was able to identify thoughts and behaviors that reinforce personal fear of failure including fear of hurting others. Client participated in small group discussion regarding strategies to overcome fear of failure. Identified wanting to work on gaining confidence in herself. Appeared to benefit from increased knowledge of strategies to combat fear of failure and gaining self-awareness. Client will continue IOP tx to promote gains in reduced depressive symptoms and to reduce anxiety and avoidance. Narrative Note: []
--- NOTE | 2025-07-28 09:52 | BH.MTP ---
Master Treatment Plan Patient Information Program Physician:: Dr. Edd Serrano Primary Therapist:: Aisha JIMENEZ Psychiatric Diagnoses Psychiatric Diagnoses:: Bipolar Disorder Unspecified Diagnosis Code(s):: F 31.9 Estimated LOS Estimated LOS (in weeks):: 6 Problem/Goal #1 Problem/Goal #1 Stated Goal:: Pt will decrease depressive symptoms, hopelessness, worthlessness, and negative self-talk. Description of Barriers: Pt reports limited social support and shares that work and home are both significant stressors, so I don't get a break. Functional Impact: Pt is a 49-year-old female with a history of bipolar disorder who was referred to [facility] tx due to worsening depressive symptoms over the past several months. Pt shared work and home life have been significant stressors impacting pt's overall mood and functioning. At admission, pt reports symptoms of depression with isolation, crying spells, lack of motivation, lack of energy, poor appetite, hopelessness, worthlessness, and anhedonia. Pt also notes inability to complete ADLs and fleeting SI over the past months. Pt's symptoms have been impacting her overall functioning and she is not benefitting from traditional therapy alone. Goal Relevant Strengths/Supports: Pt is connected with outpatient therapy at [facility] and pt has a child & adolescent psychiatrist at [place] [id number]. Objectives Objective #1: Stated Objective: Pt will learn and utilize 2-3 healthy coping strategies to better manage depressive symptoms as shown by a decrease of DMS-5 symptoms for depression and suicidal ideation. Interventions: Through group and individual sessions, therapist will help pt identify triggers and warning signs of depression and guilt including emotional, physical, and behavioral changes. Therapist will teach pt various coping skills to manage symptoms and give pt tangible resources to use to regulate emotions. Therapist will use cognitive restructuring techniques and help pt gain awareness of negative thoughts that reinforce guilt and depression. Therapist will provide psychoeducation on maintenance cycles and help pt learn ways to break unhealthy maintenance cycles. Therapist will help pt incorporate behavioral activation and assist pt in setting SMART goals. Discharge Criteria: Pt will have met this goal when can report learning and using at least 2 coping skills to manage depressive symptoms and reduce isolation. Additionally, pt will have met this goal when pt's DSM-5 scores for depression decrease. Target Date: 09/07/25 Review Date: 08/24/25 Status: open Objective #2: Stated Objective: Pt will identify at least 2-3 negative self-talk messages used to reinforce negative core beliefs, worthlessness, and isolation and replace thoughts with balanced, realistic messages. Interventions: Therapist will help pt identify distorted, negative beliefs about self and replace with more realistic, affirmative messages. Therapist will use CBT and DBT to help pt increase insight to the connection between thoughts, emotions, and behaviors. Therapist will encourage pt to practice thought challenging. Discharge Criteria: Pt will have achieved this goal when can verbalize at least 2 cognitive distortions and effectively replace those thoughts with affirmative messages. Target Date: 09/07/25 Review Date: 08/24/25 Status: open Problem/Goal #2 Problem/Goal #2 Stated Goal:: Will improve mood stability and reduction isolation by improving social supports. Description of Barriers: Pt reports limited social support and shares that work and home are both significant stressors, so I don't get a break. Functional Impact: Pt is a 49-year-old female with a history of bipolar disorder who was referred to [facility] tx due to worsening depressive symptoms over the past several months. Pt shared work and home life have been significant stressors impacting pt's overall mood and functioning. At admission, pt reports symptoms of depression with isolation, crying spells, lack of motivation, lack of energy, poor appetite, hopelessness, worthlessness, and anhedonia. Pt also notes inability to complete ADLs and fleeting SI over the past months. Pt's symptoms have been impacting her overall functioning and she is not benefitting from traditional therapy alone. Goal Relevant Strengths/Supports: Pt is connected with outpatient therapy at [facility] and pt has a child & adolescent psychiatrist at [place] [id number]. Objectives Objective #1: Stated Objective: Pt will increase structure, routine, and purpose by accomplishing 2-3 small self-care goals a week. Interventions: Through group and individual sessions, pt will learn how to set small SMART goals to promote self-care and live according to pt's values. Therapist will provide psychoeducation on the benefits of living according to values and help pt discover her values through exploration. Discharge Criteria: Pt will have accomplished this goal when can report accomplishing at least two small goals a week to improve self-care and find connection. Target Date: 09/07/25 Review Date: 08/24/25 Status: open Objective #2: Stated Objective: Pt will increase mood stability by gaining 2-3 distress tolerance skills. Interventions: Therapist will provide education on low distress tolerance. Therapist will help pt explore personal symptoms and warning signs of mood instability. Therapist will teach pt coping skills to improve emotional regulation, mindfulness, and distress tolerance to help pt cope in the moment. Discharge Criteria: Pt will have accomplished this goal when can report improved mood stability and identify at least 2 distress tolerance skills. Target Date: 09/07/25 Review Date: 08/24/25 Status: open
--- NOTE | 2025-07-28 09:52 | BH.MDN ---
Multi-Disciplinary Note Note 30-min Individual: Time Started:: 09:10 Date: 07/28/25 Purpose of session/treatment goals addressed:: To gather information on pt's current stressors, symptoms, triggers, history, and tx goals. Another goal was to build rapport and provide emotional support. Eye Contact:: Good Motor Activity:: Appropriate Appearance:: Casual Speech:: Soft Mood:: Depressed Affect:: Constricted Thoughts:: Linear, Logical and No evidence of hallucinations/delusions noted Staff Interventions:: rapport building, strengths perspective, treatment planning, goal setting and other (psychosocial assessment) Client Response:: Pt responded well to session, open to meeting with therapist. Pt's second day of IOP and pt shared she left IOP yesterday and took a nap. Pt laughed and shared that she knows it will become less draining. Pt came to IOP due to work and family issues. Pt shared normally one is good and the other is bad, or flipped, but right now both are bad and I'm not getting any breaks. Pt reports issues at work have caused pt to feel ganged up on and pt feels that she is not getting support from her superiors. 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 Pt has been at her job for 16 years and has mostly enjoyed this. Pt's other major stressor is her home life, more specifically her relationship with her and his alcoholism. Pt shared my is a high functioning alcoholic with low functioning times and this is one of them. Pt stated his drinking has gotten more intense and it recently impacted their relationships with their children. Pt reports her does not think he has a problem and she feels stuck. Pt noted that she does not have a lot of support, and some of this is by choice. Pt shared she does not have friends because she has been hurt too many times and therefore chooses not to reach out. Pt lost both of her parents 19 years ago when her father from a heart attack and her mother then of cancer. Pt stated she was very close with her mother and not having her has been hard. Pt shared she hopes to be challenged while in IOP and learn to manage her symptoms. Pt also wants to figure out how to improve her work situation. Risks/Concerns:: Pt denies any active suicidal ideation, plan, or intent. Progress Toward Goals/Plan:: Pt's second day of IOP tx. Pt reports she has previously completed programs in the past and found them helpful. Pt is also established with outpatient counseling at [facility] and outpatient psychiatry at [place] [id number]. Pt reports her goals are to be able to be alone and to improve her symptoms. Pt's depression has become so severe that pt has been unable to function at her baseline. Pt is currently struggling to complete tasks at home, get out of bed, and do personal hygiene. Pt will continue IOP tx to prevent decompensation, improve daily functioning, and gain self-confidence. Time Stopped:: 09:35
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
--- NOTE | 2025-07-28 10:15 | BH.SGPN.GN ---
Behaviors/Verbalizations/Mental Status: [] Eye contact is good. Motor activity is appropriate. Appearance is casual. Speech is Appropriate. Mood is dysthymic. Affect is congruent. Thoughts are linear and logical. No evidence of psychosis. Client Response/Progress/Benefit: [] Client engaged during group session as evidenced by contributions during group discussions, appearing to listen to others, and taking notes. Client engaged in discussion about barriers that keep people from having difficult conversations. Group identified potential reasons individuals avoid difficult conversations which included; feeling uncomfortable, reaction of others, fear, and avoiding conflict. Group also identified benefits to having crucial conversations. Pt identified things they do that impact their communication as communicating vaguely or shutting down. Client seemed to benefit from increased awareness and education about importance of having difficult conversations and recognizing the impact of avoiding such conversations. Client to continue IOP to prevent decompensation, increase healthy coping, and improve functioning. Narrative Note: []
--- NOTE | 2025-07-28 11:15 | BH.SGPN.GN ---
Behaviors/Verbalizations/Mental Status: []Pt alert and oriented, neatly dressed and groomed. Eye contact good. Motor activity appropriate. Speech within normal limits. Affect constricted, mood depressed. Thoughts linear, logical, no signs of hallucinations or delusions. Client Response/Progress/Benefit: [] Pt was an active participant, engaged in activities and discussion. Pt able to identify ways they negatively contribute to crucial conversations and pt was engaged during psychoeducation of the different ways to build interpersonal effectiveness skills. Pt and peers practiced mirroring and active listening in partners. Group reviewed [employer] and used the handout to help map out how they would like a crucial conversation in their life to go. Pt identified talking to her work about why she is taking time off is a crucial conversation pt needs to have. Pt appeared to benefit from learning and practicing interpersonal effectiveness skills. Pt will continue IOP tx to prevent decompensation, gain healthy coping skills, and reduce avoidance. Narrative Note: []
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
--- NOTE | 2025-07-29 07:41 | BH.DR.ITP ---
Initial Treatment Plan Patient Information Visit Information: ADMISSION DATE: 07/29/2025 EXPECTED LOS: 4-6 weeks Diagnoses:: Bipolar unspecified Problems/Symptoms Problem #1:: Depression Symptom:: Suicidality, low mood, poor motivation, tearfulness, low energy
--- NOTE | 2025-07-29 09:40 | BH.NA_ITS ---
Physical Data Vital Signs Pulse Rate: 73 Blood Pressure: 125/85 Height/Weight Height: 1.63 m Weight:: 76.657 kg Weight in Pounds: 169.0 lbs Current Medication Compliance Medication Compliance Do you take your medication as prescribed?: Yes Functional Assessment Sleep Pattern Describe any problems with sleeping: Client states she has been sleeping 4-6 hours per night. Sensory/Communication Assess Communication Problems Do you have difficulty understanding what people are saying?: No Learning Assessment Education What is your level of education?: Master Degree Medical Problems/History Respiratory Conditions Respiratory: Other (See comments) (CANDE- uses CPAP) Hematologic Conditions Hematologic: Other (See comments) (low iron) Metabolic Conditions Metabolic: Other (See comments) (history of thyroid cancer - November 2024) Gastrointestinal Conditions Gastrointestinal: Other (See comments) (GERD) Musculoskeletal Conditions Musculoskeletal: Other (See comments) (bilat arm carpal tunnel) Cancer History Type of Cancer:: Thyroid (right lobectomy of thyroid November 2024) Family History Family History Father Diabetes Heart disease Mother Cancer ovarian cancer Grandfather Colon cancer Other Family history of colon cancer History of psychiatric care Hormone disorder Hypertension Ovarian cancer Surgical History Surgical History Have you had any surgeries? If so, list type and date:: Yes (hysterectomy, thyroid, laminectomy, tubal, hernia repair, c section) Substance Abuse Substance Abuse Please describe substance abuse in the last 30 days:: Client denies alcohol, tobacco or substance use. Client states she drinks 1 cup of tea max per day with caffeine. Mental Status Summary Mental Status Significant Findings/Observations on Appearance and Mood:: Client is alert and oriented x 4. Client is casually groomed with good hygiene. Client is cooperative with assessment. Client makes good eye contact. Client's voice has normal rate and volume. Client appears mildly anxious during assessment. Client has a restricted affect. Client makes logical associations and has normal processing. Client denies delusions/hallucinations. Client reports thoughts of , but denies SI with plan or intent. Suicide Assessment Suicidal Ideation Are you currently or have you been suicidal in the past?: Yes Suicidal Intentional Rating Scale (SIRS): Suicidal thoughts (past) Physician Notification Past Psychiatric History MH Treatment Hx Past Psychiatric Medications:: Trileptal, Depakote, Prozac, Seroquel, Abilify, Paxil, Wellbutrin Age of first mental health symptoms: Client states she was diagnosed with bipolar at age 16 and has been on mental health medication since. Describe (age, circumstance, etc) any past hospitalizations: Client was hospitalized 3 times before the age of 23 for SI/suicide attempts, and was last hospitalized at [facility] in 2005 for an overdose Current providers for mental health treatment (counselor, psychiatrist, case management social worker, etc.): Marika RUVALCABA at [address] psychiatry, Lindsay at [facility] for therapy Fall Risk Assessment Age Age: Less than 60 Mental Status Mental Status: Willing & able to ask for assistance when needed Physical Status Physical Status: No problems Impairments Impairments: None Elimination Elimination: Continent AND independent Gait or Balance Gait or Balance: Walks independently Hx of Falls History of falls in the past 6 months: No known history Medications/Substances Psychotropics:: Antipsychotics, Mood stabilizers and Antihistamines (e.g. Benadryl) Medications/substances used within the past 24 hours or ordered to administer: 3 or more of the medications/substances listed above Total Score Total Points:: 2 RN Summary of Impressions Impressions Recommendations Impressions: Psychiatric Issues: bipolar 1 disorder Level of Care How do the client's current symptoms and functional deficits support need for this level of care?: Client was referred to IOP for depression and mental health impacting functioning. Client states her work life and home life are both stressors right now. Client states Usually it's only either work or home that is a mess, but right now they both are. Client reports crying episodes, thoughts of , and panic attacks. Client states she has not been to work for a few days due to her mental health. Client denies SI at this time, but does state she has frequent thoughts of . IOP will promote gains and prevent further decompensation while providing social support and skills training. Nutritional Screen Height/Weight Height: 1.63 m Weight:: 76.657 kg Weight in Pounds: 169.0 lbs Nutrition Screening Normal Weight: 77.111 kg Normal/Usual Weight in Pounds: 170.0 lbs Have you lost weight without trying: No Have you been eating poorly because of a decreased appetite: Yes Recently been on tube feeds, TPN, or have any nutritional access device in place: No Have any large open wounds or wounds that are not healing: No Calculated Weight Change: [id number] Change in weight Score: 0 MST Screening Tool Score: 1
[2025-07-29 10:06] VITALS: BP 125/85; PULSE 73
--- NOTE | 2025-07-29 10:10 | BH.SGPN.GN ---
Behaviors/Verbalizations/Mental Status: []Eye contact is good. Motor activity is appropriate. Appearance is casual. Speech is Appropriate. Mood is content. Affect is congruent. Thoughts are linear and logical. No evidence of psychosis. Client Response/Progress/Benefit: []Pt was an active participant in group discussion. Engaged and attentive during psychoeducation and interactive discussion on coping skills, why people use unhealthy coping skills, how to replace unhealthy coping skills, and internal vs external coping skills. Attentive as peers came up with list of unhealthy coping skills. Pt reported personally, they tend to either distract with others problems or overwork. Group discussed the effects of maladaptive coping skills on mental health. Benefited from increased understanding of unhealthy coping skills and the need for developing healthy internal and external coping skills. Actively participated during experiential group activity and was able to related this activity to group topic. Will continue in IOP to promote healthy thinking patterns, apply healthy coping skills, and promote mood stability. Narrative Note: []
--- NOTE | 2025-07-29 11:10 | BH.SGPN.GN ---
Pt alert and oriented, casual in appearance. Eye contact good. Motor activity appropriate. Speech within normal limits. Affect constricted, mood content. Thoughts linear, logical, no signs of hallucinations or delusions. Client Response/Progress/Benefit: [] Pt engaged in group discussions and was attentive AEB taking notes, and listening attentively to others. Group discussed the different categories of coping skills which included distraction, emotional release, grounding, self-love, and thought challenging. Pt participated in creating a coping skills ?menu? from the different categories of coping skills. Pt's coping skill menu included: walking, crafts, 5-senses, and self-care. Appeared to benefit from increasing repertoire of healthy coping skills. Will continue IOP to improve mood stability, improve healthy coping, and prevent decompensation. Narrative Note: []
--- NOTE | 2025-08-01 09:00 | BH.SGPN.GN ---
Behaviors/Verbalizations/Mental Status: [] Pt alert and oriented, Neatly dressed and groomed. Eye contact fair. Motor activity appropriate. Speech within normal limits. Affect congruent, mood tearful. Thoughts linear, logical, no signs of hallucinations or delusions. Reviewed pt?s symptom tracker, 4/5 with 5 being severe for risk for suicidal ideation, indicates a 2/5 for plan, and intent to kill self. Pt does not appear to be imminent risk to harm self. 08/01/25. Client Response/Progress/Benefit: []Pt was an active participant in group discussions. Attentive. Per patients daily symptom tracker, pt indicates a 5/5 for depression and a 3/5 for anxiety, with 5 being severe. Pt was tearful in reporting both her mental health positives and stressor. She reports her positive as being able to help with her son and daughter in-laws joint wedding shower. She also reported this as her stressor, stating that she felt very alone due to being one of the only family members on her side to attend the shower. Her recently argued with his family. so they did not some to the shower. Pt was tearful when talking about this experience. Pt was supportive and attentive to others in the group. Pt seemed to benefit from support from peers. Will continue IOP tx to promote healthy coping mechanisms, reduce negative thinking patterns, and gain self-confidence.
--- NOTE | 2025-08-01 10:15 | BH.SGPN.GN ---
Behaviors/Verbalizations/Mental Status: []Pt alert and oriented, casually dressed and groomed. Eye contact fair. Motor activity appropriate. Speech within normal limits. Mood is dysthymic. Affect is constricted. Thoughts linear, logical, no signs of hallucinations or delusions. Client Response/Progress/Benefit: [] Pt was an active?participant in group discussions and experiential activity. Worked with peers to identify benefits of healthy relationships which included; support, shared experiences, laughter, understanding, and perspective challenge. Group identified factors that lead to unhealthy relationships which included; low self-esteem, trauma-bonding, poor communication, and manipulation/toxic behaviors. Pt reported stated a toxic relationship has led to feeling more hopeless. Benefited from increased insight and awareness of benefits of healthy relationships and factors that contribute to unhealthy relationships. Will continue IOP to improve daily functioning, challenge negative/distorted thoughts, and prevent decompensation.
--- NOTE | 2025-08-01 11:15 | BH.SGPN.GN ---
Behaviors/Verbalizations/Mental Status: []Pt alert and oriented, casually dressed and groomed. Eye contact good. Motor activity appropriate. Speech within normal limits. Mood depressed. Affect congruent. Thoughts linear, logical, no signs of hallucinations or delusions. Client Response/Progress/Benefit: [] Pt responded well to session, engaged and taking notes throughout. Worked with group to connect components of the experiential activity with characteristics of healthy and unhealthy relationships. Attentive during psychoeducation about characteristics of healthy, unhealthy, and abusive relationships. Pt identified wanting to work on ?not waiting to communicate what is bother me.? Appeared to benefit from identifying current healthy relationship attributes. Pt to continue IOP tx to prevent decompensation, improve daily functioning, and reduce isolation. Narrative Note: []
--- NOTE | 2025-08-01 13:22 | BH.MDN ---
Multi-Disciplinary Note Note 45-min Individual: Time Started:: 12:10 Date: 08/01/25 Purpose of session/treatment goals addressed:: To work on goal #1 of pt's tx plan. Eye Contact:: Good Motor Activity:: Appropriate Appearance:: Neat Speech:: Soft Mood:: Depressed Affect:: Congruent (tearful at the beginning of session) Thoughts:: Linear, Logical and No evidence of hallucinations/delusions noted Staff Interventions:: thought challenging, CBT techniques, strengths perspective, completed risk assessment / safety planning, goal setting and other (values) Client Response:: Pt responded well to session, open to meeting with therapist. Pt reports feeling so sad and was tearful. Pt shared over the weekend she went to her son's wedding shower and this triggered how I have no one. Pt has limited support and pt reports feeling like all her relationships are conditional. Pt talked about her relationship with her youngest son, the one at the shower, being borderline manipulative as pt stated he will threaten to not talk to pt if she does not do things he agrees with/wants. Pt feels her relationship with her older son is better and has less conditions. Pt feels she could reach out to him and have him as a temporary emotional support. Pt used to have support from her sister, but they have been not speaking since her sister's wedding. Discussed ways to build support and connection including exploring values she has so that pt can begin to find activities and spaces that relate to that. This led to a discussion on pt's love for music and playing the tuba. Pt shared she has played it since high school and every year she is involved in [employer] where tuba players from around [place] gather to play [employer] songs. Pt receptive to playing the tuba for homework and exploring other potential values/interests she has had throughout her life. Risks/Concerns:: Pt reports having thoughts of and passive SI due to ongoing stressors. Pt shared she has no active SI, plan, or intent and that her sons are her protective factors. Progress Toward Goals/Plan:: Pt's second week of IOP tx and pt reports benefitting from coming to group and connecting with peers as pt has limited support. Pt's symptoms of depression continue to impact her daily functioning and relationships. Pt agrees to goal of playing her Tuba before the end of the week as this was something pt has always enjoyed doing. Pt also agrees to homework on identifying values and interests she has had throughout her life. Pt to continue IOP tx to prevent decompensation, improve daily functioning, and increase self-confidence. Time Stopped:: 12:50
== END 2025-08-02 23:59 ==
LOC: BHIOP 08:00
PROVIDERS: Referring Provider Student in an Organized Health Care Education/Training Program; Visit Provider Student in an Organized Health Care Education/Training Program
DX: F31.9 Bipolar disorder, unspecified (principal)
CPT/HCPCS: S9480; 90832; 90834; 90853

== ENCOUNTER → 2025-07-29 | Outpatient (CLI) | payer OTHER, SELFPAY ==
[2025-07-29 10:22] LABS: Hematocrit 34.1 % (37-47); Hemoglobin 12.2 g/dL (12.0-15.0); Mean Corp Hgb Conc 35.8 g/dL (32-36); Mean Corpuscular Volume 85.7 fL (81-99); Mean Platelet Vol. 11.0 fl (6.2-12.0); Platelet Count 199 K/mm3 (150-450); RBC Distribution Width CV 12.8 % (11.6-14.6); RBC Distribution Width SD 40.3 fl (35.1-43.9); Red Blood Count 3.98 M/mm3 (4.2-5.4); White Blood Count 3.7 K/mm3 (4.4-11.0)
[2025-07-29 10:24] LABS: Color, Urine Yellow (Yellow); Glucose, Dipstick Normal (Normal); Ketone-Dipstick 5 mg/dl (Negative); Leukocyte Esterase-Dipstick 25 /ul (Negative); Nitrite-Dipstick Negative (Negative); Occult Blood-Urine Negative /ul (Negative); Protein-Dipstick 30 mg/dl (Negative); Specific Gravity, Urine 1.010 (1.002-1.030); Urine Bilirubin Dipstick Negative (Negative)
[2025-07-29 10:39] LABS: AST(SGOT) 20 U/L (<=31); Alanine Aminotransfer ALT/SGPT 24 U/L (<=34); Albumin, Serum 4.3 g/dL (3.5-5.0); Alkaline Phosphatase 41 U/L (35-104); Anion Gap 11 (5-15); BUN 14 mg/dL (4-19); BUN/Creat Ratio 19.0 RATIO (10-20); Calcium,Total 9.0 mg/dL (7.6-11.0); Carbon Dioxide 20.1 mmol/L (21.0-32.0); Chloride 108 mmol/L (98-108); Globulin 2.0 g/dL (2.2-4.2); Glucose 85 mg/dL (70-99); Potassium 4.1 mmol/L (3.3-5.1)
[2025-07-29 10:44] LABS: Lithium 0.59 mmol/L (0.60-1.20)
== END | disposition home or self-care (01) ==
LOC: MTLAB 07:51
PROVIDERS: PCP Family Medicine; Referring Provider Physician Assistant; Visit Provider Physician Assistant
DX: Z79.899 Other long term (current) drug therapy (principal)
CPT/HCPCS: 36415; 80053; 80178; 81002; 85027

== ENCOUNTER 2025-08-03 09:08 | Outpatient (RCR) | payer OTHER, SELFPAY ==
--- NOTE | 2025-08-04 09:05 | BH.SGPN.GN ---
Behaviors/Verbalizations/Mental Status: [] Eye contact is good. Motor activity is appropriate. Appearance is casual. Speech is Appropriate. Mood is depressed and irritable. Affect is congruent. Thoughts are linear and logical. No evidence of psychosis. Reviewed daily check in sheet and suicidal thoughts are at baseline. Client Response/Progress/Benefit: [] Pt participated when prompted. Attentive. Daily symptom tracker notes /5 for depression and 3/5 for anxiety and agitation. Able to identify mental health wins which included support reaching out and taking her out for dinner. Shared how this was important to her and beneficial to her mental health. Despite this being a positive gesture she is concerned that support was alternative motives. Difficulty trusting others especially when she is an a vulnerable spot. Difficulty managing cognitive distortions and negative thoughts often reverting to the negative which she reinforces. Limited progress noted. Benefited from group support, encouragement, and feedback. Will continue in IOP to maintain safety, increase healthy coping, and improve functioning to return to work. Narrative Note: []
--- NOTE | 2025-08-04 10:15 | BH.SGPN.GN ---
Behaviors/Verbalizations/Mental Status: []Pt alert and oriented, neatly dressed and groomed. Eye contact good. Motor activity appropriate. Speech within normal limits. Affect constricted, mood depressed and engaged. Thoughts linear, logical, no signs of hallucinations or delusions. Client Response/Progress/Benefit: [] Pt was an active participant AEB taking notes and engaging in group activity. Connected with the topic of pitfalls and listened to group discussion on barriers that prevent from choosing a healthier path to mental wellness. Group worked together to identify examples of personal pitfalls. These examples included; having unrealistic expectations, not trusting, not asking for help, and shutting down. Pt benefited from group as Pt learned to better identify potential barriers to improving mental health symptoms. Pt will continue IOP tx to gain healthy coping skills, reduce isolation, and improve daily functioning. ? Narrative Note: []
--- NOTE | 2025-08-04 11:10 | BH.SGPN.GN ---
Behaviors/Verbalizations/Mental Status: []Client alert and oriented, casually dressed and groomed. Eye contact good. Motor activity appropriate. Speech within normal limits. Affect congruent, mood engaged and depressed. Thoughts linear, logical, no signs of hallucinations or delusions. Client Response/Progress/Benefit: [] Pt receptive of session, engaged throughout AEB Pt actively listening and contributing to discussion as well as taking notes.? Pt participated in the experiential activity and did well to communicate ideas with peers and manage emotions. Pt attentive as group processed how the emotions and perspective of the group impacted the activity. Pt was engaged and receptive to feedback during the activity which helped peers. Group worked together to identify different coping skills to help manage pitfalls. Pt identified pitfalls they struggle with as doom scrolling, isolation, and predicting future failures. Pt plans to work on their pitfall by ?practicing communicating directly what I need.? Benefited from identifying personal pitfalls and strategies to overcome these pitfalls. Pt will continue IOP tx to prevent decompensation, improve daily functioning, and combat distortions. Narrative Note: []
--- NOTE | 2025-08-05 09:00 | BH.SGPN.GN ---
Behaviors/Verbalizations/Mental Status: [] Pt alert and oriented, Neatly dressed and groomed. Eye contact good. Motor activity appropriate. Speech within normal limits. Affect tearful, mood anxious. Thoughts linear, logical, no signs of hallucinations or delusions. Reviewed pt?s symptom tracker, 4/5 with 5 being severe for risk for suicidal ideation, indicates a 2/5 for plan, and intent to kill self. Pt does not appear to be imminent risk to harm self. 08/05/25.. Client Response/Progress/Benefit: []Pt was an active participant in group discussions. Attentive. Per patients daily symptom tracker, pt indicates a 5/5 for depression and a 3/5 for anxiety, with 5 being severe. Pt shared two mental health positives, the first being that she went to dinner with coworkers. Pt stated that this was fun, however she felt awkward when coworkers brought up her mental health and asked if she needed any support. Pt also made a wedding hat for her [id number] to wear for her upcoming wedding. Pt was tearful in discussing her stressor, stating that she felt her family had moved on from certain things (she did not share specific details) that still felt very heavy for her. She stated that she felt lonely in dealing with these feelings. Pt was supportive and attentive to others in the group. Pt seemed to benefit from support from peers. Will continue IOP tx to promote healthy coping mechanisms, reduce negative thinking patterns, and gain self-confidence.
--- NOTE | 2025-08-05 10:10 | BH.SGPN.GN ---
Behaviors/Verbalizations/Mental Status: [] Eye contact is good. Motor activity is appropriate. Appearance is casual. Speech is Appropriate. Mood is euthymic. Affect is congruent. Thoughts are linear and logical. No evidence of psychosis. Client Response/Progress/Benefit: [] Pt engaged participant AEB listening to others, engaging in activity, and providing feedback at times. Attentive during psychoeducation and provided insight into obstacles that impede mental wellness. Pt shared with group current mental health reality and desired mental health reality. Identified barriers to desired reality include: isolation and self sobotaging. Benefited from taking look at current mental health state and obstacles for progress. Pt to continue IOP tx to improve mood stability, reduce reliance on maladaptive coping, and prevent decompensation. Narrative Note: []
--- NOTE | 2025-08-05 11:10 | BH.SGPN.GN ---
Behaviors/Verbalizations/Mental Status: [] Eye contact is good. Motor activity is appropriate. Appearance is casual. Speech is Appropriate. Mood is euthymic. Affect is congruent. Thoughts are linear and logical. No evidence of psychosis. Client Response/Progress/Benefit: [] Pt was an engaged participant in group discussion and activity. Worked with group to identify strategies to help overcome barriers and obstacles to desired reality. Group developed strategies for the common barriers. Identified personal barriers to desired reality and choose one obstacle to work. Pt stated they want to utilize strategy of asking for support to combat barriers. Pt seemed to benefit from increased repertoire of healthy coping skills/strategies to overcome common barriers to moving forward. Pt is to continue IOP to increase healthy coping skills, challenge distortions, and increase overall functioning. Narrative Note: []
--- NOTE | 2025-08-08 09:05 | BH.SGPN.GN ---
Behaviors/Verbalizations/Mental Status: [] Eye contact is good. Motor activity is appropriate. Appearance is casual. Speech is Appropriate. Mood is depressed. Affect is congruent. Thoughts are linear and logical. No evidence of psychosis. Reviewed daily check in sheet and suicidal thoughts are baseline. Client Response/Progress/Benefit: [] Pt participated at times during the group discussions. Attentive. Daily symptom tracker notes 03/07 for depression and 01/05 for anxiety. Able to identify mental health wins over the weekend. Discussed the benefits of engaging in pleasurable activity and engaging with support. She also participated with peer on group discussions around family conflict, boundaries, and its impact on mental health. Shared vague struggles around certain family members manipulating and providing ultimatums regarding further engagement. Tearful and unsure why they do this. Benefited from group support, encouragement, and feedback. Will continue in IOP to maintain safety, increase healthy coping, and improve functioning to return to work. Narrative Note: []
--- NOTE | 2025-08-08 10:15 | BH.SGPN.GN ---
Behaviors/Verbalizations/Mental Status: [] Pt alert and oriented, casually dressed and groomed. Eye contact good. Motor activity appropriate. Speech within normal limits. Affect congruent, mood anxious and depressed. Thoughts linear, logical, no signs of hallucinations or delusions. Client Response/Progress/Benefit: [] Pt participated in group discussions. Attentive during psychoeducation on the CBT [place] (Thoughts, Behaviors, Emotions). Engaged in group discussion on how thoughts and behaviors can contribute to maintaining adverse feelings, such as depression, anxiety, and irritability. Completed worksheet in which pt identified obstacles and/or thoughts that are keeping them stuck. Shared obstacles that included; fear of getting hurt again, fear of failure, low motivation, and isolation. Pt benefited from increased awareness of the basis of CBT therapy as well as specific thoughts that are impacting pt's progress. Will continue in IOP to prevent decompensation, increase healthy coping, and improve functioning. Narrative Note: []
--- NOTE | 2025-08-08 11:15 | BH.SGPN.GN ---
Behaviors/Verbalizations/Mental Status: []Pt alert and oriented, casually dressed and groomed. Eye contact good. Motor activity appropriate. Speech within normal limits. Affect congruent, mood depressed. Thoughts linear, logical, no signs of hallucinations or delusions. Client Response/Progress/Benefit: [] Pt responded well to session, contributing to discussion and attentive throughout. Pt identified a negative thought that has kept them stuck. Pt's thought was I will get hurt again.? Pt reported when they think this way, pt isolates and does not reach out to people when they reach out to her. Pt worked to reframe the thought by finding more rational, realistic ways to look at the thoughts and then processed them within group setting. Pt reframed the thought to ?I might get hurt, but it won?t be the only outcome.? Pt appeared to benefit from practicing challenging negative thinking with peers and gaining coping skills. Pt will continue IOP tx to prevent decompensation, improve daily functioning, and reduce isolation. Narrative Note: []
--- NOTE | 2025-08-09 10:00 | BH.SGPN.GN ---
Behaviors/Verbalizations/Mental Status: []Eye contact is good. Motor activity is appropriate. Appearance is casual. Speech is Appropriate. Mood is engaged. Affect is congruent. Thoughts are linear and logical. No evidence of psychosis. Client Response/Progress/Benefit: [] Pt was an active participant in group discussions. Attentive during psychoeducation. Contributed during interactive discussions in which peers attempted to define crisis. Group identified crisis examples. Group also worked together to identify warning signs and unhealthy responses to crisis which included shutting down, isolation, avoidance, over-thinking, disordered eating, and self-harm. Pt identified top 3 warning signs as: stopping going to work, change in daily routine, and changes in sleep. Benefited from increased understanding of crisis and awareness of personal responses to crisis. Pt will continue IOP tx to increase social connection, reduce negative thinking patterns, and increase self-compassion. Narrative Note: []
--- NOTE | 2025-08-09 11:00 | BH.SGPN.GN ---
Behaviors/Verbalizations/Mental Status: []Pt alert and oriented, appropriate grooming/appearance. Eye contact good. Motor activity appropriate. Speech within normal limits. Affect congruent, mood depressed and anxious. Thoughts linear, logical, no signs of hallucinations or delusions. Client Response/Progress/Benefit: []Pt was an active participant in group discussions. Attentive during psychoeducation. In small group pt along with peers developed an active plan for their crisis warning signs. Pt identified three crisis warning signs as well as an action plan for each. One crisis warning sign was change in daily routine. Pt identified strategies to help with this such as: writing out routine, setting phone alarm to remind self of routine, identify safe person to help with accountability, and setting small goals. Benefited from increased awareness of crisis warning signs and by developing crisis intervention strategies. Will continue in IOP to challenge distorted thoughts, improve utilization of coping skills outside treatment environment, and prevent decompensation.
--- NOTE | 2025-08-10 09:00 | BH.SGPN.GN ---
Behaviors/Verbalizations/Mental Status: [] Pt alert and oriented, Neatly dressed and groomed. Eye contact fair. Motor activity appropriate. Speech within normal limits. Affect congruent, mood anxious. Thoughts linear, logical, no signs of hallucinations or delusions. Reviewed pt?s symptom tracker, 2/5 with 5 being severe for risk for suicidal ideation, indicates a 2/5 for plan, and intent to kill self. Pt does not appear to be imminent risk to harm self.08/10/25. Client Response/Progress/Benefit: []Pt was an active participant in group discussions. Attentive. Per patients daily symptom tracker, pt indicates a 4/5 for depression and a 2/5 for anxiety, with 5 being severe. Pt shared their mental health positives as talking to her about and agreeing to plans with him on Friday, despite feeling anxious. Pt stated that it felt nice of her to ask her how she felt about going before agreeing that they would go, which is something that she says does not typically happen. Pt's other mental health positive was working on redecorating her space which she enjoys. Pt's reported stressor is that she states her youngest son is using her current situation to be manipulative, stating that it feels like he is kicking her while she is down. Pt was supportive and attentive to others in the group. Pt seemed to benefit from support from peers. Will continue IOP tx to promote healthy coping mechanisms, reduce negative thinking patterns, and prevent decompensation.
--- NOTE | 2025-08-10 11:15 | BH.SGPN.GN ---
Behaviors/Verbalizations/Mental Status: [] Client alert and oriented, casually dressed and groomed. Eye contact good. Motor activity appropriate. Speech within normal limits. Affect congruent, mood dysthymic. Thoughts linear, logical, no signs of hallucinations or delusions. Client Response/Progress/Benefit: [] Pt engaged in session AEB client listening attentively to peers and providing input. Attentive during psychoeducation on the 4 R?s of Self-Forgiveness (Responsibility, Remorse, Quaker, Renewal). Contributed to discussion as group worked on identifying strategies for improving ability to practice self-forgiveness. Reports wanting to practice thought challenging and sitting with the uncomfortable. Engaged in self-forgiveness activity and benefited from increased education on self-forgiveness building skills. Pt will continue IOP tx to improve mood stability, increase self-compassion, and prevent decompensation. Narrative Note: []
--- NOTE | 2025-08-10 11:39 | BH.MDN_ITS ---
Multi-Disciplinary Note Note 60-min Individual: Time Started:: 10:25 Date: 08/10/25 Purpose of session/treatment goals addressed:: To work on goal #2 of pt's tx plan and to review areas of progress. Eye Contact:: Good Motor Activity:: Appropriate Appearance:: Neat Speech:: Appropriate Mood:: Depressed and Other (hopeful) Affect:: Congruent Thoughts:: Linear, Logical and No evidence of hallucinations/delusions noted Staff Interventions:: thought challenging, motivational interviewing, CBT techniques, strengths perspective, goal setting and taught coping skills (acceptance and distress tolerance) Client Response:: Pt responded well to session, open to meeting with therapist. Pt reports she is feeling okay which pt describes as being depressed still, but she has a will to live more. Pt shared she went to lunch with an old co-worker this week and it actually went really well pt stated they plan to go again soon. One of pt's biggest stressors is her lack of support and fear of reaching out. Pt has been willing to work on this as she recognizes that the more she isolates the worse her depression gets. Pt shared it was nice to talk to this friend both about me but also just like normal. Pt reported being with this person made pt reflect that I've been complaining about the same things to her for the past 20 years. Pt shared these complaints are often about her and the dynamic of their blended family. Pt stated her friend suggests that pt get but pt shared she does not want to do this because I don't want to have a second failed marriage. Since pt has decided that she is staying in her marriage, we discussed radical acceptance and the options pt has to make the most of her situation. Discussed how pt currently handles issues, the dynamics she would like to see change, and what needs pt has in or jorden to live less stressed and depressed. Discussed necessary vs unnecessary suffering. Pt wrote out what changes she would like to see made in her life and then for homework pt is going to identify what she can do if the changes do not happen by others. Risks/Concerns:: Pt reports having thoughts of still, but pt shared I do have a will to live. Pt denies any active SI, plan, or intent as of 08/10/25. Progress Toward Goals/Plan:: Pt is doing well in IOP, pt is engaged, consistent with attendance and homework, and participates in group sessions. Pt's symptoms of depression remain severe, but pt reports she has been working on getting out of her house more and pt made progress with getting together with some co-workers. Pt receptive to working on homework from this session as well as playing the tuba before next session. Pt will continue IOP tx to prevent decompensation, improve daily functioning, and increase distress tolerance skills. Time Stopped:: 11:20
--- NOTE | 2025-08-15 09:00 | BH.SGPN.GN ---
Behaviors/Verbalizations/Mental Status: [] Pt alert and oriented, Neatly dressed and groomed. Eye contact good. Motor activity appropriate. Speech within normal limits. Affect congruent, mood calm. Thoughts linear, logical, no signs of hallucinations or delusions. Reviewed pt?s symptom tracker, 2/5 with 5 being severe for risk for suicidal ideation, indicates a 2/5 intent to kill self. Current scores are within baseline for pt for suicidal thoughts. Pt does not appear to be imminent risk to harm self.08/15/25. Client Response/Progress/Benefit: []Pt was an active participant in group discussions. Attentive. Per patients daily symptom tracker, pt indicates a 4/5 for depression and a 2/5 for anxiety, with 5 being severe. Pt's mental health positives was going out to two events over the weekend, and using coping mechanisms to get through them. Pt's other positive was watching an whole movie without picking up their phone, as they stated that one of their goals was to reduce phone and social media usage. Pt's stressor was confusing family dynamics and boundaries, stating that she is confused about how to handle them. Pt was supportive and attentive to others in the group. Pt seemed to benefit from support from peers. Will continue IOP tx to promote healthy coping mechanisms, reduce negative thinking patterns, and improve self-confidence.
--- NOTE | 2025-08-15 10:15 | BH.SGPN.GN ---
Behaviors/Verbalizations/Mental Status: [] Eye contact is good. Motor activity is appropriate. Appearance is casual. Speech is Appropriate. Mood is content. Affect is congruent. Thoughts are linear and logical. No evidence of psychosis. Client Response/Progress/Benefit: [] Pt engaged in session AEB listening attentively to others and providing input throughout. Pt engaged in activity, able to connect how it can be uncomfortable and difficult to practice acceptance when situations are out of one?s own control. Identified what they are struggling to accept in personal life. Worked with peer group to define acceptance and identify the benefits that acceptance can bring. Benefits included; reduce anxiety, reduced stress, helps one to focus on situations we can change, and decreased negative self-talk. Seemed to benefit from increased awareness of the meaning as well as the importance of acceptance. Will continue in IOP to improve emotion regulation, challenge distortions and unrealistic expectations, and prevent decompensation. Narrative Note: []
--- NOTE | 2025-08-15 11:15 | BH.SGPN.GN ---
Behaviors/Verbalizations/Mental Status: []Pt alert and oriented, casually dressed and groomed. Eye contact good. Motor activity appropriate. Speech within normal limits. Affect congruent, mood content. Thoughts linear, logical, no signs of hallucinations or delusions. Client Response/Progress/Benefit: [] Pt responded well to session AEB taking notes and contributing to discussion throughout. Pt engaged as group continued discussion on acceptance and the mental health benefits of practicing acceptance. Pt and peers identified what makes acceptance challenging and pt completed a self-reflection exercise on what is hard to accept in pt's life. Pt identified something that is currently hard to accept as ?other people?s boundaries.? Pt stated by not accepting this, it leads to resentment, anger, and giving people the silent treatment. Group identified strategies to increase acceptance. Pt noted wanting to work on ?mindfully feeling vs over-identifying? as a strategy for improving acceptance. Pt appeared to benefit from gaining insight and learning strategies to increase acceptance. Pt will continue IOP tx to reduce avoidance and isolation, improve self-confidence, and combat distortions. Narrative Note: []
--- NOTE | 2025-08-17 09:00 | BH.SGPN.GN ---
Behaviors/Verbalizations/Mental Status: [] Pt alert and oriented, neatly dressed and groomed. Eye contact good. Motor activity appropriate. Speech within normal limits. Affect constricted, mood euthymic. Thoughts linear, logical, no signs of hallucinations or delusions. Reviewed pt?s symptom tracker, no risk for suicidal ideation, plan, or intent 08/17/25. Client Response/Progress/Benefit: []Pt was an active participant in group discussions. Attentive. Able to identify mental health wins including ?my son invited me to come see him for Halloween? which pt is looking forward to and pt has been spending more time out of the house. Pt's stressor today is ?just my and work.? The group offered pt suggests managing this stressor and emotional support which pt reported was helpful. Pt is feeling ?excited and stressed? this morning. Pt receptive to feedback from peers. Benefited from group support, encouragement, and feedback. Progress noted. Will continue IOP tx to prevent decompensation, improve distress tolerance, and increase healthy social support. Narrative Note: []
--- NOTE | 2025-08-17 10:10 | BH.SGPN.GN ---
Behaviors/Verbalizations/Mental Status: [] Pt alert and oriented, neat appearance, eye contact good. Motor activity appropriate. Speech within normal limits. Affect congruent. Mood anxious. Thoughts linear, logical, no signs of hallucinations or delusions. Client Response/Progress/Benefit: [] Pt was an active participant in group discussions on defining conflict (internal/external) and possible benefits to conflict. Attentive during psychoeducation on conflict styles (avoidant, accommodating, competing, cooperative) and engaged during group discussion in which the group identified when it is beneficial to use conflict styles and pitfalls of each conflict style. Pt was an active participant in small group exercise in which each group was given a scenario and a conflict resolution technique had to be utilized. Pt identified with the avoidant conflict style and struggled to think of scenarios in which conflict could be positive, stating that she avoids conflict as much as possible due to bad past experiences. Benefited from increased awareness of the impact of conflict styles on mental health. Will continue in IOP to increase coping skills, improve self-confidence, and prevent decompensation.
--- NOTE | 2025-08-17 11:10 | BH.SGPN.GN ---
Behaviors/Verbalizations/Mental Status: []Client alert and oriented, casually dressed and groomed. Eye contact good. Motor activity appropriate. Speech within normal limits. Affect congruent, mood euthymic. Thoughts linear, logical, no signs of hallucinations or delusions. Client Response/Progress/Benefit: [] Pt engaged in session AEB contributing to discussion and engaging in small group. Attentive during discussion on strategies for more effectively managing conflict in personal life. Pt noted current conflict resolution style uses the most is avoidant because doesn't want to cause any issues. Pt participated in small group for activity and did well practicing how to manage conflict scenarios. Pt given handout on fair fighting rules and how to identify common conflict barriers. Pt indicated what needs improvement in conflict for them. Appeared to benefit from gaining strategies to help pt better manage conflict. Will continue IOP tx improve daily functioning, challenge negative thoughts, and prevent decompensation.
--- NOTE | 2025-08-19 07:42 | PCM.BH.PN ---
Intake Vital Signs 07/29/25 10:06 08/19/25 07:42 Height 5 ft 4 in 5 ft 4 in Weight: 169 lb BP 125/85 H Pulse 73 BH Intake Visit Reasons: Follow-up Allergies oxcarbazepine (From Trileptal) Allergy (Mild, Verified 07/18/25 09:26) Rash divalproex sodium (From Depakote) Adverse Reaction (Intermediate, Verified 07/18/25 09:26) Elevated Liver Enzymes, and hair loss Medications ?Medication ?Instructions ?Recorded ?Confirmed ?Type ascorbic acid (vitamin C) 1,000 mg 2 g PO DAILY 09/19/21 07/29/25 History tablet esomeprazole magnesium 20 mg 20 mg PO DAILY 09/19/21 07/29/25 History capsule,delayed release (Nexium) mecobalamin (vitamin B12) 1,000 1,000 mcg PO DAILY 09/19/21 07/29/25 History mcg chewable tablet multivitamin 1 tab PO DAILY 09/19/21 07/29/25 History zinc 50 mg tablet 50 mg PO DAILY 09/19/21 07/29/25 History calcium carbonate (Calcium 600) 600 mg PO DAILY 06/04/22 07/29/25 History lithium carbonate 300 mg capsule 300 mg PO BID 06/04/22 07/29/25 History buspirone 10 mg tablet 10 mg PO TID 07/18/25 07/29/25 History hydroxyzine pamoate 25 mg capsule 25 mg PO QHS PRN sleep 07/29/25 07/29/25 History (Vistaril) lurasidone 40 mg tablet (Latuda) 40 mg PO DAILY 07/29/25 07/29/25 History mirtazapine 15 mg tablet 15 mg PO QHS #30 tabs 07/29/25 Rx trazodone 50 mg tablet 50 - 100 mg PO QHS PRN insomnia 07/29/25 07/29/25 History HPI () History of Present Illness History provided by: patient Chief complaint: depression/SI HPI: Tejal Dao is a 49 year old female who presents today for follow up evaluation. Patient reports that she has been better. Partially believes this is secondary to being in group and is away from work/family. 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 Right now is only taking lithium and buspar. [place] that she was having difficulty with remembering to take the mirtazapine and lurasidone. Feels like she is doing well off of the lurasidone. Did try to have Caplyta prescribed by her outside provider, but insurance won't approve at this point. Review of systems () Constitutional Denies: fever(s), chills, change in weight or fatigue Eyes Denies: change in vision or blurry vision Ears, Nose, Mouth, Throat Denies: throat pain, neck pain or change in hearing Cardiovascular Denies: chest pain, palpitations or dyspnea Respiratory Denies: dyspnea, cough or wheezing Gastrointestinal Denies: abdominal pain, nausea, vomiting, diarrhea or constipation Genitourinary Denies: dysuria or urinary frequency Musculoskeletal Denies: back pain, neck pain, joint pain or muscle weakness Integumentary/Breast Denies: rash or new lesions Neurological Denies: headache(s), dizziness or confusion Endocrine Denies: fatigue or excessive sweating Hematologic/Lymphatic Denies: easy bruising or easy bleeding Allergic/Immunologic Denies: wheezing Exam Mental Status Exam- Psych () Appearance adequately groomed Attitude cooperative Activity/Motor Behavior MSE activity/motor behavior finding no adventitious movements Speech regular rate, regular prosody and soft Mood depressed Affect constricted (Somewhat brighter than previous) Thought Process linear, logical and coherent Thought Content no delusions and no hallucinations Suicidal Ideation passive and preparation (Has planned her own ); Not active, No intent and No plans Homicidal Ideation none Attention intact Concentration intact Sensorium/Orientation awake, alert and oriented x3 Memory/Cognition other (appropriate for stated age) Insight good Judgement questionable Assessment & Plan () Assessment & Plan (1) Bipolar disorder: Plan: -Continue lithium 300 mg twice a day; reviewed recent levels which were 0.59 however just outside of therapeutic range and likely appropriate ? Has stopped both Latuda and mirtazapine and is attempting to have Caplyta approved by outside provider. Will refrain from any other additional changes at this time secondary to medication changes Charges/Coding Multi Select Codes Behavior Health Behavior Health EST Pt E/M: 53677 Est Pt Level III
--- NOTE | 2025-08-19 09:02 | BH.SGPN.GN ---
Behaviors/Verbalizations/Mental Status: [] Pt alert and oriented, neat and casually dressed and groomed. Eye contact good. Motor activity appropriate. Speech within normal limits. Affect congruent, mood depressed and anxious. Thoughts linear, logical, no signs of hallucinations or delusions. Reviewed pt?s symptom tracker, pt reports suicidal ideation as a 2/5 which is within pt baseline. Denies plan or intention. Client Response/Progress/Benefit: [] Client responded well to session as evidenced by listening attentively to others, providing feedback, and processing with group. Per symptom tracker client reported a 3/5 for depression and a 1/5 for anxiety. Client reported mental health positive as challenging herself to continue to advocate for her mental health needs and focus on improving her self-care. Shared trying to allow herself to enjoy the season as this is her favorite time of year. Stressor noted as struggling with jealousy that the individuals in her life seem to be able to do whatever they want without consequences. Reports wanting to be able to not be bothered by this but struggling. Receptive of discussion on focusing on what's in her control in the situation. Client seemed to benefit from support from others and the group environment. Client to continue IOP to maintain safety, improve mood stability, and prevent decompensation. Narrative Note: []
--- NOTE | 2025-08-19 10:15 | BH.SGPN.GN ---
Behaviors/Verbalizations/Mental Status: []Pt alert and oriented, casually dressed and groomed. Eye contact good. Motor activity appropriate. Speech within normal limits. Affect congruent, mood euthymic. Thoughts linear, logical, no signs of hallucinations or delusions. Client Response/Progress/Benefit: [] Pt was an attentive and active participant, AEB taking notes and providing input in group discussion. Attentive during psychoeducation. Pt engaged during interactive discussion in which the group defined self-care and discussed its benefits. Group discussed barriers and benefits to self-care. Identified benefits as being more productive, less physical pain, feeling happier, less irritability, and being more capable. Pt participated in small groups where they worked to identify and challenged common self-care ?myths?. Benefited from increased awareness of self-care, its benefits, and the consequences of not utilizing self-care strategies. 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 Will continue IOP tx to promote mood stability, improve self-compassion, and increase boundary setting skills. ? Narrative Note: []
--- NOTE | 2025-08-19 12:07 | BH.MDN_ITS ---
Multi-Disciplinary Note Note 60-min Individual: Time Started:: 11:05 Date: 08/19/25 Purpose of session/treatment goals addressed:: To work on goal #2 of pt's tx plan. Another goal was to review homework from last session. Eye Contact:: Good Motor Activity:: Appropriate Appearance:: Casual Speech:: Appropriate Mood:: Euthymic and Anxious Affect:: Full Thoughts:: Linear, Logical and No evidence of hallucinations/delusions noted Staff Interventions:: thought challenging, motivational interviewing, psychoeducation on: (attachment styles), CBT techniques, strengths perspective, goal setting (homework to work on resentment worksheet and to write out potential boundary setting statements) and other (reviewed homework) Client Response:: Pt responded well to session, open to meeting with therapist. Pt reports she is noticing positive changes in her appearance as she is starting to feel better and she feels she is doing more instead of isolating. Pt completed her from last session and pt shared it was hard but helpful. Pt also had homework from her outpatient therapist that was hard but good and this helped pt make some realizations. Pt noted that she is gaining more awareness that if she wants changes in her life, she cannot keep waiting for external situations to happen to her rather pt has to make the changes. Processed how waiting for others to change and meet pt's expectations has led to a lot of resentment, anger, jealousy, and negative self-talk. Pt reports she both hates it and knows I need to set boundaries especially with her youngest son, , and daughter. Pt reported she sees how her overcompensating as a parent has led to boundary issues with her children and pt wants to work on setting boundaries. Processed what to expect and how to work through the distress when people do not respect boundaries or if they do not adjust. Pt did well with this discussion, although pt shared it will be hard for her. Pt receptive to homework on resentment and writing out boundaries she will want to set. Pt also asked for guidance in how to reinforce boundaries, and we practiced this in session. Risks/Concerns:: Pt reports having thoughts of still, but pt reports being more hopeful and denies any SI. Progress Toward Goals/Plan:: Pt is doing well in IOP, pt is engaged, consistent with attendance and homework, and participates in group sessions. Pt's mood and affect are improving and pt reports she is practicing more self- care which is progress. Pt is also working on acceptance skills, boundaries, and reducing resentment. Pt's mood is still not at her baseline and pt feels that she is still highly anxious about work and her relationships. Pt will continue IOP tx to prevent decompensation, improve daily functioning, and increase distress tolerance skills. Time Stopped:: 12:05
--- NOTE | 2025-08-19 13:53 | BH.TPR ---
Treatment Plan Review Demographics Date of Admission:: 07/27/25 Date of Treatment Plan Review:: 08/19/25 Admitting Diagnoses:: Bipolar Disorder Unspecified Current Diagnoses:: Bipolar Disorder Unspecified Patient Status Patient's Response to Treatment:: Pt has responded well to session AEB consistently attending IOP and engaging in both individual and group therapy sessions. Pt consistently completes homework provided from individual counseling. Pt contributes actively during group discussions, takes notes, appears to listen to others, and engages in group activities. Pt is seeing progress in her ability to manage stressors and improved self-care, but pt continues to struggle with resentment and acceptance of things out of her control. Pt's DSM-5 overall scores decreased by 45% since admission. Pt's score for depression has decreased by 25% since admission and anxiety has decreased by 36%. Status of Current Problems and Symptoms: Pt's biggest stressors continue to be her strained relationship with her son and her stepchildren. Pt is working on her resentment and how to move forward despite hurt and unfairness in her life. Pt is also working on returning to work full-time which is another stressor as pt's job was a major contributing factor to pt's mental health decompensation. Per the DSM-5, pt's symptoms for depression are still moderate. Progress Problem #1: Problem Name:: Depression, thoughts of , and negative thinking Status of Goals:: Objective 1-in progress. Pt's depression scores have decreased by 25% since admission. Pt's SI has also decreased by 50%. Pt has improved with using goal setting, getting back into hobbies, and being more vulnerable with supports. Objective 2- in progress. Pt is able to catch distorted self-talk and she is working on using self-compassion and dialectical thinking. Team Recommendations:: Team recommends continued goals and objectives to reinforce skills and reduce symptoms. Team recommends pt continue working on combating distortions, practicing self-compassion, and reaching out to healthy supports. Problem #2: Problem Name:: Mood instability and lack of support Status of Goals:: Objective 1- complete with ongoing work encouraged. Pt has been getting back into hobbies, she has a trip planned to see her oldest son, and she has been dressing up more to reflect her personality. Objective 2- not complete. Pt is working on building distress tolerance by gaining insight to distorted thoughts, learning effective communication skills, and setting boundaries. Team Recommendations:: Pt is encouraged to continue working on this goal as pt can benefit from reinforcing her self-care practices as these have helped pt improve mood. Pt is also encouraged to continue building DBT skills, especially acceptance.
--- NOTE | 2025-08-23 10:10 | BH.SGPN.GN ---
Behaviors/Verbalizations/Mental Status: [] Eye contact is good. Motor activity is appropriate. Appearance is casual. Speech is Appropriate. Mood is anxious and irritable. Affect is congruent. Thoughts are linear and logical. No evidence of psychosis. Client Response/Progress/Benefit: [] Pt receptive to session AEB listening attentively to others and taking notes. Pt attentive and contributed throughout psychoeducation on the cognitive triangle and maintenance cycles. Pt engaged during group discussion reviewing the impact of daily activities and behaviors in either reinforcing unhealthy maintenance cycles and depression or assisting in reducing symptoms (?down? vs ?up? activities). Pt participated during interactive discussion in which the group identified their own common up activities (walking, listening to music, car rides, being outside, movement, creative projects, organizing, showering, etc) and down activities (isolating, substance use, sleeping to escapade, and engaging in compulsions). Appeared to benefit from increased awareness of current behaviors and impact these have on mental health. Will continue IOP to maintain safety, increase healthy coping, and improve functioning to return to work. Narrative Note: []
--- NOTE | 2025-08-23 11:10 | BH.SGPN.GN ---
Behaviors/Verbalizations/Mental Status: []Pt alert and oriented, casually dressed and groomed. Eye contact fair. Motor activity appropriate. Speech within normal limits. Affect congruent, mood euthymic. Thoughts linear, logical, no signs of hallucinations or delusions. Client Response/Progress/Benefit: [] Pt responded well to session, attentive and engaged in group discussions and activity. Actively engaged in continued discussion about up activities and down activities. Active participant as group discussed values and the benefits that knowing one's values can have on one's mental health. Client completed provided worksheet in which they identified most important personal values and wrote down one opposite action activity can engage in to be more congruent with his value. Benefited from increased awareness of their up activities and how incorporating their values into behavioral activation goals can positively impact mental health. Will continue in IOP to promote healthy coping skills, challenge distortions, and prevent decompensation.
--- NOTE | 2025-08-23 13:55 | BH.MDN_ITS ---
Multi-Disciplinary Note Note 45-min Individual: Time Started:: 12:11 Date: 08/23/25 Purpose of session/treatment goals addressed:: To work on DBT skills of acceptance and distress tolerance. Eye Contact:: Good Motor Activity:: Appropriate Appearance:: Neat Speech:: Appropriate Mood:: Euthymic and Anxious Affect:: Full Thoughts:: Linear, Logical and No evidence of hallucinations/delusions noted Staff Interventions:: thought challenging, CBT techniques, strengths perspective, taught coping skills (acceptance skills and boundaries) and other (reviewed homework on attachment and resentment) Client Response:: Pt responded well to session, open to meeting with therapist. Pt reports she has been doing better and she and her have even went out and done things together. Pt has still not spoken to her one son which was part of pt's goal to maintain boundaries. Pt noted that this has been very challenging, but pt wants to have a different relationship with him, so she sees the reason to continue with the boundary. Pt completed her homework from last session which was to read about attachment styles and to complete a resentment handout. Pt stated the homework helped pt gain insight that I the same man twice and pt identifies with a fearful-avoidant attachment style. Pt shared her has an avoidant attachment, so pt can see why their responses to stressors and feedback can clash. Discussed what pt can do with t his knowledge and pt recognizes that she can focus on healing her attachment wounds by communicating more directly and continuing to be vulnerable with the right people. Pt also completed her resentment handout and pt shared I have so much resentment in my life that I need to move on from. Pt stated I feel angry at myself for feeling this way and I'm angry at my family. Pt appeared to benefit from normalizing why resentment forms and what keeps resentment going. Discussed ways to cope with/let go of resentment which included acceptance, forgiveness, and indifference. Pt's homework is to further explore these coping options and to think about what these options could look like. Risks/Concerns:: Pt denies any suicidal ideation, plan, or intent. Pt denies any thoughts of . Progress Toward Goals/Plan:: Pt is responding well to IOP tx AEB pt's DSM- 5 overall symptom reduction being 45% from admission. Pt is reporting a 25% reduction in depression and a 36% reduction in anxiety since admission. Pt is getting ready to transition back to work starting on a shortened schedule and this is both positive but also stressful for pt. Pt's biggest stressors impacting her mental health continue to be her interpersonal relationships that have led to resentment. Pt will continue IOP tx to promote mood stability, improve distress tolerance skills, and help pt transition back to full-time work. Time Stopped:: 13:00
--- NOTE | 2025-08-25 09:00 | BH.SGPN.GN ---
Behaviors/Verbalizations/Mental Status: [] Eye contact is good. Motor activity is appropriate. Appearance is casual. Speech is Appropriate. Mood is euthymic. Affect is full. Thoughts are linear and logical. No evidence of psychosis. Reviewed daily check in sheet and no reports of suicidal ideations or intent. Client Response/Progress/Benefit: [] Pt was an active participant in group discussions. Attentive. Daily symptom tracker notes 4/5 for anxiety and 2/5 for depression. Able to identify mental health wins and healthy habits. Improved engagement noted. Overall reports mood and functioning are better this week. She is working on returning to work on a reduced schedule. Stressors is adjusting to medications. Progress noted. Benefited from group support, encouragement, and feedback. Will continue in IOP to prevent decompensation, increase healthy coping,and improve functioning to return to work. Narrative Note: []
--- NOTE | 2025-08-25 10:10 | BH.SGPN.GN ---
Behaviors/Verbalizations/Mental Status: [] Client alert and oriented, casually dressed and groomed. Eye contact good. Motor activity appropriate. Speech within normal limits. Affect congruent, mood euthymic Thoughts linear, logical, no signs of hallucinations or delusions. Client Response/Progress/Benefit: [] Client responded well to session, attentive during psychoeducation on SMART goals (Specific, Measurable, Achievable, Realistic, and Time-bound) and engaged in group experiential activity. Participated in an interactive discussion with peers in which they worked together to define what a goal is and the benefits of having goals. Group identified benefits as; helps MH, improves motivation, improves confidence, and personal growth. Participated in interactive discussion in which group identified barriers to setting goals and following through with goals. Group barriers included health, lack of supports, making excuses, and avoidance. Benefited from increased awareness of benefits and strategies for goal-setting. Will continue in IOP tx to improve mood stability, reduce negative thinking patterns, and improve daily functioning. Narrative Note: []
--- NOTE | 2025-08-25 11:10 | BH.SGPN.GN ---
Behaviors/Verbalizations/Mental Status: [] Client alert and oriented, casually dressed, appropriately groomed. Eye contact good. Motor activity appropriate. Speech within normal limits. Affect congruent, mood euthymic. Thoughts linear, logical, no signs of hallucinations or delusions. Client Response/Progress/Benefit: [] Client was engaged during discussion and willing to complete the worksheet challenging them to develop a personal SMART goal. Client chose the goal of writing in journal every week. Client stated this will benefit them by tracking triggers and wins. Client identified barriers which included mental health and forgetting. Identified for forgetting they will put reminders in their phone. Client receptive to identifying solutions for these barriers and willing to begin working on this goal. Benefited from this group by developing a short-term SMART goal related to mental health. Will continue IOP tx to increase healthy coping, improve daily functioning, and prevent decompensation. Narrative Note: []
--- NOTE | 2025-08-26 09:00 | BH.SGPN.GN ---
Behaviors/Verbalizations/Mental Status: [] Pt alert and oriented, Neatly dressed and groomed. Eye contact good. Motor activity appropriate. Speech within normal limits. Affect congruent, mood anxious. Thoughts linear, logical, no signs of hallucinations or delusions. Reviewed pt?s symptom tracker, 1/5 with 5 being severe for risk for suicidal ideation, indicates a 0/5 for plan, and intent to kill self. Pt does not appear to be imminent risk to harm self.08/26/25. Client Response/Progress/Benefit: []Pt was an active participant in group discussions. Attentive. Per patients daily symptom tracker, pt indicates a 2/5 for depression and a 4/5 for anxiety, with 5 being severe. Pt shared that her anxiety had been more intense this week as she is trying not to contact her son, which has been difficult. Pt states that despite the heightened anxiety, this has been a mental health positive, as she has been able to keep herself busy with chores around the house, and is planning on going back to work in a few weeks. Pt's other mental health win was coming to group today despite having some setbacks at home, such as her automatic garage door not working. Pt's primary stressor is trying to refrain from contacting her son, which she states she has been successful with 90% of the time. Pt was supportive and attentive to others in the group. Pt seemed to benefit from support from peers. Will continue IOP tx to promote healthy coping mechanisms, improve confidence, and prevent decompensation.
--- NOTE | 2025-08-26 10:15 | BH.SGPN.GN ---
Behaviors/Verbalizations/Mental Status: [] Eye contact is good. Motor activity is appropriate. Appearance is casual. Speech is Appropriate. Mood is anxious and depressed. Affect is congruent. Thoughts are linear and logical. No evidence of psychosis. Client Response/Progress/Benefit: [] Pt was engaged and participating throughout, providing input and taking notes. Attentive during psychoeducation on anxiety and cognitive triangle. Participated in an interactive discussion on defining anxiety and identifying cognitive and physiological symptoms of anxiety. The group discussed helpful vs harmful anxiety. Pt along with peers worked together to identify common physical/physiological signs of anxiety which included: butterflies in stomach, tension, increased HR, trembling, dry mouth, headaches, numbness/tingling, hot flashes, sweating, and blurry vision. Benefited from increased awareness and insight on anxiety and its impact. Will continue in IOP to prevent decompensation, stablize mood, increase healthy coping, and improve functioning to return to work. Narrative Note: []
--- NOTE | 2025-08-26 11:15 | BH.SGPN.GN ---
Behaviors/Verbalizations/Mental Status: [] Eye contact is good. Motor activity is appropriate. Appearance is appropriate. Speech is Appropriate. Mood is anxious. Affect is congruent. Thoughts are linear and logical. No evidence of psychosis. Client Response/Progress/Benefit: [] Pt was an active participant AEB pt providing input and listening attentively to peers. Attentive during psychoeducation on mindfulness coping skills, body-based coping skills, and mind-based coping skills and their impact on reducing anxiety and improving overall mental health wellness. Group was able to identify self-soothing and mind-based coping skills which included: 5-senses, meditation, deep breathing, walking/exercise, music, engaging with others, opposite-action, and affirmations. Pt verbalized skill to make effort to use this week as: thought challenging and music. Pt will continue IOP to prevent decompensation, maintain safety, increase healthy coping, and improve functioning. Narrative Note: []
--- NOTE | 2025-08-30 10:15 | BH.SGPN.GN ---
Behaviors/Verbalizations/Mental Status: []Eye contact is fair. Motor activity is appropriate. Appearance is neat. Speech is Appropriate. Mood is content. Affect is congruent. Thoughts are linear and logical. No evidence of psychosis. Client Response/Progress/Benefit: [] Pt was an active participant in group discussions. Attentive during psychoeducation on the 4 communication styles (Passive, Passive-Aggressive, Aggressive, and Assertive) and the obstacles to effective communication. Contributed during interactive discussion on the benefits of communicating effectively. Worked well with peers to identify the benefits and disadvantages to the different communication styles. Pt believes that they are primarily passive which often leads to feeling resentful. Benefited from increased understanding of communication styles and how these can impact effective communication. Will continue in IOP to reinforce healthy coping skills, reduce negative self-talk, and improve self-compassion. Narrative Note: []
--- NOTE | 2025-08-30 11:10 | BH.SGPN.GN ---
Behaviors/Verbalizations/Mental Status: []Pt alert and oriented, casually dressed and appropriately groomed. Eye contact good. Motor activity calm. Speech within normal limits. Affect congruent, mood euthymic and engaged. Thoughts linear, logical, no signs of hallucinations or delusions. Client Response/Progress/Benefit: [] Pt responded well to session AEB Pt listening attentively to others and providing input during group discussion on the pay offs and costs of the different communication styles. Pt able to connect how current communication style impacts mental health. Connected with peers? comments about the importance of using assertive communication. Pt seemed to benefit from increasing awareness of healthy strategies to improve communication. Pt stated she would like to work on\decreasing people pleasing behaviors by verbalizing her own needs occasionally. Will continue IOP tx to prevent decompensation, challenge cognitive distortions, and improve distress tolerance.
--- NOTE | 2025-08-31 10:10 | BH.SGPN.GN ---
Behaviors/Verbalizations/Mental Status: []Pt alert and oriented, casually dressed and groomed. Eye contact good. Motor activity appropriate. Speech within normal limits. Affect congruent, mood anxious. Thoughts linear, logical, no signs of hallucinations or delusions. Client Response/Progress/Benefit: []Pt responded well to session AEB pt listening attentively to others and providing input throughout group discussions. Pt worked with group to identify potential barriers to effective problem-solving. Pt attentive and engaged during psychoeducation about the different problem-solving styles (impulsive-careless, avoidant, and problem solving). Pt shared current problem-solving style they utilize is avoidance style.? Pt seemed to benefit from increased awareness of current problem-solving style and the impact this style has on their mental health. Will continue IOP tx to prevent decompensation, increase consistent use of healthy coping skills, and challenge distorted thoughts. Narrative Note: []
--- NOTE | 2025-08-31 10:35 | BH.MDN ---
Multi-Disciplinary Note Note 45-min Individual: Time Started:: 09:20 Date: 08/31/25 Purpose of session/treatment goals addressed:: To review homework and continue working on DBT skills Eye Contact:: Good Motor Activity:: Appropriate Appearance:: Neat Speech:: Appropriate Mood:: Anxious and Depressed Affect:: Constricted (holding back tears) Thoughts:: Linear, Logical and No evidence of hallucinations/delusions noted Staff Interventions:: thought challenging, motivational interviewing, CBT techniques, strengths perspective, goal setting and other (skills to improve communication in crucial conversations) Client Response:: Pt responded well to session, open to meeting with therapist. Pt reports she has been feeling more down today because over the weekend she had a realization that it's just going to be me and my . Pt noted that there is still tension between pt and her children/stepchildren so pt fears that this conflict will never resolve and she will miss out on her kids' lives. Pt reports this is hard to challenge because there is truth to it, but pt also recognizes that there are a lot of variables that can change. Pt has been working on acceptance and boundaries in many areas of her life, including with her youngest son. Pt shared that they have still not spoken to each other and pt is becoming more uneasy. Discussed having a crucial conversation with him which would allow pt to open the door to dialogue, but not cave on her boundaries. Pt stated she wants to convey that she misses him, loves him, and wants to talk to him about things. Therapist coached pt on ways to be direct and to be clear with her needs. Pt recognizes that there are a lot of things she is facing that require acceptance and that she has a choice on what type of discomfort she is able/willing to live with to help pt live the life she wants. Risks/Concerns:: Pt denies any suicidal ideation, plan, or intent. Pt denies any thoughts of . Progress Toward Goals/Plan:: Pt reports feeling more dysthymic today after having some stressors with family over the weekend. Pt reports overall she is still functioning better than she was, but pt continues to struggle with acceptance and not being able to move forward. Pt also shared she is not able to return to work next week as planned during to issues with FMLA. Pt will continue IOP tx to promote progress, reduce avoidance, and further increase distress tolerance skills. Time Stopped:: 10:05
--- NOTE | 2025-08-31 11:00 | BH.SGPN.GN ---
Behaviors/Verbalizations/Mental Status: []Client alert and oriented, casually dressed and groomed. Eye contact good. Motor activity appropriate. Speech within normal limits. Affect congruent, mood euthymic. Thoughts linear, logical, no signs of hallucinations or delusions. Client Response/Progress/Benefit: [] Pt engaged in session AEB contributing to discussion and engaging in small group. Attentive during discussion on strategies for more effectively solving problems in personal life. Pt participated in small group for activity and did well practicing problem-solving skills with the group in the moment. Pt identified a current problem they are struggling to solve as: returning to work. Reports next step in resolving this as: following-up with HR. Appeared to benefit from gaining strategies to help Pt better manage daily problems. Will continue IOP tx improve distress tolerance, challenge distortions, and prevent decompensation. Narrative Note: []
--- NOTE | 2025-09-01 09:00 | BH.SGPN.GN ---
Behaviors/Verbalizations/Mental Status: [] Eye contact is good. Motor activity is appropriate. Appearance is casual. Speech is Appropriate. Mood is anxious and irritable. Affect is congruent. Thoughts are linear and logical. No evidence of psychosis. Reviewed daily check in sheet and no reports of suicidal ideations Client Response/Progress/Benefit: [] Pt participated at times during the group discussions. Attentive. She shared with the group upcoming stressors. She asked the group for feedback on strategies for managing emotions and healthy ways to spend the upcoming holiday. Progress noted. Benefited from group support, encouragement, and feedback. Will continue in IOP to maintain safety, prevent decompensation, increase healthy coping, and improve functioning to return to work. Narrative Note: []
--- NOTE | 2025-09-01 10:10 | BH.SGPN.GN ---
Behaviors/Verbalizations/Mental Status: [] Pt alert and oriented, casually dressed and groomed. Eye contact good. Motor activity appropriate. Speech within normal limits. Mood: euthymic. Affect: congruent. Thoughts linear, logical, no signs of hallucinations or delusions. Client Response/Progress/Benefit: [] Pt participated when prompted during group discussions. Attentive during psychoeducation on self-sabotage and its impact on mental health. Attentive as peers worked to define self-sabotage and identify reasons individuals perform self-sabotage behaviors (easy route at the time, feel as those we don't deserve any better, FOF, comfortable, etc). Attentive as peers identified the forms of self-sabotage that impact their mental health. Attentive during psychoeducation on types of self-sabotage; Procrastination, perfectionism, self-medication, poor communication,and chronic cancelling. Seemed to benefit from gaining awareness about the self-sabotage. Pt to continue IOP tx to improve emotion regulation, challenge distorted thoughts, and prevent decompensation.
--- NOTE | 2025-09-01 11:05 | BH.SGPN.GN ---
Behaviors/Verbalizations/Mental Status: [] Eye contact is good. Motor activity is appropriate. Appearance is casual. Speech is Appropriate. Mood is anxious. Affect is congruent. Thoughts are linear and logical. No evidence of psychosis. Client Response/Progress/Benefit: [] Pt responded well to session, engaged and contributing. Pt discussed with group things that contribute to mental wellness life. With peers, pt discussed things that would sabotage one's mental health wellness. Pt identified things pt personally does to sabotage as comparing my life and how I handle things to others. Pt attentive during psychoeducation on ways to reduce self-sabotage and pt selected reframing and challenging negative thoughts and self-awareness?as skills that could help pt reduce self-sabotaging behaviors. Pt appeared to benefit from learning skills and gaining awareness of self-sabotaging behaviors. Pt will continue IOP tx to prevent decompensation, increase healthy coping, and improve functioning to return to work. Narrative Note: []
== END 2025-09-02 23:59 ==
LOC: BHIOP 09:08
PROVIDERS: Referring Provider Student in an Organized Health Care Education/Training Program; Visit Provider Student in an Organized Health Care Education/Training Program
DX: F31.9 Bipolar disorder, unspecified (principal)
CPT/HCPCS: S9480; 90834; 90837; 90853

== ENCOUNTER → 2025-08-10 | Outpatient (CLI) | payer OTHER, SELFPAY ==
--- NOTE | 2025-08-10 15:15 | BI_ITS ---
EXAM: SCRN MAMM (CAD)W/ROSE BILAT DATE: 08/10/2025 CLINICAL HISTORY: F, Age 49 y/o , SCREEN FOR BREAST CANCER TECHNIQUE: Procedure Code: [id number] Modality: MG Procedure: SCRN MAMM (CAD)W/ROSE BILAT COMPARISON: Prior exam(s) dated 08/22/2024, 07/24/2023, 04/18/2022. FINDINGS: TISSUE DENSITY: There are scattered areas of fibroglandular density. Bilateral Breast Mammographic Findings: No significant masses, calcifications or other abnormalities are identified. BI/SCRN MAMM (CAD)W/ROSE BILAT IMPRESSION: There is no mammographic evidence of malignancy. OVERALL FINAL ASSESSMENT BI-RADS 1: NEGATIVE. RECOMMENDATION: Routine annual follow-up in 1 Year Additional Recommendation none A letter with findings and recommendations will be mailed to the patient. Reading Location: [id number]
== END | disposition home or self-care (01) ==
LOC: OPBI 15:02
PROVIDERS: PCP Family Medicine; Referring Provider Nurse Practitioner Women's Health; Visit Provider Nurse Practitioner Women's Health
DX: Z12.31 Encounter for screening mammogram for malignant neoplasm of breast (principal)
CPT/HCPCS: 77063; 77067

== ENCOUNTER 2025-09-05 08:33 | Outpatient (RCR) | payer OTHER, SELFPAY ==
--- NOTE | 2025-09-07 09:00 | BH.SGPN.GN ---
Behaviors/Verbalizations/Mental Status: [] Pt alert and oriented, Neatly dressed and groomed. Eye contact good. Motor activity appropriate. Speech within normal limits. Affect congruent, mood anxious. Thoughts linear, logical, no signs of hallucinations or delusions. Reviewed pt?s symptom tracker today, reports 2/5 for suicidal ideation, and 0/5 for plan, and intent. Client scores are elevated due to situational stressor. Pt is future oriented. Pt does not seem to be in imminent risk of harm to self. 09/07/25. Client Response/Progress/Benefit: []Pt was an active participant in group discussions. Attentive. Per patients daily symptom tracker, pt indicates a 3/5 for depression and a 4/5 for anxiety, with 5 being severe. Pt shared her first mental health positive was going on a nice trip with her son to go whale watching, which she shared was relaxing. Her other mental health positive was unpacking her suitcase as soon as she got home, which she states she typically puts off. Pt's stressor was getting into an argument with her about boundaries they set with some of their children. Pt reports the her did not stick to his boundaries with his daughter while she was away. Pt stated that this was a large fight, and has not been resolved. Pt was supportive and attentive to others in the group. Pt seemed to benefit from support from peers. Will continue IOP tx to promote healthy coping mechanisms, reduce negative thinking patterns, and prevent decompensation.
--- NOTE | 2025-09-07 10:10 | BH.SGPN.GN ---
Behaviors/Verbalizations/Mental Status: [] Pt alert and oriented, casually dressed and groomed. Eye contact good. Motor activity appropriate. Speech within normal limits. Affect congruent, mood euthymic. Thoughts linear, logical, no signs of hallucinations or delusions. Client Response/Progress/Benefit: [] Pt was an active participant in group discussions and activity. Attentive during psychoeducation. Pt along with peers were able to identify several negatives on the picture given to the group. Pt and peers also identified positives in the picture and made the connect that finding positives is much more difficult. Interactive discussion on the definition of perspective, how perspective is formed, and why perspective is important in treatment. Pt along with peers also identified that perspective can either motivate and encourage treatment or be a barrier to receiving help. Pt shared that she felt growing up she was taught it was vain to have a positive perspective of self. Will continue in IOP to promote gains, further decrease anxiety, and increase self-confidence. Narrative Note: []
--- NOTE | 2025-09-07 11:10 | BH.SGPN.GN ---
Behaviors/Verbalizations/Mental Status: [] Pt alert and oriented, casually dressed and groomed. Eye contact good. Motor activity appropriate. Speech within normal limits. Affect congruent, mood euthymic. Thoughts linear, logical, no signs of hallucinations or delusions. Client Response/Progress/Benefit: [] Pt was attentive and contributed in small and larger group discussion. Pt completed strengths exploration worksheet and identified personal strengths to include: empathetic. Pt shared that working to recognize these personal strengths more consistently will help improve pt?s mood and increase self-worth. Shared wanting to focus on fostering personal strengths by practicing daily affirmations. Pt to continue IOP tx to promote use of healthy coping skills, increase self-confidence, and reduce negative thinking patterns. Narrative Note: []
--- NOTE | 2025-09-08 10:00 | BH.SGPN.GN ---
Behaviors/Verbalizations/Mental Status: [] Eye contact is good. Motor activity is appropriate. Appearance is casual. Speech is Appropriate. Mood is depressed and irritable. Affect is congruent. Thoughts are linear and logical. No evidence of psychosis. Client Response/Progress/Benefit: [] Pt was attentive during group AEB client listening attentively to peers. Limited participation in group discussions. Attentive as group worked on defining?self-confidence?and identifying benefits of?self-confidence which included; increased self-esteem, improved relationships, increased resilience, better adaptive coping, stronger boundaries, helps us try new tasks, decreased depression, more hopeful, and more creative. Also attentive during interactive discussion on factors that impact one's self confidence such as trauma, upbringing, economic status, and current/past relationships. Benefited from increased education on?self-confidence?and what effects it. Pt will continue IOP to prevent decompensation, increase healthy coping, and improve functioning to return to work . Narrative Note: []
--- NOTE | 2025-09-08 11:10 | BH.SGPN.GN ---
Behaviors/Verbalizations/Mental Status: [] Client alert and oriented, casually dressed and groomed. Eye contact good. Motor activity appropriate. Speech within normal limits. Affect congruent, mood anxious and depressed. Thoughts linear, logical, no signs of hallucinations or delusions. Client Response/Progress/Benefit: [] Pt engaged in session AEB client listening attentively to peers and providing input. Attentive and contributed to discussion as group worked on identifying thought patterns and behaviors that negatively effect self-confidence. Pt identified behaviors that effect their confidence as: poor hygiene and reassurance seeking. Engaged in confidence building activity and worked with the group to identify strategies for improving self-confidence. Pt identified plans to begin small daily affirmations. Benefited from increased education on self-confidence building skills. Pt will continue IOP tx to increase self-confidence, improve emotional regulation skills, and prevent decompensation. Narrative Note: []
--- NOTE | 2025-09-08 13:32 | BH.MDN_ITS ---
Multi-Disciplinary Note Note 60-min Individual: Time Started:: 09:10 Date: 09/08/25 Purpose of session/treatment goals addressed:: To work on goal #1 of pt's tx plan and to challenge negative thinking patterns. Eye Contact:: Good Motor Activity:: Appropriate Appearance:: Casual Speech:: Rambling Mood:: Depressed and Other (angry) Affect:: Congruent (tearful at the beginning of session and then smiling ) Thoughts:: Racing, Circular and No evidence of hallucinations/delusions noted Staff Interventions:: thought challenging, mindfulness skills, strengths perspective, completed risk assessment / safety planning and goal setting Client Response:: Pt responded well to session, open to meeting with therapist. Pt tearful as soon as she entered the office and stated she is so sad this morning and almost did not come today. Pt noted that she had a great trip visiting her son in [place], but when she came back she realized her had gone back on a boundary they set with their daughter. Pt shared feeling hurt, angry, depressed, and hopeless. Pt noted that she feels like her continues to put other people's needs in front of pt's and this continues to reinforce pt's core belief that she is not worthy. Pt stated she feels frustrated that her is enabling and pt feels that the only person who gets consequences is me. Pt also shared the talk with her youngest son did not go well either and he plans to continue to give me ultimatums. Pt responded well to emotional support and gentle thought challenging by therapist. Pt noted that although she feels low now, she does recognize that she has made progress. Pt receptive to setting boundaries with her , specifically on how they communicate to each other during conflict and pt encouraged to utilize calming skills herself. Pt also plans to watch videos of people playing the tuba as this improves her mood. Risks/Concerns:: Pt reports having passive suicidal ideations this morning due to conflict with her . Pt denies any active SI, plan, or intent to this therapist. Completed a CSSR-S since last visit. Pt reports ability to maintain safety and pt is future oriented. Progress Toward Goals/Plan:: Pt endorses worsening depression and passive SI today triggered by recent argument and issues with boundaries with her . Pt able to challenge her perspective near the end of session, but admitted to feeling hopeless, frustrated, and angry with constant struggling. Pt will continue IOP tx to prevent further decompensation due to this recent trigger and to help pt build resilience. Time Stopped:: 10:10
--- NOTE | 2025-09-09 09:00 | BH.SGPN.GN ---
Behaviors/Verbalizations/Mental Status: [] Eye contact is good. Motor activity is appropriate. Appearance is casual. Speech is Appropriate. Mood is depressed and irritable. Affect is congurent. Thoughts are linear and logical. No evidence of psychosis. Reviewed daily check in sheet and no reports of suicidal ideations or intent. Client Response/Progress/Benefit: [] Pt participated at times during the group discussions. Attentive. Daily symptom tracker notes 02/05 for depression and 5 for anxiety. Tearful during her check in. ?Terrible week?. ? I?ve been crying a lot?. Shared conflict with support and feeling betrayed. Uncertain about how to address current issues. Sense of uncertainty which is impacting functioning. Proud of herself for ?using skills? yesterday to ? get through? emotional distress. Decompensation related to external stressor. Benefited from group support, encouragement, and feedback. Will continue in IOP to maintain safety, prevent decompensation, and improve functioning to return to work Narrative Note: []
--- NOTE | 2025-09-09 10:10 | BH.SGPN.GN ---
Behaviors/Verbalizations/Mental Status: [] Motor activity is appropriate. Appearance is casual. Speech is Appropriate. Mood is anxious. Affect is full. Thoughts are linear and logical. No evidence of psychosis. Client Response/Progress/Benefit: [] Pt was an engaged participant AEB listening attentively to others, taking notes, and providing feedback in small group discussions. Attentive during psychoeducation AEB by note taking and providing some input. Pt worked along with peers in small groups to define inappropriate guilt and appropriate guilt. Interactive discussion on examples of both inappropriate and appropriate guilt. Pt able to connect impact inappropriate guilt can have on MH. Benefited from increased awareness of guilt and the differences between appropriate and inappropriate guilt. Pt to continue IOP tx to prevent decompensation, gain healthy coping skills, and increase emotional regulation skills. Narrative Note: []
--- NOTE | 2025-09-09 11:10 | BH.SGPN.GN ---
Behaviors/Verbalizations/Mental Status: [] Pt alert and oriented, casually dressed and groomed. Eye contact good. Motor activity appropriate. Speech within normal limits. Affect congruent, mood euthymic. Thoughts linear, logical, no signs of hallucinations or delusions. Client Response/Progress/Benefit: [] Pt was an engaged participant AEB listening attentively to others and providing input throughout group. Pt worked within their small group to identify strategies to manage inappropriate guilt. Identified a personal example of inappropriate guilt as ?beating self up over inappropriate interactions with others.? Pt wants to work on combatting inappropriate guilt by ?having crucial conversations to correct the situation.? Pt seemed to benefit from learning about strategies to manage appropriate and inappropriate guilt. Pt to continue IOP tx to prevent decompensation, gain healthy coping skills, and increase self-confidence. Narrative Note: []
--- NOTE | 2025-09-12 09:00 | BH.SGPN.GN ---
Behaviors/Verbalizations/Mental Status: [] Pt alert and oriented, Casually dressed and groomed. Eye contact good. Motor activity appropriate. Speech within normal limits. Affect congruent, mood anxious. Thoughts linear, logical, no signs of hallucinations or delusions. Reviewed pt?s symptom tracker today, denies suicidal ideation, plan, and intent.09/12/25 Client Response/Progress/Benefit: []Pt was an active participant in group discussions. Attentive. Per patients daily symptom tracker, pt indicates a 4/5 for depression and a 2/5 for anxiety, with 5 being severe. Pt shared her first mental health positive as getting a visit from her step-son Barron. Her other mental health positive was going back to work in the morning before group. Pt's stressor was figuring out whether or not to address that she had been off from work due to mental health issues with her co-workers. She stated that she did not want to share, but felt that her coworkers may be judging her or walking on egg shells around her. Pt was supportive and attentive to others in the group. Pt seemed to benefit from support from peers. Will continue IOP tx to promote healthy coping mechanisms, improve confidence, and prevent decompensation.
--- NOTE | 2025-09-12 10:10 | BH.SGPN.GN ---
Behaviors/Verbalizations/Mental Status: []Pt alert and oriented, casually dressed and groomed. Eye contact good. Motor activity appropriate. Speech within normal limits. Affect congruent, mood content. Thoughts linear, logical, no signs of hallucinations or delusions. Client Response/Progress/Benefit: []Pt participated during small group discussions. Attentive during psychoeducation about defense mechanisms. Showed engagement during small group discussions and helped group identify which defense mechanisms were maladaptive, adaptive, or ?somewhere in the mack.? Pt worked with small group on identifying how each defense mechanism can impact mental health and gave examples. Pt stated she learned that not all defense mechanisms are bad.?Pt reported benefit from normalizing why people use maladaptive defense mechanisms. Seemed to benefit from gaining awareness about the different defense mechanisms. Pt to continue IOP tx to prevent decompensation, improve daily functioning, and gain healthy coping skills. Narrative Note: []
--- NOTE | 2025-09-12 11:10 | BH.SGPN.GN ---
Behaviors/Verbalizations/Mental Status: []Pt alert and oriented, neatly dressed and groomed. Eye contact good. Motor activity appropriate. Speech within normal limits. Affect congruent, mood content. Thoughts linear, logical, no signs of hallucinations or delusions. Client Response/Progress/Benefit: [] Pt responded well to session, participating in activity and small group discussion. Group reviewed the rest of the defense mechanisms and discussed how these are adaptive, maladaptive, or somewhere in the mack. Pt's defense mechanisms included rationalization, anticipation, suppression, self-discipline, and intellectualization. Shared that she gained awareness of the positives of her anticipation. Pt listened to blood bank laboratory technologist teach different skills to help pt?s cope with or change their defense mechanisms. Pt appeared to benefit from gaining insight to the different defense mechanisms and learning coping skills. Pt will continue IOP tx to promote mood stability, improve self-confidence in returning to work, and reinforce healthy coping skills. Narrative Note: []
--- NOTE | 2025-09-15 10:15 | BH.SGPN.GN ---
Behaviors/Verbalizations/Mental Status: []Pt alert and oriented, neatly dressed and groomed. Eye contact good. Motor activity appropriate. Speech within normal limits. Affect constricted, mood depressed. Thoughts linear, logical, no signs of hallucinations or delusions. Client Response/Progress/Benefit: [] Pt responded well to session, contributing to discussion and engaged during the activity. Group identified the benefits of change which included: increased confidence, progressing towards goals, and improving mental and physical health. Worked with the group to identify barriers to change, which included: uncomfortable emotions such as anxiety, lack of energy, lack of support, and fear of the unknown. Pt participated along with group in activity where they identified and discussed the emotions related to change. Benefited from increased awareness and understanding of emotions, benefits, and barriers related to change. Will continue IOP tx to prevent further decompensation, improve distress tolerance skills, and increase social support. ? Narrative Note: []
--- NOTE | 2025-09-15 10:21 | BH.MDN_ITS ---
Multi-Disciplinary Note Note 60-min Individual: Time Started:: 09:00 Date: 09/15/25 Purpose of session/treatment goals addressed:: Risk and safety concern. Lethal means counseling. Eye Contact:: Fair Motor Activity:: Appropriate Appearance:: Neat Speech:: Appropriate Mood:: Anxious and Depressed Affect:: Congruent (tearful) Thoughts:: Linear, Logical and No evidence of hallucinations/delusions noted Staff Interventions:: thought challenging, motivational interviewing, completed risk assessment / safety planning (see CSSR-S note for additional details) and other (called in session and he has agreed to remove the guns from the home and take them to his mother's ) Client Response:: Pt and therapist met this morning to address a recent situation that had occurred at pt's workplace. [facility] staff was informed that pt had expressed to her boss that pt was suicidal last week and had planned to shoot herself, but did not because of her dog. Pt reported she did say this to her boss and pt feels like nothing is going well still, work and home are both terrible. Pt shared this happened last week after an argument with her that got heated. Pt and her have a history of heated arguments and pt stated they were fighting about boundaries around their children. Pt admits that she has not been honest with her reports while at [facility] as pt has been denying any SI, plan, or intent to this therapist/staff. Discussed safety concerns and did lethal means counseling. Pt expressed feeling anxious and upset, but understands the need to make her home environment safe. Therapist explored supports in pt's life that could help with safety planning, but pt was only able to identify her . No other friends, relatives, or supports to remove guns per pt's report. Therapist called pt's and explained the situation as well as the need for safety planning. Pt was with therapist during this time. Pt's was upset at first, but agreeable to remove the guns from the home and he plans to take the guns to his mother. Pt denies that she is actively suicidal today and reports ability to maintain safety. Pt is aware that she could benefit from extending IOP tx. Risks/Concerns:: Pt denies any active SI, plan, or intent this morning. However, pt expressed that last week she had active SI and planned to shoot herself with one of the guns in her home. Pt shared she did not follow through with this because of her dog. Due to this, therapist safety planned with pt and got her involved to make the environment safe at home. See CSSR-S note. Progress Toward Goals/Plan:: Pt is currently presenting with a regression of depressive symptoms. Pt admitted to this therapist that she has not been honest about the intensity of her depression as well as being dishonest about weapons in the home due to fear of being admitted to a psychiatric hospital. Pt and therapist planned for safety today which included calling her and removing weapons from the home. Pt was scheduled to discharge from [facility] tx next week, but pt was encouraged to extend her tx due to decompensation. Pt's outpatient therapist has been informed of pt's decompensation as well as [facility] psychiatrist and staff. Risk will continue to be assessed while pt's symptoms are worsened. Time Stopped:: 10:10
--- NOTE | 2025-09-15 11:10 | BH.SGPN.GN ---
Behaviors/Verbalizations/Mental Status: []Client alert and oriented, casually dressed and groomed. Eye contact fair. Motor activity appropriate. Speech within normal limits. Affect congruent, mood dysthymic. Thoughts linear, logical, no signs of hallucinations or delusions Client Response/Progress/Benefit: [] Pt responded well to session, attentive. Engaged in psychoeducation and discussion about finishing the stages of change. Did well to process activity and work with group to relate the strategies used to overcome barriers in the activity to managing change in own life. Pt identified a change they would like to make is be more honest. Pt identified currently being in contemplation stage for this change. Pt stated goal is to continue to just show up. Appeared to benefit from identifying a small goal to work towards. Pt will continue IOP tx to prevent decompensation, increase honesty in therapy, and improve distress tolerance.
--- NOTE | 2025-09-15 12:27 | BH.COMM ---
Communication Note Communication with Client Communication Note: Spoke with pt's outpatient therapist, Huma Obando, regarding pt's SI and plan of care. Discussed pt's safety plan which included guns being removed from pt's home as pt had suicidal ideation with plan to shoot herself last week. Pt has denied active SI, plan, or intent to this therapist this morning. Therapist also informed Huma of IOP staff recommendations which was to extend pt's IOP tx for 2-3 more weeks due to decompensation. Huma is scheduled to meet with pt next week and reports plan to discuss this with pt as well.
--- NOTE | 2025-09-16 09:00 | BH.COMM ---
Communication Note Communication with Client Communication Note: Pt called in this AM and cancelled for IOP today. She denied any mental health distress stating I'm fine. She also reports that she and her followed through with lethal means reduction from yesterday. Risk assessment was completed yesterday. No indication of distress today or significant status change. Will attempt to reach out later this afternoon.
--- NOTE | 2025-09-19 09:00 | BH.COMM_ITS ---
Communication Note Communication with Client Communication Note: Pt left a VM which was dated Friday09/18/25. She wishes to discharge from [facility] early. She did not give a specific reason on the message. She has counseling session with her outpatient therapist Huma Obando on 09/20/25 who is aware of recent suicidal ideations, risk assessment, and removal of guns from her home. She is also linked with Marika Kaur at [place] [id number] for medication management. She will be discharged from [facility] today. Her program therapist is not in the office this week. She will complete discharge summary upon her return as she is most familiar with the case.
--- NOTE | 2025-09-19 15:25 | BH.DS ---
Discharge Summary Demographics Date of Admission:: 07/27/25 Discharge Date: 09/19/25 Presenting Problems at Admission:: Pt is a 49-year-old female with a history of bipolar disorder who was referred to [facility] tx due to worsening depressive symptoms over the past several months. Pt shared work and home life have been significant stressors impacting pt's overall mood and functioning. At admission, pt reports symptoms of depression with isolation, crying spells, lack of motivation, lack of energy, poor appetite, hopelessness, worthlessness, and anhedonia. Pt also notes inability to complete ADLs and fleeting SI over the past months. Pt's symptoms have been impacting her overall functioning and she is not benefitting from traditional therapy alone. Discharge Diagnoses:: Bipolar Disorder Unspecified F 31.9 Reason for Discharge:: Pt left a VM which was dated Friday09/18/25. She wishes to discharge from [facility] early. She did not give a specific reason on the message. Treatment Progress During Treatment & Response: Prior to unexpected discharge and decompensation that began on 09/08/25 per multidisciplinary notes, pt had been demonstrating progress in [facility] tx. Pt was reporting improvement in functioning and at tx plan review on 08/23/25 pt's DSM-5 scores had decreased by 45% since admission. Pt was an active participant and had consistent attendance. Pt reported that issues with work and home triggered the decompensation on 09/08/25 and on 09/15/25 pt reported that she had not been honest with [facility] staff about how she was doing. See multidisciplinary note. Pt was encouraged to extend her IOP tx due to the decompensation prior to pt's voluntary discharge. Issues Still to be Addressed:: Chronic suicidal ideation, primary work stress, family stress, marital stress, and lack of support. Discharge Recommendations/Instructions:: Pt has counseling session with her outpatient therapist Huma Obando on 09/20/25 who is aware of recent suicidal ideations, risk assessment, and removal of guns from her home. Pt is also linked with Felicitas Camacho at [place] [id number] for medication management and she last saw Felicitas on 09/14/25. Discharge Handout
== END 2025-09-19 08:35 | disposition home or self-care (01) ==
LOC: BHIOP 08:33
PROVIDERS: Referring Provider Student in an Organized Health Care Education/Training Program; Visit Provider Student in an Organized Health Care Education/Training Program
DX: F31.9 Bipolar disorder, unspecified (principal)
CPT/HCPCS: S9480; 90837; 90853

== ENCOUNTER → 2025-10-25 | Outpatient (CLI) | payer OTHER, SELFPAY ==
--- OUTSIDE RECORDS SUMMARY | 2025-10-25 07:21 | XMS RPT_ITS | CCD ---
Author Organization [facility] Care Team Providers Care Sponsorship Manager Name Role Phone Aleksandra Douglas Unavailable Unavailable Unavailable Dr. Aleksandra Douglas Primary Care Provider Dr. Aleksandra Douglas Referring Provider 1([facility])[phone] Vasu, Dr. Lee Attending Provider 1([facility]) -[phone] Dr. Alta Hernandez Attending Provider 1([facility] )-[phone] PEG Frankel Attending Provider 1([facility])[phone] Dr. Aleksandra Douglas Primary Care Provider 1([facility])[phone] Dr. Aleksandra Douglas Referring Provider 1([facility])[phone] Catrina SMOKING PIPE COATERAUGIE Attending Provider 1([facility] )-[phone] PEG Robledo Attending Provider 1([facility]) -0423 Dr. Aleksandra Douglas Primary Care Provider 1([facility])[phone] Dr. Aleksandra Douglas Referring Provider 1([facility])[phone] Catrina ESPINAL NP-Ford Gonzalez Attending Provider 1([facility] )-4403 PEG Robledo Attending Provider 1([facility]) -2591 Dr. Aleksandra Douglas Primary Care Provider 1([facility])[phone] Taylor Gill Attending Provider Unavailable Dr. Aleksandra Douglas Referring Provider 1([facility])[phone] Shahbaz Ortiz Attending Provider 1([facility])- 6717 Dr. Aleksandra Douglas Primary Care Provider 1([facility])[phone] Taylor Gill Attending Provider Unavailable Dr. Aleksandra Douglas Referring Provider 1([facility])[phone] Shahbaz Ortiz Attending Provider Dr. Jesus Leone Attending Provider [phone] Dr. Jesus Leone Other Provider [phone] Aleksandra Douglas Primary Care Provider [phone] Dr. Frankie Zuniga Other Provider Dr. Mitesh Dudley Attending Provider Rosmery, Dr. Lake Primary Care Provider Dr. Mitesh Dudley Attending Provider [phone] Rosmery, Dr. Lake Primary Care Provider Dr. Aleksandra Douglas Referring Provider PEG Alfaro Attending Provider Dr. Aleksandra Douglas Primary Care Provider Dr. Aleksandra Douglas Referring Provider Dr. Alta Hernandez Attending Provider Aleksandra Douglas MD Primary Care Provider Jesus Leone DO Unavailable [phone] ROSMERY, ALEKSANDRA Merrill Attending Unavailable ROSMERY, ALEKSANDRA L Primary Care Unavailable RONNELL VARELA Attending Unavailable ROSMERY, ALEKSANDRA L Referring Unavailable ROSMERY, ALEKSANDRA L Primary Care Unavailable RONNELL VARELA Admitting Unavailable RONNELL VARELA Attending Unavailable ROSMERY, ALEKSANDRA L Primary Care Unavailable RONNELL VARELA Attending Unavailable ROSMERY, ALEKSANDRA L Primary Care Unavailable Dr. Aleksandra Douglas MD Primary Care Provider Felicitas King Attending Provider Felicitas King Referring Provider Dr. Ronnell Fisher MD Other Provider Dr. Aleksandra Douglas MD Primary Care Provider [phone] Felicitas King Attending Provider Felicitas King Referring Provider MYRON RODRIGUEZ Attending Provider MYRON RODRIGUEZ Referring Provider Assessment, Health Risk Attending Provider Unava ilmelania Assessment, Health Risk Referring Provider Unava ludwig Douglas MD, Dr. Lake Referring Provider Catrina SMOKING PIPE COATERSeanCLisa Attending Provider [phone] ANGEL CASANOVA Attending Unavailable ANGEL CASANOVA Referring Unavailable Rosmery, Aleksandra Primary Care Unavailable Seese, Edd L Attending Unavailable Seese, Edd L Referring Unavailable Assessment, Health Risk Attending Unavaila ble Assessment, Health Risk Referring Unavaila ble Rosmery, Aleksandra Primary Care Unavailable Seese, Edd L Attending Unavailable Seese, Edd L Referring Unavailable Seese, Edd L Attending Unavailable Seese, Edd L Referring Unavailable Felicitas King Attending Unavailable Felicitas King Referring Unavailable Rosmery, Aleksandra Primary Care Unavailable Seese, Edd L Attending Unavailable Seese, Edd L Referring Unavailable Seese, Edd L Consulting Unavailable Seese, Edd L Attending Unavailable Seese, Edd L Referring Unavailable Seese, Edd L Consulting Unavailable Catrina SMOKING PIPE COATERLisa Attending Unavailable Rosmery, Aleksandra Referring Unavailable Catrina SMOKING PIPE COATERLisa Attending Unavailable Lisa Fritz NP Referring Unavailable Rosmery, Aleksandra Primary Care Unavailable ANGEL CASANOVA Attending Unavailable Rosmery, Aleksandra Primary Care Unavailable Felicitas King Attending Unavailable Felicitas King Referring Unavailable Rosmery, Aleksandra Primary Care Unavailable Ronnell Fisher Consulting Unavailable Felicitas King Attending Unavailable Felicitas King Referring Unavailable Rosmery, Aleksandra Primary Care Unavailable Allergies Allergy Classification Reported Allergen(s) Allergy Type Date of Onset Reaction(s) Facility (20 sources) OXcarbazepine; Translations: [Trileptal] Drug Allergy 2 Unknown [facility] (4 sources) Valproate; Translations: [Depakote] Drug Allergy [facility] Work Phone: (20 sources) Valproate Drug Allergy 2 Unknown [facility] (3 sources) OXcarbazepine; Translations: [OXCARBAZEPINE] Drug Allergy 3 [facility] 3 Repository (2 sources) DIVALPROEX; Translations: [DIVALPROEX] Propensity to adverse reactions to drug (disorder) 3 [facility] 3 Repository (1 source) Valproate Drug Allergy 5 [facility] Repository Medications Current Medications Medication Drug Class(es) Dates Sig (Normalized) Sig (Original) albuterol 0.83 mg/ml inhalation solution (17 sources) beta2-Adrenergic Agonist Start: 11-19-2024 2.5 mg, [...] 4 HOURS NEEDED as needed for Wheezing 1 0 October 31, 2018 1:00am January 13, 2019 [...] mouth. Active benzonatate 200 mg oral capsule (6 sources) Non-narcotic Antitussive Start: 09-29-2023 take 1 capsule by mouth three times daily as needed for cough Benzonatate 200 mg capsule Active 200 mg PO THREE TIMES A DAY as needed for cough 20 0 September 29, 2023 1:00am biotin 10 mg oral capsule (20 sources) Start: 09-19-2021 take 1 capsule by mouth once daily Biotin 10,000 mcg capsule Active 76949 ug PO DAILY September 19, 2021 1:00am Start: 10-02-2017 End: 10-29-2018 Biotin 1 MG capsule Disconti nued 1 {tbl} PO DAILY October 02, 2017 1:00am October 29, 2018 11:45am biotin 10 mg tab let Take 1 tablet (10 mg) by mouth. Active Biotin TABS Adin tity: 0 Refills: 0 Ordered: 22-Oct-2021 DO Active busPIRone hydrochloride 10 mg oral tablet (1 source) Start: 07-18-2025 take 1 tablet by mouth three times daily Buspirone 10 mg tablet Active 10 mg PO THREE TIMES A DAY July 18, 2025 12:00am calcium carbonate 1500 mg oral tablet (13 sources) Start: 06-04-2022 take 1 tablet by mouth once daily Calcium Carbonate (Calcium 600) 600 mg calcium (1,500 mg) tablet Active 600 mg PO DAILY June 04, 2022 12:00am dexamethasone 6 mg oral tablet (6 sources) Corticosteroid Start: 09-29-2023 take 1 tablet by mouth once daily Dexamethasone 6 mg tablet Active 6 mg PO DAILY 5 0 September 29, 2023 1:00am diclofenac potassium 50 [...] Start: 06-04-2022 take 1 capsule by mo ut once daily at mealtime Digestive Enzymes Active 1 CAP PO DAILY June 04, 2022 12:00am administer with food; swallow whole; do not crush/chew/dissolve/break/cut Start: 09-19-2021 take 1 capsule by mo [facility] once daily at mealtime Digestive Enzymes Active [...] Start: 09-19-2021 take 1 capsule by mo [facility] once daily at mealtime Digestive Enzymes Active 1 CAP PO DAILY September 19, 2021 1:00am administer with food; swallow whole; do not crush/chew/dissolve/break/cut Digestive Enzymes capsule (6 sources) Start: 06-04-2022 take 1 capsule by [...] esomeprazole 20 mg delayed release oral capsule (18 sources) Proton Pump Inhibitor Start: 09-19-2021 take [...] mg capsule Discontinued 20 mg PO DAILY 01 11February 05, 2021 10:47am May 11, 2021 3:13pm Start: 04-15-2019 End: 06-29-2019 take 1 capsule by mouth once daily Fluoxetine (Prozac) 20 mg capsule Discontinued 20 mg PO DAILY 01 11April 15, 2019 12:00am June 29, 2019 4:16am [...] carbonate 300 mg extended release oral tablet (17 sources) Start: 01-29-2023 lithium ER (Li thobid) 300 mg 12 hr tablet 2 tablets (600 mg) 2 times a day. 01/29/2023 Active Start: 01-29-2023 lithium ER (Li thobid) 300 mg 12 hr tablet 01/29/2023 Active Start: 06-04-2022 take 1 capsule by [facility] twice daily [place] Carbonate 300 mg capsule Active 300 mg PO TWICE A DAY June 04, 2022 12:00am magnesium oxide-Mg AA chelate (Magnesium, oxide/AA chelate,) 300 mg capsule (4 sources) magnesium oxide- Mg AA chelate (Magnesium, oxide/AA chelate,) 300 mg capsule Take by mouth. Active mecobalamin 1 mg chewable tablet (16 sources) Start: 09-19-20 take 1 tablet by [...] let Take by mouth. Active Multivitamin tablet (3 sources) Start: 09-19-2021 Multivitamin tablet Active 1 {tbl} [...] 1-6 LPM, Keep O2 Sat Above: 92% predniSONE 20 mg oral tablet (18 sources) Start: 06-22-2025 take 1 tablet by mouth once daily Prednisone 20 mg tablet Active 20 mg PO daily 30 30 June 22, 2025 12:00am Start: 10-31-2018 End: 01-13-2019 take 4 tablets by mouth once daily, then take 3 tablets by mouth once daily, then take 2 tablets by mouth once daily, then take 1 tablet by mouth once daily, then take 1 tablet by mouth every other day Prednisone 10 MG tablet Discontinued 10 mg PO DIRECTED 33 0 October 31, 2018 1:00am January 13, 2019 10:30am Take 4 tablets daily for 3 days, then 3 daily for 3 days, then 2 daily for 3 days, then 1 a day for 3 days then 1 QOD for 3 doses. Semaglutide (6 sources) Start: 07-09-2023 Semaglutide (O zempic) 0.25 mg [...] mcg tablet Take by mouth. Active Zinc (20 sources) Start: 09-19-2021 take 50 mg by [...] / HYDROcodone bitartrate 5 mg oral tablet (20 sources) Opioid Agonist Start: 06-12-2023 End: 07-15-2024 Hydrocodone-Acetamino phen 5-325 mg tablet Discontinued 1 {tbl} PO EVERY 6 HOURS as needed for pain 12 3 0 June 12, 2023 July 15, 2024 3:48pm Postoperative pain Other acute postprocedural pain Start: 06-12-2023 take 1 tablet by najma th every six hours Hydrocodone-Acetaminophen Active 1 TABLE T PO EVERY 6 HOURS 12 3 June 12, 2023 Start: 10-31-2018 End: 11-03-2018 take 1 mL by mouth three times daily as needed for pain Hydrocodone-Acetaminophen 15 ML solution Discontinued 15 mL PO 3 TIMES DAILY NEEDED as needed for Pain 150 3 0 October 31, 2018 4:01pm November 02, 2018 1:00am November 03, 2018 1:10am Bronchitis Bronchitis, not specified as acute or chronic Start: 10-31-2018 End: 11-03-2018 take 1 mL [...] PO Q4H as needed for pain 20 7 0 March 20, 2021 April 04, 2021 1:14pm Status post vaginal hysterectomy Acquired absence of both cervix and uterus Start: 09-28-2019 End: 10-07-2019 Oxycodone-Acetaminophen 1 TA BLET tablet Discontinued 1 - 2 {tbl} PO EVERY 6 HOURS NEEDED as needed for Pain 15 7 0 September 28, 2019 October 04, 2019 1:00am October 07, 2019 4:22pm Other acute postprocedural pain Start: 09-28-2019 End: 10-07-2019 take 1 tablet by mouth every six hours as needed Oxycodone-Acetaminophen Discontinued 1 - 2 TABLET PO EVERY 6 HOURS NEEDED 15 7 September 28, 2019 October 07, 2019 4:22pm Adrenal Capsule (16 sources) Start: 10-02-2017 End: 07-21-2018 take 1 [...] Discontinued 1 {tbl} PO TWICE A DAY 30 15 2 June 28, 2021 12:00am September 19, 2021 4:41pm Start: 06-26-2021 End: 07-05-2021 take 1 tablet by mouth every twelve hours Amoxicillin-Pot Clavulanate 875 MG tablet Discontinued 875 mg PO Q12H 8 0 June 26, 2021 12:00am July 05, 2021 11:18am ascorbic acid 125 mg / collagen, hydrolyzed 740 mg oral capsule (16 sources) Vitamin C Start: 09-19-2021 End: 06-04-2022 [...] 2017 4:09pm azithromycin 40 mg/ml oral suspension (16 sources) Macrolide Antimicrobial Start: 10-31-2018 End: 01-13-2019 take 250 mg by mouth once daily Azithromycin 200 MG/5 ML suspension for reconstitution Discontinued 250 mg PO DAILY 30 0 October 31, 2018 1:00am January 13, 2019 10:30am for 4 days 24 hr buPROPion hydrochloride 300 mg extended release oral tablet (20 sources) Aminoketone Start: 10-02-2017 End: 08-26-2018 take 1 tablet by mouth once daily Bupropion Hcl 300 MG tablet extended release 24 hr Discontinued 300 mg PO DAILY 90 3 December 01, 2017 12:28pm August 26, 2018 6:25am Calcium Citrate-Vit D3 Tablet (16 sources) Start: 10-02-2017 End: 10-29-2018 take 1 [...] 2018 11:45am cholecalciferol 0.05 mg oral capsule (18 sources) Vitamin D Start: 09-19-2021 End: 08-09-2024 take 1 capsule by mouth once daily Cholecalciferol (Vitamin D3) 50 mcg (2,000 unit) capsule Discontinued 50 ug PO DAILY September 19, 2021 1:00am October 17, 2022 9:57am clopidogrel 75 mg oral tablet (16 sources) P2Y12 Platelet Inhibitor Start: 10-02-2017 End: 11-17-2017 take 1 tablet by mouth once daily Clopidogrel 75 MG tablet Discontinued 75 mg PO DAILY October 02, 2017 1:00am November 17, 2017 4:10pm Coconut Oil (16 sources) Start: 10-02-2017 End: 07-21-2018 take 1 [...] mg tablet Discontinued 1 {tbl} PO daily 30 10November 17, 2018 1:00am October 07, 2019 4:22pm [...] BEDTIME as needed for anxiety 2 1 0 December 12, 2022 1:00am December 12, 2022 1:00am December 13, 2022 1:05am Start: 12-04-2021 End: 12-25-2021 Diazepam (Valium) 5 mg table t Discontinued 5 mg PO ONCE as needed for sedation 2 0 December 04, 2021 1:00am December 25, 2021 [...] mg-mcg tablet Discontinued 1 {tbl} PO daily 30 10December 05, 2017 1:00am July 21, 2018 3:24pm [...] 3:24pm ferrous sulfate 325 mg oral tablet (19 sources) Start: 06-04-2022 End: 08-09-2024 take 1 [...] tablet Discontinued 150 mg PO DAILY 7 7 July 13, 2021 12:00am September 19, 2021 4:41pm Start: 03-30-2018 End: 07-21-2018 take 1 tablet by mouth once Fluconazole (Diflucan) 150 mg tablet Discontinued 150 mg PO ONCE 1 0 March 30, 2018 12:00am July 21, 2018 [...] 2018 3:24pm Lactobac Acidoph-Fructooligos 1 EACH tablet (3 sources) Start: 10-02-2017 End: 07-21-2018 Lactobac Acidoph-Fructooligos 1 EACH tablet Discontinued 1 NMA PO DAILY October 02, 2017 1:00am July 21, 2018 3:24pm Magnesium (17 sources) Start: 06-04-2022 End: 07-15-2024 take 1 [...] tablets,dose pack Discontinued 4 mg PO DAILY 6 6 0 December 12, 2022 1:00am December 17, 2022 1:00am December 18, 2022 1:05am Start: 10-24-2021 End: 12-25-2021 take 1 tablet by mouth once daily Methylprednisolone (Medrol (Miguel)) 4 mg tablets,dose pack Discontinued 4 mg PO DAILY 21 0 October 24, 2021 1:00am December 25, 2021 12:07pm take as directed Start: 05-11-2021 End: 05-11-2021 Depo-Medrol (methylprednisol one acetate) 40 mg/mL suspension for injection Discontinued 40 MG INTRAARTIC ONCE 1 May 11, 2021 2:56pm May 11, 2021 4:10pm metroNIDAZOLE 500 mg oral tablet (16 sources) Nitroimidazole Antimicrobial Start: 03-30-2018 End: 04-06-2018 take 1 tablet by mouth twice daily Metronidazole (Flagyl) 500 mg tablet Discontinued 500 mg PO TWICE A DAY 14 7 0 March 30, 2018 12:00am April 05, 2018 12:00am April 06, 2018 12:06am Multivitamin Tablet (3 sources) Start: 03-13-2021 End: 05-11-2021 Multivitamin Tablet Discontinued [...] Multivitamin With Folic Acid 1 TABLET tablet (3 sources) Start: 10-02-2017 End: 10-29-2018 take 1 [...] HOURS NEEDED as needed for MILD PAIN 02 12March 20, 2021 12:00am April 30, 2021 1:47pm Start: 09-28-2019 End: 10-07-2019 take 250-500 mg by mouth every eight hours as needed for pain Naproxen 250 MG tablet Discontinued 250 - 500 mg PO EVERY 8 HOURS NEEDED as needed for MILD PAIN 02 12September 28, 2019 1:00am October 07, 2019 4:22pm omeprazole 20 mg delayed release oral capsule (16 sources) Proton Pump Inhibitor Start: 07-21-2018 End: [...] minutes. phentermine hydrochloride 37.5 mg oral tablet (16 sources) Sympathomimetic Amine Anorectic Start: 01-31-2020 End: 07-24-2020 take 1 tablet by mouth once daily Phentermine (Adipex-P) 37.5 mg tablet Discontinued 37.5 mg PO daily 30 January 31, 2020 12:00am July 24, 2020 11:01am Probiotic CAPS (4 sources) Probiotic CAPS Quantity: 0 Refills: 0 Ordered: 22-Oct-2021 DO Active progesterone 100 mg oral capsule (16 sources) Progesterone Start: 10-02-2017 End: 05-13-2018 take [...] release 24hr Discontinued 37.5 mg PO DAILY 7 April 15, 2019 12:00am June 28, 2019 4:19pm Start: 08-26-2018 End: 06-28-2019 take 1 capsule by mouth once daily Venlafaxine 75 mg capsule,extended release 24hr Discontinued 75 mg PO DAILY 30 August 26, 2018 12:00am June 28, 2019 4:19pm Vitamin D CAPS (4 sources) Vitamin D CAPS Q uantity: 0 Refills: 0 Ordered: 22-Oct-2021 DO Active Problems Active Problems Problem Classification Problem Date Documented Date Episodic/Chronic Abdominal pain (16 sources) Abdominal pain; Translations: [Unspecified abdominal pain] 11-28-2021 Episodic Chronic obstructive pulmonary disease and bronchiectasis (16 sources) Bronchitis; Translations: [Bronchitis, not specified as acute or chronic] 09-28-2019 Episodic Complications of surgical procedures or medical care (4 sources) History of subtotal thyroidectomy; Translations: [Postprocedural hypothyroidism] Onset: 5 12-02-2024 Chronic Esophageal disorders (16 sources) Gastroesophageal reflux disease; Translations: [Gastro-esophageal reflux disease without esophagitis] 11-28-2021 Chronic Immunizations and screening for infectious disease (4 sources) Immunization due; Translations: [Need for prophylactic vaccination and inoculation against unspecified single disease] Episodic Menopausal disorders (16 sources) Menopausal syndrome; Translations: [Menopausal and female climacteric states] 06-04-2022 Chronic Comment on above: discussed OCP and li festyle modifications. Denies need for intervention Menstrual disorders (16 sources) Irregular periods; Translations: [Irregular menstruation, unspecified] 04-09-2022 Chronic Comment on above: IUD, OCP in past, si de effects with OCP plan LAVHBSO Miscellaneous mental health disorders (8 sources) Bruxism (teeth grinding); Translations: [Other specified psychophysiological malfunction] Onset: 3 02-10-2023 Chronic Comment on above: seeing dentist- bryant rainey; Mood disorders (20 sources) Depressive disorder; Translations: [Depressive disorder, not elsewhere classified] Onset: 3 06-29-2019 Chronic Comment on above: restart wellbutrin, h/o palpitations with it in past. had side effects with effexor and prozac. 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 nutrition, lifetstyle management Other connective tissue disease (3 sources) Tenosynovitis of left hand; Translations: [Synovitis and tenosynovitis, unspecified] Episodic Other connective tissue disease (16 sources) Muscle weakness of upper limb; Translations: [Other symptoms and signs involving the musculoskeletal system] 11-20-2021 Episodic Other connective tissue disease (2 sources) Other specified soft tissue disorders; Translations: [Swelling of limb] Episodic Other connective tissue disease (2 sources) Pain in left arm; Translations: [Pain in limb] Episodic Other connective tissue disease (13 sources) Muscle pain; Translations: [Myalgia, other site] 07-23-2022 Episodic Other connective tissue disease (2 sources) Myalgia, other site; Translations: [Myalgia and myositis, unspecified] Episodic Other female genital disorders (16 sources) Premenstrual tension syndrome; Translations: [Premenstrual tension syndrome] 06-29-2019 Chronic Comment on above: IUD and add apri. ma y need celexa instead of wellbutrin. Other gastrointestinal disorders (16 sources) Constipation; Translations: [Constipation, unspecified] 11-28-2021 Episodic Other gastrointestinal disorders (2 sources) Constipation, unspecified; Translations: [Constipation, unspecified] Episodic Other nervous system disorders (20 sources) Carpal tunnel syndrome; Translations: [Carpal tunnel syndrome, bilateral upper limbs] 09-19-2021 Chronic Other nervous system disorders (16 sources) Pain in limb - multiple; Translations: [Paresthesia of skin] 05-11-2021 Episodic Other nervous system disorders (16 sources) Numbness of upper limb; Translations: [Anesthesia of skin] 11-01-2021 Episodic Other nervous system disorders (2 sources) Anesthesia of skin; Translations: [Disturbance of skin sensation] Episodic Other nervous system disorders (7 sources) Postoperative pain ; Translations: [Other acute [...] [Obesity, unspecified] Onset: 5 11-19-2024 Chronic Other screening for suspected conditions (not mental disorders or infectious disease) (13 sources) Patient encounter status; Translations: [Encounter for screening for malignant neoplasm of colon] Onset: 3 10-16-2022 Episodic Other skin disorders (4 sources) H/O: breast problem; Translations: [Personal history of diseases of skin and subcutaneous tissue] Episodic Comment on above: ; Other skin disorders (16 sources) Hirsutism; Translations: [Hirsutism] 06-29-2019 Episodic Comment [...] CPAP titration- Dr Man; Residual codes; unclassified (17 sources) Genetic mutation; Translations: [Genetic susceptibility to malignant neoplasm of breast] 03-20-2021 Episodic Comment on above: BSO Residual codes; unclassified (17 sources) Family history of malignant neoplasm of [...] and uterus] 03-20-2021 Episodic Residual codes; unclassified (13 sources) Family history of cancer of colon; [...] neoplasm of ovary] Episodic Residual codes; unclassified (5 sources) Reduced libido; Translations: [Decreased libido] 12-30-2023 [...] Spondylosis; intervertebral disc disorders; other back problems (15 sources) Herniation of nucleus pulposus; Translations: [Other cervical disc displacement, unspecified cervical region] 12-12-2022 Chronic Spondylosis; intervertebral disc disorders; other back problems (20 sources) Cervical radiculopathy; Translations: [Radiculopathy, cervical region] Episodic Thyroid disorders (18 sources) Thyroid nodule; Translations: [Nontoxic single thyroid [...] [Other follow-up examination] Resolved: 05-03-2019 Episodic Other aftercare (1 source) Encounter for therapeutic drug level monitoring; Translations: [Encounter for therapeutic drug level monitoring] Onset: 03-28-2025 Episodic Other connective tissue disease (11 sources) Hand pain; Translations: [Pain in limb] Onset: 02-10-2023 02-10-2023 Episodic Other lower respiratory disease (4 sources) H/O: pneumonia; Translations: [Personal history of pneumonia (recurrent)] Resolved: 04-29-2019 Episodic Other non-traumatic joint disorders (8 sources) Multiple joint pain; Translations: [Pain in joint, multiple sites] Onset: 02-10-2023 02-10-2023 Episodic Other skin disorders (1 source) Mass of neck; Translations: [Localized swelling, mass and lump, neck] 06-18-2024 Episodic Other skin disorders (2 sources) Localized swelling, mass and lump, neck; Translations: [Localized swelling, mass and lump, neck] Onset: 06-18-2024 Episodic Results Test Name Value Interpretation Reference Range Facility SCRN MAMM (CAD)W/ROSE BILATo n 08-10-2025 SCRN MAMM (CAD)W/ROSE BILAT [facility] Imaging Services [address], [place] [address] SCRN MAMM (CAD)W/ROSE BILAT MR#: [id number] Acct: [id number] Name: TEJAL MA Rep #: [id number] : 1975 F [id number] From: Eliana Hurst MD PCP: Dr. Aleksandra Douglas MD Status: [facility] CL Study: SCRN MAMM (CAD)W/ROSE BILAT Date of Exam: 06/27 Exam# [id number] Ordering Dr: Lisa Fritz NP SMOKING PIPE COATER -C EXAM: SCRN MAMM (CAD)W/ROSE BILAT DATE: 08/10/2025 CLINICAL HISTORY: F, Age 49 y/o , SCREEN FOR BREAST CANCER TECHNIQUE: Procedure Code: [id number] Modality: MG Procedure: SCRN MAMM (CAD)W/ROSE BILAT COMPARISON: Prior exam(s) dated 08/22/2024, 07/24/2023, 04/18/2022. FINDINGS: TISSUE DENSITY: There are scattered areas of fibroglandular density. Bilateral Breast Mammographic Findings: No significant masses, calcifications or other abnormalities are identified. BI/SCRN MAMM (CAD)W/ROSE BILAT IMPRESSION: There is no mammographic evidence of malignancy. OVERALL FINAL ASSESSMENT BI-RADS 1: NEGATIVE. RECOMMENDATION: Routine annual follow-up in 1 Year Additional Recommendation none A letter with findings and recommendations will be mailed to the patient. Reading Location: [id number] CC: SMOKING PIPE COATER-C Lisa Fritz; Dr. Aleksandra Douglas MD [employer] Bagger: Signed Normal [facility] CBC-Complete Blood Cnt No Di ffon 07-29-2025 Erythrocyte distribution width (RBC) [Ratio] 12.8 % Normal 11.6-14.6 [facility] Comment on above: Performed By: #### L 501.2300, L506.0400, L3300.6820, L506.1001, L501.51114, L501.9520 #### [facility] [address] [place], [address] Hematocrit (Bld) [Volume fraction] 34.1 % Low 37-47 [facility] Comment on above: Performed By: #### L 501.2300, L506.0400, L3300.6820, L506.1001, L501.87777, L501.9520 #### [facility] [address] [place], [address] Hemoglobin (Bld) [Mass/Vol] 12.2 g/dL Normal 12.0-15.0 [facility] Comment on above: Performed By: #### L 501.2300, L506.0400, L3300.6820, L506.1001, L501.89730, L501.9520 #### [facility] [address] [place], [address] MCH (RBC) [Entitic mass] 30.7 pg Normal 27.0-32.0 [facility] Comment on above: Performed By: #### L 501.2300, L506.0400, L3300.6820, L506.1001, L501.63663, L501.9520 #### [facility] [address] [place], [address] MCHC (RBC) [Mass/Vol] 35.8 g/dL Normal 32-36 [facility] Comment on above: Performed By: #### L 501.2300, L506.0400, L3300.6820, L506.1001, L501.41709, L501.9520 #### [facility] [address] [place], [address] MCV (RBC) [Entitic vol] 85.7 fL Normal 81-99 [facility] Comment on above: Performed By: #### L 501.2300, L506.0400, L3300.6820, L506.1001, L501.51597, L501.9520 #### [facility] [address] [place], [address] Platelet mean volume (Bld) [Entitic vol] 11.0 fL Normal 6.2-12.0 [facility] Comment on above: Performed By: #### L 501.2300, L506.0400, L3300.6820, L506.1001, L501.83481, L501.9520 #### [facility] [address] [place], [address] Platelets (Bld) [#/Vol] 199 10*3/uL Normal 150-450 [facility] Comment on above: Performed By: #### L 501.2300, L506.0400, L3300.6820, L506.1001, L501.46330, L501.9520 #### [facility] [address] [place], [address] RBC (Bld) [#/Vol] 3.98 10*6/uL Low 4.2-5.4 [facility] Comment on above: Performed By: #### L 501.2300, L506.0400, L3300.6820, L506.1001, L501.86553, L501.9520 #### [facility] [address] [place], [address] RDW SD 40.3 fl Normal 35.1-43.9 [facility] Comment on above: Performed By: #### L 501.2300, L506.0400, L3300.6820, L506.1001, L501.93387, L501.9520 #### [facility] [address] [place], [address] WBC (Bld) [#/Vol] 3.7 10*3/uL Low 4.4-11.0 [facility] Comment on above: Performed By: #### L 501.2300, L506.0400, L3300.6820, L506.1001, L501.19610, L501.9520 #### [facility] [address] [place], [address] Comprehensive Metabolic Prof [facility] 07-29-2025 Albumin [Mass/Vol] 4.3 g/dL Normal 3.5-5.0 [facility] Comment on above: Performed By: #### L 501.2300, L506.0400, L3300.6820, L506.1001, L501.84844, L501.9520 #### [facility] [address] [place], [address] Albumin/Globulin [Mass ratio] 2.2 {ratio} Normal 0.9-2.4 [facility] Comment on above: Performed By: #### L 501.2300, L506.0400, L3300.6820, L506.1001, L501.38895, L501.9520 #### [facility] [address] [place], [address] ALK PHOS 41 U/L Normal 35-104 [facility] Comment on above: Performed By: #### L 501.2300, L506.0400, L3300.6820, L506.1001, L501.89659, L501.9520 #### [facility] [address] [place], [address] ALT [Catalytic activity/Vol] 24 U/L Normal <=34 [facility] Comment on above: Performed By: #### L 501.2300, L506.0400, L3300.6820, L506.1001, L501.76567, L501.9520 #### [facility] [address] [place], [address] AST [Catalytic activity/Vol] 20 U/L Normal <=31 [facility] Comment on above: Performed By: #### L 501.2300, L506.0400, L3300.6820, L506.1001, L501.05997, L501.9520 #### [facility] [address] [place], [address] Bilirubin [Mass/Vol] 0.58 mg/dL Normal 0.00-1.30 [facility] Comment on above: Performed By: #### L 501.2300, L506.0400, L3300.6820, L506.1001, L501.39789, L501.9520 #### [facility] [address] [place], [address] BUN/CRE 19.0 RATIO Normal 10-20 [facility] Comment on above: Performed By: #### L 501.2300, L506.0400, L3300.6820, L506.1001, L501.39422, L501.9520 #### [facility] [address] [place], [address] Calcium [Mass/Vol] 9.0 mg/dL Normal 7.6-11.0 [facility] Comment on above: Performed By: #### L 501.2300, L506.0400, L3300.6820, L506.1001, L501.62950, L501.9520 #### [facility] [address] [place], [address] Chloride [Moles/Vol] 108 mmol/L Normal 98-108 [facility] Comment on above: Performed By: #### L 501.2300, L506.0400, L3300.6820, L506.1001, L501.58132, L501.9520 #### [facility] [address] [place], [address] CO2 [Moles/Vol] 20.1 mmol/L Low 21.0-32.0 [facility] Comment on above: Performed By: #### L 501.2300, L506.0400, L3300.6820, L506.1001, L501.56191, L501.9520 #### [facility] [address] [place], [address] Creatinine [Mass/Vol] 0.76 mg/dL Normal 0.70-1.20 [facility] Comment on above: Performed By: #### L 501.2300, L506.0400, L3300.6820, L506.1001, L501.69557, L501.9520 #### [facility] [address] [place], [address] GAP 11 Normal 5-15 [facility] Comment on above: Performed By: #### L 501.2300, L506.0400, L3300.6820, L506.1001, L501.42483, L501.9520 #### [facility] [address] [place], [address] GFR/1.73 sq M.predicted among non-blacks MDRD (S/P/Bld) [Vol rate/Area] 98 mL/min/{1.73_m2} Normal >60 [facility] Comment on above: Result Comment: mL/m in/1.73m2 CKD-EPI Creatinine Equation (2020) Performed By: #### L 501.2300, L506.0400, L3300.6820, L506.1001, L501.37708, L501.9520 #### [facility] [address] [place], [address] Globulin (S) [Mass/Vol] 2.0 g/dL Low 2.2-4.2 [facility] Comment on above: Performed By: #### L 501.2300, L506.0400, L3300.6820, L506.1001, L501.19620, L501.9520 #### [facility] [address] [place], [address] Glucose [Mass/Vol] 85 mg/dL Normal 70-99 [facility] Comment on above: Performed By: #### L 501.2300, L506.0400, L3300.6820, L506.1001, L501.60149, L501.9520 #### [facility] [address] [place], [address] Potassium [Moles/Vol] 4.1 mmol/L Normal 3.3-5.1 [facility] Comment on above: Performed By: #### L 501.2300, L506.0400, L3300.6820, L506.1001, L501.37953, L501.9520 #### [facility] [address] [place], [address] Sodium [Moles/Vol] 139 mmol/L Normal 133-145 [facility] Comment on above: Performed By: #### L 501.2300, L506.0400, L3300.6820, L506.1001, L501.05749, L501.9520 #### [facility] [address] [place], [address] T PROT 6.3 g/dL Normal 5.9-8.4 [facility] Comment on above: Performed By: #### L 501.2300, L506.0400, L3300.6820, L506.1001, L501.51705, L501.9520 #### [facility] [address] [place], [address] Urea nitrogen [Mass/Vol] 14 mg/dL Normal 4-19 [facility] Comment on above: Performed By: #### L 501.2300, L506.0400, L3300.6820, L506.1001, L501.74550, L501.9520 #### [facility] [address] [place], [address] Lithiumon 07-29-2025 LI 0.59 mmol/L Low 0.60-1.20 [facility] Comment on above: Order Comment: [id number] Performed By: #### L 501.2300, L506.0400, L3300.6820, L506.1001, L501.68374, L501.9520 #### [facility] [address] [place], [address] Urinalysis, Routine (Dipstic k)on 07-29-2025 BILIRUBIN URINE Negative Normal Negative [facility] Comment on above: Order Comment: CLEAN CATCH Performed By: #### L 501.2300, L506.0400, L3300.6820, L506.1001, L501.73077, L501.9520 #### [facility] [address] [place], [address] Clarity (U) Clear Normal Clear [facility] Comment on above: Order Comment: CLEAN CATCH Performed By: #### L 501.2300, L506.0400, L3300.6820, L506.1001, L501.51442, L501.9520 #### [facility] [address] [place], [address] Color (U) Yellow Normal Yellow [facility] Comment on above: Order Comment: CLEAN CATCH Performed By: #### L 501.2300, L506.0400, L3300.6820, L506.1001, L501.48350, L501.9520 #### [facility] [address] [place], [address] GLUCOSE, UR Normal Normal Normal [facility] Comment on above: Order Comment: CLEAN CATCH Performed By: #### L 501.2300, L506.0400, L3300.6820, L506.1001, L501.00105, L501.9520 #### [facility] [address] [place], [address] KETONE UR 5 mg/dl Abnormal Negative [facility] Comment on above: Order Comment: CLEAN CATCH Performed By: #### L 501.2300, L506.0400, L3300.6820, L506.1001, L501.76089, L501.9520 #### [facility] [address] [place], [address] LEUK ESTERASE 25 /ul Abnormal Negative [facility] Comment on above: Order Comment: CLEAN CATCH Performed By: #### L 501.2300, L506.0400, L3300.6820, L506.1001, L501.08180, L501.9520 #### [facility] [address] [place], [address] Nitrite Ql (U) Negative Normal Negative [facility] Comment on above: Order Comment: CLEAN CATCH Performed By: #### L 501.2300, L506.0400, L3300.6820, L506.1001, L501.74391, L501.9520 #### [facility] [address] [place], [address] OCCULT BLOOD-UR Negative Normal Negative [facility] Comment on above: Order Comment: CLEAN CATCH Performed By: #### L 501.2300, L506.0400, L3300.6820, L506.1001, L501.54932, L501.9520 #### [facility] [address] [place], [address] pH UR 7.0 Normal 5.0 - 8.0 [facility] Comment on above: Order Comment: CLEAN CATCH Performed By: #### L 501.2300, L506.0400, L3300.6820, L506.1001, L501.25960, L501.9520 #### [facility] [address] [place], [address] PROT DIPSTX 30 mg/dl Abnormal Negative [facility] Comment on above: Order Comment: CLEAN CATCH Performed By: #### L 501.2300, L506.0400, L3300.6820, L506.1001, L501.88802, L501.9520 #### [facility] [address] [place], [address] SP.GR. DIPSTX 1.010 Normal 1.002-1.03 0 [facility] Comment on above: Order Comment: CLEAN CATCH Performed By: #### L 501.2300, L506.0400, L3300.6820, L506.1001, L501.68512, L501.9520 #### [facility] [address] [place], [address] UROBILI 1 mg/dl Abnormal Normal [facility] Comment on above: Order Comment: CLEAN CATCH Performed By: #### L 501.2300, L506.0400, L3300.6820, L506.1001, L501.49817, L501.9520 #### [facility] [address] 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) Chief Complaint: Annual Saw Maker Required: No Is patient in pain?: No Allergies oxcarbazepine (From Trileptal) Allergy (Mild, Verified 07/18/25 09:26) Rash divalproex sodium (From Depakote) Adverse Reaction (Intermediate, Verified 07/18/25 09:26) Elevated Liver Enzymes, and hair loss Medications ???Medication ???Instructions ???Recorded ???Confirmed ???Type ascorbic acid (vitamin C) 1,000 mg 2 g PO DAILY 09/19/21 07/18/25 H istory tablet biotin 10,000 mcg capsule 10,000 mcg PO DAILY 09/19/2107/18 History esomeprazole magnesium 20 mg 20 mg PO DAILY 11/17/21 09/15/25 H istory capsule,delayed release (Nexium) mecobalamin (vitamin B12) 1,000 1,000 mcg PO DAILY 09/19/21 History mcg chewable tablet multivitamin 1 tab PO DAILY 09/19/21 07/18/25 H istory zinc 50 mg tablet 50 mg PO DAILY 09/19/21 07/18/25 H istory calcium carbonate (Calcium 600) 600 mg PO DAILY 06/04/22 07/18/25 History digestive enzymes 1 cap PO DAILY 06/04/22 07/18/25 H istory lithium carbonate 300 mg capsule 300 mg PO BID 06/04/22 07/18/25 Hi story semaglutide 0.25 mg or 0.5 mg (2 0.25 mg subcut QWEEK 07/09/2307/04 History mg/3 mL) subcutaneous pen injector (Ozempic) benzonatate 200 mg capsule 200 mg PO TID PRN cough #20 caps 1 11/29/22 07/18/25 Rx dexamethasone 6 mg tablet 6 mg PO DAILY #5 tabs 09/29/23 Rx prednisone 20 mg tablet 20 mg PO QDAY 30 days #30 tabs 07/18/25 Rx buspirone 10 mg tablet 10 mg PO TID 07/18/25 07/18/25 His tory Is last menstrual period known: No Post menopausal: No Patient : No : No PFSH Medical History Gastric reflux Cardiology follow-up encounter Bipolar disorder Alcohol use Low iron CPAP (continuous positive airway pressure) dependence Family history of colon cancer GERD (gastroesophageal reflux disease) Abdominal pain Dog bite of left hand Wears contact lenses Depression Non-smoker Hx of echocardiogram Hx of cardiovascular stress test Irregular menses PMS (premenstrual syndrome) Hirsutism Abnormal Pap smear of cervix Surgical History (Updated 07/18/25 @ 09:37 by Lisa Fritz NP, SMOKING PIPE COATER-C) S/P partial thyroidectomy History of laminectomy S/P laparoscopic assisted vaginal [...] at home: Yes additional social history: [employer] Does Not Take Aspirin Does Take Ibuprofen as needed History 2 Elective abortions Hx Para 2 Spontaneous abortions Hx # Term Pregnancies Ectopic pregnancies Hx # Pregnancies Multiple births # of living children Past Pregnancies Del. Date Name GA/Weeks Outcome Route Bth Weight Infant Gen Labor Lgth Anesthesia Del Locatn Provider FOB Unknown 1997 Les Unknown 2000 [facility] Encounter for routine gynecological examination Details: TEJAL MA is a 49 year old who presents for annual exam. Struggles with weight loss. Had partial thyroidectomy this year. Seeing [facility] through Last PAP: NA History of abnormal PAP: LEEP >25 yr ago Last mammogram: 08/2024 History of abnormal mammogram: no Colon cancer screenin Other preventative health care screenings: [facility] Female Reproductive History Questions: metrorrhagia: No, sexually active: Yes, dyspareunia: No and PCB: No ROS Const Constitutional: Denies fatigue, weight gain or weight loss Cardio Card: Denies chest pain Resp Resp: Denies cough or dyspnea on exertion GI GI: Denies abdominal pain, bloating, change in (more content not included)... Normal [facility] Thyroglobulin w/Anti-TG ABon 07-06-2025 Anti-TG AB < 1.0 Normal 0.0-0.9 [facility] Comment on above: Result Comment: Thyr oglobulin Antibody measured by [employer] It should be noted that the presence of thyroglobulin antibodies may not be pathogenic nor diagnostic, especially at very low levels. The assay casino duty manager has found that four percent of individuals without evidence of thyroid disease or autoimmunity will have positive TgAb levels up to 4 IU/mL. Performed By: #### L 501.2300, L506.0400, L3300.6820, L506.1001, L501.91447, L501.9520 #### [facility] [address] [place], [place], [address] THYROGLOB QUANT 9.8 ng/mL Normal 1.5-38.5 [facility] Comment on above: Result Comment: Acco rding to the National Academy of Clinical Biochemistry, the reference interval for Thyroglobulin (TG) should be related to euthyroid patients and not for patients who underwent thyroidectomy. TG reference intervals for these patients depend on the residual mass of the thyroid tissue left after surgery. Establishing a post-operative baseline is recommended. The assay limit of quantitation is 0.1 ng/mL Thyroglobulin measured by [employer] Immunometric Assay Performed at: [facility] [id number] Fry Cook: Oc Rojas PhD, Phone: [phone] Performed By: #### L 501.2300, L506.0400, L3300.6820, L506.1001, L501.90484, L501.9520 #### [facility] [address] [facility] [place], [place], [address] Absolute lymphocyte countOrd ered By: HEALTH ASSESSMENT on 07-05-2025 Lymphocytes Auto (Unsp spec) [#/Vol] 1.57 10*3/uL 0.83-4.51 [facility] Absolute neutrophil countOrd ered By: HEALTH ASSESSMENT on 07-05-2025 Neutrophils (Bld) [#/Vol] 4.0 10*3/uL 2.0-7.7 [facility] Absolute nucleated red blood cell countOrdered By: HEALTH ASSESSMENT on 07-05-2025 Nucleated RBC (Bld) [#/Vol] 0.00 10*3/uL 0-5 [facility] Anion gap in Serum or Plasma Ordered By: HEALTH ASSESSMENT on 07-05-2025 Anion gap [Moles/Vol] 10 mmol/L 5-15 [facility] BUN/creatinine ratioOrdered By: HEALTH ASSESSMENT on 07-05-2025 Urea nitrogen/Creatinine [Mass ratio] 19.0 mg/mg 10-20 [facility] Bilirubin directOrdered By: HEALTH ASSESSMENT on 07-05-2025 Bilirubin.direct [Mass/Vol] 0.17 mg/dL 0.00-0.30 [facility] Bilirubin, totalOrdered By: HEALTH ASSESSMENT on 07-05-2025 Bilirubin [Mass/Vol] 0.39 mg/dL 0.00-1.30 [facility] Blood band neutrophil count as percentage of total leukocytesOrdered By: HEALTH ASSESSMENT on 07-05-2025 Band form neutrophils/100 WBC (Bld) 66.2 % 47-70 [facility] CBC, Employeeon 07-05-2025 Absolute Lymph 1.57 X10 3/uL Normal 0.83-4.51 [facility] Comment on above: Performed By: #### L 501.2300, L506.0400, L3300.6820, L506.1001, L501.76290, L501.9520 #### [facility] [address] [place], [address] Absolute Neut 4.0 X10 3/uL Normal 2.0-7.7 [facility] Comment on above: Performed By: #### L 501.2300, L506.0400, L3300.6820, L506.1001, L501.96539, L501.9520 #### [facility] [address] [place], [address] Basophils/100 WBC (Bld) 0.8 % Normal 0-1 [facility] Comment on above: Performed By: #### L 501.2300, L506.0400, L3300.6820, L506.1001, L501.41637, L501.9520 #### [facility] [address] [place], [address] Eosinophils/100 WBC (Bld) 1.8 % Normal 0-5 [facility] Comment on above: Performed By: #### L 501.2300, L506.0400, L3300.6820, L506.1001, L501.91511, L501.9520 #### [facility] [address] [place], [address] Erythrocyte distribution width (RBC) [Ratio] 13.8 % Normal 11.6-14.6 [facility] Comment on above: Performed By: #### L 501.2300, L506.0400, L3300.6820, L506.1001, L501.14499, L501.9520 #### [facility] [address] [place], [address] Hematocrit (Bld) [Volume fraction] 35.6 % Low 37-47 [facility] Comment on above: Performed By: #### L 501.2300, L506.0400, L3300.6820, L506.1001, L501.98842, L501.9520 #### [facility] [address] [place], [address] Hemoglobin (Bld) [Mass/Vol] 12.3 g/dL Normal 12.0-15.0 [facility] Comment on above: Performed By: #### L 501.2300, L506.0400, L3300.6820, L506.1001, L501.39998, L501.9520 #### [facility] [address] [place], [address] Lymphocytes/100 WBC (Bld) 25.8 % Normal 19-41 [facility] Comment on above: Performed By: #### L 501.2300, L506.0400, L3300.6820, L506.1001, L501.67480, L501.9520 #### [facility] [address] [place], [address] MCH (RBC) [Entitic mass] 30.2 pg Normal 27.0-32.0 [facility] Comment on above: Performed By: #### L 501.2300, L506.0400, L3300.6820, L506.1001, L501.89303, L501.9520 #### [facility] [address] [place], [address] MCHC (RBC) [Mass/Vol] 34.6 g/dL Normal 32-36 [facility] Comment on above: Performed By: #### L 501.2300, L506.0400, L3300.6820, L506.1001, L501.91387, L501.9520 #### [facility] [address] [place], [address] MCV (RBC) [Entitic vol] 87.5 fL Normal 81-99 [facility] Comment on above: Performed By: #### L 501.2300, L506.0400, L3300.6820, L506.1001, L501.72141, L501.9520 #### [facility] [address] [place], [address] Monocytes/100 WBC (Bld) 4.9 % Normal 0-10 [facility] Comment on above: Performed By: #### L 501.2300, L506.0400, L3300.6820, L506.1001, L501.42023, L501.9520 #### [facility] [address] [place], [address] Neutrophils/100 WBC (Bld) 66.2 % Normal 47-70 [facility] Comment on above: Performed By: #### L 501.2300, L506.0400, L3300.6820, L506.1001, L501.11733, L501.9520 #### [facility] [address] [place], [address] NRBC # 0.00 10 3/uL Normal 0-5 [facility] Comment on above: Performed By: #### L 501.2300, L506.0400, L3300.6820, L506.1001, L501.21064, L501.9520 #### [facility] [address] [place], [address] Nucleated RBC (Bld) [#/Vol] 0 10*3/uL Normal 0-5 [facility] Comment on above: Performed By: #### L 501.2300, L506.0400, L3300.6820, L506.1001, L501.65351, L501.9520 #### [facility] [address] [place], [address] Platelet mean volume (Bld) [Entitic vol] 10.7 fL Normal 6.2-12.0 [facility] Comment on above: Performed By: #### L 501.2300, L506.0400, L3300.6820, L506.1001, L501.18793, L501.9520 #### [facility] [address] [place], [address] Platelets (Bld) [#/Vol] 227 10*3/uL Normal 150-450 [facility] Comment on above: Performed By: #### L 501.2300, L506.0400, L3300.6820, L506.1001, L501.00506, L501.9520 #### [facility] [address] [place], [address] RBC (Bld) [#/Vol] 4.07 10*6/uL Low 4.2-5.4 [facility] Comment on above: Performed By: #### L 501.2300, L506.0400, L3300.6820, L506.1001, L501.76301, L501.9520 #### [facility] [address] [place], [address] RDW SD 44.0 fl High 35.1-43.9 [facility] Comment on above: Performed By: #### L 501.2300, L506.0400, L3300.6820, L506.1001, L501.82255, L501.9520 #### [facility] [address] [place], [address] WBC (Bld) [#/Vol] 6.1 10*3/uL Normal 4.4-11.0 [facility] Comment on above: Performed By: #### L 501.2300, L506.0400, L3300.6820, L506.1001, L501.69054, L501.9520 #### [facility] [address] [place], [address] Absolute Neut Normal 2.0-7.7 [facility] Comment on above: Result Comment: COTY Sutton# Performed By: #### L 501.2300, L506.0400, L3300.6820, L506.1001, L501.45295, L501.9520 #### [facility] [address] [place], [address] HCT Normal 37-47 [facility] Comment on above: Result Comment: COTY Sutton# Performed By: #### L 501.2300, L506.0400, L3300.6820, L506.1001, L501.16464, L501.9520 #### [facility] [address] [place], [address] HGB Normal 12.0-15.0 [facility] Comment on above: Result Comment: COTY Sutton# Performed By: #### L 501.2300, L506.0400, L3300.6820, L506.1001, L501.01795, L501.9520 #### [facility] [address] [place], [address] MCH Normal 27.0-32.0 [facility] Comment on above: Result Comment: COTY Sutton# Performed By: #### L 501.2300, L506.0400, L3300.6820, L506.1001, L501.52411, L501.9520 #### [facility] [address] [place], [address] MCHC Normal 32-36 [facility] Comment on above: Result Comment: COTY Sutton# Performed By: #### L 501.2300, L506.0400, L3300.6820, L506.1001, L501.75825, L501.9520 #### [facility] [address] [place], [address] MCV Normal 81-99 [facility] Comment on above: Result Comment: COTY Sutton# Performed By: #### L 501.2300, L506.0400, L3300.6820, L506.1001, L501.09209, L501.9520 #### [facility] [address] [place], [address] NEUT% Normal 47-70 [facility] Comment on above: Result Comment: COTY Sutton# Performed By: #### L 501.2300, L506.0400, L3300.6820, L506.1001, L501.55110, L501.9520 #### [facility] [address] [place], [address] NRBC # Normal 0-5 [facility] Comment on above: Result Comment: COTY Sutton# Performed By: #### L 501.2300, L506.0400, L3300.6820, L506.1001, L501.22006, L501.9520 #### [facility] [address] [place], [address] PLT Normal 150-450 [facility] Comment on above: Result Comment: COTY Sutton# Performed By: #### L 501.2300, L506.0400, L3300.6820, L506.1001, L501.87911, L501.9520 #### [facility] [address] [place], [address] RBC Normal 4.2-5.4 [facility] Comment on above: Result Comment: COTY Sutton# Performed By: #### L 501.2300, L506.0400, L3300.6820, L506.1001, L501.50131, L501.9520 #### [facility] [address] [place], [address] RDW CV Normal 11.6-14.6 [facility] Comment on above: Result Comment: COTY Sutton# Performed By: #### L 501.2300, L506.0400, L3300.6820, L506.1001, L501.71086, L501.9520 #### [facility] [address] [place], [address] RDW SD Normal 35.1-43.9 [facility] Comment on above: Result Comment: COTY Sutton# Performed By: #### L 501.2300, L506.0400, L3300.6820, L506.1001, L501.64496, L501.9520 #### [facility] [address] [place], [address] WBC Normal 4.4-11.0 [facility] Comment on above: Result Comment: COTY Sutton# Performed By: #### L 501.2300, L506.0400, L3300.6820, L506.1001, L501.08487, L501.9520 #### [facility] [address] [place], [address] Calculated very low density lipoprotein (VLDL) cholesterol measurementOrdered By: HEALTH ASSESSMENT on 07-05-2025 Calculated very low density lipoprotein (VLDL) cholesterol measurement 25 mg/dL 5-40 [facility] Carbon dioxide, total [Moles /volume] in Central venous bloodOrdered By: HEALTH ASSESSMENT on 07-05-2025 CO2 [Moles/Vol] 22.1 mmol/L 21.0-32.0 [facility] Chloride assayOrdered By: HE ALTH ASSESSMENT on 07-05-2025 Chloride [Moles/Vol] 109 mmol/L High 98-108 [facility] Employee Profileon 5 CHOL:HDL 3.78 Normal [facility] Comment on above: Order Comment: GRACIELA Juárez SENDRESULTS TO Halley RODRIGUEZ Performed By: #### L 501.2300, L506.0400, L3300.6820, L506.1001, L501.76772, L501.9520 #### [facility] [address] [place], [address] Cholesterol [Mass/Vol] 142 mg/dL Normal <=200 [facility] Comment on above: Order Comment: GRACIELA Juárez SENDRESULTS TO Halley RODRIGUEZ Result Comment: Chol esterol level, Desirable <200 mg/dL Borderline high cholesterol 200-239 mg/dL High cholesterol >=240 mg/dL Recommendations of the NCEP Adult Treatment Panel for the following risk-cutoff thresholds for the [place] population. Performed By: #### L 501.2300, L506.0400, L3300.6820, L506.1001, L501.26391, L501.9520 #### [facility] [address] [place], [place], [address] Cholesterol in HDL [Mass/Vol] 38 mg/dL Low [facility] Comment on above: Order Comment: GRACIELA Juárez SENDRESULTS TO Halley RODRIGUEZ Result Comment: Gisselle onal Cholesterol Education Program (NCEP) guidelines: <40 mg/dL: Low HDL-cholesterol (major risk factor for CHD) >= 60 mg/dL: High HDL-cholesterol (negative risk factor for CHD) HDL-cholesterol is affected by a number of factors, e.g. smoking, exercise, hormones, sex and age. Performed By: #### L 501.2300, L506.0400, L3300.6820, L506.1001, L501.10119, L501.9520 #### [facility] [address] [place], [address] Cholesterol in LDL [Mass/Vol] 79 mg/dL Normal [facility] Comment on above: Order Comment: GRACIELA Juárez SENDRESULTS TO D.O. MYRON RODRIGUEZ Result Comment: Bord sihylr=630-511 mg/dL Higher Ebbm=088 mg/dL or greater Friedwald Equation for LDL-C Performed By: #### L 501.2300, L506.0400, L3300.6820, L506.1001, L501.28095, L501.9520 #### [facility] [address] [place], [address] Cholesterol in VLDL [Mass/Vol] 25 mg/dL Normal 5-40 [facility] Comment on above: Order Comment: GRACIELA Juárez SENDRESULTS TO D.O. MYRON RODRIGUEZ Performed By: #### L 501.2300, L506.0400, L3300.6820, L506.1001, L501.74259, L501.9520 #### [facility] [address] [place], [address] LDH 158 U/L Normal 84-246 [facility] Comment on above: Order Comment: GRACIELA Juárez SENDRESULTS TO D.OVipul RODRIGUEZ Performed By: #### L 501.2300, L506.0400, L3300.6820, L506.1001, L501.13523, L501.9520 #### [facility] [address] [place], [address] Phosphate [Mass/Vol] 4.1 mg/dL Normal 2.7-4.5 [facility] Comment on above: Order Comment: GRACIELA Juárez SENDRESULTS TO D.O. MYRON RODRIGUEZ Performed By: #### L 501.2300, L506.0400, L3300.6820, L506.1001, L501.57710, L501.9520 #### [facility] [address] [place], [place], [address] Triglyceride [Mass/Vol] 127 mg/dL Normal [facility] Comment on above: Order Comment: GRACIELA Juárez SENDRESULTS TO Halley RODRIGUEZ Result Comment: The drugs N-Acetylcysteine and Metamizole may falsely depress this assay. Normal range: <150 mg/dL Borderline High: 150-199 mg/dL High: 200-499 mg/dL Very High: >500 mg/dL Performed By: #### L 501.2300, L506.0400, L3300.6820, L506.1001, L501.37618, L501.9520 #### [facility] [address] [place], [place], [address] URIC 4.9 mg/dL Normal 2.6-6.0 [facility] Comment on above: Order Comment: GRACIELA Juárez SENDRESULTS TO Halley RODRIGUEZ Result Comment: The drugs N-Acetylcysteine and Metamizole may falsely depress this assay. Performed By: #### L 501.2300, L506.0400, L3300.6820, L506.1001, L501.46658, L501.9520 #### [facility] [address] [place], [place], [address] TRIG Normal [facility] Comment on above: Result Comment: COTY Sutton# The drugs N-Acetylcysteine and Metamizole may falsely depress this assay. Performed By: #### L 501.2300, L506.0400, L3300.6820, L506.1001, L501.87731, L501.9520 #### [facility] [address] [place], [address] URIC Normal 2.6-6.0 [facility] Comment on above: Result Comment: COTY Sutton# The drugs N-Acetylcysteine and Metamizole may falsely depress this assay. Performed By: #### L 501.2300, L506.0400, L3300.6820, L506.1001, L501.43980, L501.9520 #### [facility] [address] [place], [address] ALB Normal 3.5-5.0 [facility] Comment on above: Result Comment: COTY Sutton# Performed By: #### L 501.2300, L506.0400, L3300.6820, L506.1001, L501.39314, L501.9520 #### [facility] [address] [place], [address] ALK PHOS Normal 35-104 [facility] Comment on above: Result Comment: COTY Sutton# Performed By: #### L 501.2300, L506.0400, L3300.6820, L506.1001, L501.25466, L501.9520 #### [facility] [address] [place], [address] ALT Normal <=34 [facility] Comment on above: Result Comment: COTY Sutton# Performed By: #### L 501.2300, L506.0400, L3300.6820, L506.1001, L501.49837, L501.9520 #### [facility] [address] [place], [address] AST Normal <=31 [facility] Comment on above: Result Comment: COTY Sutton# Performed By: #### L 501.2300, L506.0400, L3300.6820, L506.1001, L501.42429, L501.9520 #### [facility] [address] [place], [address] BUN Normal 4-19 [facility] Comment on above: Result Comment: COTY Sutton# Performed By: #### L 501.2300, L506.0400, L3300.6820, L506.1001, L501.41985, L501.9520 #### [facility] [address] [place], [address] BUN/CRE Normal 10-20 [facility] Comment on above: Result Comment: COTY Sutton# Performed By: #### L 501.2300, L506.0400, L3300.6820, L506.1001, L501.04175, L501.9520 #### [facility] [address] [place], [address] Calcium Normal 7.6-11.0 [facility] Comment on above: Result Comment: COTY Sutton# Performed By: #### L 501.2300, L506.0400, L3300.6820, L506.1001, L501.24494, L501.9520 #### [facility] [address] [place], [address] CHOL Normal <=200 [facility] Comment on above: Result Comment: COTY Sutton# Performed By: #### L 501.2300, L506.0400, L3300.6820, L506.1001, L501.60023, L501.9520 #### [facility] [address] [place], [address] CHOL:HDL Normal [facility] Comment on above: Result Comment: COTY Sutton# Performed By: #### L 501.2300, L506.0400, L3300.6820, L506.1001, L501.65745, L501.9520 #### [facility] [address] [place], [address] CL Normal 98-108 [facility] Comment on above: Result Comment: COTY Sutton# Performed By: #### L 501.2300, L506.0400, L3300.6820, L506.1001, L501.70171, L501.9520 #### [facility] [address] [place], [address] CLDL Normal [facility] Comment on above: Result Comment: CTOY Sutton# Performed By: #### L 501.2300, L506.0400, L3300.6820, L506.1001, L501.82008, L501.9520 #### [facility] [address] [place], [address] CO2 Normal 21.0-32.0 [facility] Comment on above: Result Comment: COTY Sutton# Performed By: #### L 501.2300, L506.0400, L3300.6820, L506.1001, L501.82546, L501.9520 #### [facility] [address] [place], [address] CREAT,SERUM Normal 0.70-1.20 [facility] Comment on above: Result Comment: COTY Sutton# Performed By: #### L 501.2300, L506.0400, L3300.6820, L506.1001, L501.04359, L501.9520 #### [facility] [address] [place], [address] D BILI Normal 0.00-0.30 [facility] Comment on above: Result Comment: COTY Sutton# Performed By: #### L 501.2300, L506.0400, L3300.6820, L506.1001, L501.42347, L501.9520 #### [facility] [address] [place], [address] eGFR Normal >60 [facility] Comment on above: Result Comment: COTY Sutton# Performed By: #### L 501.2300, L506.0400, L3300.6820, L506.1001, L501.87481, L501.9520 #### [facility] [address] [place], [address] GAP Normal 5-15 [facility] Comment on above: Result Comment: COTY Sutton# Performed By: #### L 501.2300, L506.0400, L3300.6820, L506.1001, L501.66207, L501.9520 #### [facility] [address] [place], [address] GLU Normal 70-99 [facility] Comment on above: Result Comment: COTY Sutton# Performed By: #### L 501.2300, L506.0400, L3300.6820, L506.1001, L501.60143, L501.9520 #### [facility] [address] [place], [address] HDL Normal [facility] Comment on above: Result Comment: COTY Sutton# Performed By: #### L 501.2300, L506.0400, L3300.6820, L506.1001, L501.32544, L501.9520 #### [facility] [address] [place], [address] LDH Normal 84-246 [facility] Comment on above: Result Comment: COTY Sutton# Performed By: #### L 501.2300, L506.0400, L3300.6820, L506.1001, L501.57389, L501.9520 #### [facility] [address] [place], [address] PHOS Normal 2.7-4.5 [facility] Comment on above: Result Comment: COTY Sutton# Performed By: #### L 501.2300, L506.0400, L3300.6820, L506.1001, L501.84279, L501.9520 #### [facility] [address] [place], [address] Potassium Normal 3.3-5.1 [facility] Comment on above: Result Comment: COTY Sutton# Performed By: #### L 501.2300, L506.0400, L3300.6820, L506.1001, L501.04585, L501.9520 #### [facility] [address] [place], [address] T BILI Normal 0.00-1.30 [facility] Comment on above: Result Comment: COTY Sutton# Performed By: #### L 501.2300, L506.0400, L3300.6820, L506.1001, L501.13415, L501.9520 #### [facility] [address] [place], [address] T PROT Normal 5.9-8.4 [facility] Comment on above: Result Comment: COTY Sutton# Performed By: #### L 501.2300, L506.0400, L3300.6820, L506.1001, L501.03700, L501.9520 #### [facility] [address] [place], [address] VLDL Normal 5-40 [facility] Comment on above: Result Comment: COTY Sutton# Performed By: #### L 501.2300, L506.0400, L3300.6820, L506.1001, L501.24265, L501.9520 #### [facility] [address] [place], [address] Employee Profile Normal 133-145 [facility] Comment on above: Result Comment: COTY Sutton# Performed By: #### L 501.2300, L506.0400, L3300.6820, L506.1001, L501.63524, L501.9520 #### [facility] [address] [place], [address] Erythrocyte distribution wid th ratioOrdered By: HEALTH ASSESSMENT on 07-05-2025 Erythrocyte distribution width (RBC) [Ratio] 13.8 % 11.6-14.6 [facility] Erythrocyte distribution wid th standard deviationOrdered By: HEALTH ASSESSMENT on 07-05-2025 Erythrocyte distribution width (RBC) [Ratio] 44.0 fl High 35.1-43.9 [facility] Free T3on 07-05-2025 Free T3 [Mass/Vol] 3.3 pg/mL Normal 2.18-3.98 [facility] Comment on above: Performed By: #### L 501.2300, L506.0400, L3300.6820, L506.1001, L501.97683, L501.9520 #### [facility] [address] [place], [address] Free T3 [Mass/Vol] 3.3 pg/mL 2.18-3.98 [facility] Glomerular filtration rate ( GFR) estimation/1.73 sq m using serum, plasma, or whole bOrdered By: HEALTH ASSESSMENT on 07-05-2025 GFR/1.73 sq M.predicted among non-blacks MDRD (S/P/Bld) [Vol rate/Area] 92 mL/min/{1.73_m2} >60 [facility] Comment on above: mL/min/1.73m2 CKD-EP I Creatinine Equation (2020) Hematocrit Auto (Bld) [Volum e fraction]Ordered By: HEALTH ASSESSMENT on 07-05-2025 Hematocrit (Bld) [Volume fraction] 35.6 % Low 37-47 [facility] Hemoglobin measurementOrdere d By: HEALTH ASSESSMENT on 07-05-2025 Hemoglobin (Bld) [Mass/Vol] 12.3 g/dL 12.0-15.0 [facility] LDL calc ser/plasOrdered By: HEALTH ASSESSMENT on 07-05-2025 Cholesterol in LDL [Mass/Vol] 79 mg/dL [facility] Comment on above: Lhjrckqltz=485-100 m g/dL & Higher Atfm=390 mg/dL or greaterFriedwald Equation for LDL-C Laboratory - Chemistry and C hemistry - challengeOrdered By: HEALTH ASSESSMENT on 07-05-2025 AST [Catalytic activity/Vol] 13 U/L <32 [facility] Lactate dehydrogenase (LDH) measurementOrdered By: HEALTH ASSESSMENT on 07-05-2025 LDH [Catalytic activity/Vol] 158 U/L 84-246 [facility] MCV (mean corpuscular volume ) determinationOrdered By: HEALTH ASSESSMENT on 07-05-2025 MCV (RBC) [Entitic vol] 87.5 fL 81-99 [facility] Mean corpuscular hemoglobin (MCH) determinationOrdered By: HEALTH ASSESSMENT on 07-05-2025 MCH (RBC) [Entitic mass] 30.2 pg 27.0-32.0 [facility] Mean corpuscular hemoglobin concentration (MCHC) determinationOrdered By: HEALTH ASSESSMENT on 07-05-2025 MCHC (RBC) [Mass/Vol] 34.6 g/dL 32-36 [facility] Mean platelet volume determi nationOrdered By: HEALTH ASSESSMENT on 07-05-2025 Platelet mean volume (Bld) [Entitic vol] 10.7 fL 6.2-12.0 [facility] Nucleated red blood cell per centageOrdered By: HEALTH ASSESSMENT on 07-05-2025 Nucleated RBC/100 WBC (Bld) [Ratio] 0 % 0-5 [facility] Phosphoruson 07-05-2025 Phosphate [Mass/Vol] 4.1 mg/dL Normal 2.7-4.5 [facility] Comment on above: Performed By: #### L 501.2300, L506.0400, L3300.6820, L506.1001, L501.70724, L501.9520 #### [facility] [address] [place] [address]. [place], [address] Platelet countOrdered By: HE ALTH ASSESSMENT on 07-05-2025 Platelets (Bld) [#/Vol] 227 10*3/uL 150-450 [facility] Potassium measurement (mass/ volume)Ordered By: HEALTH ASSESSMENT on 07-05-2025 Potassium (Unsp spec) [Mass/Vol] 4.1 mmol/L 3.3-5.1 [facility] RBC Auto (Bld) [#/Vol]Ordere d By: HEALTH ASSESSMENT on 07-05-2025 RBC (Bld) [#/Vol] 4.07 10*6/uL Low 4.2-5.4 [facility] Screening total cholesterol/ high density lipoprotein (HDL) cholesterol ratioOrdered By: HEALTH ASSESSMENT on 07-05-2025 Cholesterol.total/Chol esterol in HDL [Mass ratio] 3.78 {ratio} [facility] Serum creatinine measurement (mass/volume)Ordered By: HEALTH ASSESSMENT on 07-05-2025 Creatinine [Mass/Vol] 0.79 mg/dL 0.70-1.20 [facility] Serum globulin measurementOr dered By: HEALTH ASSESSMENT on 07-05-2025 Globulin (S) [Mass/Vol] 2.2 g/dL 2.2-4.2 [facility] Serum glucose measurement (m ass/volume)Ordered By: HEALTH ASSESSMENT on 07-05-2025 Glucose [Mass/Vol] 79 mg/dL 70-99 [facility] Serum or plasma alanine [place] otransferase (ALT) measurementOrdered By: HEALTH ASSESSMENT on 07-05-2025 ALT [Catalytic activity/Vol] 15 U/L <35 [facility] Serum or plasma albumin [place] urement (mass/volume)Ordered By: HEALTH ASSESSMENT on 07-05-2025 Albumin [Mass/Vol] 4.2 g/dL 3.5-5.0 [facility] Serum or plasma albumin/glob ulin mass ratioOrdered By: HEALTH ASSESSMENT on 07-05-2025 Albumin/Globulin [Mass ratio] 1.9 {ratio} 0.9-2.4 [facility] Serum or plasma alkaline ciara sphatase measurementOrdered By: HEALTH ASSESSMENT on 07-05-2025 ALP [Catalytic activity/Vol] 38 U/L 35-104 [facility] Serum or plasma calcium [place] urement (mass/volume)Ordered By: HEALTH ASSESSMENT on 07-05-2025 Calcium [Mass/Vol] 9.3 mg/dL 7.6-11.0 [facility] Serum or plasma cholesterol in HDL measurement (mass/volume)Ordered By: HEALTH ASSESSMENT on 07-05-2025 Cholesterol in HDL [Mass/Vol] 38 mg/dL Low >40 [facility] Comment on above: National Cholesterol Education Program (NCEP) guidelines:<40 mg/dL: Low HDL-cholesterol (major risk factor for CHD)>= 60 mg/dL: High HDL-cholesterol (negative risk factor for CHD)HDL-cholesterol is affected by a number of factors, e.g. smoking, exercise, hormones, sex and age. Serum or plasma cholesterol measurement (mass/volume)Ordered By: HEALTH ASSESSMENT on 07-05-2025 Cholesterol [Mass/Vol] 142 mg/dL <201 [facility] Comment on above: Cholesterol level, D esirable <200 mg/dLBorderline high cholesterol 200-239 mg/dLHigh cholesterol >=240 mg/dLRecommendations of the NCEP Adult Treatment Panel for the following risk-cutoff thresholds for the [place] population. Serum or plasma urea nitroge n measurement (mass/volume)Ordered By: HEALTH ASSESSMENT on 07-05-2025 Urea nitrogen [Mass/Vol] 15 mg/dL 4-19 [facility] Serum or plasma uric acid me asurement (mass/volume)Ordered By: [facility] ASSESSMENT on 07-05-2025 Urate [Mass/Vol] 4.9 mg/dL 2.6-6.0 [facility] Comment on above: The drugs N-Acetylcy steine and Metamizole may falsely depress this assay. Sodium levelOrdered By: HEAL ASSESSMENT on 07-05-2025 Sodium [Moles/Vol] 141 mmol/L 133-145 [facility] T4 Free Directon 07-05-2025 T4 FREE DIRECT 1.10 ng/dL Normal 0.76-1.46 [facility] Comment on above: Performed By: #### L 501.2300, L506.0400, L3300.6820, L506.1001, L501.63963, L501.9520 #### [facility] [address] [place], [address] T4 freeon 07-05-2025 Free T4 [Mass/Vol] 1.10 ng/dL 0.76-1.46 [facility] TSH DL <= 0.005 mIU/L Qnon 0 07-05-2025 TSH Qn 3.500 uIU/mL 0.300-4.20 0 [facility] Thyroglobulin w/Anti-TG ABon 07-05-2025 Anti-TG AB Normal [facility] Comment on above: Result Comment: NOT EMPLOYEE LABS Performed By: #### L 501.2300, L506.0400, L3300.6820, L506.1001, L501.59473, L501.9520 #### [facility] [address] [place], [address] Thyroid Stim Hormone (TSH)on 07-05-2025 TSH 3.500 uIU/mL Normal 0.300-4.20 0 [facility] Comment on above: Performed By: #### L 501.2300, L506.0400, L3300.6820, L506.1001, L501.92521, L501.9520 #### [facility] [address] [place], [address] Total proteinOrdered By: [facility] ASSESSMENT on 07-05-2025 Protein [Mass/Vol] 6.4 g/dL 5.9-8.4 [facility] Triglycerides measurementOrd ered By: HEALTH ASSESSMENT on 07-05-2025 Triglyceride [Mass/Vol] 127 mg/dL <199 [facility] Comment on above: The drugs N-Acetylcy steine and Metamizole may falsely depress this assay. Normal range: <150 mg/dLBorderline High: 150-199 mg/dLHigh: 200-499 mg/dLVery High: >500 mg/dL Vitamin D,25 Hydroxyon 07-05 Vitamin D 25-OH 46.1 ng/mL Normal 30-100 [facility] Comment on above: Result Comment: Kathy min D Status Deficiency: <20 ng/mL (50nmol/L) Insufficiency: 20-30 ng/mL (50-75 nmol/L) Sufficiency: 30-100 ng/mL (75-250 nmol/L) Toxicity: >100 ng/mL (>250 nmol/L) Performed By: #### L 501.2300, L506.0400, L3300.6820, L506.1001, L501.76206, L501.9520 #### [facility] [address] [place], [address] White blood cell (WBC) count Ordered By: HEALTH ASSESSMENT on 07-05-2025 WBC (Bld) [#/Vol] 6.1 10*3/uL 4.4-11.0 [facility] Lithiumon 03-23-2025 LI 0.90 mmol/L Normal 0.60-1.20 [facility] Comment on above: Order Comment: [id number] Performed By: #### L 501.2300, L506.0400, L3300.6820, L506.1001, L501.50836, L501.9520 #### [facility] [address] [place], [address] Direct serum free thyroxine (FT4) measurementOrdered By: Felicitas Camacho on 12-21-2024 Free T4 [Mass/Vol] 0.94 ng/dL 0.76-1.46 [facility] Lithiumon 12-21-2024 LI 1.00 mmol/L Normal 0.60-1.20 [facility] Comment on above: Order Comment: [id number] Performed By: #### L 506.0400, L501.9060, L501.9520 #### [facility] [address] [place], [address] Serum or plasma thyroid stim ulating hormone (TSH) measurement (units/volume)Ordered By: Felicitas Camacho on 12-21-2024 TSH Qn 6.780 uIU/mL High 0.358-3.74 0 [facility] T4 Free Directon 12-21-2024 T4 FREE DIRECT 0.94 ng/dL Normal 0.76-1.46 [facility] Comment on above: Performed By: #### L 506.0400, L501.9060, L501.9520 #### [facility] [address] [place], [address] Thyroid Stim Hormone (TSH)on 12-21-2024 TSH 6.780 uIU/mL High 0.358-3.74 0 [facility] Comment on above: Performed By: #### L 506.0400, L501.9060, L501.9520 #### [facility] [address] [place], [address] Blood type and Indirect anti body screen panel (Bld)on 11-19-2024 Blood group antibody screen Ql Negative [facility] Blood group antibody screen Ql Negative Normal [facility] Comment on above: Order Comment: As ne eded preprocedure ONCE for scheduled for aortic, liver, cardiac, or thoracic surgery OR hgb<7.5mg/dl and no active type and screen. RN to release order. Performed By: #### 3 4532-2 #### HANNA Momin ([id number]) [facility] ([facility]) [address] [place] [address] No Panel Informationon 11-19 [facility] Surgical pathology studyon 0 11-19-2024 Surgical pathology study Pathology report.total SEE COMMENT Surgical Pathology Case: [id number] Authorizing Provider: Ronnell Varela MD Collected: 11/19/2024 1244 Ordering Location: [facility] Received: 11/19/2024 [facility] Pathologist: Amirah Momin Asa, MD PhD [...] isthmus resection margin, en face EXO Normal [facility] Comment on above: Order Comment: Pre-o p diagnosis: Thyroid nodule [E04.1] VERAB/VERIFY ABORHon 025 ABO group Nom (Bld) A Normal [facility] Comment on above: Performed By: #### V ERAB #### HANNA Momin ([id number]) [facility] ([facility]) [address] [place] [address] Order Comment: As ne eded preprocedure ONCE for scheduled for aortic, liver, cardiac, or thoracic surgery OR hgb<7.5mg/dl and no active type and screen. RN to release order. Performed By: #### 3 4532-2 #### HANNA Momin ([id number]) [facility] ([facility]) [address] [place] [address] D Ag Ql (Bld) Positive [facility] Comment on above: Performed By: #### V ERAB #### HANNA Momin ([id number]) [facility] ([facility]) [address] [place] [address] Order Comment: As ne eded preprocedure ONCE for scheduled for aortic, liver, cardiac, or thoracic surgery OR hgb<7.5mg/dl and no active type and screen. RN to release order. Performed By: #### 3 4532-2 #### HANNA Momin ([id number]) [facility] ([facility]) [address] [place] [address] CBC-Complete Blood Cnt No Di ffon 11-01-2024 Erythrocyte distribution width (RBC) [Ratio] 13.4 % Normal 11.6-14.6 [facility] Comment on above: Performed By: #### L 501.2300, L506.0400, L3300.6820, L506.1001, L501.67813, L501.9520 #### [facility] [address] [place], [address] Hematocrit (Bld) [Volume fraction] 35.3 % Low 37-47 [facility] Comment on above: Performed By: #### L 501.2300, L506.0400, L3300.6820, L506.1001, L501.07633, L501.9520 #### [facility] [address] [place], [address] Hemoglobin (Bld) [Mass/Vol] 12.0 g/dL Normal 12.0-15.0 [facility] Comment on above: Performed By: #### L 501.2300, L506.0400, L3300.6820, L506.1001, L501.65434, L501.9520 #### [facility] [address] [place], [address] MCH (RBC) [Entitic mass] 28.4 pg Normal 27.0-32.0 [facility] Comment on above: Performed By: #### L 501.2300, L506.0400, L3300.6820, L506.1001, L501.62504, L501.9520 #### [facility] [address] [place], [address] MCHC (RBC) [Mass/Vol] 34.0 g/dL Normal 32-36 [facility] Comment on above: Performed By: #### L 501.2300, L506.0400, L3300.6820, L506.1001, L501.89564, L501.9520 #### [facility] [address] [place], [address] MCV (RBC) [Entitic vol] 83.5 fL Normal 81-99 [facility] Comment on above: Performed By: #### L 501.2300, L506.0400, L3300.6820, L506.1001, L501.68510, L501.9520 #### [facility] [address] [place], [address] Platelet mean volume (Bld) [Entitic vol] 10.4 fL Normal 6.2-12.0 [facility] Comment on above: Performed By: #### L 501.2300, L506.0400, L3300.6820, L506.1001, L501.36243, L501.9520 #### [facility] [address] [place], [address] Platelets (Bld) [#/Vol] 258 10*3/uL Normal 150-450 [facility] Comment on above: Performed By: #### L 501.2300, L506.0400, L3300.6820, L506.1001, L501.09398, L501.9520 #### [facility] [address] [place], [address] RBC (Bld) [#/Vol] 4.23 10*6/uL Normal 4.2-5.4 [facility] Comment on above: Performed By: #### L 501.2300, L506.0400, L3300.6820, L506.1001, L501.80886, L501.9520 #### [facility] [address] [place], [address] RDW SD 40.7 fl Normal 35.1-43.9 [facility] Comment on above: Performed By: #### L 501.2300, L506.0400, L3300.6820, L506.1001, L501.85171, L501.9520 #### [facility] [address] [place], [address] WBC (Bld) [#/Vol] 5.7 10*3/uL Normal 4.4-11.0 [facility] Comment on above: Performed By: #### L 501.2300, L506.0400, L3300.6820, L506.1001, L501.20898, L501.9520 #### [facility] [address] [place], [address] Comprehensive Metabolic Prof [facility] 11-01-2024 Albumin [Mass/Vol] 4.0 g/dL Normal 3.2-5.0 [facility] Comment on above: Performed By: #### L 501.2300, L506.0400, L3300.6820, L506.1001, L501.01808, L501.9520 #### [facility] [address] [place], [address] Albumin/Globulin [Mass ratio] 1.4 {ratio} Normal 0.9-2.4 [facility] Comment on above: Performed By: #### L 501.2300, L506.0400, L3300.6820, L506.1001, L501.22075, L501.9520 #### [facility] [address] [place], [address] ALK P 57 U/L Normal 45-117 [facility] Comment on above: Performed By: #### L 501.2300, L506.0400, L3300.6820, L506.1001, L501.66891, L501.9520 #### [facility] [address] [place], [address] ALT [Catalytic activity/Vol] 15 U/L Normal 13-56 [facility] Comment on above: Performed By: #### L 501.2300, L506.0400, L3300.6820, L506.1001, L501.11541, L501.9520 #### [facility] [address] [place], [address] AST [Catalytic activity/Vol] 12 U/L Low 15-37 [facility] Comment on above: Performed By: #### L 501.2300, L506.0400, L3300.6820, L506.1001, L501.03084, L501.9520 #### [facility] [address] [place], [address] Bilirubin [Mass/Vol] 0.50 mg/dL Normal 0.20-1.00 [facility] Comment on above: Result Comment: For patients on eltrombopag therapy, use of Dimension [place] TBIL is not recommended. Performed By: #### L 501.2300, L506.0400, L3300.6820, L506.1001, L501.30338, L501.9520 #### [facility] [address] [place], [address] BUN/CRE 16.5 RATIO Normal 10-20 [facility] Comment on above: Performed By: #### L 501.2300, L506.0400, L3300.6820, L506.1001, L501.90538, L501.9520 #### [facility] [address] [place], [address] CA,Total 9.1 mg/dL Normal 8.5-10.1 [facility] Comment on above: Performed By: #### L 501.2300, L506.0400, L3300.6820, L506.1001, L501.52532, L501.9520 #### [facility] [address] [place], [address] Chloride [Moles/Vol] 108 mmol/L High 98-107 [facility] Comment on above: Performed By: #### L 501.2300, L506.0400, L3300.6820, L506.1001, L501.86251, L501.9520 #### [facility] [address] [place], [address] CO2 [Moles/Vol] 26.0 mmol/L Normal 21.0-32.0 [facility] Comment on above: Performed By: #### L 501.2300, L506.0400, L3300.6820, L506.1001, L501.44111, L501.9520 #### [facility] [address] [place], [address] Creatinine [Mass/Vol] 0.85 mg/dL Normal 0.55-1.02 [facility] Comment on above: Result Comment: The validity of the calculated GFR GFRAA in patients over 70 years has not been determined. Clinical correlation is essential. Performed By: #### L 501.2300, L506.0400, L3300.6820, L506.1001, L501.77368, L501.9520 #### [facility] [address] [place], [address] EST GFR - AA 93 mL/min Normal >60 [facility] Comment on above: Result Comment: Afri can Singaporean GFR Calc Performed By: #### L 501.2300, L506.0400, L3300.6820, L506.1001, L501.22698, L501.9520 #### [facility] [address] [place], [address] GAP 4 Low 5-15 [facility] Comment on above: Performed By: #### L 501.2300, L506.0400, L3300.6820, L506.1001, L501.32375, L501.9520 #### [facility] [address] [place], [address] GFR/1.73 sq M.predicted among non-blacks MDRD (S/P/Bld) [Vol rate/Area] 76 mL/min/{1.73_m2} Normal >60 [facility] Comment on above: Result Comment: Non- GFR Calc Performed By: #### L 501.2300, L506.0400, L3300.6820, L506.1001, L501.45439, L501.9520 #### [facility] [address] [place], [address] Globulin (S) [Mass/Vol] 2.9 g/dL Normal 2.2-4.2 [facility] Comment on above: Performed By: #### L 501.2300, L506.0400, L3300.6820, L506.1001, L501.62082, L501.9520 #### [facility] [address] [place], [address] Glucose [Mass/Vol] 95 mg/dL Normal 74-106 [facility] Comment on above: Performed By: #### L 501.2300, L506.0400, L3300.6820, L506.1001, L501.37524, L501.9520 #### [facility] [address] [place], [address] Potassium [Moles/Vol] 4.0 mmol/L Normal 3.5-5.1 [facility] Comment on above: Performed By: #### L 501.2300, L506.0400, L3300.6820, L506.1001, L501.78411, L501.9520 #### [facility] [address] [place], [address] Sodium [Moles/Vol] 138 mmol/L Normal 136-145 [facility] Comment on above: Performed By: #### L 501.2300, L506.0400, L3300.6820, L506.1001, L501.02999, L501.9520 #### [facility] [address] [place], [address] T PROT 6.9 g/dL Normal 6.4-8.2 [facility] Comment on above: Performed By: #### L 501.2300, L506.0400, L3300.6820, L506.1001, L501.25834, L501.9520 #### [facility] [address] [place], [address] Urea nitrogen [Mass/Vol] 14 mg/dL Normal 7-18 [facility] Comment on above: Performed By: #### L 501.2300, L506.0400, L3300.6820, L506.1001, L501.91393, L501.9520 #### [facility] [address] [place], [place], [address] Partial Thromboplast Timeon 11-01-2024 aPTT Coag (Bld) [Time] 26.5 s Normal 24.1-36.2 [facility] Comment on above: Performed By: #### L 501.2300, L506.0400, L3300.6820, L506.1001, L501.47743, L501.9520 #### [facility] [address] [place], [address] Prothrombin Time w/INRon INR Coag (PPP) [Relative time] 1.1 {INR} Normal [facility] Comment on above: Performed By: #### L 501.2300, L506.0400, L3300.6820, L506.1001, L501.54736, L501.9520 #### [facility] [address] [place], [address] PT Coag (PPP) [Time] 14.1 s Normal 11.7-14.9 [facility] Comment on above: Performed By: #### L 501.2300, L506.0400, L3300.6820, L506.1001, L501.86644, L501.9520 #### [facility] [address] 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 Received: 08/09/2024 1048 Center Pathologist: Keith Lan MD Specimen: THYROID [...] such testing is needed, please notify the [facility] Cytology laboratory ([phone]). Laboratory comment SEE COMMENT Slide(s) initially screened by DAO Valdez at [address] [phone] By the signature on this report, the individual or group listed as making the Final Interpretation/Diagnosis certifies that they have reviewed this case. Path report.comments SEE COMMENT [facility] Implied Risk of Malignancy and Recommended [...] cytological analysis to the cytology department at [facility]. Laboratory comment SEE COMMENT A1 Slides Only (No Block) A1-1 Pap Stain Smear NGYN A1-2 Pap Stain Smear NGYN A1-5 Pap Stain NGYN ThinPrep A1-6 Diff Quik Stain Smear NGYN A1-7 Diff Quik Stain Smear NGYN Normal [facility] THYGENEXT/THYRAMIRon 024 THYGENEXT/THYRAMIR SCAN RESULT See Scanned Result AP SUMMARY REPORT SEE COMMENT A complete ThyGeNEXT result issued by [employer], [address] [place] [address], TEL: [phone], FAX: [phone], is on file in the Department of Anatomic Pathology at [facility] and can be viewed in patient's chart. RESULTS SUMMARY Nodule: Right Mid Thyroid Slide Cytopathology: AUS/FLUS(B-III) ThyGeNext: HRAS Q61R ThyraMIRv2: Moderate (75 to 85% Risk of Malignancy) *Risk assessment is based on disease prevalence of associated cytology diagnosis, mutational changes, microRNA expression, clinical experience, and clinical validation (1,2) 1. Penny OSULLIVAN et al. Diagn Cytopathol. 2020; 48 (12): 1312-8680. 2. Orestes HASSAN et al. Diagn Cytopathol. 2019; 47 (4): 268-274. TEST RESULT INTERPRETATION Right Mid Thyroid Slide High risk of malignancy *See full report in Chart Review [facility] Ambulatory Basophil percentageOrdered B y: Felicitas Camacho on 02-20-2024 Bilirubin [Mass/Vol] 0.50 mg/dL 0.20-1.00 [facility] Comment on above: For patients on eltr ombopag therapy, use of Dimension [place] TBIL is not recommended. Chloride [Moles/Vol] 109 mmol/L 98-107 [facility] Glucose [Mass/Vol] 98 mg/dL 74-106 [facility] Hemoglobin (Bld) [Mass/Vol] 12.4 g/dL 12.0-15.0 [facility] Potassium [Moles/Vol] 4.2 mmol/L 3.5-5.1 [facility] Protein [Mass/Vol] 7.1 g/dL 6.4-8.2 [facility] Sodium [Moles/Vol] 141 mmol/L 136-145 [facility] WBC (Bld) [#/Vol] 5.4 10*3/uL 4.4-11.0 [facility] Determination of erythrocyte mean corpuscular volume (MCV)Ordered By: Felicitas Camacho on 02-20-2024 MCV (RBC) [Entitic vol] 83.1 fL 81-99 [facility] Erythrocyte distribution wid th ratioOrdered By: Felicitas Camacho on 02-20-2024 Erythrocyte distribution width (RBC) [Ratio] 13.8 % 11.6-14.6 [facility] Erythrocyte distribution wid th standard deviationOrdered By: Felicitas Camacho on 02-20-2024 Erythrocyte distribution width (RBC) [Entitic vol] 41.6 fL 35.1-43.9 [facility] Hematocrit Auto (Bld) [Volum e fraction]Ordered By: Felicitas Camacho on 02-20-2024 Hematocrit (Bld) [Volume fraction] 37.0 % 37-47 [facility] Iron measurement (mass/mass) Ordered By: Felicitas Camacho on 02-20-2024 Iron (Unsp spec) [Mass/Mass] 55 ug/dL 50-170 [facility] - Chemistry and C hemistry - challengeOrdered By: Felicitas Camacho on 02-20-2024 Albumin/Globulin [Mass ratio] 1.3 {ratio} 0.9-2.4 [facility] ALP [Catalytic activity/Vol] 55 U/L 45-117 [facility] ALT [Catalytic activity/Vol] 18 U/L 13-56 [facility] CO2 [Moles/Vol] 25.0 mmol/L 21.0-32.0 [facility] Cobalamin (Vitamin B12) [Mass/Vol] 902 pg/mL 211-911 [facility] Ferritin [Mass/Vol] 184 ng/mL 8-252 [facility] Globulin (S) [Mass/Vol] 3.1 g/dL 2.2-4.2 [facility] Urea nitrogen/Creatinine [Mass ratio] 18.4 mg/mg 10-20 [facility] - Hematology and Cell countsOrdered By: Felicitas Camacho on 02-20-2024 MCH (RBC) [Entitic mass] 27.9 pg 27.0-32.0 [facility] MCHC (RBC) [Mass/Vol] 33.5 g/dL 32-36 [facility] Platelet mean volume (Bld) [Entitic vol] 11.1 fL 6.2-12.0 [facility] Platelets (Bld) [#/Vol] 280 10*3/uL 150-450 [facility] No Panel InformationOrdered By: Felicitas Camacho on 02-20-2024 Estimated GFR (MDRD) Amer 84 mL/min >60 [facility] Comment on above: GFR Calc Estimated GFR (MDRD) Non-Af Amer 69 mL/min >60 [facility] Comment on above: Non- GFR Calc Folate 21.90 ng/mL 3.1-55.4 [facility] [place] Level 0.60 mmol/L 0.60-1.20 [facility] Total Iron Binding Capacity 258 ug/dL 250-450 [facility] Vitamin D 25-Hydroxy 42.4 ng/mL [facility] Comment on above: Vitamin D 25(OH) Sta tus Range Deficiency <20 ng/mL (50nmol/L) Insufficiency 20 - 30 ng/mL (50 - 75 nmol/L) Sufficiency 30 - 100 ng/mL (75 - 250 nmol/L) Toxicity >100 ng/mL (>250 nmol/L) RBC Auto (Bld) [#/Vol]Ordere d By: Felicitas Camacho on 02-20-2024 RBC (Bld) [#/Vol] 4.45 10*6/uL 4.2-5.4 [facility] Serum or plasma calcium [place] urement (mass/volume)Ordered By: Felicitas Camacho on 02-20-2024 Calcium [Mass/Vol] 8.6 mg/dL 8.5-10.1 [facility] Serum or plasma creatinine m easurement (mass/volume)Ordered By: Felicitas Camacho on 02-20-2024 Creatinine [Mass/Vol] 0.92 mg/dL 0.55-1.02 [facility] Comment on above: The validity of the calculated GFR & GFRAA in patients over 70 years has not been determined. Clinical correlation is essential. Serum or plasma thyroid stim ulating hormone (TSH) measurement (units/volume)Ordered By: Felicitas Camacho on 02-20-2024 TSH Qn 2.24 uIU/mL 0.358-3.74 [facility] Serum or plasma urea nitroge n measurement (mass/volume)Ordered By: Felicitas Camacho on 02-20-2024 Urea nitrogen [Mass/Vol] 17 mg/dL 7-18 [facility] Thin prep Papanicolaou smear with manual screeningOrdered By: Felicitas Camacho on 02-20-2024 Thin prep Papanicolaou smear with manual screening 4.0 g/dL 3.2-5.0 [facility] Thin prep Papanicolaou smear with manual screening 15 U/L 15-37 [facility] Thin prep Papanicolaou smear with manual screening 7 5-15 [facility] Whole blood hemoglobin A1c/t otal hemoglobin ratio (mass fraction)Ordered By: Felicitas Camacho on 02-20-2024 HbA1c (Bld) [Mass fraction] 4.6 % 3.8-5.6 [facility] Comment on above: Normal < 5.7 % Predi abetic 5.7 - 6.4 % Diabetic >or= 6.5 % Please note range changes. Basophil percentageOrdered B y: Felicitas Camacho on 12-17-2023 Bilirubin [Mass/Vol] 0.70 mg/dL 0.20-1.00 [facility] Comment on above: For patients on eltr ombopag therapy, use of Dimension [place] TBIL is not recommended. Chloride [Moles/Vol] 109 mmol/L 98-107 [facility] Cholesterol [Mass/Vol] 216 mg/dL <200 [facility] Comment on above: <200 mg/dL Desirable 200-240 mg/dL Borderline >240 mg/dL High Risk Glucose [Mass/Vol] 91 mg/dL 74-106 [facility] Hemoglobin (Bld) [Mass/Vol] 13.0 g/dL 12.0-15.0 [facility] Potassium [Moles/Vol] 4.0 mmol/L 3.5-5.1 [facility] Protein [Mass/Vol] 7.4 g/dL 6.4-8.2 [facility] Sodium [Moles/Vol] 141 mmol/L 136-145 [facility] Triglyceride [Mass/Vol] 163 mg/dL <199 [facility] Comment on above: The drugs N-Acetylcy steine and Metamizole may falsely depress this assay.Serum Triglycerides Reference Interval Normal <150 mg/dL Borderline high 150 - 199 mg/dL High 200 - 499 mg/dL Very High > or = 500 mg/dL WBC (Bld) [#/Vol] 5.6 10*3/uL 4.4-11.0 [facility] Determination of erythrocyte mean corpuscular volume (MCV)Ordered By: Felicitas Camacho on 12-17-2023 MCV (RBC) [Entitic vol] 83.5 fL 81-99 [facility] Erythrocyte distribution wid th ratioOrdered By: Felicitas Camacho on 12-17-2023 Erythrocyte distribution width (RBC) [Ratio] 13.7 % 11.6-14.6 [facility] Erythrocyte distribution wid th standard deviationOrdered By: Felicitas Camacho on 12-17-2023 Erythrocyte distribution width (RBC) [Entitic vol] 42.1 fL 35.1-43.9 [facility] Hematocrit Auto (Bld) [Volum e fraction]Ordered By: Felicitas Camacho on 12-17-2023 Hematocrit (Bld) [Volume fraction] 38.6 % 37-47 [facility] - Chemistry and C hemistry - challengeOrdered By: Felicitas Camacho on 12-17-2023 Albumin/Globulin [Mass ratio] 1.3 {ratio} 0.9-2.4 [facility] ALP [Catalytic activity/Vol] 67 U/L 45-117 [facility] ALT [Catalytic activity/Vol] 22 U/L 13-56 [facility] Cholesterol in HDL [Mass/Vol] 39 mg/dL >40 [facility] Comment on above: The drugs N-Acetylcy steine and Metamizole may falsely depress this assay. Reference Range HDL <40 mg/dL Low HDL Cholesterol HDL >or= 60 mg/dL High HDL Cholesterol Cholesterol in LDL [Mass/Vol] 144 mg/dL 0-130 [facility] CO2 [Moles/Vol] 23.0 mmol/L 21.0-32.0 [facility] Cobalamin (Vitamin B12) [Mass/Vol] 757 pg/mL 211-911 [facility] Globulin (S) [Mass/Vol] 3.2 g/dL 2.2-4.2 [facility] Urea nitrogen/Creatinine [Mass ratio] 15.1 mg/mg 10-20 [facility] - Hematology and Cell countsOrdered By: Felicitas Camacho on 12-17-2023 MCH (RBC) [Entitic mass] 28.1 pg 27.0-32.0 [facility] MCHC (RBC) [Mass/Vol] 33.7 g/dL 32-36 [facility] Platelet mean volume (Bld) [Entitic vol] 10.8 fL 6.2-12.0 [facility] Platelets (Bld) [#/Vol] 306 10*3/uL 150-450 [facility] No Panel InformationOrdered By: Felicitas Camacho on 12-17-2023 Estimated GFR (MDRD) Amer 77 mL/min >60 [facility] Comment on above: GFR Calc Estimated GFR (MDRD) Non-Af Amer 64 mL/min >60 [facility] Comment on above: Non- GFR Calc Folate 14.60 ng/mL 3.1-55.4 [facility] Insulin Level 14.3 mU/L 2.6-37.6 [facility] [place] Level 0.70 mmol/L 0.60-1.20 [facility] Vitamin D 25-Hydroxy 28.7 ng/mL [facility] Comment on above: Vitamin D 25(OH) Sta tus Range Deficiency <20 ng/mL (50nmol/L) Insufficiency 20 - 30 ng/mL (50 - 75 nmol/L) Sufficiency 30 - 100 ng/mL (75 - 250 nmol/L) Toxicity >100 ng/mL (>250 nmol/L) VLDL Cholesterol 33 mg/dL 5-40 [facility] RBC Auto (Bld) [#/Vol]Ordere d By: Felicitas Camacho on 12-17-2023 RBC (Bld) [#/Vol] 4.62 10*6/uL 4.2-5.4 [facility] Serum or plasma calcium car[place] urement (mass/volume)Ordered By: Felicitas Camacho on 12-17-2023 Calcium [Mass/Vol] 9.0 mg/dL 8.5-10.1 [facility] Serum or plasma creatinine m easurement (mass/volume)Ordered By: Felicitas Camacho on 12-17-2023 Creatinine [Mass/Vol] 0.99 mg/dL 0.55-1.02 [facility] Comment on above: The validity of the calculated GFR & GFRAA in patients over 70 years has not been determined. Clinical correlation is essential. Serum or plasma urea nitroge n measurement (mass/volume)Ordered By: Felicitas Camacho on 12-17-2023 Urea nitrogen [Mass/Vol] 15 mg/dL 7-18 [facility] Thin prep Papanicolaou smear with manual screeningOrdered By: Felicitas Camacho on 12-17-2023 Thin prep Papanicolaou smear with manual screening 4.2 g/dL 3.2-5.0 [facility] Thin prep Papanicolaou smear with manual screening 20 U/L 15-37 [facility] Thin prep Papanicolaou smear with manual screening 9 5-15 [facility] Whole blood hemoglobin A1c/t otal hemoglobin ratio (mass fraction)Ordered By: Felicitas Camacho on 12-17-2023 HbA1c (Bld) [Mass fraction] 5.0 % 3.8-5.6 [facility] Comment on above: Normal < 5.7 % Predi abetic 5.7 - 6.4 % Diabetic >or= 6.5 % Please note range changes. Laboratory - Microbiology an d Antimicrobial susceptibilityon 09-29-2023 SARS-CoV-2 (COVID-19) RNA ARNAV+probe Ql (Unsp spec) Detected [facility] No Panel Informationon 09-29 POC Nasal Swab Influenza A,B Not detected [facility] POC Nasal Swab RSV Not detected [facility] Basophil percentageOrdered B y: Felicitas Camacho on 02-18-2023 Chloride [Moles/Vol] 109 mmol/L 98-107 [facility] Cholesterol [Mass/Vol] 178 mg/dL <200 [facility] Comment on above: <200 mg/dL Desirable 200-240 mg/dL Borderline >240 mg/dL High Risk Glucose [Mass/Vol] 99 mg/dL 74-106 [facility] Potassium [Moles/Vol] 4.1 mmol/L 3.5-5.1 [facility] Sodium [Moles/Vol] 139 mmol/L 136-145 [facility] Triglyceride [Mass/Vol] 120 mg/dL <199 [facility] Comment on above: The drugs N-Acetylcy steine and Metamizole may falsely depress this assay.Serum Triglycerides Reference Interval Normal <150 mg/dL Borderline high 150 - 199 mg/dL High 200 - 499 mg/dL Very High > or = 500 mg/dL WBC (Bld) [#/Vol] 6.2 10*3/uL 4.4-11.0 [facility] Bilirubin Test strip Ql (U)O rdered By: Felicitas Camacho on 02-18-2023 Bilirubin Ql (U) Negative Negative [facility] Blood erythrocytes count (nu mber/volume)Ordered By: Felicitas Camacho on 02-18-2023 RBC (Bld) [#/Vol] 4.35 10*6/uL 4.2-5.4 [facility] Blood hemoglobin measurement (mass/volume)Ordered By: Felicitas Camacho on 02-18-2023 Hemoglobin (Bld) [Mass/Vol] 12.5 g/dL 12.0-15.0 [facility] Blood platelet mean volumeOr dered By: Felicitas Camacho on 02-18-2023 Platelet mean volume (Bld) [Entitic vol] 10.5 fL 6.2-12.0 [facility] Determination of erythrocyte mean corpuscular volume (MCV)Ordered By: Felicitas Camacho on 02-18-2023 MCV (RBC) [Entitic vol] 87.1 fL 81-99 [facility] Hematocrit Auto (Bld) [Volum e fraction]Ordered By: Felicitas Camacho on 02-18-2023 Hematocrit (Bld) [Volume fraction] 37.9 % 37-47 [facility] Ketones Test strip Ql (U)Ord ered By: Felicitas Camacho on 02-18-2023 Ketones Ql (U) Negative Negative [facility] Laboratory - Chemistry and C hemistry - challengeOrdered By: Felicitas Camacho on 02-18-2023 CO2 [Moles/Vol] 25.0 mmol/L 21.0-32.0 [facility] T4 [Mass/Vol] 7.9 ug/dL 4.8-13.9 [facility] Urea nitrogen/Creatinine [Mass ratio] 12.7 mg/mg 10-20 [facility] Laboratory - Hematology and Cell countsOrdered By: Felicitas Camacho on 02-18-2023 Erythrocyte distribution width (RBC) [Entitic vol] 43.1 fL 35.1-43.9 [facility] Erythrocyte distribution width (RBC) [Ratio] 13.7 % 11.6-14.6 [facility] MCH (RBC) [Entitic mass] 28.7 pg 27.0-32.0 [facility] MCHC Auto (RBC) [Mass/Vol]Or dered By: Felicitas Camacho on 02-18-2023 MCHC (RBC) [Mass/Vol] 33.0 g/dL 32-36 [facility] Nitrite Test strip Ql (U)Ord ered By: Felicitas Camacho on 02-18-2023 Nitrite Ql (U) Negative Negative [facility] No Panel InformationOrdered By: Felicitas Camacho on 02-18-2023 Estimated GFR (MDRD) Amer 91 mL/min >60 [facility] Comment on above: GFR Calc Estimated GFR (MDRD) Non-Af Amer 75 mL/min >60 [facility] Comment on above: Non- GFR Calc Insulin Level 17.8 mU/L 2.6-37.6 [facility] [place] Level 0.80 mmol/L 0.60-1.20 [facility] Thyroid Stimulating Hormone (TSH) 2.28 uIU/mL 0.358-3.74 [facility] Total Triiodothyronine 1.24 ng/mL 0.6-1.81 [facility] Platelets bldOrdered By: Jostin Camacho on 02-18-2023 Platelets (Bld) [#/Vol] 260 10*3/uL 150-450 [facility] Protein Test strip Ql (U)Ord ered By: Felicitas Camacho on 02-18-2023 Protein Ql (U) Negative Negative [facility] Serum or plasma calcium [place] urement (mass/volume)Ordered By: Felicitas Camacho on 02-18-2023 Calcium [Mass/Vol] 8.9 mg/dL 8.5-10.1 [facility] Serum or plasma cholesterol in HDL measurement (mass/volume)Ordered By: Felicitas Camacho on 02-18-2023 Cholesterol in HDL [Mass/Vol] 41 mg/dL >40 [facility] Comment on above: The drugs N-Acetylcy steine and Metamizole may falsely depress this assay. Reference Range HDL <40 mg/dL Low HDL Cholesterol HDL >or= 60 mg/dL High HDL Cholesterol Serum or plasma cholesterol in VLDL measurement (mass/volume)Ordered By: Felicitas Camacho on 02-18-2023 Cholesterol in VLDL [Mass/Vol] 24 mg/dL 5-40 [facility] Serum or plasma creatinine m easurement (mass/volume)Ordered By: Felicitas Camacho on 02-18-2023 Creatinine [Mass/Vol] 0.86 mg/dL 0.55-1.02 [facility] Comment on above: The validity of the calculated GFR & GFRAA in patients over 70 years has not been determined. Clinical correlation is essential. Serum or plasma low density lipoprotein (LDL) cholesterol measurement (mass/volume)Ordered By: Felicitas Camacho on 02-18-2023 Cholesterol in LDL [Mass/Vol] 113 mg/dL 0-130 [facility] Serum or plasma urea nitroge n measurement (mass/volume)Ordered By: Felicitas Camacho on 02-18-2023 Urea nitrogen [Mass/Vol] 11 mg/dL 7-18 [facility] Thin prep Papanicolaou smear with manual screeningOrdered By: Felicitas Camacho on 02-18-2023 Thin prep Papanicolaou smear with manual screening 5 5-15 [facility] Urine blood detectionOrdered By: Felicitas Camacho on 02-18-2023 RBC Ql (U) Negative Negative [facility] Urine clarityOrdered By: Jostin Camacho on 02-18-2023 Clarity (U) Clear Clear [facility] Urine color determinationOrd ered By: Felicitas Camacho on 02-18-2023 Color (U) Yellow Yellow [facility] Urine glucose detectionOrder ed By: Felicitas Camacho on 02-18-2023 Glucose Ql (U) Normal mg/dl Normal [facility] Urine leukocyte esterase det ection by dipstickOrdered By: Felicitas Camacho on 02-18-2023 Leukocyte esterase Test strip Ql (U) Negative Negative [facility] Urine pHOrdered By: Felicitas Camacho on 02-18-2023 pH (U) 7.0 [pH] 5.0 - 8.0 [facility] Urine specific gravity measu rementOrdered By: Felicitas Camacho on 02-18-2023 Specific gravity (U) [Rel density] 1.010 1.002-1.03 0 [facility] Urobilinogen Auto test strip Ql (U)Ordered By: Felicitas Camacho on 02-18-2023 Urobilinogen Ql (U) Normal mg/dl Normal [facility] Whole blood hemoglobin A1c/t otal hemoglobin ratio (mass fraction)Ordered By: Felicitas Camacho on 02-18-2023 HbA1c (Bld) [Mass fraction] 4.7 % 3.8-5.6 [facility] Comment on above: Normal < 5.7 % Predi abetic 5.7 - 6.4 % Diabetic >or= 6.5 % Please note range changes. Chocolate RASTOrdered By: Ra don Friend on 02-11-2023 Chocolate IgE Qn (S) <0.10 kU/L Class 0 [facility] Comment on above: Performed at: [address] [id number] Director: Alber Cruz MD, Phone: [phone] Laboratory - Miscellaneous t estsOrdered By: Jesus Leone on 02-11-2023 Service comment (Unsp spec) [Interp] Comment . [facility] Comment on above: Levels of Specific [...] 02-11-2023 Scallop Allergen <0.10 kU/L Class 0 [facility] Seafood Group Allergens (RAST) Negative . [facility] Comment on above: Allergens in this mi x are: Blue mussel Fish [place] Shrimp Tuna Sesame Seed Allergen IgE Antibody <0.10 kU/L Class 0 [facility] Shrimp Allergen <0.10 kU/L Class 0 [facility] Serum beef IgE antibody assa y (units/volume)Ordered By: Jesus Leone on 02-11-2023 Beef IgE Qn (S) <0.10 kU/L Class 0 [facility] Serum black walnut IgE antib neal assay (units/volume)Ordered By: Jesus Leone on 02-11-2023 Black [place] IgE Qn (S) <0.10 kU/L Class 0 [facility] Serum clam IgE antibody assa y (units/volume)Ordered By: Jesus Leone on 02-11-2023 Clam IgE Qn (S) <0.10 kU/L Class 0 [facility] Serum codfish IgE antibody a ssay (units/volume)Ordered By: Jesus Leone on 02-11-2023 Codfish IgE Qn (S) <0.10 kU/L Class 0 [facility] Serum corn IgE antibody assa y (units/volume)Ordered By: Jesus Leone on 02-11-2023 [place] IgE Qn (S) <0.10 kU/L Class 0 [facility] Serum cow milk IgE antibody assay (units/volume)Ordered By: Jesus Leone on 02-11-2023 Cow milk IgE Qn (S) <0.10 kU/L Class 0 [facility] Serum egg white IgE antibody assay (units/volume)Ordered By: Jesus Leone on 02-11-2023 Egg white IgE Qn (S) <0.10 kU/L Class 0 [facility] Serum or plasma uric acid me asurement (mass/volume)Ordered By: Jesus Leone on 02-11-2023 Urate [Mass/Vol] 6.8 mg/dL 2.6-6.0 [facility] Comment on above: The drugs N-Acetylcy steine and Metamizole may falsely depress this assay. Serum peanut IgE antibody as say (units/volume)Ordered By: Jesus Leone on 02-11-2023 Peanut IgE Qn (S) <0.10 kU/L Class 0 [facility] Serum pork IgE antibody assa y (units/volume)Ordered By: Jesus Leone on 02-11-2023 Pork IgE Qn (S) <0.10 kU/L Class 0 [facility] Serum soybean IgE antibody a ssay (units/volume)Ordered By: Jesus Leone on 02-11-2023 Soybean IgE Qn (S) <0.10 kU/L Class 0 [facility] Serum wheat IgE antibody ass ay (units/volume)Ordered By: Jesus Leone on 02-11-2023 Wheat IgE Qn (S) <0.10 kU/L Class 0 [facility] Serum whole egg IgE antibody assay (units/volume)Ordered By: Jesus Leone on 02-11-2023 Whole Egg IgE Qn (S) <0.10 kU/L Class 0 [facility] No Panel InformationOrdered By: Felicitas Camacho on 09-24-2022 [place] Level 0.70 mmol/L 0.60-1.20 [facility] Basophil percentageon 2021 Bilirubin [Mass/Vol] 0.50 mg/dL 0.20-1.00 [facility] Work Phone: Comment on above: For patients on eltr ombopag therapy, use of Dimension [place] TBIL is not recommended. Chloride [Moles/Vol] 108 mmol/L 98-107 [facility] Work Phone: Glucose [Mass/Vol] 93 mg/dL 74-106 [facility] Work Phone: Potassium [Moles/Vol] 3.7 mmol/L 3.5-5.1 [facility] Work Phone: Protein [Mass/Vol] 6.9 g/dL 6.4-8.2 [facility] Work Phone: Sodium [Moles/Vol] 140 mmol/L 136-145 [facility] Work Phone: Laboratory - Chemistry and C hemistry - challengeon 08-05-2022 ALP [Catalytic activity/Vol] 62 U/L 45-117 [facility] Work Phone: ALT [Catalytic activity/Vol] 20 U/L 13-56 [facility] Work Phone: CO2 [Moles/Vol] 26.0 mmol/L 21.0-32.0 [facility] Work Phone: Globulin (S) [Mass/Vol] 3.3 g/dL 2.2-4.2 [facility] Work Phone: Urea nitrogen/Creatinine [Mass ratio] 15.3 mg/mg 10-20 [facility] Work Phone: No Panel Informationon 08-05 Estimated GFR (MDRD) Amer 85 mL/min >60 [facility] Work Phone: Comment on above: GFR Calc Estimated GFR (MDRD) Non-Af Amer 71 mL/min >60 [facility] Work Phone: Comment on above: Non- GFR Calc [place] Level 0.60 mmol/L 0.60-1.20 [facility] Work Phone: Thyroid Stimulating Hormone (TSH) 2.95 uIU/mL 0.358-3.74 [facility] Work Phone: Serum or plasma albumin [place] urement (mass/volume)on 08-05-2022 Albumin [Mass/Vol] 3.6 g/dL 3.2-5.0 [facility] Work Phone: Serum or plasma albumin/glob ulin mass ratioon 08-05-2022 Albumin/Globulin [Mass ratio] 1.1 {ratio} 0.9-2.4 [facility] Work Phone: Serum or plasma calcium [place] urement (mass/volume)on 08-05-2022 Calcium [Mass/Vol] 8.8 mg/dL 8.5-10.1 [facility] Work Phone: Serum or plasma creatinine m easurement (mass/volume)on 08-05-2022 Creatinine [Mass/Vol] 0.92 mg/dL 0.55-1.02 [facility] Work Phone: Comment on above: The validity of the calculated GFR & GFRAA in patients over 70 years has not been determined. Clinical correlation is essential. Serum or plasma urea nitroge n measurement (mass/volume)on 08-05-2022 Urea nitrogen [Mass/Vol] 14 mg/dL 7-18 [facility] Work Phone: Thin prep Papanicolaou smear with manual screeningon 08-05-2022 Thin prep Papanicolaou smear with manual screening 14 U/L 15-37 [facility] Work Phone: Thin prep Papanicolaou smear with manual screening 6 5-15 [facility] Work Phone: Absolute lymphocyte counton 07-12-2022 Lymphocytes Auto (Unsp spec) [#/Vol] 1.23 10*3/uL 0.83-4.51 [facility] Work Phone: Absolute reticulocyte counto n 07-12-2022 Reticulocytes (Bld) [#/Vol] 0.00 10*3/uL 0-5 [facility] Work Phone: Basophil percentageon 2021 Basophil percentage 4.1 mg/dL 2.5-4.9 [facility] Work Phone: Bilirubin [Mass/Vol] 0.50 mg/dL 0.20-1.00 [facility] Work Phone: Comment on above: For patients on eltr ombopag therapy, use of Dimension [place] TBIL is not recommended. Chloride [Moles/Vol] 107 mmol/L 98-107 [facility] Work Phone: Cholesterol [Mass/Vol] 199 mg/dL <200 [facility] Work Phone: Comment on above: <200 mg/dL Desirable 200-240 mg/dL Borderline >240 mg/dL High Risk Glucose [Mass/Vol] 96 mg/dL 74-106 [facility] Work Phone: Neutrophils (Bld) [#/Vol] 3.9 10*3/uL 2.0-7.7 [facility] Work Phone: Potassium [Moles/Vol] 4.2 mmol/L 3.5-5.1 [facility] Work Phone: Protein [Mass/Vol] 7.5 g/dL 6.4-8.2 [facility] Work Phone: Sodium [Moles/Vol] 141 mmol/L 136-145 [facility] Work Phone: Triglyceride [Mass/Vol] 135 mg/dL <199 [facility] Work Phone: Comment on above: The drugs N-Acetylcy steine and Metamizole may falsely depress this assay.Serum Triglycerides Reference Interval Normal <150 mg/dL Borderline high 150 - 199 mg/dL High 200 - 499 mg/dL Very High > or = 500 mg/dL WBC (Bld) [#/Vol] 5.6 10*3/uL 4.4-11.0 [facility] Work Phone: Blood erythrocytes count (nu mber/volume)on 07-12-2022 RBC (Bld) [#/Vol] 4.53 10*6/uL 4.2-5.4 [facility] Work Phone: Blood hemoglobin measurement (mass/volume)on 07-12-2022 Hemoglobin (Bld) [Mass/Vol] 13.2 g/dL 12.0-15.0 [facility] Work Phone: Blood platelet mean volumeon 07-12-2022 Platelet mean volume (Bld) [Entitic vol] 10.4 fL 6.2-12.0 [facility] Work Phone: Determination of erythrocyte mean corpuscular volume (MCV)on 07-12-2022 MCV (RBC) [Entitic vol] 87.2 fL 81-99 [facility] Work Phone: Direct bilirubinon 2 Bilirubin.direct [Mass/Vol] 0.07 mg/dL 0.00-0.30 [facility] Work Phone: Hematocrit Auto (Bld) [Volum e fraction]on 07-12-2022 Hematocrit (Bld) [Volume fraction] 39.5 % 37-47 [facility] Work Phone: Laboratory - Chemistry and C hemistry - challengeon 07-12-2022 ALP [Catalytic activity/Vol] 67 U/L 45-117 [facility] Work Phone: ALT [Catalytic activity/Vol] 21 U/L 13-56 [facility] Work Phone: Cholesterol.total/Chol esterol in HDL [Mass ratio] 4.30 {ratio} [facility] Work Phone: CO2 [Moles/Vol] 29.0 mmol/L 21.0-32.0 [facility] Work Phone: Globulin (S) [Mass/Vol] 3.6 g/dL 2.2-4.2 [facility] Work Phone: Urea nitrogen/Creatinine [Mass ratio] 15.2 mg/mg 10-20 [facility] Work Phone: Laboratory - Hematology and Cell countson 07-12-2022 Erythrocyte distribution width (RBC) [Entitic vol] 43.2 fL 35.1-43.9 [facility] Work Phone: Erythrocyte distribution width (RBC) [Ratio] 13.7 % 11.6-14.6 [facility] Work Phone: MCH (RBC) [Entitic mass] 29.1 pg 27.0-32.0 [facility] Work Phone: Nucleated RBC/100 WBC (Bld) [Ratio] 0 % 0-5 [facility] Work Phone: MCHC Auto (RBC) [Mass/Vol]on 07-12-2022 MCHC (RBC) [Mass/Vol] 33.4 g/dL 32-36 [facility] Work Phone: No Panel Informationon 07-12 Estimated GFR (MDRD) Amer 78 mL/min >60 [facility] Work Phone: Comment on above: GFR Calc Estimated GFR (MDRD) Non-Af Amer 65 mL/min >60 [facility] Work Phone: Comment on above: Non- GFR Calc Platelets bldon 07-12-2022 Platelets (Bld) [#/Vol] 277 10*3/uL 150-450 [facility] Work Phone: Segmented neutrophils/100 WB C Auto (Bld)on 07-12-2022 Segmented neutrophils/100 WBC (Bld) 69.9 % 47-70 [facility] Work Phone: Serum or plasma albumin [place] urement (mass/volume)on 07-12-2022 Albumin [Mass/Vol] 3.9 g/dL 3.2-5.0 [facility] Work Phone: Serum or plasma albumin/glob ulin mass ratioon 07-12-2022 Albumin/Globulin [Mass ratio] 1.1 {ratio} 0.9-2.4 [facility] Work Phone: Serum or plasma calcium [place] urement (mass/volume)on 07-12-2022 Calcium [Mass/Vol] 9.4 mg/dL 8.5-10.1 [facility] Work Phone: Serum or plasma cholesterol in HDL measurement (mass/volume)on 07-12-2022 Cholesterol in HDL [Mass/Vol] 46 mg/dL >40 [facility] Work Phone: Comment on above: The drugs N-Acetylcy steine and Metamizole may falsely depress this assay. Reference Range HDL <40 mg/dL Low HDL Cholesterol HDL >or= 60 mg/dL High HDL Cholesterol Serum or plasma cholesterol in VLDL measurement (mass/volume)on 07-12-2022 Cholesterol in VLDL [Mass/Vol] 27 mg/dL 5-40 [facility] Work Phone: Serum or plasma creatinine m easurement (mass/volume)on 07-12-2022 Creatinine [Mass/Vol] 0.99 mg/dL 0.55-1.02 [facility] Work Phone: Comment on above: The validity of the calculated GFR & GFRAA in patients over 70 years has not been determined. Clinical correlation is essential. Serum or plasma low density lipoprotein (LDL) cholesterol measurement (mass/volume)on 07-12-2022 Cholesterol in LDL [Mass/Vol] 126 mg/dL 0-130 [facility] Work Phone: Serum or plasma urea nitroge n measurement (mass/volume)on 07-12-2022 Urea nitrogen [Mass/Vol] 15 mg/dL 7-18 [facility] Work Phone: Serum or plasma uric acid me asurement (mass/volume)on 07-12-2022 Urate [Mass/Vol] 7.3 mg/dL 2.6-6.0 [facility] Work Phone: Comment on above: The drugs N-Acetylcy steine and Metamizole may falsely depress this assay. Thin prep Papanicolaou smear with manual screeningon 07-12-2022 Thin prep Papanicolaou smear with manual screening 13 U/L 15-37 [facility] Work Phone: [phone] Thin prep Papanicolaou smear with manual screening 5 5-15 [facility] Work Phone: Thin prep Papanicolaou smear with manual screening 171 U/L 84-246 [facility] Work Phone: Basophil percentageon 2021 Chloride [Moles/Vol] 106 mmol/L 98-107 [facility] Work [facility]: Glucose [Mass/Vol] 95 mg/dL 74-106 [facility] Work Phone: Potassium [Moles/Vol] 4.0 mmol/L 3.5-5.1 [facility] Work Phone: Sodium [Moles/Vol] 141 mmol/L 136-145 [facility] Work Phone: WBC (Bld) [#/Vol] 7.3 10*3/uL 4.4-11.0 [facility] Work Phone: Blood erythrocytes count (nu mber/volume)on 04-29-2022 RBC (Bld) [#/Vol] 4.39 10*6/uL 4.2-5.4 [facility] Work Phone: Blood hemoglobin measurement (mass/volume)on 04-29-2022 Hemoglobin (Bld) [Mass/Vol] 13.0 g/dL 12.0-15.0 [facility] Work Phone: Blood platelet mean volumeon 04-29-2022 Platelet mean volume (Bld) [Entitic vol] 10.2 fL 6.2-12.0 [facility] Work Phone: Determination of erythrocyte mean corpuscular volume (MCV)on 04-29-2022 MCV (RBC) [Entitic vol] 87.9 fL 81-99 [facility] Work Phone: Hematocrit Auto (Bld) [Volum e fraction]on 04-29-2022 Hematocrit (Bld) [Volume fraction] 38.6 % 37-47 [facility] Work Phone: Laboratory - Chemistry and C hemistry - challengeon 04-29-2022 CO2 [Moles/Vol] 26.0 mmol/L 21.0-32.0 [facility] Work Phone: Urea nitrogen/Creatinine [Mass ratio] 15.5 mg/mg 10-20 [facility] Work Phone: Laboratory - Hematology and Cell countson 04-29-2022 Erythrocyte distribution width (RBC) [Entitic vol] 41.6 fL 35.1-43.9 [facility] Work Phone: Erythrocyte distribution width (RBC) [Ratio] 13.1 % 11.6-14.6 [facility] Work Phone: MCH (RBC) [Entitic mass] 29.6 pg 27.0-32.0 [facility] Work Phone: MCHC Auto (RBC) [Mass/Vol]on 04-29-2022 MCHC (RBC) [Mass/Vol] 33.7 g/dL 32-36 [facility] Work Phone: No Panel Informationon 04-29 Estimated GFR (MDRD) Amer 95 mL/min >60 [facility] Work Phone: Comment on above: GFR Calc Estimated GFR (MDRD) Non-Af Amer 78 mL/min >60 [facility] Work Phone: Comment on above: Non- GFR Calc [place] Level 0.40 mmol/L 0.60-1.20 [facility] Work Phone: Thyroid Stimulating Hormone (TSH) 2.76 uIU/mL 0.358-3.74 [facility] Work Phone: Platelets bldon 04-29-2022 Platelets (Bld) [#/Vol] 285 10*3/uL 150-450 [facility] Work Phone: Serum or plasma calcium [place] urement (mass/volume)on 04-29-2022 Calcium [Mass/Vol] 9.9 mg/dL 8.5-10.1 [facility] Work Phone: Serum or plasma creatinine m easurement (mass/volume)on 04-29-2022 Creatinine [Mass/Vol] 0.84 mg/dL 0.55-1.02 [facility] Work Phone: Comment on above: The validity of the calculated GFR & GFRAA in patients over 70 years has not been determined. Clinical correlation is essential. Serum or plasma urea nitroge n measurement (mass/volume)on 04-29-2022 Urea nitrogen [Mass/Vol] 13 mg/dL 7-18 [facility] Work Phone: Thin prep Papanicolaou smear with manual screeningon 04-29-2022 Thin prep Papanicolaou smear with manual screening 9 5-15 [facility] Work Phone: Laboratory - Microbiology an d Antimicrobial susceptibilityon 04-19-2022 SARS-CoV-2 (COVID-19) RNA ARNAV+probe Ql (Unsp spec) Detected [facility] Work Phone: No Panel Informationon 04-19 POC Nasal Swab Influenza A,B Not detected [facility] Work Phone: POC Nasal Swab RSV Not detected [facility] Work Phone: Basophil percentageon 2021 Chloride [Moles/Vol] 105 mmol/L 98-107 [facility] Work Phone: Glucose [Mass/Vol] 93 mg/dL 74-106 [facility] Work Phone: Potassium [Moles/Vol] 3.8 mmol/L 3.5-5.1 [facility] Work Phone: Sodium [Moles/Vol] 140 mmol/L 136-145 [facility] Work Phone: Laboratory - Chemistry and C hemistry - challengeon 02-27-2022 CO2 [Moles/Vol] 26.0 mmol/L 21.0-32.0 [facility] Work Phone: Urea nitrogen/Creatinine [Mass ratio] 13.4 mg/mg 10-20 [facility] Work Phone: No Panel Informationon 02-27 Estimated GFR (MDRD) Amer 80 mL/min >60 [facility] Work Phone: Comment on above: GFR Calc Estimated GFR (MDRD) Non-Af Amer 66 mL/min >60 [facility] Work Phone: Comment on above: Non- GFR Calc [place] Level 0.40 mmol/L 0.60-1.20 [facility] Work Phone: Thyroid Stimulating Hormone (TSH) 2.26 uIU/mL 0.358-3.74 [facility] Work Phone: Serum or plasma calcium [place] urement (mass/volume)on 02-27-2022 Calcium [Mass/Vol] 9.0 mg/dL 8.5-10.1 [facility] Work Phone: Serum or plasma creatinine m easurement (mass/volume)on 02-27-2022 Creatinine [Mass/Vol] 0.97 mg/dL 0.55-1.02 [facility] Work Phone: Comment on above: The validity of the calculated GFR & GFRAA in patients over 70 years has not been determined. Clinical correlation is essential. 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) (M12.9) Orders Arthropathy HLA B27 Antigen Screen; Status:Active; Requested for:[id number]; Perform:Lab Services - Lab To Draw (Blood Test); Due:[id number];Ordered; For:Arthropathy; Ordered By:Julia Dennis; Sacroiliac Joints, 3 or More Views; Status:Hold For - Scheduling; Requested for:19Dec2021; Perform:[facility]; Due:19Mar2022;Ordered; For:Arthropathy; Ordered [...] Views; Status:Hold For - Scheduling; Requested for:19Dec2021; Perform:[facility]; Due:19Mar2022;Ordered; For:Arthropathy; Ordered By:Julia Dennis; Radiologist to Determine Optimal Study : Y What are the patient's signs and symptoms? : r/o erosions or calcinosis Xray Hips, Bilat, Min 2 Views Each, AP Pelvis; Status:Hold For - Scheduling; Requested for:19Dec2021; Perform:[facility]; Due:19Mar2022;Ordered; For:Arthropathy; Ordered [...] Douglas referral-Joint pain, arthralgia History of Present Fafksto85 y/o female with Hx of various joint [...] Informationon 12-19 Vitamin D 25-Hydroxy 35.6 ng/mL [facility] Work Phone: Comment on above: Vitamin D 25(OH) Sta tus Range Deficiency <20 ng/mL (50nmol/L) Insufficiency 20 - 30 ng/mL (50 - 75 nmol/L) Sufficiency 30 - 100 ng/mL (75 - 250 nmol/L) Toxicity >100 ng/mL (>250 nmol/L) Serum or plasma uric acid me asurement (mass/volume)on 12-19-2021 Urate [Mass/Vol] 4.9 mg/dL 2.6-6.0 [facility] Work Phone: Comment on above: The drugs N-Acetylcy steine and Metamizole may falsely depress this assay. Thin prep Papanicolaou smear with manual screeningon 12-19-2021 Thin prep Papanicolaou smear with manual screening Negative [facility] Work Phone: Comment on above: HLA-B*27 FbgnuaepL41 allele interpretation for all loci based on IMGT/HLAdatabase version 3.44This test was developed and its performance characteristicsdetermined by Watson Brown. It has not been cleared or approvedby the Food and Drug Administration.[facility] CLIA ID Number [id number] test was performed using PCR (Polymerase ChainReaction)/SSOP (Sequence Specific Oligonucleotide Probes)technique. SBT (Sequence Based Typing) and/or SSP(Sequence Specific Primers) may be used as supplementalmethods when necessary. Please contact [facility] CustomerService at if you have any questions. Director of HLA Laboratory Dr Robin Kim, PhDPerformed at: [facility] [id number] [place], [place] [id number] Director: Robin Kim PhD, Phone: [phone] Blood Pressure Cuff Sizeon 1 12-23-2020 Last menstrual period start date [facility] Work Phone: Tobacco use status CPHS b) No [facility] Work Phone: Blood Pressure Cuff Size Adult [facility] Work Phone: Office Visit (Primary Care [...] DAILY ANGELA-WITH REFLEX TO MCKENZIE; Status:Active; Requested for:[id number]; Rheumatology Referral Evaluation and Treatment Evaluate AND Treat Status: Hold For - Scheduling Requested for: [id number] C Reactive Protein, Serum; Status:Active; Requested for:[id number]; Citrulline Antibody; Status:Active; Requested for:[id number]; Complete Blood Count; Status:Active; Requested for:[id number]; Rheumatoid Factor, Serum or Plasma; Status:Active; Requested for:[id number]; Sedimentation Rate, Erythrocyte; Status:Active; Requested for:[id number]; Hand pain Xray Hand Min 3 View; Status:Hold For - Scheduling; Requested for:[id number]; Laterality : Left Radiologist to Determine Optimal Study : Y What are the patient's signs and symptoms? : pain and swelling- possible rheumatoid arthritis Patient Discussion/Summary ordered lab refer to [facility] [employer] [facility] start Mobic xray ordered may add tylenol [...] right hip sxs pt wants referral to [employer] [employer] had arthritis - most likely RA [...] Medication Trileptal Depakote Vitals Vital Signs Recorded: [id number] 06:39AM Temperature: 96.9 F, Temporal Heart Rate: [...] and atraumatic (more content not included)... Normal Touchworks .GFRon 06-27-2021 GFR >60 Normal [facility] ([place] Comment on above: Result Comment: GFR Population [...] RIG, URIC, CHOL, CMP, GFR, MG #### [address] [address] GFR Non- >60 Normal [facility] ([place]) Comment on above: Result Comment: GFR Population [...] RIG, URIC, CHOL, CMP, GFR, MG #### [address] [address] CHOLon 06-27-2021 Cholesterol [Mass/Vol] 187 mg/dL Normal 50-199 [facility] ([place]) Comment on above: Result Comment: Chol esterol Reference Interval: Less than 200 Desirable 200-239 Borderline high risk 240 and above High risk Performed By: #### T RIG, URIC, CHOL, CMP, GFR, MG #### [address] [address] CMPon 06-27-2021 Albumin Level 4.4 G/dL Normal 3.2-4.8 [facility] ([place]) Comment on above: Performed By: #### T RIG, URIC, CHOL, CMP, GFR, MG #### [place] [address] Albumin/Globulin [Mass ratio] 1.8 {ratio} High 0.9-1.6 [facility] ([place]) Comment on above: Performed By: #### T RIG, URIC, CHOL, CMP, GFR, MG #### [place] [address] ALP [Catalytic activity/Vol] 54 U/L Normal 38-126 [facility] ([place]) Comment on above: Performed By: #### T RIG, URIC, CHOL, CMP, GFR, MG #### [place] [address] ALT [Catalytic activity/Vol] 20 U/L Normal 10-49 [facility] ([place] Comment on above: Performed By: #### T RIG, URIC, CHOL, CMP, GFR, MG #### [place] [address] AST [Catalytic activity/Vol] 22 U/L Normal 8-34 [facility] ([place] Comment on above: Performed By: #### T RIG, URIC, CHOL, CMP, GFR, MG #### [place] [id number] Bili Total 0.70 mg/dL Normal 0.20-1.20 [facility] ([place]) Comment on above: Result Comment: Use of this assay is not recommended for patients undergoing treatment with eltrombopag due to the potential for falsely elevated results. Performed By: #### T RIG, URIC, CHOL, CMP, GFR, MG #### [place] [address] BUN/Creatinine Ratio 28.6 ratio High 10.0-22.0 [facility] ([place]) Comment on above: Performed By: #### T RIG, URIC, CHOL, CMP, GFR, MG #### [place] [address] Calcium [Mass/Vol] 9.9 mg/dL Normal 8.7-10.4 [facility] ([place]) Comment on above: Result Comment: No te - New Reference Range in effect 20 Performed By: #### T RIG, URIC, CHOL, CMP, GFR, MG #### [address] [address] Chloride [Moles/Vol] 108 mmol/L Normal 98-110 [facility] ([place] Comment on above: Performed By: #### T RIG, URIC, CHOL, CMP, GFR, MG #### [address] [address] CO2 [Moles/Vol] 27 mmol/L Normal 22-32 [facility] ([place]) Comment on above: Performed By: #### T RIG, URIC, CHOL, CMP, GFR, MG #### [address] [address] Creatinine [Mass/Vol] 0.84 mg/dL Normal 0.50-1.20 [facility] ([place]) Comment on above: Performed By: #### T RIG, URIC, CHOL, CMP, GFR, MG #### [address] [address] Electrolyte Balance 6.0 mEq/L Normal 4.0-15.0 [facility] ([place]) Comment on above: Performed By: #### T RIG, URIC, CHOL, CMP, GFR, MG #### [address] [address] Globulin 2.5 G/dL Normal 1.5-3.8 [facility] ([place] Comment on above: Performed By: #### T RIG, URIC, CHOL, CMP, GFR, MG #### [address] [address] Glucose [Mass/Vol] 88 mg/dL Normal 70-110 [facility] ([place]) Comment on above: Performed By: #### T RIG, URIC, CHOL, CMP, GFR, MG #### [address] [address] Potassium [Moles/Vol] 3.8 mmol/L Normal 3.5-5.0 [facility] ([place]) Comment on above: Performed By: #### T RIG, URIC, CHOL, CMP, GFR, MG #### [address] [address] Sodium [Moles/Vol] 141 mmol/L Normal 136-145 [facility] ([place] Comment on above: Performed By: #### T RIG, URIC, CHOL, CMP, GFR, MG #### [place] [id number] Total Protein 6.9 G/dL Normal 5.7-8.2 [facility] ([place]) Comment on above: Result Comment: No te - New Reference Range in effect 20 Performed By: #### T RIG, URIC, CHOL, CMP, GFR, MG #### [place] [address] Urea nitrogen [Mass/Vol] 24.0 mg/dL High 8.0-22.0 [facility] ([place] Comment on above: Performed By: #### T RIG, URIC, CHOL, CMP, GFR, MG #### [address] [address] MGon 06-27-2021 Magnesium [Mass/Vol] 2.0 mg/dL Normal 1.6-2.4 [facility] ([place] Comment on above: Performed By: #### T RIG, URIC, CHOL, CMP, GFR, MG #### [place] [id number] TRIGon 06-27-2021 Triglyceride [Mass/Vol] 102 mg/dL Normal 3-149 [facility] ([place] Comment on above: Performed By: #### T RIG, URIC, CHOL, CMP, GFR, MG #### [place] [id number] URICon 06-27-2021 Uric Acid Lvl 6.2 mg/dL Normal 3.1-7.8 [facility] ([place]) Comment on above: Result Comment: No te - New Reference Range in effect 20 Performed By: #### T RIG, URIC, CHOL, CMP, GFR, MG #### [address] [address] .Auto Diffon 04-11-2021 Basophil, Absolute 0.00 10 3/mcL Normal 0.00-0.27 [facility] ([place]) Comment on above: Performed By: #### C BC, LIPID, MG, ANEU, ADIFF, GFR, TSH, URIC, CMP #### [address] [address] Basophils/100 WBC (Bld) 0.7 % Normal 0.0-2.5 [facility] ([place]) Comment on above: Performed By: #### C BC, LIPID, MG, ANEU, ADIFF, GFR, TSH, URIC, CMP #### [address] [address] Eosinophil, Absolute 0.10 10 3/mcL Normal 0.00-0.65 [facility] ([place]) Comment on above: Performed By: #### C BC, LIPID, MG, ANEU, ADIFF, GFR, TSH, URIC, CMP #### [address] [address] Eosinophils/100 WBC (Bld) 1.5 % Normal 0.0-6.0 [facility] ([place]) Comment on above: Performed By: #### C BC, LIPID, MG, ANEU, ADIFF, GFR, TSH, URIC, CMP #### [address] [address] Lymphocyte, Absolute 1.50 10 3/mcL Normal 0.90-4.32 [facility] ([place] Comment on above: Performed By: #### C BC, LIPID, MG, ANEU, ADIFF, GFR, TSH, URIC, CMP #### [address] [address] Lymphocytes/100 WBC (Bld) 30.2 % Normal 20.0-40.0 [facility] ([place] Comment on above: Performed By: #### C BC, LIPID, MG, ANEU, ADIFF, GFR, TSH, URIC, CMP #### [address] [address] Monocyte, Absolute 0.30 10 3/mcL Normal 0.09-1.40 [facility] ([place]) Comment on above: Performed By: #### C BC, LIPID, MG, ANEU, ADIFF, GFR, TSH, URIC, CMP #### [address] [address] Monocytes/100 WBC (Bld) 5.1 % Normal 2.0-13.0 [facility] ([place] Comment on above: Performed By: #### C BC, LIPID, MG, ANEU, ADIFF, GFR, TSH, URIC, CMP #### [address] [address] Neutrophils/100 WBC (Bld) 62.5 % Normal 50.0-75.0 [facility] ([place] Comment on above: Performed By: #### C BC, LIPID, MG, ANEU, ADIFF, GFR, TSH, URIC, CMP #### [address] [address] .GFRon 04-11-2021 GFR Non- >60 Normal [facility] ([place] Comment on above: Result Comment: GFR Population [...] RIG, URIC, CHOL, CMP, GFR, MG #### [address] [address] GFR >60 Normal [facility] ([place] Comment on above: Result Comment: GFR Population [...] RIG, URIC, CHOL, CMP, GFR, MG #### [place] [address] .NEUABSon 04-11-2021 Neutrophil, Absolute 3.10 10 3/mcL Normal 2.25-8.10 [facility] ([place] Comment on above: Performed By: #### C BC, LIPID, MG, ANEU, ADIFF, GFR, TSH, URIC, CMP #### [place] [address] CBCon 04-11-2021 Erythrocyte distribution width (RBC) [Ratio] 14.5 % Normal 11.5-15.5 [facility] ([place] Comment on above: Performed By: #### C BC, LIPID, MG, ANEU, ADIFF, GFR, TSH, URIC, CMP #### [place] [address] Hematocrit (Bld) [Volume fraction] 34.5 % Normal 34.0-46.0 [facility] ([place] Comment on above: Performed By: #### C BC, LIPID, MG, ANEU, ADIFF, GFR, TSH, URIC, CMP #### [place] [address] Hgb 11.8 G/dL Low 12.0-16.0 [facility] ([place]) Comment on above: Performed By: #### C BC, LIPID, MG, ANEU, ADIFF, GFR, TSH, URIC, CMP #### [place] [address] MCH (RBC) [Entitic mass] 29.6 pg Normal 27.0-33.0 [facility] ([place]) Comment on above: Performed By: #### C BC, LIPID, MG, ANEU, ADIFF, GFR, TSH, URIC, CMP #### [place] [address] MCHC 34.1 G/dL Normal 32.0-36.0 [facility] ([place] Comment on above: Performed By: #### C BC, LIPID, MG, ANEU, ADIFF, GFR, TSH, URIC, CMP #### [place] [address] MCV (RBC) [Entitic vol] 86.8 fL Normal 80.0-99.0 [facility] ([place] Comment on above: Performed By: #### C BC, LIPID, MG, ANEU, ADIFF, GFR, TSH, URIC, CMP #### [place] [address] Platelet 254 10 3/mcL Normal 150-450 [facility] ([place]) Comment on above: Performed By: #### C BC, LIPID, MG, ANEU, ADIFF, GFR, TSH, URIC, CMP #### [place] [address] Platelet mean volume (Bld) [Entitic vol] 9.3 fL Normal 6.6-10.5 [facility] ([place] Comment on above: Performed By: #### C BC, LIPID, MG, ANEU, ADIFF, GFR, TSH, URIC, CMP #### [place] [address] RBC 3.98 10 6/mcL Low 4.10-5.30 [facility] ([place] Comment on above: Performed By: #### C BC, LIPID, MG, ANEU, ADIFF, GFR, TSH, URIC, CMP #### [place] [address] WBC 5.00 10 3/mcL Normal 4.50-10.80 [facility] ([place] Comment on above: Performed By: #### C BC, LIPID, MG, ANEU, ADIFF, GFR, TSH, URIC, CMP #### [place] [address] CMPon 04-11-2021 Albumin Level 4.3 G/dL Normal 3.2-4.8 [facility] ([place] Comment on above: Performed By: #### T RIG, URIC, CHOL, CMP, GFR, MG #### [place] [address] Albumin/Globulin [Mass ratio] 2.0 {ratio} High 0.9-1.6 [facility] ([place] Comment on above: Performed By: #### T RIG, URIC, CHOL, CMP, GFR, MG #### [place] [address] ALP [Catalytic activity/Vol] 57 U/L Normal 38-126 [facility] ([place] Comment on above: Performed By: #### T RIG, URIC, CHOL, CMP, GFR, MG #### [place] [address] ALT [Catalytic activity/Vol] 19 U/L Normal 10-49 [facility] ([place] Comment on above: Performed By: #### T RIG, URIC, CHOL, CMP, GFR, MG #### [place] [address] AST [Catalytic activity/Vol] 23 U/L Normal 8-34 [facility] ([place] Comment on above: Performed By: #### T RIG, URIC, CHOL, CMP, GFR, MG #### [place] [address] Bili Total 0.80 mg/dL Normal 0.20-1.20 [facility] ([place]) Comment on above: Result Comment: Use of this assay is not recommended for patients undergoing treatment with eltrombopag due to the potential for falsely elevated results. Performed By: #### T RIG, URIC, CHOL, CMP, GFR, MG #### [place] [address] BUN/Creatinine Ratio 24.7 ratio High 10.0-22.0 [facility] ([place] Comment on above: Performed By: #### T RIG, URIC, CHOL, CMP, GFR, MG #### [place] [address] Calcium [Mass/Vol] 9.8 mg/dL Normal 8.7-10.4 [facility] ([place]) Comment on above: Result Comment: No te - New Reference Range in effect 20 Performed By: #### T RIG, URIC, CHOL, CMP, GFR, MG #### [address] [address] Chloride [Moles/Vol] 108 mmol/L Normal 98-110 [facility] ([place] Comment on above: Performed By: #### T RIG, URIC, CHOL, CMP, GFR, MG #### [address] [address] CO2 [Moles/Vol] 26 mmol/L Normal 22-32 [facility] ([place] Comment on above: Performed By: #### T RIG, URIC, CHOL, CMP, GFR, MG #### [address] [address] Creatinine [Mass/Vol] 0.89 mg/dL Normal 0.50-1.20 [facility] ([place]) Comment on above: Performed By: #### T RIG, URIC, CHOL, CMP, GFR, MG #### [address] [address] Electrolyte Balance 8.0 mEq/L Normal 4.0-15.0 [facility] ([place]) Comment on above: Performed By: #### T RIG, URIC, CHOL, CMP, GFR, MG #### [address] [address] Globulin 2.1 G/dL Normal 1.5-3.8 [facility] ([place] Comment on above: Performed By: #### T RIG, URIC, CHOL, CMP, GFR, MG #### [address] [address] Glucose [Mass/Vol] 85 mg/dL Normal 70-110 [facility] ([place]) Comment on above: Performed By: #### T RIG, URIC, CHOL, CMP, GFR, MG #### [place] [id number] Potassium [Moles/Vol] 4.3 mmol/L Normal 3.5-5.0 [facility] ([place]) Comment on above: Performed By: #### T RIG, URIC, CHOL, CMP, GFR, MG #### [address] [address] Sodium [Moles/Vol] 142 mmol/L Normal 136-145 [facility] ([place]) Comment on above: Performed By: #### T RIG, URIC, CHOL, CMP, GFR, MG #### [address] [address] Total Protein 6.4 G/dL Normal 5.7-8.2 [facility] ([place]) Comment on above: Result Comment: No te - New Reference Range in effect 20 Performed By: #### T RIG, URIC, CHOL, CMP, GFR, MG #### [address] [address] Urea nitrogen [Mass/Vol] 22.0 mg/dL Normal 8.0-22.0 [facility] ([place] Comment on above: Performed By: #### T RIG, URIC, CHOL, CMP, GFR, MG #### [address] [address] LIPIDon 04-11-2021 Cholesterol [Mass/Vol] 198 mg/dL Normal 50-199 [facility] ([place]) Comment on above: Result Comment: Chol esterol Reference Interval: Less than 200 Desirable 200-239 Borderline high risk 240 and above High risk Performed By: #### T RIG, URIC, CHOL, CMP, GFR, MG #### [address] [address] Cholesterol in HDL [Mass/Vol] 40 mg/dL Normal 40-59 [facility] ([place]) Comment on above: Performed By: #### T RIG, URIC, CHOL, CMP, GFR, MG #### [address] [address] Cholesterol in LDL [Mass/Vol] 127 mg/dL Normal 0-129 [facility] ([place]) Comment on above: Performed By: #### T RIG, URIC, CHOL, CMP, GFR, MG #### [address] [address] Triglyceride [Mass/Vol] 154 mg/dL High 3-149 [facility] ([place]) Comment on above: Performed By: #### T RIG, URIC, CHOL, CMP, GFR, MG #### [place] [address] MGon 04-11-2021 Magnesium [Mass/Vol] 2.2 mg/dL Normal 1.6-2.4 [facility] ([place] Comment on above: Performed By: #### C BC, LIPID, MG, ANEU, ADIFF, GFR, TSH, URIC, CMP #### [place] [address] TSHon 04-11-2021 TSH 2.149 mIU/mL Normal 0.550-4.78 0 [facility] ([place] Comment on above: Result Comment: No te - New Reference Range in effect 20 Performed By: #### T RIG, URIC, CHOL, CMP, GFR, MG #### [place] [address] UAon 04-11-2021 Color (U) Dark Yellow Normal [facility] ([place]) Comment on above: Performed By: #### T RIG, URIC, CHOL, CMP, GFR, MG #### [place] [address] Glucose (U) [Mass/Vol] Negative Normal Negative [facility] ([place]) Comment on above: Performed By: #### T RIG, URIC, CHOL, CMP, GFR, MG #### [place] [address] Ketones Ql (U) Negative Normal Neg-Trace [facility] ([place] Comment on above: Performed By: #### T RIG, URIC, CHOL, CMP, GFR, MG #### [place] [address] UA Appear Clear Normal Clear [facility] ([place] Comment on above: Performed By: #### T RIG, URIC, CHOL, CMP, GFR, MG #### [place] [address] UA Blood Negative Normal Neg-Trace [facility] ([place] Comment on above: Performed By: #### T RIG, URIC, CHOL, CMP, GFR, MG #### [address] [address] UA Leuk Est Negative Normal Negative [facility] ([place] Comment on above: Performed By: #### T RIG, URIC, CHOL, CMP, GFR, MG #### [address] [address] UA Nitrite Negative Normal Negative [facility] ([place] Comment on above: Performed By: #### T RIG, URIC, CHOL, CMP, GFR, MG #### [address] [address] UA pH 5.5 Normal 5.0 - 8.0 [facility] ([place] Comment on above: Performed By: #### T RIG, URIC, CHOL, CMP, GFR, MG #### [address] [address] UA Protein Negative Normal Negative [facility] ([place] Comment on above: Performed By: #### T RIG, URIC, CHOL, CMP, GFR, MG #### [address] [address] UA Spec Grav 1.025 Normal 1.006-1.02 9 [facility] ([place]) Comment on above: Performed By: #### T RIG, URIC, CHOL, CMP, GFR, MG #### [address] [address] UA Specimen Type Not Given Normal [facility] ([place] Comment on above: Performed By: #### T RIG, URIC, CHOL, CMP, GFR, MG #### [address] [address] UA Urobilinogen 0.2 E.U./dL Normal 0.2-1.0 [facility] ([place] Comment on above: Performed By: #### T RIG, URIC, CHOL, CMP, GFR, MG #### [address] [address] Urobilinogen (U) [Mass/Vol] Negative Normal Neg-Trace [facility] ([place]) Comment on above: Performed By: #### T RIG, URIC, CHOL, CMP, GFR, MG #### [place] [id number] [address] [place] [address] URICon 04-11-2021 Uric Acid Lvl 7.4 mg/dL Normal 3.1-7.8 [facility] ([place] Comment on above: Result Comment: No te - New Reference Range in effect 20 Performed By: #### T RIG, URIC, CHOL, CMP, GFR, MG #### [address] [address] Vital Signs Date Time Vital Sign Value Performing Clinician Facility 07-18-2025 09:23-0400 Body height 162.[address] Aleksandra Douglas MD Work Phone: [facility] 07-18-2025 09:22-0400 Body mass index (BMI) [Ratio] 29 kg/m2 Dr. Aleksandra Douglas MD Work Phone: [facility] 07-18-2025 09:22-0400 Body weight 76.[address] Aleksandra Douglas MD Work Phone: [facility] 07-18-2025 09:22-0400 Diastolic blood pressure 68 mm[Hg] Dr. Aleksandra Douglas MD Work Phone: [facility] 07-18-2025 09:22-0400 Systolic blood pressure 100 mm[Hg] Dr. Aleksandra Douglas MD Work Phone: [facility] 12-02-2024 11:33-0500 Body mass index (BMI) [Ratio] 30.55 kg/m2 Ronnell Varela MD Work Phone: [facility] 12-02-2024 11:33-0500 Body weight 80.74 kg Ronnell Varela MD Work Phone: [facility] 12-02-2024 11:33-0500 Diastolic blood pressure 85 mm[Hg] Ronnell Varela MD Work Phone: [facility] 12-02-2024 11:33-0500 Heart rate 74 /min Ronnell Varela MD Work Phone: [facility] 12-02-2024 11:33-0500 Systolic blood pressure 122 mm[Hg] Ronnell Varela MD Work Phone: [facility] 11-19-2024 16:00-0500 Heart rate 80 /min Ronnell Varela MD Work Phone: [facility] 11-19-2024 16:00-0500 Respiratory rate 16 /min Ronnell Varela MD Work Phone: [facility] 11-19-2024 15:45-0500 Diastolic blood pressure 77 mm[Hg] Ronnell Varela MD Work Phone: [facility] 11-19-2024 15:45-0500 Systolic blood pressure 138 mm[Hg] Ronnell Varela MD Work Phone: [facility] 11-19-2024 15:30-0500 Body temperature 97.3 [degF] Ronnell Varela MD Work Phone: [facility] 11-19-2024 15:30-0500 SaO2% (BldA) [Mass fraction] 98 % Ronnell Varela MD Work Phone: [facility] 11-19-2024 09:18-0500 Body height 162.6 cm Ronnell Varela MD Work Phone: [facility] 11-19-2024 09:18-0500 Body mass index (BMI) [Ratio] 31.14 kg/m2 Ronnell Varela MD Work Phone: [facility] 11-19-2024 09:18-0500 Body weight 82.3 kg Ronnell Varela MD Work Phone: [facility] 08-09-2024 10:02-0400 Body height 162.6 cm Ronnell Varela MD Work Phone: [facility] 08-09-2024 10:02-0400 Body mass index (BMI) [Ratio] 30.79 kg/m2 Ronnell Varela MD Work Phone: [facility] 08-09-2024 10:02-0400 Body temperature 98.49 [degF] Ronnell Varela MD Work Phone: [facility] 08-09-2024 10:02-0400 Body weight 81.38 kg Ronnell Varela MD Work Phone: [facility] 08-09-2024 10:02-0400 Diastolic blood pressure 80 mm[Hg] Ronnell Varela MD Work Phone: [facility] 08-09-2024 10:02-0400 Heart rate 54 /min Ronnell Varela MD Work Phone: [facility] 08-09-2024 10:02-0400 Systolic blood pressure 112 mm[Hg] Ronnell Varela MD Work Phone: [facility] 06-18-2024 11:06-0400 Body mass index (BMI) [Ratio] 31.62 kg/m2 Aleksandra Douglas MD Work Phone: [facility] 06-18-2024 11:06-0400 Body temperature 97.2 [degF] Aleksandra Douglas MD Work Phone: [facility] 06-18-2024 11:06-0400 Body weight 83.55 kg Aleksandra Douglas MD Work Phone: [facility] 06-18-2024 11:06-0400 Diastolic blood pressure 84 mm[Hg] Aleksandra Douglas MD Work Phone: [facility] 06-18-2024 11:06-0400 Heart rate 72 /min Aleksandra Douglas MD Work Phone: [facility] 06-18-2024 11:06-0400 Respiratory rate 14 /min Aleksandra Douglas MD Work Phone: [facility] 06-18-2024 11:06-0400 SaO2% (BldA) [Mass fraction] 97 % Aleksandra Douglas MD Work Phone: [facility] 06-18-2024 11:06-0400 Systolic blood pressure 123 mm[Hg] Aleksandra Douglas MD Work Phone: [facility] 12-30-2023 15:40-0500 Body height 162.[address] Aleksandra Douglas Work Phone: [facility] 12-30-2023 15:38-0500 Body mass index (BMI) [Ratio] 36.7 kg/m2 Dr. Aleksandra Douglas Work Phone: [facility] 12-30-2023 15:38-0500 Body weight 97.[address] Aleksandra Douglas Work Phone: [facility] 12-30-2023 15:38-0500 Diastolic blood pressure 83 mm[Hg] Dr. Aleksandra Douglas Work Phone: [facility] 12-30-2023 15:38-0500 Systolic blood pressure 115 mm[Hg] Dr. Aleksandra Douglas Work Phone: [facility] 09-29-2023 09:25-0500 Body height 162.[address] Aleksandra Douglas Work Phone: [facility] 09-29-2023 09:25-0500 Body mass index (BMI) [Ratio] 38.6 kg/m2 Dr. Aleksandra Douglas Work Phone: [facility] 09-29-2023 09:25-0500 Body temperature 97.5 [degF] Dr. Aleksandra Douglas Work Phone: [facility] 09-29-2023 09:25-0500 Body weight 102.[address] Aleksandra Douglas Work Phone: [facility] 09-29-2023 09:25-0500 Diastolic blood pressure 81 mm[Hg] Dr. Aleksandra Douglas Work Phone: [facility] 09-29-2023 09:25-0500 Heart rate 79 /min Dr. Aleksandra Douglas Work Phone: [facility] 09-29-2023 09:25-0500 Respiratory rate 16 /min Dr. Aleksandra Douglas Work Phone: [facility] 09-29-2023 09:25-0500 SaO2% (BldA) [Mass fraction] 98 % Dr. Aleksandra Douglas Work Phone: [facility] 09-29-2023 09:25-0500 Systolic blood pressure 120 mm[Hg] Dr. Aleksandra Douglas Work Phone: [facility] 06-12-2023 12:15-0400 Body temperature 97.6 [degF] Dr. Aleksandra Douglas Work Phone: [facility] 06-12-2023 12:15-0400 Diastolic blood pressure 63 mm[Hg] Dr. Aleksandra Douglas Work Phone: [facility] 06-12-2023 12:15-0400 Heart rate 70 /min Dr. Aleksandra Douglas Work Phone: [facility] 06-12-2023 12:15-0400 Respiratory rate 18 /min Dr. Aleksandra Douglas Work Phone: [facility] 06-12-2023 12:15-0400 SaO2% (BldA) [Mass fraction] 95 % Dr. Aleksandra Douglas Work Phone: [facility] 06-12-2023 12:15-0400 Systolic blood pressure 104 mm[Hg] Dr. Aleksandra Douglas Work Phone: [facility] 06-12-2023 12:00-0400 Inhaled oxygen flow rate 3 L/min Dr. Aleksandra Douglas Work Phone: [facility] 06-12-2023 09:05-0400 Body height 162.[address] Aleksandra Douglas Work Phone: [facility] 06-12-2023 09:05-0400 Body mass index (BMI) [Ratio] 37.4 kg/m2 Dr. Aleksandra Douglas Work Phone: [facility] 06-12-2023 09:05-0400 Body weight [address] Aleksandra Douglas Work Phone: [facility] 02-10-2023 07:20-0400 Body temperature 97 [degF] Dr. Aleksandra Douglas Work Phone: [facility] 02-10-2023 07:20-0400 Diastolic blood pressure 75 mm[Hg] Dr. Aleksandra Douglas Work Phone: [facility] 02-10-2023 07:20-0400 Heart rate 59 /min Dr. Aleksandra Douglas Work Phone: [facility] 02-10-2023 07:20-0400 Respiratory rate 16 /min Dr. Aleksandra Douglas Work Phone: [facility] 02-10-2023 07:20-0400 SaO2% (BldA) [Mass fraction] 99 % Dr. Aleksandra Douglas Work Phone: [facility] 02-10-2023 07:20-0400 Systolic blood pressure 106 mm[Hg] Dr. Aleksandra Douglas Work Phone: [facility] 02-10-2023 05:52-0400 Body height 162.[address] Aleksandra Douglas Work Phone: [facility] 02-10-2023 05:52-0400 Body mass index (BMI) [Ratio] 38.2 kg/m2 Dr. Aleksandra Douglas Work Phone: [facility] 02-10-2023 05:52-0400 Body weight [address] Aleksandra Douglas Work Phone: [facility] 10-17-2022 09:02-0500 Body height 162.[address] Aleksandra Douglas Work Phone: [facility] 10-17-2022 09:02-0500 Body mass index (BMI) [Ratio] 36.8 kg/m2 Dr. Aleksandra Douglas Work Phone: [facility] 10-17-2022 09:02-0500 Body weight 97.[address] Aleksandra Douglas Work Phone: [facility] 06-04-2022 14:55-0400 Body height 162.[address] Aleksandra Douglas Work Phone: [facility] Work Phone: 06-04-2022 14:55-0400 Body mass index (BMI) [Ratio] 35.3 kg/m2 Dr. Aleksandra Douglas Work Phone: [facility] Work Phone: 06-04-2022 14:55-0400 Body weight 93.[address] Aleksandra Douglas Work Phone: [facility] Work Phone: 06-04-2022 14:55-0400 Diastolic blood pressure 72 mm[Hg] Dr. Aleksandra Douglas Work Phone: [facility] Work Phone: 06-04-2022 14:55-0400 Systolic blood pressure 104 mm[Hg] Dr. Aleksandra Douglas Work Phone: [facility] Work Phone: 12-25-2021 11:07-0500 Body height 162.[address] Aleksandra Douglas Work Phone: [facility] Work Phone: 12-25-2021 11:07-0500 Body mass index (BMI) [Ratio] 34.7 kg/m2 Dr. Aleksandra Douglas Work Phone: [facility] Work Phone: 12-25-2021 11:07-0500 Body weight 91.[address] Aleksandra Douglas Work Phone: [facility] Work Phone: 12-25-2021 11:07-0500 Diastolic blood pressure 100 mm[Hg] Dr. Aleksandra Douglas Work Phone: [facility] Work Phone: 12-25-2021 11:07-0500 Systolic blood pressure 140 mm[Hg] Dr. Aleksandra Douglas Work Phone: [facility] Work Phone: 12-25-2021 10:07-0500 Body height 162.[address] Aleksandra Douglas Work Phone: [facility] Work Phone: 12-25-2021 10:07-0500 Body mass index (BMI) [Ratio] 34.7 kg/m2 Dr. Aleksandra Douglas Work Phone: [facility] Work Phone: 12-25-2021 10:07-0500 Body weight 91.[address] Aleksandra Douglas Work Phone: [facility] Work Phone: 12-25-2021 10:07-0500 Diastolic blood pressure 100 mm[Hg] Dr. Aleksandra Douglas Work Phone: [facility] Work Phone: 12-25-2021 10:07-0500 Systolic blood pressure 140 mm[Hg] Dr. Aleksandra Douglas Work Phone: [facility] Work Phone: 12-19-2021 08:53-0500 Body height 162.56 cm Aleksandra Momin Rosmery Work Phone: [facility] Work Phone: 12-19-2021 08:53-0500 Body mass index (BMI) [Ratio] 33.99 kg/m2 Aleksandra Momin Rosmery Work Phone: [facility] Work Phone: 12-19-2021 08:53-0500 Body surface area Derived from formula 1.95 m2 Aleksandra Alvaradoe Work Phone: [facility] [employer] Work Phone: 12-19-2021 08:53-0500 Body weight 89.81 kg Aleksandra L Rosmery Work Phone: [facility] [employer] Work Phone: 12-19-2021 08:53-0500 Diastolic blood pressure 78 mm[Hg] Aleksandra L Rosmery Work Phone: [facility] [employer] Work Phone: 12-19-2021 08:53-0500 Systolic blood pressure 116 mm[Hg] Aleksandra L Rosmery Work Phone: [facility] [employer] [facility] Work Phone: 10-22-2021 06:39-0500 Body mass index (BMI) [Ratio] 34.27 kg/m2 Aleksandra L Rosmery Work Phone: [facility] Work Phone: 10-22-2021 06:39-0500 Body surface area Derived from formula 1.97 m2 Aleksandra L Rosmery Work Phone: [facility] Work Phone: 10-22-2021 06:39-0500 Body temperature 96.9 [degF] Aleksandra L Rosmery Work Phone: [facility] Work Phone: 10-22-2021 06:39-0500 Body weight 91.26 kg Aleksandra L Rosmery Work Phone: [facility] Work Phone: 10-22-2021 06:39-0500 Diastolic blood pressure 76 mm[Hg] Aleksandra L Rosmery Work Phone: [facility] Work Phone: 10-22-2021 06:39-0500 Heart rate 73 /min Aleksandra L Rosmery Work Phone: [facility] Work Phone: 10-22-2021 06:39-0500 Respiratory rate 16 /min Aleksandra Douglas Work Phone: [facility] Work Phone: 10-22-2021 06:39-0500 SaO2% (BldA) [Mass fraction] 97 % Aleksandra Douglas Work Phone: [facility] Work Phone: 10-22-2021 06:39-0500 Systolic blood pressure 115 mm[Hg] Aleksandra Douglas Work Phone: [facility] Work Phone: Encounters Encounter Date Encounter Type Care Provider Facility Start: 09-05-2025 ambulatory Edd L Seese Facility :[facility] Start: 08-19-2025 ambulatory Edd L Seese Facility :[facility] Start: 08-10-2025 End: 08-10-2025 ambulatory Lisa Fritz NP Facility:[facility] Start: 08-03-2025 End: 09-02-2025 ambulatory Edd L Seese Facility:[facility] Start: 07-29-2025 ambulatory Edd L Seese Facility :[facility] Start: 07-29-2025 End: 07-29-2025 ambulatory Felicitas RUVALCABA Facility:[facility] Start: 07-27-2025 End: 08-02-2025 ambulatory Edd L Seese Facility:[facility] Start: 07-18-2025 End: 07-18-2025 Patient encounter procedure Lisa Fritz [employer]-C -[facility] Work Phone: Start: 07-18-2025 End: 07-18-2025 Patient encounter status Lisa Fritz [employer] [facility] Start: 07-18-2025 End: 07-18-[address] Aleksandra Douglas MD Work Phone: -[facility] Start: 07-05-2025 Registered [employer] HEALTH RIS K ASSESSMENT -Employee Health Start: 07-05-2025 End: 07-05-[address] Aleksandra Douglas MD Work Phone: -Laboratory Start: 07-05-2025 End: 07-05-[address] Aleksandra Douglas MD Work Phone: -Laboratory Work Phone: Start: 07-05-2025 End: 07-05-2025 ambulatory ANGEL CASANOVA Facility:[facility] Start: 03-23-2025 End: 03-23-[address] Aleksandra Douglas MD Work Phone: [facility] Work Phone: Start: 03-23-2025 End: 03-23-2025 Patient encounter procedure Felicitas Camacho PA -Laboratory Work Phone: Start: 03-23-2025 End: 03-23-2025 ambulatory Felicitas RUVALCABA Facility:[facility] Start: 12-21-2024 End: 12-21-2024 Patient encounter procedure Felicitas Camacho PA -Laboratory Work Phone: Start: 12-21-2024 End: 12-21-2024 ambulatory Felicitas RUVALCABA Facility:[facility] Start: 12-02-2024 End: 12-02-2024 Postop follow up visit related to original px Ronnell Varela MD Work Phone: [facility] Comment on above: Status post partial thyroidectomy Start: 12-02-2024 End: 12-02-2024 [facility] Start: 11-24-2024 Encounter for other preprocedural examination ANGEL [facility] Start: 11-19-2024 End: 11-19-2024 Subsequent hospital visit by physician Ronnell Varela MD Work Phone: [facility] Comment on above: Thyroid nodule (Prim rayshawn Dx) Start: 11-16-2024 ambulatory RONNELL VARELA [facility] Start: 11-01-2024 End: 11-01-2024 ambulatory ANGEL CASANOVA Facility:[facility] Start: 08-09-2024 End: 08-09-2024 Office outpatient new 45 minutes Ronnell Varela MD Work Phone: [facility] Comment on above: Thyroid nodule (Prim rayshawn Dx) Start: 08-09-2024 End: 08-09-2024 ambulatory [facility] Ambulatory Start: 06-18-2024 End: 06-18-2024 ambulatory ALEKSANDRA DOUGLAS [facility] Ambulatory Start: 06-18-2024 End: 06-18-2024 Office outpatient visit 25 minutes Aleksandra Douglas MD Work Phone: [facility] Comment on above: Neck mass (Primary D x); Enlarged thyroid Start: 02-25-2024 End: 02-25-[address] Aleksandra Douglas Work Phone: [facility] Work Phone: Start: 02-25-2024 End: 02-25-[address] Aleksandra Douglas Work Phone: [facility]-Pulmonary Services/Neurology Work Phone: Start: 02-20-2024 End: 02-20-[address] Aleksandra Douglas Work Phone: [facility] Work Phone: Start: 02-20-2024 End: 02-20-[address] [facility]ks[facility] Start: 12-30-2023 End: 12-30-[address] Aleksandra Douglas Work Phone: [facility] Work Phone: Start: 12-17-2023 End: 12-17-[address] Aleksandra Douglas Work Phone: [facility] Work Phone: Start: 12-17-2023 End: 12-17-[address] Aleksandra Douglas Work Phone: [facility]-Laboratory Work Phone: Start: 09-29-2023 End: 09-29-[address] Aleksandra Douglas Work Phone: [facility] Work Phone: Start: 06-12-2023 End: 06-12-2023 Admission to same day surgery center Dr. Aleksandra Douglas Work Phone: [facility]-Surgical Day Care Start: 06-12-2023 End: 06-12-[address] Aleksandra Douglas Work Phone: [facility] Work Phone: Start: 02-19-2023 Non-patient / Non-visit Dr. Roque Douglas Work Phone: [facility] Start: 02-19-2023 End: 02-19-[address] Aleksandra Douglas [facility] Start: 02-18-2023 End: 02-18-[address] Aleksandra Douglas Work Phone: [facility] Work Phone: Start: 02-18-2023 End: 02-18-[address] Aleksandra Douglas Work Phone: [facility]-Laboratory Start: 02-11-2023 End: 02-11-[address] Aleksandra Douglas Work Phone: [facility] Work Phone: Start: 02-11-2023 End: 02-11-[address] Aleksandra Douglas Work Phone: [facility]-Laboratory Start: 02-10-2023 Non-patient / Non-visit Dr. Roque Douglas Work Phone: [facility] Start: 02-10-2023 End: 02-10-2023 Admission to same day surgery center Dr. Aleksandra Douglas Work Phone: [facility]-Endoscopy Start: 02-10-2023 End: 02-10-[address] Aleksandra Douglas Work Phone: [facility] Work Phone: Start: 12-14-2022 End: 12-14-[address] Aleksandra Douglas Work Phone: [facility] Work Phone: Start: 12-14-2022 End: 12-14-[address] Aleksandra Douglas Work Phone: [facility] Start: 12-12-2022 End: 12-12-[address] Aleksandra Douglas Work Phone: [facility] Start: 10-17-2022 Non-patient / Non-visit Dr. Roque Douglas Work Phone: [facility] Start: 09-24-2022 End: 09-24-[address] Aleksandra Douglas Work Phone: [facility] Work Phone: Start: 09-24-2022 End: 09-24-[address] Aleksandra Douglas Work Phone: [facility]-Laboratory Start: 08-05-2022 End: 08-05-[address] Aleksandra Douglas Work Phone: [facility] Work Phone: Start: 08-05-2022 End: 08-05-[address] Aleksandra Douglas Work Phone: [facility]-Laboratory Start: 07-22-2022 End: 07-22-[address] Aleksandra Douglas Work Phone: [facility] Start: 07-12-[address] Aleksandra martinez Work Phone: [facility] Start: 06-04-2022 End: 06-04-[address] Aleksandra Douglas Work Phone: [facility] Start: 04-29-2022 End: 04-29-[address] Aleksandra Douglas Work Phone: [facility]-Laboratory Start: 04-19-2022 End: 04-19-[address] Aleksandra Douglas Work Phone: [facility] Start: 04-18-2022 End: 04-18-[address] Aleksandra Douglas Work Phone: [facility]-Outpatient Breast Imaging Start: 02-27-2022 End: 02-27-[address] Aleksandra Douglas Work Phone: [facility]-Laboratory Start: 01-25-2022 AUDIT Aleksandra Douglas Work Phone: [facility] Work Phone: Start: 12-25-2021 End: 12-25-[address] Aleksandra Douglas Work Phone: [facility] Start: 12-25-2021 End: 12-25-[address] Aleksandra Douglas Work Phone: [facility] G[facility] Start: 12-20-2021 End: 12-20-[address] Aleksandra Douglas Work Phone: [facility]-Physical Therapy Start: 12-19-2021 End: 12-19-[address] Aleksandra Douglas Work Phone: [facility]-MRI - [facility] Start: 12-19-2021 Office consultation new/estab patient 60 min Aleksandra Douglas Work Phone: [facility] Work Phone: Start: 12-13-2021 End: 02-10-[address] Aleksandra Douglas Work Phone: [facility]-Nuclear Medicine, [facility] Start: 12-03-2021 End: 12-03-[address] Aleksandra Douglas Work Phone: [facility]-Radiology, [facility] Start: 10-22-2021 Office outpatient vi sit 15 minutes Aleksandra Douglas Work Phone: [facility] Work Phone: Cardiovascular stres s test abnormal Aleksandra Douglas Work Phone: [facility] Work Phone: Comment on above: 10/2017- Dr Amaya; Procedures Date Procedure Procedure Detail Performing Clinician Start: 07-05-2025 End: 07-05-[address] phosphate [address] Aleksandra Douglas MD Work Phone: Start: 07-05-[address] Aleksandra Douglas MD Work Phone: Comment on above: According to the National Academy of Cli nical Biochemistry,the reference interval for Thyroglobulin (TG) should berelated to euthyroid patients and not for patients whounderwent thyroidectomy. TG reference intervals for thesepatients depend on the residual mass of the thyroid tissueleft after surgery. Establishing a post-operative baselineis recommended. The assay limit of quantitation is 0.1ng/mLThyroglobulin measured by [employer] ImmunometricAssayPerformed at: [facility] Lab[address] [id number] Director: Oc Rojas PhD, Phone: [phone] Start: 07-05-[address] Ivana Douglas MD Work Phone: Comment on above: Thyroglobulin Antibody measured by ChangeYourFlightMethodologyIt should be noted that the presence of thyroglobulinantibodies may not be pathogenic nor diagnostic, especiallyat very low levels. The assay casino duty manager has found thatfour percent of individuals without evidence of thyroiddisease or autoimmunity will have positive TgAb levels upto 4 IU/mL. Start: 07-05-2025 Vitamin D, 25-hydroxy measurement Dr. Roque Douglas MD Work Phone: Comment on above: Vitamin D StatusDeficiency: <20 ng/mL (5 0nmol/L)Insufficiency: 20-30 ng/mL (50-75 nmol/L)Sufficiency: 30-100 ng/mL (75-250 nmol/L)Toxicity: >100 ng/mL (>250 nmol/L) Start: 03-23-[address] Aleksandra Douglas MD Work Phone: Start: 12-21-[address] Aleksandra Douglas MD Work Phone: Start: 11-19-2024 End: 11-19-2024 PULSE OXIMETRY, CONTINUOUS Porfirio branch DO Work Phone: Start: 11-19-2024 VERAB/VERIFY ABORH Porfirio You DO Work Phone: Start: 11-19-2024 Blood typing serologic rh (d) Ronnell knapp MD Work Phone: Start: 11-19-2024 PULSE OXIMETRY, SPOT Ronnell Varela MD Work Phone: Start: 08-09-2024 BIOPSY Ronnell Varela MD Work Phone: Start: 08-04-2024 Mammography Ronnell Varela MD Work Phone: Start: 06-22-2024 Thyrotropin [Units/volume] in Serum or Plasma Ronnell Varela MD Work Phone: Start: 07-29-2023 Mammography Aleksandra Douglas MD Work Phone: Start: 06-12-[address] Aleksandra Douglas Work Phone: Start: 02-10-2023 End: 02-10-[address] Aleksandra Douglas Work Phone: Start: 12-14-2022 MRI of cervical spine Dr. Aleksandra Douglas Work Phone: Start: 04-18-[address] Aleksandra Douglas Work Phone: Start: 12-19-2021 Plain X-ray of bilateral sacroiliac joints Dr. Aleksandra Douglas Work Phone: Start: 12-19-2021 Plain x-ray of pelvis and lower extremity Dr. Aleksandra Douglas Work Phone: Start: 12-19-2021 End: 12-19-2021 Plain x-ray of hand Dr. Aleksandra Douglas Work Phone: Start: 12-19-2021 MRI of cervical spine Dr. Aleksandra Douglas Work Phone: Start: 12-13-2021 Radionuclide gastric emptying study Dr. Aleksandra Douglas Work Phone: Start: 12-03-2021 Diagnostic radiography of abdomen Dr. Roque Douglas Work Phone: Start: 07-24-2020 Microscopic observation [Identifier] in Cervix by Cyto stain Aleksandra Douglas MD Work Phone: Bilateral tubal ligation Tyr iliana Douglas Work Phone: Comment on above: 09/21 Dr Hernandez; Cardiac catheterization Aleksandra Douglas Work Phone: section Aleksandra Douglas Work Phone: H/O: hysterectomy S/P vaginal hysterectomy Dr. Aleksandra Douglas Work Phone: Hysterectomy Aleksandra Douglas Work Phone: Insertion of intraut erine contraceptive device Aleksandra Douglas Work Phone: Procedure on back Aleksandrailiana juárez Work Phone: Removal of intrauterine device Aleksandra Douglas Work Phone: Repair of inguinal hernia Roque Douglas Work Phone: Plan of Treatment Date Care Activity Detail Author Start: 02-10-2033 Screening for malign ant neoplasm of colon [facility] Start: 03-06-2031 DTaP/Tdap/Td Vaccine s (3 - Td or Tdap) DTaP/Tdap/Td Vaccines (3 - Td or Tdap) [facility] Start: 2027 Zoster Vaccines (1 of 2) Zoste r Vaccines (1 of 2) [facility] Start: 08-04-2025 Screening for malign ant neoplasm of breast Mammogram [facility] Start: 06-22-2025 Thyroid stimulating hormone measurement TSH Level [facility] Start: 12-20-2024 End: 12-02-2025 Thyrotropin [Units/volume] in Serum or Plasma Thyroid Stimulating Hormone Lab Routine Status post partial thyroidectomy Expected: 12/20/2024 (Approximate), Expires: 12/02/2025 [facility] Service Area Work Phone: Comment on above: Expected: 12/20/2024 (Approximate), Expires: 12/02/2025 Start: 12-20-2024 End: 12-02-2025 Thyroxine (T4) free [Mass/volume] in Serum or Plasma Thyroxine, Free Lab Routine Status post partial thyroidectomy Expected: 12/20/2024 (Approximate), Expires: 12/02/2025 [facility] Work Phone: Comment on above: Expected: 12/20/2024 (Approximate), Expires: 12/02/2025 Start: 12-02-2024 End: 12-02-2024 Patient encounter procedure 12/02/2024 11:30 AM EST Office Visit [facility] [address] [place] [phone] [place] [address] [address] [facility] [place] [address] [facility] Start: 11-19-2024 End: 11-19-2024 Total thyroid lobectomy uni w/wo isthmusectomy LOBECTOMY, THYROID Thyroid nodule 11/19/2024 10:52 AM EST Virtual [facility] Start: 08-09-2024 End: 08-09-2025 Non-gynecological cytology method study [facility] Service Area Work Phone: Comment on above: Expected: 08/09/2024 (Approximate), Expires: 08/09/2025 Start: 07-29-2024 Screening for malign ant neoplasm of breast Mammogram [facility] Start: 07-04-2024 COVID-19 Vaccine () COVID-19 Vaccine () [facility] Start: 07-04-2024 COVID-19 Vaccine () COVID-19 Vaccine () [facility] Start: 07-04-2024 Influenza vaccination Influenza Vacc ine (#1) [facility] Start: 06-18-2024 End: 06-18-2025 Tsh With Reflex To Free T4 If Abnormal Tsh With Reflex To Free T4 If Abnormal Lab Routine Neck mass Enlarged thyroid Expected: 06/18/2024 (Approximate), Expires: 06/18/2025 [facility] Work Phone: Comment on above: Expected: 06/18/2024 (Approximate), Expires: 06/18/2025 Start: 06-18-2024 End: 07-16-2024 US Thyroid gland US thyroid Imaging Routine Neck mass Enlarged thyroid Expected: 06/18/2024, Expires: 07/16/2024 [facility] Service Area Work Phone: Comment on above: Expected: 06/18/2024 , Expires: 07/16/2024 Start: 07-24-2023 Screening for malign ant neoplasm of cervix [facility] Start: 07-04-2023 COVID-19 Vaccine () COVID-19 Vaccine () [facility] Start: 06-12-2023 Patient discharge [facility] Start: 06-12-2023 Catheterization of vein [facility] Start: 06-12-2023 Elevation of affecte d extremity [facility] Start: 06-12-2023 Following clinical p athway protocol [facility] Start: 06-12-2023 Procedure discontinued [facility] Start: 06-12-2023 Taking patient vital signs [facility] Start: 06-12-2023 Vital signs measurements [facility] Start: 06-12-2023 [facility] Start: 06-12-2023 Medication education [facility] Start: 02-10-2023 Colonoscopy flx dx w /collj spec when pfrmd DIAGNOSTIC COLONOSCOPY [facility] Start: 02-10-2023 Patient discharge [facility] Start: 12-19-2021 NPV, Provider: Julia Dennis, Status: Pen, Time: 8:30 AM NPV, Provider: Julia Dennis, Status: Pen, Time: 8:30 AM [facility] Work Phone: Start: 1998 Screening for malign ant neoplasm of cervix HPV/Cotest [facility] Start: 1996 Hepatitis B Vaccines (1 of 3 - 19+ 3-dose series) Hepatitis B Vaccines (1 of 3 - 19+ 3-dose series) [facility] Start: 1995 Diabetes mellitus screening Diabetes Screening [facility] Start: 1995 Hepatitis C screening Hepatitis C Sc reening [facility] Start: 1978 MMR Vaccines (1 of 1 - Standard series) MMR Vaccines (1 of 1 - Standard series) [facility] Start: 1977 HIV screening HIV Screening [facility] Start: 1977 Lipid panel Lipid Panel [facility] Start: 1977 Screening for malign ant neoplasm of colon [facility] Start: 1977 Thyroid stimulating hormone measurement TSH Level [facility] Start: 1977 Yearly Adult Physical Yearly Adult P hysical [facility] End: 11-19-2024 Blood type and Indirect antibody screen panel - Blood Type And Screen Lab Timed As needed (Lab) until discontinued starting 11/19/2024, 1 completed [facility] Work Phone: Comment on above: As needed (Lab) unti l discontinued starting 11/19/2024, 1 completed End: 11-19-2024 Choriogonadotropin ( test) [Presence] in Urine POCT , urine Point of Care Testing Routine Once (Lab) for 1 Occurrences starting 11/19/2024 until 11/19/2024 [facility] Service Area Work Phone: Comment on above: Once (Lab) for 1 Occ urrences starting 11/19/2024 until 11/19/2024 MG Breast - bilatera l Screening [facility] Patient referral [facility] Work Phone: Surgical pathology study [facility] Work Phone: Comment on above: Release Upon Orderin g for 1 Occurrences starting 11/19/2024, 1 completed Immunizations Immunization Date Immunization Notes Care Provider Fa cili 09-09-2024 influenza, seasonal, injectable, preservative free Dr. Aleksandra Douglas MD Work Phone: [facility] 08-08-2023 influenza, injectabl e, quadrivalent, preservative free Dr. Aleksandra Douglas Work Phone: [facility] 08-08-2023 influenza virus vaccine, unspecified formulation Aleksandra Douglas MD Work Phone: [facility] Work Phone: 08-05-2022 influenza, injectabl e, quadrivalent, preservative free Dr. Aleksandra Douglas Work Phone: [facility] 08-05-2022 influenza, seasonal, injectable Dr. Aleksandra Douglas Work Phone: [facility] 09-14-2021 Moderna COVID-19 Vaccine 100 MCG/0.5ML Intramuscular Suspension Aleksandra Douglas Work Phone: [facility] 08-22-2021 influenza, injectabl e, quadrivalent, preservative free; Translations: [Fluarix Quadrivalent 0.5 ML Intramuscular Suspension Prefilled Syringe] Aleksandra Douglas Work Phone: [facility] Work Phone: Comment on above: Series: 08-08-2021 influenza, injectabl e, quadrivalent, preservative free Dr. Aleksandra Douglas Work Phone: [facility] 08-08-2021 influenza, seasonal, injectable Dr. Aleksandra Douglas Work Phone: [facility] 08-08-2021 influenza, seasonal, injectable, preservative free Aleksandra Douglas Work Phone: [facility] Work Phone: 03-06-2021 diphtheria, tetanus toxoids and acellular pertussis vaccine; Translations: [DTaP] Aleksandra Douglas Work Phone: [facility] Work Phone: Comment on above: Series: 03-06-2021 tetanus toxoid, redu rukhsana diphtheria toxoid, and acellular pertussis vaccine, adsorbed; Translations: [Boostrix 5-2.5-18.5 LF-MCG/0.5 Intramuscular Suspension] Aleksandra Douglas Work Phone: [facility] Comment on above: Series: 12-05-2020 Moderna COVID-19 Vaccine 100 MCG/0.5ML Intramuscular Suspension Aleksandra Douglas Work Phone: [facility] 11-07-2020 Moderna COVID-19 Vaccine 100 MCG/0.5ML Intramuscular Suspension Aleksandra Douglas Work Phone: [facility] 08-09-2020 influenza, injectabl e, quadrivalent, preservative free Dr. Aleksandra Douglas Work Phone: [facility] 08-09-2020 influenza, seasonal, injectable Dr. Aleksandra Douglas Work Phone: [facility] 09-07-2019 influenza, injectabl e, quadrivalent, preservative free; Translations: [Fluarix Quadrivalent 0.5 ML Intramuscular Suspension Prefilled Syringe] Aleksandra Merrill Rosmery Work Phone: [facility] Work Phone: Comment on above: Series: 08-24-2019 influenza, injectabl e, quadrivalent, preservative free Dr. Aleksandra Douglas Work Phone: [facility] 08-24-2019 influenza, seasonal, injectable Dr. Aleksandra Douglas Work Phone: [facility] 09-09-2018 influenza, injectabl e, quadrivalent, preservative free Dr. Aleksandra Douglas Work Phone: [facility] 09-09-2018 influenza, seasonal, injectable Dr. Aleksandra Douglas Work Phone: [facility] 09-03-2018 influenza, injectabl e, quadrivalent, preservative free Aleksandra Douglas Work Phone: [facility] Work Phone: Comment on above: Series: 07-30-2017 influenza, injectabl e, quadrivalent, preservative free Dr. Aleksandra Douglas Work Phone: [facility] 07-30-2017 influenza, seasonal, injectable Dr. Aleksandra Douglas Work Phone: [facility] 08-01-2016 influenza, injectabl e, quadrivalent, preservative free Dr. Aleksandra Douglas Work Phone: [facility] 08-01-2016 influenza, seasonal, injectable Dr. Aleksandra Douglas Work Phone: [facility] 08-03-2015 influenza, injectabl e, quadrivalent, preservative free Dr. Aleksandra Douglas Work Phone: [facility] 08-03-2015 influenza, seasonal, injectable Dr. Aleksandra Douglas Work Phone: [facility] 07-27-2014 influenza, injectabl e, quadrivalent, preservative free Dr. Aleksandra Douglas Work Phone: [facility] 07-27-2014 influenza, seasonal, injectable Dr. Aleksandra Douglas Work Phone: [facility] Payers Date Payer Category Payer Self-pay [id number] 2022 Managed Care (Private) [employer] [id number] 2022 Private Health Insurance [facility] [id number] 2022-Present [address] [place] [address] [id number] 2022 Private Health Insurance [id number] 2022 Private Health Insurance [id number] 2014 Unknown [id number] 2012 Unknown [id number] 2012 Unknown [id number] 1977 Unknown [id number] 1977 Unknown [id number] 1977 Unknown [id number] 1977 Unknown [id number] Unknown ANTHEM Unknown [id number] Unknown [id number] Unknown [id number] 9.2.462 Unknown [id number] 9.2.462 Unknown [id number] 9.2.462 Unknown [id number] 9.2.462 Unknown [id number] 9.2.462 Unknown [id number] 9.2.462 Unknown [id number] 9.2.462 Unknown [id number] 9.2.462 Unknown [id number] 9.2.462 Unknown [id number] 9.2.462 Unknown [id number] 9.2.462 Unknown [id number] 9.2.462 Social History Date Type Detail Facility Start: 06-18-2024 End: 11-19-2024 Does not use illicit drugs Does not use illicit drugs [facility] Work Phone: Comment on above: 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 [facility]; Start: 12-25-2021 End: 12-30-2023 Tobacco smoking status NHIS Unknown if ever smoked [facility] Start: 03-13-2021 Non-smoker [facility] Start: 1975 Sex Assigned At Female [facility] Start: 12-30-2023 End: 06-18-2024 Tobacco smoking status NHIS Never smoked tobacco [facility] History of tobacco use Passive smoker [facility] Work Phone: Start: 06-18-2024 Tobacco use and exposure Smoke less tobacco non-user [facility] Work Phone: Start: 06-18-2024 End: 11-19-2024 Alcohol Use Disorder Identification Test - Consumption [AUDIT-C] [facility] Work Phone: How often to you hav e a drink containing alcohol? Monthly or less [facility] Work Phone: How many standard dr inks containing alcohol do you have on a typical day? 1 or 2 [facility] Work Phone: Frequency of Binge Drinking Not on file [facility] Work Phone: Start: 1975 Sex assigned at Not on file [facility] Work Phone: Start: 06-08-2024 End: 12-02-2024 Exposure to SARS-CoV-2 (event) Not sure [facility] NEGATED: Highlighted row [facility] Medical Equipment Procedure Code Equipment Code [...] 06-12-2023 Cognitive function Level Of Consciousness Sedated [facility] Work Phone: 06-12-2023 Cognitive function Voice/Name [facility] Work Phone: 02-10-2023 Cognitive function Voice/Name [facility] Work Phone: Clinical Notes 02-10-2023 to 12-02-2024 [...] lobectomy for a right sided thyroid nodule Paris class III with atypical genetic testing for [...] Status: She is alert. Surgical Pathology Exam: [id number] Order: [id number] Collected 11/19/2024 12:44 Status: Final result Visible [...] for her to medical endocrinology with Dr. Rodriguez as she [facility]. Ronnell Varela MD 12/02/24 11:39 AM documented in this encounter [facility] Work Phone: 11-19-2024 Note Formatting of this n ote is different from the original. THYROID LOBECTOMY (R) Operative Note Date: 11/19/2024 OR Location: [facility] OR Name: Tejal Ma, : 1975, Age: 49 y.o., , Sex: female Diagnosis Pre-op Diagnosis * Thyroid nodule [E04.1] Post-op Diagnosis * Thyroid nodule [E04.1] Procedures THYROID LOBECTOMY 22835 - MD TOTAL THYROID LOBECTOMY UNI W/WO ISTHMUSECTOMY Surgeons * Ronnell Varela - Primary Resident/Fellow/Other Basketball Assembler: Surgeons and Role: * Madelin Lugo MD - Resident - Assisting Staff: Fabrication Mig Welder: Rl Scrub Person: Lobar Relief Fabrication Mig Welder: Leonor Relief Scrub: Fredi Anesthesia Staff: Anesthesiologist: Porfirio You DO SCALE RECLAMATION TENDER: Lc Lockwood APRN-SCALE RECLAMATION TENDER SRNA: Siena Manzanares RN Procedure Summary Anesthesia: [...] TI-RADS 3. Biopsy of this came back Paris class III. This was sent for additional [...] present for the entire procedure. Ronnell Varela [facility] Work Phone: 11-19-2024 Miscellaneous Notes THYROID LOBECTOMY (R) Operative Note Date: 11/19/2024 OR Location: [facility] OR Name: Tejal Ma, : 1975, Age: 49 y.o., , Sex: female Diagnosis Pre-op Diagnosis * Thyroid nodule [E04.1] Post-op Diagnosis * Thyroid nodule [E04.1] Procedures THYROID LOBECTOMY 48400 - MD TOTAL THYROID LOBECTOMY UNI W/WO ISTHMUSECTOMY Surgeons * Ronnell Varela - Primary Resident/Fellow/Other Basketball Assembler: Surgeons and Role: * Madelin Lugo MD - Resident - Assisting Staff: Fabrication Mig Welder: Rl Vides Person: Lobar Relief Fabrication Mig Welder: Leonor Ram Scrub: Fredi Anesthesia Staff: Anesthesiologist: Porfirio You DO SCALE RECLAMATION TENDER: Lc Lockwood APRN-SCALE RECLAMATION TENDER SRNA: Siena Manzanares RN Procedure Summary Anesthesia: [...] TI-RADS 3. Biopsy of this came back Paris class III. This was sent for additional [...] procedure. Ronnell Varela documented in this encounter [facility] Work Phone: 11-19-2024 History and physical note [...] Lugo MD General Surgery PGY3 Surgical Oncology [id number] Cosigned by Ronnell Varela MD at 11/19/2024 11:12 AM EST [facility] Work Phone: 11-19-2024 History and physical note [...] Lugo MD General Surgery PGY3 Surgical Oncology [id number] Cosigned by Ronnell Varela MD at 11/19/2024 11:12 AM EST documented in this encounter [facility] Work Phone: 08-09-2024 History of Present illness [...] with her voice. 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 She may have had some incidental radiation [...] by: Ronnell Varela MD Authorized by: Ronnell Vraela MD Consent: Consent obtained: Verbal Consent given by: Patient Risks, benefits, and alternatives were discussed: yes Risks discussed: Bleeding and pain Alternatives discussed: No treatment and observation [place] protocol: Procedure explained and questions answered to [...] 08/09/24 9:59 AM documented in this encounter [facility] Work Phone: 06-18-2024 Evaluation + Plan note Associated Problem(s): Enlarged thyroid Orders: US thyroid; Future Tsh With Reflex To Free T4 If Abnormal; Future [facility] Work Phone: 06-18-2024 History of Present illness [...] flaring BP Readings from Last 3 Encounters: 06/18/24 123/84 12/19/21 116/78 10/22/21 115/76 Wt Readings [...] Pt requests both tests be done at [employer] as she works there- wants ordered printed documented in this encounter [facility] Work Phone: 06-18-2024 Miscellaneous Notes Associated Problem(s): Enlarged thyroid Orders: US thyroid; Future Tsh With Reflex To Free T4 If Abnormal; Future documented in this encounter [facility] Work Phone: 06-12-2023 Procedure note [facility] 02-10-2023 Procedure note [facility] 02-10-2023 Procedure note [facility] Chief complaint+Reason for visit Narrative Reason for Visit Constipation Bilateral hand swelling Left arm numbness Left arm pain [facility] Work Phone: Chief complaint+Reason for visit Narrative* Chief Complaint SCREENING COVID-19 [facility] Work Phone: Chigy complaint+Reason for visit Narrative* Chief Complaint SCREENING COVID-19 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 Low back Reason for Visit Family history of co olayinka cancer Family history of ovarian cancer Encounter for routine gynecological examination Piriformis muscle pain Sacroiliac joint dysfunction [facility] Work Phone: Discharge summary Author Frankie Zuniga [facility] June 12, 2023 11:42am Note Date/Time June 12, 2023 11 :42am [facility] Medical Records Department [address] [place] [address] Instructions for Home/Discharge Instructions 06/12/23 1142 MR#: [id number] Acct: [id number] Name: TEJAL MA Rep #:[id number] : 1975 47 From: Frankie juárez DO PCP: Dr. Aleksandra Douglas MD Status:REG [facility] Discharge Instructions Follow Up Care Test Results: [...] PO DAILY Referrals / Follow Up: Frankie Zuniga DO [Med Staff - Active Staff] - Aleksandra Douglas MD [Primary Care Provider] - Disposition Disposition (needs filled in before D/C Order can be placed): Home, Self Care 06/12/23 1142<Electronically signed by Frankie Zuniga DO>Frankie Zuniga DO CC: Dr. Aleksandra Douglas MD ~ Signed [facility] Work Phone: Evaluation note* Diagnosis Onset Date Resolution Status Constipation acute Bilateral hand swelling acut e Left arm numbness acute Left arm pain acute [facility] Work Phone: Evaluation noteNo assessment information available [facility] Work Phone: Evaluation note* Diagnosis Onset Date Resolution Status Family history of colon cancer acute Family history of ovarian cancer acute Encounter for routine gynecological examination noneactive Piriformis muscle pain acute Sacroiliac joint dysfunction acute [facility] Work Phone: Evaluation note* Diagnosis Onset Date Resolution Status HNP (herniated nucleus pulposus), cervical acute Back pain noneactive [facility] Work Phone: Evaluation note* Diagnosis Onset Date Resolution Status HNP (herniated nucleus pulposus), cervical acute Back pain noneactive Encounter for screening for malignant neoplasm of colon acute [facility] Work Phone: Evaluation note* Diagnosis Onset Date Resolution Status Decreased libido acute [facility] Work Phone: Evaluation note* Diagnosis Neck mass- Primary Swelling, mass, or lump in head and neck Enlarged thyroid Goiter, unspecified Thyroid nodule- Primary Nontoxic uninodular goiter documented in this encounter [facility] Work Phone: Evaluation note* Diagnosis Neck mass- Primary Swelling, mass, or lump in head and neck Enlarged thyroid Goiter, unspecified documented in this encounter [facility] Work Phone: Evaluation note* Diagnosis Neck mass- Primary Swelling, mass, or lump in head and neck Enlarged thyroid Goiter, unspecified Thyroid nodule- Primary Nontoxic uninodular goiter Thyroid nodule Nontoxic uninodular goiter Obesity Obesity, unspecified documented in this encounter [facility] Work Phone: Evaluation note* Diagnosis Neck mass- Primary Swelling, mass, or lump in head and neck Enlarged thyroid Goiter, unspecified Status post partial thyroidectomy Other postprocedural status documented in this encounter [facility] Work Phone: Evaluation note* Diagnosis Onset Date Resolution Status Admit Date Family history of ovarian cancer acute July 18, 2025 9:18am 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 Aleksandra Douglas MD Status:[facility] Location: [place] [address] HPI - General General Date of Admission: [...] Overall she is in very good health. [facility] Medical History (Updated 02/04/23 @ 15:23 by [...] at home: Yes additional social history: [employer] for [employer] Does Not Take Aspirin [...] Aleksandra Douglas MD; Jesus Leone DO~ Signed [facility] Work Phone: History of Present [...] hip sxs * pt wants referral to [employer] * MGM had arthritis - most likely [...] better or worse?- * Ex OTC meds [facility] Work Phone: History of Present illness Narrative* HPI Elements: * LOCATION- * QUALITY-DESCRIPTION OF PAIN/SXS- joint pain, saw ortho, needs referrel * am- bilateral hands - stiff, achey * saw ortho- 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- scheduled CT surgery - but postponed due to new sxs developing * now having bilateral feet sxs and right hip sxs * pt wants referral to [employer] * MGM had arthritis - most likely [...] better or worse?- * Ex OTC meds [facility] Work Phone: Hospital Discharge instructions Additional Instructions Follow preprinted instructions from surgeons office.[facility] Work Phone: Reason for referral (narrative)[facility] for [facility]: Reason for visit Narrative* Consultation (Routine) - Authorized Specialty Diagnoses / Procedures Referred By Lakeisha simpson Referred To Contact General Surgery Diagnoses Thyroid nodule Aleksandra Douglas MD [address] [facility], [address] [place] [id number] Referral ID Status Reason Start Date Expiration Date Visits Requested Visits Authorized [id number] Authorized Specialty Services Required 07/01/2024 07/01/2025 1 1 [facility] Work Phone: Reason for visit Narrative* Auth/Cert Specialty Diagnoses / Procedures Referred By Lakeisha simpson Referred To Contact Diagnoses Thyroid nodule Thyroid nodule [E04.1] Procedures MD TOTAL THYROID LOBECTOMY UNI W/WO ISTHMUSECTOMY LOBECTOMY, [place] [address] [address] [place] [address] Phone: tel: fax: [facility] Vamshi ENNIS [address] [address] [place] [address] fax: Referral ID Status Reason Start Date Expiration Date Visits Re quested Visits Authorized [id number] 1 1 [facility] Work Phone: Summary Purpose Family History No [...] Will No October 12 12:46pm Power of Canvas Baster [employer] No October 12, 2021 12:46pm Advance Directive Response Recorded Date/ Time Living Will No October 12 11:46am Power of Canvas [employer] No October 12, 2021 11:46am Advance Directive Response Recorded Date/ Time Living Will No February 04, 2023 3:04pm Power of Canvas [employer] No February 04 3:04pm Advance Directive Response Recorded Date/ Time Name of Medical Power of Canvas Baster [employer] June 10, 2023 2:48pm Living Will Yes June 10, 2023 2:48pm Power of Canvas Baster [employer] Yes June 10 2:48pm Advance Directive Response Recorded Date/ Time Living Will Yes June 10, 2023 1:48pm Power of Canvas Baster [employer] Yes June 10 1:48pm Advance Directive Response Recorded Date/ Time Living Will Yes June 10, 2023 2:48pm Power of Canvas Baster [employer] Yes June 10 2:48pm Date Activated Date [...] numbness Left arm pain Chief 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 Reason for Visit [...] level monitoring Reason for Visit Decreased libido Chief Complaint Admit Date EMPLOYEE LABS July 05, 2025 7:38am Chief Complaint Admit Date EMPLOYEE LABS July 05, 2025 7:38am 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 18, 2025 9: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 Reason for Visit Admit Date Family history of ovarian cancer Sept2024 9:18am 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 July 18, 2 025 9:18am Encounter for routine gynecological exam ination July 18, 2025 9:18am Reason for Referral Specialty Diagnoses / Procedures Referred By Lakeisha simpson Referred To Contact Radiology Diagnoses Neck mass Enlarged thyroid Procedures US thyroid Aleksandra Douglas MD [address] [facility] [place] [address] Referral ID Status Reason Start Date Expiration Date Visits Requested Visits Authorized [id number] Authorized Perform Procedure 06/18/2024 06/18/2025 1 1 Additional Source Comments INFORMATION SOURCE (unrecogn ized section and content) DATE CREATED AUTHOR 06/29/2021 [employer] ([place]) DATE CREATED AUTHOR AUTHOR'S ORGANIZ ATION 12/20/2021 [employer] DATE CREATED AUTHOR AUTHOR'S ORGANIZ ATION 11/16/2024 [facility] DATE CREATED AUTHOR AUTHOR'S ORGANIZ ATION 12/04/2024 [facility] DATE CREATED AUTHOR AUTHOR'S ORGANIZ ATION 09/05/2025 [facility] Goals (unrecognized section and content) Goals [...] PA Attending Provider, Referring Pro vider Active Sponsorship Manager Relationship Specialty Start Date End Date Aleksandra Douglas MD [address] [facility], [address] [place] [address] PCP - General 10/06/19 Jesus Leone DO [address] [facility] [place] [address] Referring Physician Gastroenterology 02/10/23 Sponsorship Manager Relationship Specialty Start Date End Date Aleksandra Douglas MD [address] [facility], [address] [place], [place] [id number] PCP - General 10/06/19 Jesus Leone DO [address] [facility], [address] [place] [address] Referring Physician Gastroenterology 02/10/23 Sponsorship Manager Relationship Specialty Start Date End Date Aleksandra Douglas MD [address] [facility] [place] [address] PCP - General 10/06/19 Jesus Leone DO [address] [facility] [place] [address] Referring Physician Gastroenterology 02/10/23 Team Status: Active Member Role Status Dates Dr. Aleksandra Douglas MD Primary Care Provider Active Team Status: Inactive Member Role Status Dates Dr. Aleksandra Douglas MD Primary Care Provider Active Start: December 21, 2024 End: December 21, 2024 Felicitas Camacho PA, PA Attending Provider Active S tart: December 21, 2024 End: December 21, 2024 Felicitas RUVALCABA, PA Referring Provider Active S tart: December 21, 2024 End: December 21, 2024 Dr. Ronnell Fisher MD Other Provider Active St art: December 21, 2024 End: December 21, 2024 Team Status: Inactive Member Role Status Dates Dr. Aleksandra Douglas MD Primary Care Provider Active Start: March 23, 2025 End: March 23, 2025 Felicitas Camacho PA, PA Attending Provider Active S tart: March 23, 2025 End: March 23, 2025 Felicitas RUVALCABA, PA Referring Provider Active S tart: March 23, 2025 End: March 23, 2025 Team Status: Active Member Role/Relationship Status Dates Dr. Aleksandra Douglas MD Primary Care Provider Active Team Status: Inactive Member Role/Relationship Status Dates Dr. Aleksandra Douglas MD Primary Care Provider Active Start: March 23, 2025 End: March 23, 2025 Felicitas RUVALCABA, PA Attending Provider Active S tart: March 23, 2025 End: March 23, 2025 Felicitas Camacho PA, PA Referring Provider Active S tart: March 23, 2025 End: March 23, 2025 Team Status: Inactive Member Role/Relationship Status Dates Dr. Aleksandra Douglas MD Primary Care Provider Active Start: July 05, 2025 End: July 05, 2025 MICHAEL SANCHES Attending Provider Active Start: S farhanateantwan 2024 End: July 05, 2025 MICHAEL SANCHES Referring Provider Active Start: S eptembantwan 2024 End: July 05, 2025 Team Status: Active Member Role/Relationship Status Dates Dr. Aleksandra Douglas MD Primary Care Provider Active Start: July 05, 2025 Health Risk Assessment Attending Provider Active Start: July 05, 2025 Health Risk Assessment Referring Provider Active Start: July 05, 2025 Team Status: Inactive Member Role/Relationship Status Dates Dr. Aleksandra Douglas MD Primary Care Provider Active Start: March 23, 2025 End: March 23, 2025 PEG Valero Attending Provider Active S tart: March 23, 2025 End: March 23, 2025 PEG Valero Referring Provider Active S tart: March 23, 2025 End: March 23, 2025 Team Status: Inactive Member Role/Relationship Status Dates Dr. Aleksandra Douglas MD Primary Care Provider Active Start: July 05, 2025 End: July 05, 2025 MICHAEL SANCHES Attending Provider Active Start: S epteantwan 2024 End: July 05, 2025 MICHAEL SANCHES Referring Provider Active Start: S farhanateantwan 2024 End: July 05, 2025 Team Status: Active Member Role/Relationship Status Dates Dr. Aleksandra Douglas MD Primary Care Provider Active Start: July 05, 2025 Health Risk Assessment Attending Provider Active Start: July 05, 2025 Health Risk Assessment Referring Provider Active Start: July 05, 2025 Team Status: Inactive Member Role/Relationship Status Dates Dr. Aleksandra Douglas MD Referring Provider Active Sta rt: July 18, 2025 End: July 18, 2025 Lisa Fritz SMOKING PIPE COATER, SMOKING PIPE COATER-C Attending Provider Active Start: July 18, 2025 End: July 18, 2025 Reason for Visit (unrecogniz ed section [...] BE BASED ON THE PRIMARY CLINICAL RECORDS. [employer] provides no warranty or guarantee of the accuracy or completeness of information in this document.
[2025-10-25 07:42] LABS: Color, Urine Yellow (Yellow); Glucose, Dipstick Normal (Normal); Ketone-Dipstick 5 mg/dl (Negative); Leukocyte Esterase-Dipstick 25 /ul (Negative); Nitrite-Dipstick Negative (Negative); Occult Blood-Urine Negative /ul (Negative); Protein-Dipstick 15 mg/dl (Negative); Specific Gravity, Urine 1.010 (1.002-1.030); Urine Bilirubin Dipstick Negative (Negative)
[2025-10-25 07:47] LABS: Hematocrit 32.1 % (37-47); Hemoglobin 11.5 g/dL (12.0-15.0); Mean Corp Hgb Conc 35.8 g/dL (32-36); Mean Corpuscular Volume 84.5 fL (81-99); Mean Platelet Vol. 10.7 fl (6.2-12.0); Platelet Count 203 K/mm3 (150-450); RBC Distribution Width CV 13.1 % (11.6-14.6); RBC Distribution Width SD 40.1 fl (35.1-43.9); Red Blood Count 3.80 M/mm3 (4.2-5.4); White Blood Count 4.2 K/mm3 (4.4-11.0)
[2025-10-25 08:17] LABS: AST(SGOT) 16 U/L (<=31); Alanine Aminotransfer ALT/SGPT 18 U/L (<=34); Albumin, Serum 4.1 g/dL (3.5-5.0); Alkaline Phosphatase 33 U/L (35-104); Anion Gap 10 (7-18); BUN 12 mg/dL (4-19); BUN/Creat Ratio 17.4 RATIO (10-20); Calcium,Total 9.2 mg/dL (7.6-11.0); Carbon Dioxide 21.7 mmol/L (20.0-29.0); Chloride 110 mmol/L (96-106); Globulin 2.1 g/dL (2.2-4.2); Glucose 93 mg/dL (70-99); Potassium 4.1 mmol/L (3.5-5.1)
[2025-10-25 08:49] LABS: Lithium 0.56 mmol/L (0.60-1.20)
== END | disposition home or self-care (01) ==
PROVIDERS: PCP Family Medicine; Referring Provider Physician Assistant; Visit Provider Physician Assistant
DX: Z79.899 Other long term (current) drug therapy (principal)
CPT/HCPCS: 36415; 80053; 80178; 81002; 85027